=== PATIENT | female | born 1985 | race Caucasian/White ===

== ENCOUNTER 2021-10-26 18:07 | Emergency (ER) | payer MEDICAID, SELFPAY ==
[2021-10-26 18:24] VITALS: BP 153/100; PULSE 89; RESP 18; TEMP 37.1; O2SAT 96; BMI 40.4
--- NOTE | 2021-10-26 18:59 | ED.WEAKNESS ---
HPI - Weakness General Time Seen by Provider: 18:45 Date Seen: 10/26/21 Chief complaint: Weakness Stated complaint: Possible Heat Exhaustion Time Seen by Provider: 10/26/21 18:47 Source: patient and RN notes reviewed Mode of arrival: ambulatory Limitations: no limitations History of Present Illness HPI Narrative: Melissa is a very pleasant 36-year-old female with a history of ankylosing spondylitis as well as medication induced lupus who comes to the emergency room stating ?I think I have heat exhaustion?. Patient notes the onset of a headache feeling weak and feeling very hot this evening. She states yesterday she was out for an extended period of time and got sunburn and then today had to be out doing errands in the heat as well as cooking on the grill. She notes that earlier today she also had some stomach cramping but no diarrhea or fever that she knows of. She denies a runny nose sore throat for any recent exposures to COVID strep per other illness. She does not think that her headache is better. Brother gave her some Gatorade 0 but it has not helped. She notes that she is very tired. Related Data Home Medications Medication Instructions Recorded Confirmed amlodipine 5 mg tablet mg 10/26/21 clonazepam 0.5 mg tablet mg 10/26/21 duloxetine 30 mg capsule,delayed mg PO 10/26/21 release trazodone 50 mg tablet mg 10/26/21 Allergies Allergy/AdvReac Type Severity Reaction Status Date / Time caffeine [From Cafergot] Allergy Severe Anaphylaxis Verified 10/26/21 19:24 ergotamine [From Cafergot] Allergy Severe Anaphylaxis Verified 10/26/21 19:24 ketorolac [From Toradol] Allergy Mild Headache Verified 10/26/21 19:24 lamotrigine [From Lamictal] Allergy rash Verified 10/26/21 19:24 Penicillins Allergy Anaphylaxis Verified 10/26/21 19:24 sumatriptan Allergy Anaphylaxis Verified 10/26/21 19:24 Review of Systems Status of ROS: Reports: 10 or more systems reviewed and unremarkable except as noted in History and below Const: Reports: fatigue; Denies: fever Eyes: Denies: change in vision ENMT: Denies: throat pain or difficulty swallowing Cardio: Denies: chest pain, palpitations, swelling of feet/ankles or shortness of breath with exertion Resp: Denies: shortness of breath or cough GI: Reports: abdominal pain (Described as cramping. Intermittent.); Denies: difficulty swallowing : Denies: painful urination or urinary frequency Musculo: Denies: back pain Integ/Breast: Reports: other (Sunburn) Neuro: Reports: headache; Denies: numbness in extremities or weakness in extremities Endo: Reports: fatigue; Denies: excessive urination PFSH PFSH Social History Smoking Status: Current every day smoker What tobacco products do you use: cigarettes Do you use any of these nicotine containing products: None Second hand tobacco smoke exposure: No How often do you have a drink containing alcohol: never AUDIT-C Alcohol total score: 0 Non-prescribed substance use: denies use service: No Exam Narrative: Exam Narrative: Past medical history: Ankylosing spondylitis Medication induced lupus Family history: Mother with congestive heart failure Father with diabetes and hypertension Social history: Patient does use cigarettes. She is advised to abstain. No alcohol use No drug use Const: Vital Signs, click to edit/add: Vital Signs - 24 hr 10/26/21 18:24 Temperature 98.8 F Pulse Rate [Left P ulse Oximeter] 89 Respiratory Rate 18 Blood Pressure [Le ft Upper Arm] 153/100 H Pulse Oximetry 96 Documenting provider has reviewed patient's vital signs: yes Common normals: no apparent distress, oriented x3 and no limitations General appearance: cooperative Nutritional appearance: overweight Other: Seems very fatigued but she is nontoxic in appearance. HENMT: Common normals: normocephalic, head/scalp atraumatic and external ears normal Head and scalp: normocephalic and atraumatic Face and sinus: normal facial exam External ear: external ears normal Mouth: oral and palatal mucosa normal and tongue normal Throat: posterior oropharynx normal Eye: Common normals: PERRL and conjunctivae normal General eye: normal appearance of both eyes Conjunctiva: conjunctiva(e) normal Pupil: PERRL Neck & C-Spine: Common normals: full ROM, no lymphadenopathy and supple Cervical spine: cervical ROM normal Lymph: Lymphatic: no lymphadenopathy noted Resp: Common normals: normal respiratory effort and clear to auscultation bilaterally Effort & inspection: able to speak in complete sentences Auscultation: clear to auscultation bilaterally Cardio: Common normals: regular rate and regular rhythm Rate: regular rate Rhythm: regular rhythm GI: Common normals: soft to palpation Palpation: soft and tender (Mild and rather diffuse. No rebound tenderness. ) Details: not RLQ, not RUQ and not McBurney's point Rectal Exam - Female: deferred Extremity: Common normals: normal to inspection Neuro: Ally Coma Scale: document GCS findings Ally coma scale eye opening: Spontaneous (4) Ally coma scale verbal response: Orientated (5) [place] coma scale motor response: Obey commands (6) [place] coma scale total score: 15 Common normals: oriented x3 Speech: speech normal Pupil exam: Normal pupillary reactivity/response: bilateral Psych: Common normals: mental status grossly normal Skin: Narrative: 1st degree sunburn noted on face upper chest shoulders and lower extremities. No evidence of blistering. Course Course Hospital Course: At this time patient presents to the ED complaining of post possible heat exhaustion. Her temperature is normal and she is not tachycardic. I am wondering if there is an alternative reason for her feeling this way. She has agreed to have blood drawn, IV fluids given along with Zofran for nausea. CBC, basic panel, urinalysis, COVID test are all currently pending. Reevaluation(s) Reevaluation #1: Patient is noted to be feeling much improved after 1 L of normal saline as well as Zofran 4 mg IV. Laboratory values reassuring at this time with a normal white count. Potassium is slightly low at 3.3. Urinalysis also shows hematuria. No significant evidence of white cells. Patient has no symptoms at this time. She tells me that since she had the Mirena put in she occasionally has spotting. Time: 20:50 Vital Signs Vital signs: Initial Vital Signs Temperature 98.8 F 10/26/21 18:24 Temperature Source Temporal Artery Scan 10/26/21 18:24 Pulse Rate 89 10/26/21 18:24 Respiratory Rate 18 10/26/21 18:24 Blood Pressure 153/100 H 10/26/21 18:24 Blood Pressure Mean 117 10/26/21 18:24 Blood Pressure Position Sitting 10/26/21 18:24 Pulse Oximetry 96 10/26/21 18:24 Oxygen Delivery Method 10/26/21 18:24 Vital Signs Temperature 98.8 F 10/26/21 18:24 Pulse Rate 89 10/26/21 18:24 Respiratory Rate 18 10/26/21 18:24 Blood Pressure 153/100 H 10/26/21 18:24 Pulse Oximetry 96 10/26/21 18:24 Temperature 98.8 F 10/26/21 18:24 Pulse Rate 89 10/26/21 18:24 Respiratory Rate 18 10/26/21 18:24 Blood Pressure 153/100 H 10/26/21 18:24 Pulse Oximetry 96 10/26/21 18:24 MDM - Weakness MDM Narrative Medical decision making narrative: 1. Dehydration-patient feeling much better. I do not think she had heat exhaustion but I do think she had heat related symptoms. She is advised to push fluids and rest. 2. Mild hypokalemia-patient has a potassium of 3.3. Would ask her to increase her potato or banana intake. 3. Asymptomatic hematuria-patient notes occasional spotting so from her more Rhonda. She is a smoker and therefore I do ask her to follow up with her primary MD for a repeat urinalysis to ensure complete resolution of hematuria. 4. Disposition-patient is discharged home. Medical Records Attestation: I reviewed the patient's medical records. Lab Data Attestation: I reviewed the patient's lab results. Labs: Lab Results 10/26/21 10/26/21 10/26/21 Range/Units 19:14 19:15 19:18 WBC 8.82 (4.50-11.00) K/uL RBC 4.70 (4.00-5.20) m/uL Hgb 13.9 (12.0-16.0) gm/dL Hct 40.8 (33.0-51.0) % MCV 87 (80-100) fL MCH 30 (26-34) pg MCHC 34 (32-36) gm/dL RDW Coeff of Compa 12.6 (11.5-15.5) % Plt Count 209 (140-440) K/uL Neut % (Auto) 44.9 (42.0-72.0) % Lymph % (Auto) 45.9 H (20-44) % [place] % (Auto) 6.8 (0.0-11.0) % Eos % (Auto) 1.6 (0.0-7.0) % Baso % (Auto) 0.7 (0.0-3.0) % Neut # (Auto) 3.96 (1.7-7.0) K/uL Lymph # (Auto) 4.00 H (0.90-2.90) K/uL [place] # (Auto) 0.60 (0.00-0.90) K/UL Eos # (Auto) 0.14 (0.00-0.50) K/uL Baso # (Auto) 0.06 (0.00-0.30) K/uL Abs Immat Gran (auto) 0.01 (0.00-0.30) K/uL Sodium (135-149) mmol/L Potassium (3.6-5.1) mmol/L Chloride (96-114) mmol/L Carbon Dioxide (20-32) mmol/L BUN (5-24) mg/dL Creatinine (0.5-1.5) mg/dL Estimated Creat Clear Estimated GFR ml/min Glucose (60-115) mg/dL Calcium (8.4-10.6) mg/dL Urine Color Yellow (Yellow) Urine Appearance Slightly Cloudy A (Clear) Urine pH 6.0 (5.0-8.5) Ur Specific [place] >= 1.030 (1.000-1.030) Urine Protein 1+ A (Negative) Urine Glucose (UA) Negative (Negative) Urine Ketones 1+ A (Negative) Urine Blood 3+ A (Negative) Urine Nitrite Negative (Negative) Urine Bilirubin 1+ A (Negative) Urine Urobilinogen 1.0 (0.2-1.0) Ur Leukocyte Esterase Negative (Negative) Urine RBC 50-100 A (0-2) Urine WBC 2-5 (0-5) Ur Squamous Epith Cells None (None-Few) Urine Bacteria None (None) SARS-CoV-2 (PCR) Negative SARS-CoV-2 (Negative) Influenza Type A (PCR) Negative PCR FLU A (Negative) Influenza Type B (PCR) Negative PCR FLU B (Negative) 10/26/21 Range/Units 19:20 WBC (4.50-11.00) K/uL RBC (4.00-5.20) m/uL Hgb (12.0-16.0) gm/dL Hct (33.0-51.0) % MCV (80-100) fL MCH (26-34) pg MCHC (32-36) gm/dL RDW Coeff of Compa (11.5-15.5) % Plt Count (140-440) K/uL Neut % (Auto) (42.0-72.0) % Lymph % (Auto) (20-44) % [place] % (Auto) (0.0-11.0) % Eos % (Auto) (0.0-7.0) % Baso % (Auto) (0.0-3.0) % Neut # (Auto) (1.7-7.0) K/uL Lymph # (Auto) (0.90-2.90) K/uL [place] # (Auto) (0.00-0.90) K/UL Eos # (Auto) (0.00-0.50) K/uL Baso # (Auto) (0.00-0.30) K/uL Abs Immat Gran (auto) (0.00-0.30) K/uL Sodium 140 (135-149) mmol/L Potassium 3.3 L (3.6-5.1) mmol/L Chloride 110 (96-114) mmol/L Carbon Dioxide 23 (20-32) mmol/L BUN 10 (5-24) mg/dL Creatinine 1.3 (0.5-1.5) mg/dL Estimated Creat Clear 57.08 Estimated GFR 55 ml/min Glucose 90 (60-115) mg/dL Calcium 8.8 (8.4-10.6) mg/dL Urine Color (Yellow) Urine Appearance (Clear) Urine pH (5.0-8.5) Ur Specific [place] (1.000-1.030) Urine Protein (Negative) Urine Glucose (UA) (Negative) Urine Ketones (Negative) Urine Blood (Negative) Urine Nitrite (Negative) Urine Bilirubin (Negative) Urine Urobilinogen (0.2-1.0) Ur Leukocyte Esterase (Negative) Urine RBC (0-2) Urine WBC (0-5) Ur Squamous Epith Cells (None-Few) Urine Bacteria (None) SARS-CoV-2 (PCR) (Negative) Influenza Type A (PCR) (Negative) Influenza Type B (PCR) (Negative) Discharge Plan Discharge Clinical Impression: Asymptomatic microscopic hematuria, Dehydration Patient Disposition: Home, Self-Care Condition: Improved Additional Instructions: Stay well hydrated and rest. Please follow-up with your primary MD to have a repeat urinalysis to ensure that there is resolution of the red blood cells in your urine. Return to the emergency room as needed. Prescriptions: No Action trazodone 50 mg tablet 0RF clonazepam 0.5 mg tablet 0RF amlodipine 5 mg tablet 0RF duloxetine 30 mg capsule,delayed release(DR/EC) PO 0RF Follow Up/Referrals: Vero Alvarez MD [Primary Care Provider] - Stand Alone Forms: [facility] [employer] Info Instructions
[2021-10-26] MEDS: 0.9 % SODIUM CHLORIDE 1000 ml 1,000 ML IV (19:24)
[2021-10-26] MEDS: ONDANSETRON 2 MG/ML inj 4 MG IVP (19:25)
[2021-10-26 19:35] LABS: Basophils Absolute Auto 0.06 K/uL (0.00-0.30); Basophils Percent Auto 0.7 % (0.0-3.0); Eosinophils Absolute Auto 0.14 K/uL (0.00-0.50); Eosinophils Percent Auto 1.6 % (0.0-7.0); Hematocrit 40.8 % (33.0-51.0); Hemoglobin* 13.9 gm/dL (12.0-16.0); Immature Granulocytes Abs Auto 0.01 K/uL (0.00-0.30); Lymphocytes Percent Auto 45.9 % (20-44); Mean Corpuscular HGB Conc 34 gm/dL (32-36); Mean Corpuscular Hemoglobin 30 pg (26-34); Mean Corpuscular Volume 87 fL (80-100); Monocytes Percent Auto 6.8 % (0.0-11.0); Neutrophils Absolute Auto 3.96 K/uL (1.7-7.0); Neutrophils Percent Auto 44.9 % (42.0-72.0); Platelet Count* 209 K/uL (140-440); RDW Coefficient of Variation % 12.6 % (11.5-15.5); White Blood Count* 8.82 K/uL (4.50-11.00)
[2021-10-26 19:40] LABS: Slide Review Reflex No
[2021-10-26 19:44] LABS: Appearance Urine Slightly Cloudy (Clear); Bilirubin Urine 1+ (Negative); Blood Urine 3+ (Negative); Color Urine Yellow (Yellow); Glucose Urine Negative (Negative); Ketones Urine 1+ (Negative); Leukocyte Esterase Urine Negative (Negative); Nitrite Urine Negative (Negative); Protein Urine 1+ (Negative); Specific Gravity Urine >= 1.030 (1.000-1.030)
[2021-10-26 19:51] LABS: Chloride* 110 mmol/L (96-114); Potassium* 3.3 mmol/L (3.6-5.1); Sodium* 140 mmol/L (135-149)
[2021-10-26 19:55] LABS: Blood Urea Nitrogen* 10 mg/dL (5-24); Calcium* 8.8 mg/dL (8.4-10.6); Carbon Dioxide* 23 mmol/L (20-32); Creatinine* 1.3 mg/dL (0.5-1.5); Est. Creatinine Clearance* 57.08; Estimated Glomerular Filt Rate 55 ml/min; Glucose* 90 mg/dL (60-115)
[2021-10-26 20:06] LABS: RBC Urine 50-100 (0-2)
[2021-10-26 20:14] LABS: PCR FLU A Negative PCR FLU A (Negative); PCR FLU B Negative PCR FLU B (Negative)
[2021-10-26 20:18] LABS: SARS PCR* Negative SARS-CoV-2 (Negative)
[2021-10-26 20:52] VITALS: BP 147/96; PULSE 79; RESP 16; O2SAT 96
== END 2021-10-26 20:58 | disposition home or self-care (01) ==
LOC: ED 20:56
PROVIDERS: Emergency Provider Family Medicine; PCP Family Medicine
DX: R31.9 Hematuria, unspecified (principal); E86.0 Dehydration
CPT/HCPCS: 36415; 80048; 81003; 81015; 85025; 87502; 87635; 96374; 99283; J2405; J7030

== ENCOUNTER 2021-11-05 18:04 | Outpatient (CLI) | payer MEDICAID, SELFPAY | END 2021-11-05 18:05 | disposition home or self-care (01) | LOC: AMB 11-26 14:37 | PROVIDERS: PCP Family Medicine; Visit Provider Emergency Medicine | DX: R10.9 Unspecified abdominal pain (principal) | CPT/HCPCS: A0425; A0427 ==

== ENCOUNTER 2021-11-05 18:25 | Emergency (ER) | payer MEDICAID, SELFPAY ==
[2021-11-05 18:36] VITALS: BP 185/96; PULSE 68; RESP 18; TEMP 36.3; O2SAT 94; BMI 411.6
--- NOTE | 2021-11-05 19:17 | CRLHL7_ITS ---
For Patients: As a result of the Century Cures Act, medical imaging exams and procedure reports are released immediately into your electronic medical record. You may view this report before your referring provider. If you have questions, please contact your health care provider. INDICATION: Right upper abdominal pain. TECHNIQUE: CT abdomen and pelvis with intravenous contrast, 125 mL of Isovue-370. Coronal and sagittal formats. COMPARISON: CT 11/03/2021. FINDINGS: The imaged lower chest is unremarkable. Normal liver contour. Diffuse hepatic steatosis. No suspicious hepatic lesion. The portal and hepatic veins are patent. Gallbladder surgically absent. Redemonstrated are multiple small gallstones along the gallbladder fossa (series 2, images 42-49). No biliary dilatation. The pancreas, spleen, and adrenals are unremarkable. Symmetric renal enhancement. Small renal cortical cysts bilaterally, left greater than right. No hydronephrosis bilaterally. Unremarkable bladder. Neutrally oriented uterus with IUD in place. Trace free fluid in the pelvic cul-de-sac as well as a couple of tiny rounded calcifications (series 2, images 126-128), suspicious for ectopic gallstones. The bowel appears normal in caliber and enhancement diffusely. No pneumoperitoneum, focal collection, or lymphadenopathy. The abdominal aorta and major branch vessels are patent and normal caliber. No suspicious osseous lesion. IMPRESSION: 1. No acute findings or CT correlate for right upper quadrant pain definitively identified. 2. Redemonstrated postsurgical changes of cholecystectomy. Multiple small gallstones are redemonstrated along the gallbladder fossa, as well as a couple of possible ectopic gallstones within the pelvic cul-de-sac. 3. No biliary dilatation or postoperative collection. Dictated by Aleksandar Wanrer MD @ 11/05/2021 9:25:34 PM Please note that all CT scans at this facility use dose modulation, iterative reconstruction, and/or weight-based dosing when appropriate to reduce radiation dose to as low as reasonably achievable. Dictated by: Aleksandar Warner MD @ 11/05/2021 21:25:41 (Electronically Signed)
--- NOTE | 2021-11-05 19:20 | CRLHL7_ITS ---
For Patients: As a result of the Century Cures Act, medical imaging exams and procedure reports are released immediately into your electronic medical record. You may view this report before your referring provider. If you have questions, please contact your health care provider. INDICATION: Abdominal pain. TECHNIQUE: Ultrasound abdomen limited. Sonographic images of the right upper quadrant were obtained using dunn-scale and color Doppler images. COMPARISON: Multiple priors, most recent right upper quadrant abdominal ultrasound dated 11/04/2021. FINDINGS: Liver: Increased echogenicity of the liver parenchyma. Bile ducts: Intrahepatic bile ducts are not dilated. The common bile duct measures 0.5 cm. Gallbladder: Surgically absent. Pancreas: Pancreas is poorly visualized secondary to acoustic shadowing from overlying/adjacent bowel gas. Right kidney: The right kidney measures 11.3 cm in length. No renal calculi or significant hydronephrosis is identified. IMPRESSION: 1. Postcholecystectomy. No biliary duct dilation. 2. Diffuse hepatic steatosis. Dictated by Dakotah Bullock MD @ 11/05/2021 8:29:21 PM (Electronically Signed)
[2021-11-05] MEDS: 0.9 % SODIUM CHLORIDE 500 ML 500 ML IV (19:28)
[2021-11-05] MEDS: ONDANSETRON 2 MG/ML inj 4 MG IVP (19:28)
[2021-11-05] MEDS: MORPHINE 4 MG/ML INJ IVP (19:29)
[2021-11-05 19:30] VITALS: BP 178/113; PULSE 75; O2SAT 97
--- NOTE | 2021-11-05 19:30 | ED.NURSE ---
Lab in with patient for draw. Medications per order, see eMAR. Pain 10/ per patient.
[2021-11-05 19:36] LABS: Lactate* 0.7 mmol/L (0.5-1.9)
--- NOTE | 2021-11-05 19:36 | ED_ITS ---
HPI - Abdominal Pain General Time Seen by Provider: 19:20 Date Seen: 11/05/21 Chief Complaint: Abdominal Pain Stated Complaint: Abdominal pain Time Seen by Provider: 11/05/21 18:51 Source: patient and RN notes reviewed Mode of arrival: ambulatory Limitations: no limitations History of Present Illness HPI narrative: This 36-year-old female is coming in with severe right-sided abdominal pain. She states it comes epigastric wraps around the side in into the upper back. It started 2 days ago. She went to [address] twice for this. She states the 1st time she was told she had retained stones in her common bile duct in that GI would call her. She went back with the pain and they did an ultrasound and states there is no retained stones. She states she was sent out. The pain is continued and has worsened. There is no respiratory component with that, no cough, no fevers chills, no cold symptoms, no palpitations. She has had nausea vomiting but no diarrhea. She states she is actively being treated for UTI starting today but does not remember the medicine. She had her gallbladder out January of 2021. Patient states there is no chance of as she has an IUD and has not been sexually active for some time. MD elicited complaint: abdominal pain Related Data Home Medications Medication Instructions Recorded Confirmed amlodipine 5 mg tablet mg 10/26/21 clonazepam 0.5 mg tablet mg 10/26/21 duloxetine 30 mg capsule,delayed mg PO 10/26/21 release trazodone 50 mg tablet mg 10/26/21 Allergies Allergy/AdvReac Type Severity Reaction Status Date / Time caffeine [From Cafergot] Allergy Severe Anaphylaxis Verified 10/26/21 19:24 ergotamine [From Cafergot] Allergy Severe Anaphylaxis Verified 10/26/21 19:24 ketorolac [From Toradol] Allergy Mild Headache Verified 10/26/21 19:24 lamotrigine [From Lamictal] Allergy rash Verified 10/26/21 19:24 Penicillins Allergy Anaphylaxis Verified 10/26/21 19:24 sumatriptan Allergy Anaphylaxis Verified 10/26/21 19:24 Review of Systems Status of ROS Reports: 10 or more systems reviewed and unremarkable except as noted in History and below [facility] Social History Smoking Status: Current every day smoker What tobacco products do you use: cigarettes Do you use any of these nicotine containing products: None Second hand tobacco smoke exposure: No How often do you have a drink containing alcohol: never AUDIT-C Alcohol total score: 0 Non-prescribed substance use: denies use service: No Exam Const: Vital Signs, click to edit/add: Vital Signs - 24 hr 11/05/21 18:36 11/05/21 19:30 11/05/21 20:00 Temperature 97.4 F L Pulse Rate [Right Pulse Oximeter] 68 75 58 L Respiratory Rate 18 Blood Pressure [Le ft Upper Arm] 185/96 H 178/113 H 192/96 H Pulse Oximetry 94 97 98 Documenting provider has reviewed patient's vital signs: yes Common normals: oriented x3, healthy appearing, alert and well nourished General appearance: cooperative and in distress moderate (Crying due to pain) Nutritional appearance: overweight HENMT: Common normals: normocephalic, head/scalp atraumatic, hearing grossly normal bilaterally, external ears normal, external nose normal, nasal mucous membranes and turbinates normal, moist oral mucous membranes, oropharynx normal and dentition normal Head and scalp: normocephalic and atraumatic Nose: external nose normal and nasal mucous membranes and turbinates normal External ear: external ears normal Eye: Common normals: PERRL, EOMs intact bilaterally, conjunctivae normal and no scleral icterus Conjunctiva: conjunctiva(e) normal Pupil: PERRL Neck & C-Spine: Common normals: full ROM, no lymphadenopathy, supple, no meningeal signs, no JVD and thyroid normal Thyroid: thyroid normal Resp: Common normals: normal respiratory effort, no retractions, no use of accessory muscles and clear to auscultation bilaterally Auscultation: clear to auscultation bilaterally Cardio: Common normals: no JVD, regular rate, regular rhythm, S1 normal heart sound, S2 normal heart sound, no gallops, no clicks and no murmurs Rate: regular rate Rhythm: regular rhythm Heart sounds: S1 normal and S2 normal GI: Common normals: Normal to inspection, nondistended, normoactive bowel sounds present, soft to palpation, no hepatosplenomegaly and no masses Palpation: soft, tender Details: epigastric and RUQ and no hepatosplenomegaly Extremity: Common normals: normal to inspection, full ROM, normal capillary refill, no joint enlargement, no clubbing, cyanosis or edema and no calf tenderness Neuro: Common normals: oriented x3 Sensorium/orientation: alert Meningeal signs: no meningeal signs Course Reevaluation(s) Reevaluation #1: Patient is crying in pain. I was just going in to see her with her normal ultrasound report minus hepatic steatosis and her normal CT report. There are gallstones in the gallbladder fossa which I have subsequently reviewed with my surgeon. The skin spill out during removal. There is no fluid around them, no evidence of infection and per my surgeon are very unlikely to be symptomatic. She stated she typically would not go back after them as it can be very problematic. Patient and I reviewed Toradol. Oral Toradol gives her headache but she states she can not tolerate IV. Have discussed with her that it is difficult to give narcotics if we do not know what were treating, we certainly do not want to mask anything. She is wondering if this could be or bowels. Reviewed with her that there is nothing showing on the CT. However with that said I would not think that doing an EGD next would be inappropriate. She may have atypical presentation of GI pathology. I also discussed with her other etiologies could be musculoskeletal. A stretch maybe prodromal shingles but we certainly do not see a rash. At this time I have agreed to give her 30 mg IV Toradol, 2.5 mg IV Zyprexa and 80 mg IV Protonix. She states she has a follow- up appointment with her primary care provider tomorrow at 10:00 a.m. and I have advised her to keep that. I did look her up on [place] prescribing web site and it looks like she had narcotics in the month January last year but they do not see anything subsequent after that. I do not have a good reason for her abdominal pain and do think she needs further evaluation but there is nothing emergently for me to do here tonight. She may need referral to a surgeon. She however does not need emergent surgery. Time: 22:00 Vital Signs Vital signs: Initial Vital Signs Temperature 97.4 F L 11/05/21 18:36 Temperature Source Temporal Artery Scan 11/05/21 18:36 Pulse Rate 68 11/05/21 18:36 Respiratory Rate 18 11/05/21 18:36 Blood Pressure 185/96 H 11/05/21 18:36 Blood Pressure Mean 125 11/05/21 18:36 Blood Pressure Position Sitting 11/05/21 18:36 Pulse Oximetry 94 11/05/21 18:36 Oxygen Delivery Method 11/05/21 18:36 Vital Signs Temperature 97.4 F L 11/05/21 18:36 Pulse Rate 68 11/05/21 18:36 Respiratory Rate 18 11/05/21 18:36 Blood Pressure 185/96 H 11/05/21 18:36 Pulse Oximetry 94 11/05/21 18:36 Temperature 97.4 F L 11/05/21 18:36 Pulse Rate 58 L 11/05/21 20:00 Respiratory Rate 18 11/05/21 18:36 Blood Pressure 192/96 H 11/05/21 20:00 Pulse Oximetry 98 11/05/21 20:00 MDM - Abdominal Pain Lab Data Attestation: I reviewed the patient's lab results. Labs: Lab Results 11/05/21 11/05/21 11/05/21 Range/Units 19:30 19:30 19:30 WBC 12.20 H (4.50-11.00) K/uL RBC 5.16 (4.00-5.20) m/uL Hgb 15.2 (12.0-16.0) gm/dL Hct 44.1 (33.0-51.0) % MCV 86 (80-100) fL MCH 30 (26-34) pg MCHC 35 (32-36) gm/dL RDW Coeff of Compa 12.6 (11.5-15.5) % Plt Count 220 (140-440) K/uL Neut % (Auto) 56.0 (42.0-72.0) % Lymph % (Auto) 34.9 (20-44) % Bell % (Auto) 7.5 (0.0-11.0) % Eos % (Auto) 1.1 (0.0-7.0) % Baso % (Auto) 0.4 (0.0-3.0) % Neut # (Auto) 6.80 (1.7-7.0) K/uL Lymph # (Auto) 4.30 H (0.90-2.90) K/uL Bell # (Auto) 0.90 (0.00-0.90) K/UL Eos # (Auto) 0.10 (0.00-0.50) K/uL Baso # (Auto) 0.00 (0.00-0.30) K/uL Abs Immat Gran (auto) 0.01 (0.00-0.30) K/uL ESR 2 (2-20) mm/hr Sodium 138 (135-149) mmol/L Potassium 3.2 L (3.6-5.1) mmol/L Chloride 108 (96-114) mmol/L Carbon Dioxide 22 (20-32) mmol/L BUN 8 (5-24) mg/dL Creatinine 1.0 (0.5-1.5) mg/dL Estimated Creat Clear 74.21 Estimated GFR 76 ml/min Glucose 117 H (60-115) mg/dL Lactate (0.5-1.9) mmol/L Calcium 8.9 (8.4-10.6) mg/dL Total Bilirubin 0.4 (0.1-1.5) mg/dL AST 42 H (12-35) U/L ALT 68 H (4-35) U/L Alkaline Phosphatase 70 (40-150) U/L C-Reactive Protein < 0.5 L (0.5-1.0) mg/dL Total Protein 7.6 (6.0-8.3) g/dL Albumin 4.5 (3.3-5.0) g/dL Lipase 230 (23-300) U/L Urine Color (Yellow) Urine Appearance (Clear) Urine pH (5.0-8.5) Ur Specific [place] (1.000-1.030) Urine Protein (Negative) Urine Glucose (UA) (Negative) Urine Ketones (Negative) Urine Blood (Negative) Urine Nitrite (Negative) Urine Bilirubin (Negative) Urine Urobilinogen (0.2-1.0) Ur Leukocyte Esterase (Negative) Urine RBC (0-2) Urine WBC (0-5) Ur Squamous Epith Cells (None-Few) Amorphous Sediment (None) Urine Bacteria (None) 11/05/21 11/05/21 Range/Units 19:30 20:41 WBC (4.50-11.00) K/uL RBC (4.00-5.20) m/uL Hgb (12.0-16.0) gm/dL Hct (33.0-51.0) % MCV (80-100) fL MCH (26-34) pg MCHC (32-36) gm/dL RDW Coeff of Compa (11.5-15.5) % Plt Count (140-440) K/uL Neut % (Auto) (42.0-72.0) % Lymph % (Auto) (20-44) % Bell % (Auto) (0.0-11.0) % Eos % (Auto) (0.0-7.0) % Baso % (Auto) (0.0-3.0) % Neut # (Auto) (1.7-7.0) K/uL Lymph # (Auto) (0.90-2.90) K/uL Bell # (Auto) (0.00-0.90) K/UL Eos # (Auto) (0.00-0.50) K/uL Baso # (Auto) (0.00-0.30) K/uL Abs Immat Gran (auto) (0.00-0.30) K/uL ESR (2-20) mm/hr Sodium (135-149) mmol/L Potassium (3.6-5.1) mmol/L Chloride (96-114) mmol/L Carbon Dioxide (20-32) mmol/L BUN (5-24) mg/dL Creatinine (0.5-1.5) mg/dL Estimated Creat Clear Estimated GFR ml/min Glucose (60-115) mg/dL Lactate 0.7 (0.5-1.9) mmol/L Calcium (8.4-10.6) mg/dL Total Bilirubin (0.1-1.5) mg/dL AST (12-35) U/L ALT (4-35) U/L Alkaline Phosphatase (40-150) U/L C-Reactive Protein (0.5-1.0) mg/dL Total Protein (6.0-8.3) g/dL Albumin (3.3-5.0) g/dL Lipase (23-300) U/L Urine Color Yellow (Yellow) Urine Appearance Cloudy A (Clear) Urine pH 7.0 (5.0-8.5) Ur Specific [place] 1.020 (1.000-1.030) Urine Protein 1+ A (Negative) Urine Glucose (UA) Negative (Negative) Urine Ketones Negative (Negative) Urine Blood 1+ A (Negative) Urine Nitrite Negative (Negative) Urine Bilirubin Negative (Negative) Urine Urobilinogen 0.2 (0.2-1.0) Ur Leukocyte Esterase Negative (Negative) Urine RBC 0-2 (0-2) Urine WBC 2-5 (0-5) Ur Squamous Epith Cells None (None-Few) Amorphous Sediment Moderate A (None) Urine Bacteria None (None) Imaging Data US - abdomen: Attestation: I have reviewed the pertinent imaging results. Radiologist's impression: Patient: IMTIAZ LAGUERRE Facility:?[facility] Patient ID:?[id number] Site Patient ID:?[id number]. Site :?[id number] Study:?US Abdomen RUQ-11/05/2021 8:09:56 PM Ordering Physician:Jamar López Final Report: INDICATION: Abdominal pain. TECHNIQUE: Ultrasound abdomen limited. Sonographic images of the right upper quadrant were obtained using dunn-scale and color Doppler images. COMPARISON: Multiple priors, most recent right upper quadrant abdominal ultrasound dated 11/04/2021. FINDINGS: Liver: Increased echogenicity of the liver parenchyma. Bile ducts: Intrahepatic bile ducts are not dilated. The common bile duct measures 0.5 cm. Gallbladder: Surgically absent. Pancreas: Pancreas is poorly visualized secondary to acoustic shadowing from overlying/adjacent bowel gas. Right kidney: The right kidney measures 11.3 cm in length. No renal calculi or significant hydronephrosis is identified. IMPRESSION: 1. Postcholecystectomy. No biliary duct dilation. 2. Diffuse hepatic steatosis. Dictated by Dakotah Bullock MD @ 11/05/2021 8:29:21 PM (Electronic Signature) CT scan - abdomen: Attestation: I have reviewed the pertinent imaging results. Radiologist's impression: Patient: IMTIAZ LAGUERRE Facility: [facility] Site . Site : 1985 Study: CT Abdomen/Pelvis W/125CC ISOVUE 370-11/05/2021 8:49:35 PM Ordering Physician: Fleicia López Final Report: INDICATION: Right upper abdominal pain. TECHNIQUE: CT abdomen and pelvis with intravenous contrast, 125 mL of Isovue-370. Coronal and sagittal formats. COMPARISON: CT 11/03/2021. FINDINGS: The imaged lower chest is unremarkable. Normal liver contour. Diffuse hepatic steatosis. No suspicious hepatic lesion. The portal and hepatic veins are patent. Gallbladder surgically absent. Redemon strated are multiple small gallstones along the gallbladder fossa (series 2, images 42-49). No biliary dilatation. The pancreas, spleen, and adrenals are unremarkable. Symmetric renal enhancement. Small renal cortical cysts bilaterally, left greater than right. No hydronephrosis bilaterally. Unremarkable bladder. Neutrally oriented uterus with IUD in place. Trace free fluid in the pelvic cul-de-sac as well as a couple of tiny rounded calcifications (series 2, images 126-128), suspicious for ectopic gallstones. The bowel appears normal in caliber and enhancement diffusely. No pneumoperitoneum, focal collection, or lymphadenopathy. The abdominal aorta and major branch vessels are patent and normal caliber. No suspicious osseous lesion. IMPRESSION: 1. No acute findings or CT correlate for right upper quadrant pain definitively identified. 2. Redemonstrated postsurgical changes of cholecystectomy. Multiple small gallstones are redemonstrated along the gallbladder fossa, as well as a couple of possible ectopic gallstones within the pelvic cul-de-sac. 3. No biliary dilatation or postoperative collection. Dictated by Aleksandar Warner MD @ 11/05/2021 9:25:34 PM Please note that all CT scans at this facility use dose modulation, iterative reconstruction, and/or weight-based dosing when appropriate to reduce radiation dose to as low as reasonably achievable. Dictated by: Aleksandar Warner MD @ 11/05/2021 21:25:41 (Electronic Signature) Critical Care Time Critical Care Time Critical Care Time: No Discharge Plan Discharge Clinical Impression: Right upper quadrant abdominal pain, Epigastric abdominal pain, Status post cholecystectomy Patient Disposition: Home, Self-Care Condition: Stable Instructions: Acute Abdominal Pain (ED) Additional Instructions: Need to see her primary care provider in the morning. You may need further studies such as an EGD, consideration of other etiologies like musculoskeletal causes of pain. She you notice a rash develop in this distribution, this could be shingles and you should seek re-evaluation for antiviral treatment. Recommend going home and trying to sleep. It is essential that you keep your appointment in the morning with your primary care provider for further workup and planning of your abdominal pain. There is nothing else that I can provide you emergently as far [facility] Activity Level: Activity as Tolerated Prescriptions: No Action trazodone 50 mg tablet 0RF clonazepam 0.5 mg tablet 0RF amlodipine 5 mg tablet 0RF duloxetine 30 mg capsule,delayed release(DR/EC) PO 0RF Follow Up/Referrals: Vero Alvarez MD [Primary Care Provider] - Stand Alone Forms: [employer] Info Instructions
[2021-11-05 19:37] LABS: Basophils Percent Auto 0.4 % (0.0-3.0); Eosinophils Percent Auto 1.1 % (0.0-7.0); Hematocrit 44.1 % (33.0-51.0); Hemoglobin* 15.2 gm/dL (12.0-16.0); Immature Granulocytes Abs Auto 0.01 K/uL (0.00-0.30); Lymphocytes Percent Auto 34.9 % (20-44); Mean Corpuscular HGB Conc 35 gm/dL (32-36); Mean Corpuscular Hemoglobin 30 pg (26-34); Mean Corpuscular Volume 86 fL (80-100); Monocytes Percent Auto 7.5 % (0.0-11.0); Platelet Count* 220 K/uL (140-440); RDW Coefficient of Variation % 12.6 % (11.5-15.5); Red Blood Count 5.16 m/uL (4.00-5.20)
[2021-11-05 19:40] LABS: Slide Review Reflex No
[2021-11-05 19:52] LABS: Albumin* 4.5 g/dL (3.3-5.0); Chloride* 108 mmol/L (96-114); Potassium* 3.2 mmol/L (3.6-5.1); Sodium* 138 mmol/L (135-149)
[2021-11-05 19:54] LABS: Est. Creatinine Clearance* 74.21; Estimated Glomerular Filt Rate 76 ml/min
[2021-11-05 19:55] LABS: Alanine Aminotransferase* 68 U/L (4-35); Alkaline Phosphatase* 70 U/L (40-150); Aspartate Amino Transferase* 42 U/L (12-35); Bilirubin Total* 0.4 mg/dL (0.1-1.5); Blood Urea Nitrogen* 8 mg/dL (5-24); Carbon Dioxide* 22 mmol/L (20-32); Glucose* 117 mg/dL (60-115); Lipase* 230 U/L (23-300); Total Protein* 7.6 g/dL (6.0-8.3)
[2021-11-05 19:56] LABS: Calcium* 8.9 mg/dL (8.4-10.6)
[2021-11-05 19:58] LABS: C Reactive Protein* < 0.5 mg/dL (0.5-1.0)
[2021-11-05 20:00] VITALS: BP 192/96; PULSE 58; O2SAT 98
[2021-11-05 20:31] LABS: Erythrocyte SedimentationRate* 2 mm/hr (2-20)
[2021-11-05 20:50] LABS: Appearance Urine Cloudy (Clear); Bilirubin Urine Negative (Negative); Blood Urine 1+ (Negative); Color Urine Yellow (Yellow); Glucose Urine Negative (Negative); Ketones Urine Negative (Negative); Leukocyte Esterase Urine Negative (Negative); Nitrite Urine Negative (Negative); Protein Urine 1+ (Negative); Urobilinogen Urine 0.2 (0.2-1.0)
[2021-11-05 21:03] LABS: Amorphous Sediment Urine Moderate; RBC Urine 0-2 (0-2)
[2021-11-05] MEDS: PANTOPRAZOLE SODIUM 40 MG INJ 80 MG IVP (22:45)
[2021-11-05] MEDS: OLANZapine 5 MG/ML inj 2.5 MG IVP (22:50)
[2021-11-05 22:55] VITALS: TEMP 36.7
[2021-11-05] MEDS: KETOROLAC 30 MG/ML inj IVP (22:55)
[2021-11-05 23:31] VITALS: BP 178/74; PULSE 68; RESP 18; TEMP 36.7; O2SAT 98
== END 2021-11-05 23:31 | disposition home or self-care (01) ==
PROVIDERS: Emergency Provider Family Medicine; PCP Family Medicine
DX: R10.11 Right upper quadrant pain (principal); R10.13 Epigastric pain
CPT/HCPCS: 36415; 74177; 76705; 80053; 81001; 83605; 83690; 85025; 85651; 86140; 96374; 96375; 99284; 99285; C9113; J1885; J2270; J2405; J7120; Q9967; S0166

== ENCOUNTER 2021-11-06 11:52 | Observation (INO) | payer MEDICAID, SELFPAY ==
[2021-11-06 12:26] VITALS: BP 118/84; PULSE 78; RESP 16; TEMP 36.8; O2SAT 98; BMI 39.5
[2021-11-06 13:22] LABS: SARS PCR* Negative SARS-CoV-2 (Negative)
--- NOTE | 2021-11-06 13:45 | PC.NURSE ---
Shift Summary: Patient arrived around noon to floor. Alert and oriented, up independently. IV placed in left forearm by ELIOT Mckinley. Vitals WNL, lung sounds clear. Patient rates pain 5/10 but states its tolerable at this time. No grimacing, moaning or guarding noted. Patient appears comfortable in bed at this time. Denies nausea but reports poor appetite.
--- NOTE | 2021-11-06 13:47 | CRLHL7_ITS ---
For Patients: As a result of the Cures Act, medical imaging exams and procedure reports are released immediately into your electronic medical record. You may view this report before your referring provider. If you have questions, please contact your health care provider. Indication: Right upper quadrant pain Technique: Dedicated thin and thick slab MRCP obtained Comparison: CT dated 11/05/2021, 11/03/2021, and 01/23/2021. Findings: Cholecystectomy change. Trace postoperative fluid/edema in the gallbladder fossa similar to recent priors. A tiny 16 mm fluid signal structure seen on image 20, series 9 in the gallbladder fossa appears to communicate with the cystic duct and may represent subtotal cholecystectomy. On the recent prior (CT), a residual gallstone appears to be located within this remnant, although that is not definitely seen on this exam. Additional small draft gallstones are also not well seen. Severe diffuse hepatic steatosis. Hepatomegaly. No intra or extrahepatic biliary ductal dilatation. No obvious biliary strictures. No suspicious filling defects within the biliary system. The common bile duct measures 5 mm. No pancreatic ductal dilatation. Adrenal glands appear normal. No splenomegaly. Bilateral renal masses not well evaluated without contrast on this exam. Visualized bowel is nonobstructed. No ascites in the abdomen. No pleural effusions in the lung bases. Bone marrow signal appears unremarkable. Impression: 1. Cholecystectomy change. 2. Trace postoperative fluid/edema in the gallbladder fossa similar to recent priors. This is nonspecific but could represent peptic ulcer disease, duodenitis. 3. A tiny fluid signal structure seen in the gallbladder fossa appears to communicate with the cystic duct and may represent subtotal cholecystectomy. On the recent prior (CT), a residual gallstone appears to be located within this remnant, although that is not definitely seen on this exam. Additional small draft gallstones are also not well seen. Dictated by Grupo Fall MD @ 11/07/2021 11:26:34 AM (Electronically Signed)
[2021-11-06] MEDS: LACTATED RINGERS 1000 ML 1,000 ML 125 ML IV (14:27)
[2021-11-06] MEDS: HYDROmorphone 0.5 mg/0.5 ml inj IVP ×2 (14:31→18:11)
[2021-11-06 15:40] VITALS: BP 127/88; PULSE 75; RESP 16; TEMP 37; O2SAT 97
--- NOTE | 2021-11-06 16:50 | P.GSCN_ITS ---
History of Present Illness Consult details Consult date: 11/06/21 Narrative: The patient is a 36-year-old female who has had 2 days of epigastric and right upper quadrant pain. She was seen 3 days ago at [place] [address] for this issue. The pain started at her umbilicus. There labs were drawn and were normal except for ALT which was mildly elevated. CT scan done during that visit showed concern for retained common bile duct stones. Plan was made for referral to [facility]. She was also started on antibiotics for presumed UTI. Her culture returned negative however. She return to the emergency department the following evening and labs remained unchanged, and ultrasound was essentially normal. She did get a GI cocktail which did not help her symptoms. Her pain reportedly improved and she was discharged home with plans for possible MRCP if her symptoms worsened. She again presented to the emergency department at [facility] last evening. There, she had a repeat CT which again showed some small stones which were likely spilled from her surgery as opposed to within the bile duct There was no intra-abdominal fluid collection and Her C- reactive protein was less than 0.5, AST and ALT were mildly elevated at 42 and 68. Total bilirubin is 0.4. Lipase was normal at 230. White count was slightly elevated at 12,000 thousand though this was predominantly lymphocytes. She again had blood in her urine. COVID test was negative. I was called by the emergency department about these stones which were likely spilled at the time of surgery and are unlikely to be causing any symptoms since there is no fluid surrounding them. She was discharged with plan to follow-up with primary care provider and possible MRCP if her symptoms persisted. She presented today at her primary care provider's office and continued to have severe pain. The patient states that she cannot keep any food down because she has been vomiting. For this reason I recommended admission to the hospital for IV fluids, antiemetics and MRCP. She states that the pain began on Thursday at 6:00 a.m.. She woke with the pain it hurt to lay down. The pain was epigastric radiating to her right. She states this pain is worse than her gallbladder symptoms as well as prior kidney stones. She has had nausea and vomiting and has had been unable to eat. Her last bowel movement was Thursday which was normal. She states that she has had some GERD symptoms with this. She does take Tums as needed. She tried taking Mylanta but that did not help her symptoms. She has not had fevers. She has not had any dysuria. Review of Systems Status of ROS: Reports: 10 or more systems reviewed and unremarkable except as noted in History and below [facility] Medical History (Updated 11/06/21 @ 17:43 by Patrick Awad MD) Ankylosing spondylitis Anxiety Asthma Bipolar disorder Gastroesophageal reflux History of esophageal dilatation Low grade squamous intraepithelial lesion Migraine Nephrolithiasis Obesity OCD (obsessive compulsive disorder) Paroxysmal SVT (supraventricular tachycardia) Polycystic ovarian syndrome Psoriatic arthritis Surgical History (Updated 11/06/21 @ 17:02 by Rosa Llamas MD) H/O nasal septoplasty H/O wisdom tooth extraction S/P Status post cholecystectomy Status post colposcopy Status post laser lithotripsy of ureteral calculus Social History (Updated 11/06/21 @ 17:03 by Rosa Llamas MD) Narrative: 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 She reportedly recently quit smoking 4 days ago. Highest level of school completed/degree received: high school graduate Smoking Status: Current every day smoker What tobacco products do you use: cigarettes Do you use any of these nicotine containing products: None Second hand tobacco smoke exposure: No How often do you have a drink containing alcohol: never AUDIT-C Alcohol total score: 0 Non-prescribed substance use: denies use Caffeine: Yes (soda, energy drinks) service: No Meds Home Medications and Allergies Home Medications Medication Instructions Recorded Confirmed Type amlodipine 5 mg tablet 5 mg PO DAILY 10/26/21 11/06/21 History clonazepam 0.5 mg tablet 0.25 - 0.5 mg PO DAILY PRN 10/26/21 11/06/21 History duloxetine 30 mg capsule,delayed 30 mg PO HS 10/26/21 11/06/21 History release trazodone 50 mg tablet 50 mg PO HS 10/26/21 11/06/21 History albuterol sulfate 90 mcg/actuation 2 inh INHALATION Q4H PRN 11/06/21 11/06/21 History aerosol inhaler (Ventolin HFA) duloxetine 60 mg capsule,delayed 60 mg PO QAM 11/06/21 11/06/21 History release epinephrine 0.3 mg/0.3 mL 0.3 mg IM ONCE PRN 11/06/21 11/06/21 History injection, auto-injector ergocalciferol (vitamin D2) 1,250 50,000 unit PO Q7D 11/06/21 11/06/21 History mcg (50,000 unit) capsule (Vitamin D2) hydroxychloroquine 200 mg tablet 200 mg PO BID 11/06/21 11/06/21 History upadacitinib 15 mg tablet,extended 15 mg PO DAILY 11/06/21 11/06/21 History release 24 hr (Rinvoq) Allergies Allergy/AdvReac Type Severity Reaction Status Date / Time caffeine [From Cafergot] Allergy Severe Anaphylaxis Verified 10/26/21 19:24 ergotamine [From Cafergot] Allergy Severe Anaphylaxis Verified 10/26/21 19:24 ketorolac [From Toradol] Allergy Mild Headache Verified 10/26/21 19:24 lamotrigine [From Lamictal] Allergy rash Verified 10/26/21 19:24 Penicillins Allergy Anaphylaxis Verified 10/26/21 19:24 sumatriptan Allergy Anaphylaxis Verified 10/26/21 19:24 Exam Narrative: Exam Narrative: General appearance: Alert, cooperative, and in no distress Eyes: PERRLA, eye lids clear, and sclera white HENT Head: Normocephalic Ears: External ears normal Pulmonary: Breathing nonlabored on room air Cardiovascular Heart: Regular rate and rhythm Extremities: warm and well perfused Gastrointestinal Abdominal: Soft. Scars consistent with surgical history. Tender to palpation in the right upper quadrant and epigastric region. Musculoskeletal: Extremities: Upper: Both upper extremities have normal joint range of motion and intact strength. Lower: Both lower extremities have normal joint range of motion and intact strength. Skin: Normal skin color, texture, and turgor. No rashes or lesions. Neurologic: No focal deficits Psychiatric: Alert, oriented, cooperative, normal affect. Const: Vital Signs, click to edit/add: Vital Signs - 24 hr 11/06/21 12:26 11/06/21 15:40 Temperature 98.3 F 98.6 F Pulse Rate [Right Radial] 78 75 Respiratory Rate 16 16 Blood Pressure [Ri ght Arm] 118/84 127/88 Pulse Oximetry 98 97 Results Labs Labs: From her morning visit to [place] [address] on 11/03/2021: She had moderate leukocyte esterase and a small amount of blood on her UA. Final urine culture showed no growth other than mixed angle test was negative. White blood cell count was normal. ALT was elevated at 67 however bilirubin was normal, AST and alkaline phosphatase were normal. CRP was 0.07. Lactate was 1.0 Labs from her evening visit to [place] [address] on 11/04/2021: White blood cell count normal LFTs normal except for ALT of 64 Blood cultures remain normal today. CRP remains normal at 0.07. In the emergency department last evening: CRP remains normal. UA did show small amount of blood. [place] [address] though lymphocyte predominant. ALT and AST mildly elevated, however alk-phos and bilirubin within normal limits. Imaging Abdomen CT scan report/results: report reviewed and image reviewed CT scan - pelvis: other (MRI of the abdomen was reviewed myself and with the radiologist. The patient does not have any choledocholithiasis or biliary dilatation. She does however have a very small sliver of fluid near the duodenum. Source of this is unclear.) Abdominal ultrasound report/results: report reviewed (Patient: Melissa Escobedo AMR#: [id number]: 1985Acct:[id number]: EDService Date: 11/05/21Attending Dr: Ordering Physician: Maribel Duarte M.D. Date of Service: 11/05/21 Procedure(s): US abdomen limited Accession Number(s): [id number] cc: Maribel Duarte M.D.; Deb Alvarez) and image reviewed ( INDICATION: Abdominal pain. LIMITED ABDOMEN ULTRASOUND Technique: Multiple sonographic images were performed over the right upper quadrant. Comparison: 11/03/2021 CT abdomen and pelvis. Findings: The gallbladder is surgically absent. No intrahepatic biliary dilatation is seen and the c) Additional studies: IMAGING: CT ABDOMEN PELVIS STONE PROTOCOL WO ? Result Date: 11/03/2021 For Patients: As a result of the 21st Century Cures Act, medical imaging exams and procedure reports are released immediately into your electronic medical record. You may view this report before your referring provider. If you have questions, please contact your health care provider. INDICATION: Flank pain. Kidney stones suspected. TECHNIQUE: CT abdomen and pelvis without contrast. COMPARISON: CT abdomen and pelvis 10/25/2020. FINDINGS: The lung bases are unremarkable. Normal noncontrast appearance of the liver, spleen, pancreas and adrenal glands. There is a punctate nonobstructing stone in the upper pole the right kidney. No stones on the left. No hydronephrosis. Benign left renal cysts measuring up to 2 cm. The urinary bladder is decompressed. The gallbladder is surgically absent. There are 3 and 6 mm stones in the common hepatic duct 2 additional calcifications are seen posterior to the common duct which could be dropped stones as they are new from the previous exam. Mild prominence of the common duct could be due to the prior cholecystectomy. No intrahepatic biliary ductal dilatation. No bowel obstruction or inflammation. Normal appendix. Normal caliber abdominal aorta. The lymphadenopathy in the abdomen or pelvis. A T-shaped contraceptive device is present in the uterus. No adnexal masses. No acute osseous abnormality or suspicious osseous lesion. ? 1. Punctate nonobstructing right renal stone. No ureteral stones or hydronephrosis. 2. The gallbladder is surgically absent. There are 2 gallstones retained in the common duct measuring 3 and 6 mm. 3. Mild prominence of the common duct could be due to prior cholecystectomy. No intrahepatic biliary ductal dilatation. Please note that all CT scans at this facility use dose modulation, iterative reconstruction, and/or weight-based dosing when appropriate to reduce radiation dose to as low as reasonably achievable. Dict ated by Ingrid Mack MD @ 11/03/2021 10:29:03 AM (Electronically Signed) Patient: Melissa Escobedo MR#: [id number] : 1985 Acct:[id number] Loc: ED Service Date: 11/05/[address]: Ordering Physician: Maribel Duarte M.D. Date of Service: 11/05/21 Procedure(s): CT abdomen pelvis w con Accession Number(s): [id number] cc: Maribel Duarte M.D.; Vero Alvarez M.D.~ For Patients:? As a result of the Cures Act, medical imaging exams and procedure reports are released immediately into your electronic medical record.? You may view this report before your referring provider.? If you have questions, please contact your health care provider. INDICATION: Right upper abdominal pain. TECHNIQUE: CT abdomen and pelvis with intravenous contrast, 125 mL of Isovue-370. Coronal and sagittal formats. COMPARISON: CT 11/03/2021. FINDINGS: The imaged lower chest is unremarkable. Normal liver contour. Diffuse hepatic steatosis. No suspicious hepatic lesion. The portal and hepatic veins are patent. Gallbladder surgically absent. Redemonstrated are multiple small gallstones along the gallbladder fossa (series 2, images 42-49). No biliary dilatation. The pancreas, spleen, and adrenals are unremarkable. Symmetric renal enhancement. Small renal cortical cysts bilaterally, left greater than right. No hydronephrosis bilaterally. Unremarkable bladder. Neutrally oriented uterus with IUD in place. Trace free fluid in the pelvic cul-de-sac as well as a couple of tiny rounded calcifications (series 2, images 126-128), suspicious for ectopic gallstones. The bowel appears normal in caliber and enhancement diffusely. No pneumoperitoneum, focal collection, or lymphadenopathy. The abdominal aorta and major branch vessels are patent and normal caliber. No suspicious osseous lesion. IMPRESSION: 1. No acute findings or CT correlate for right upper quadrant pain definitively identified. 2. Redemonstrated postsurgical changes of cholecystectomy. Multiple small gallstones are redemonstrated along the gallbladder fossa, as well as a couple of possible ectopic gallstones within the pelvic cul-de-sac. 3. No biliary dilatation or postoperative collection. Dictated by Aleksandar Warner MD @ 11/05/2021 9:25:34 PM Please note that all CT scans at this facility use dose modulation, iterative reconstruction, and/or weight-based dosing when appropriate to reduce radiation dose to as low as reasonably achievable. Dictated by: Aleksandar Warner MD @ 11/05/2021 21:25:41 (Electronically Signed) Assessment and Plan Assessment and plan (1) Status post cholecystectomy: Status: Acute (2) Epigastric abdominal pain: Status: Acute (3) Right upper quadrant abdominal pain: Status: Acute Plan The patient is a 36-year-old female who presents with right upper quadrant pain. She is 10 months from cholecystectomy. Findings on imaging or significant only for spilled gallstones in the gallbladder fossa. She does have a small amount of fluid in this region which could be secondary to duodenitis verses reaction to the stones. Certainly spilled gallstones can cause abscess, however at this point seems less likely. Recommend EGD to rule out enteric source. If this is within normal limits, then would recommend repeating labs tomorrow. If she has a persistent elevated white count she could be treated with broad-spectrum antibiotics. There is no abscess or drainable fluid collection to treat at this time.
--- NOTE | 2021-11-06 17:50 | PC.NURSE ---
PATIENT PLEASANT AND COOPERATIVE, ALERT AND ORIENTED, UP AD GITA WITH STEADY GAIT, RATING PAIN 1/10 IN ABDOMEN AFTER DILUADID, HYPOACTIVE BOWEL SOUNDS, NPO STATUS.
[2021-11-06] MEDS: OMEPRAZOLE 20 MG CAPSULE DR PO (18:06)
--- NOTE | 2021-11-06 18:17 | PM.IMHP1 ---
Hospitalist- H&P: HPI History of Present Illness Date Seen: 11/06/21 Chief complaint: Direct admit Narrative: Melissa Escobedo is a 36 year old female admitted with severe epigastric and right upper quadrant abdominal pain for 4 days. She awoke Thursday morning with the pain. She reports the pain is constant but fluctuates in intensity from 5/10 to 10/10. The pain is in her epigastrium and radiates underneath her ribs to the right upper quadrant. She has had nausea without vomiting. She has had very little p.o. intake because she is so nauseated when she eats or drinks. She has had no change in her stools. No urinary symptoms. She is status post cholecystectomy 10 months ago. She has not any problems since that surgery until 4 days ago. Patient reports she awoke Thursday morning with moderately severe epigastric pain. It got worse during the day and became quite severe. She went to the [address] Emergency Department where she had evaluation. At that time she had a CT scan which showed prior cholecystectomy with gallstones still present. Unclear currently if those gallstones were in a duct or spilled stones from her surgery. No obvious inflammation around the stones and no obvious ductal dilatation. No other significant abnormalities were identified. She was discharged to home. The pain continued to fluctuate and on Thursday became more severe again so she returned to the [place] [address] Emergency Department. There she had ultrasound of the right upper quadrant. Uncertain whether there was stones identified on that visit there was no intrahepatic biliary dilatation and the common bile duct was normal at 5 mm. There were no intraductal stone seen. Incidentally noted fatty liver .There was contact with surgery and GI at [facility] and outpatient evaluation was to be scheduled. She reports known is yet contacted her. She was discharged to home Her pain continued to be a problem and she came to the [place] [facility] Department yesterday. Evaluation included repeating her labs, abdominal CT with contrast, right upper quadrant ultrasound. No new findings were identified. Her laboratory studies continue to be unremarkable except for mild elevation of transaminases. This is not an obstructive pattern. Follow-up in clinic today continuing to have pain. She referred to the hospital for surgical consultation and MRCP. Review of Systems Narrative: She reports she has been doing well except for the last 4 days with her abdominal pain. She has had very little p.o. food and fluid by her report. Nausea without vomiting. No melena or hematochezia. No urinary problems. No other recent illness. [facility] Medical History Ankylosing spondylitis Anxiety Asthma Bipolar disorder Gastroesophageal reflux History of esophageal dilatation Low grade squamous intraepithelial lesion Migraine Nephrolithiasis Obesity OCD (obsessive compulsive disorder) Paroxysmal SVT (supraventricular tachycardia) Polycystic ovarian syndrome Psoriatic arthritis Surgical History H/O nasal septoplasty H/O wisdom tooth extraction S/P Status post cholecystectomy Status post colposcopy Status post laser lithotripsy of ureteral calculus Family History (Updated 11/06/21 @ 18:27 by Patrick Awad MD) Mother Coronary artery disease Social History Narrative: 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 She reportedly recently quit smoking 4 days ago. Highest level of school completed/degree received: high school graduate Smoking Status: Current every day smoker What tobacco products do you use: cigarettes Do you use any of these nicotine containing products: None Second hand tobacco smoke exposure: No How often do you have a drink containing alcohol: never AUDIT-C Alcohol total score: 0 Non-prescribed substance use: denies use Caffeine: Yes (soda, energy drinks) service: No Meds Home Medications and Allergies Home Medications Medication Instructions Recorded Confirmed Type amlodipine 5 mg tablet 5 mg PO DAILY 10/26/21 11/06/21 History clonazepam 0.5 mg tablet 0.25 - 0.5 mg PO DAILY PRN 10/26/21 11/06/21 History duloxetine 30 mg capsule,delayed 30 mg PO HS 10/26/21 11/06/21 History release trazodone 50 mg tablet 50 mg PO HS 10/26/21 11/06/21 History albuterol sulfate 90 mcg/actuation 2 inh INHALATION Q4H PRN 11/06/21 11/06/21 History aerosol inhaler (Ventolin HFA) duloxetine 60 mg capsule,delayed 60 mg PO QAM 11/06/21 11/06/21 History release epinephrine 0.3 mg/0.3 mL 0.3 mg IM ONCE PRN 11/06/21 11/06/21 History injection, auto-injector ergocalciferol (vitamin D2) 1,250 50,000 unit PO Q7D 11/06/21 11/06/21 History mcg (50,000 unit) capsule (Vitamin D2) hydroxychloroquine 200 mg tablet 200 mg PO BID 11/06/21 11/06/21 History upadacitinib 15 mg tablet,extended 15 mg PO DAILY 11/06/21 11/06/21 History release 24 hr (Rinvoq) Allergies Allergy/AdvReac Type Severity Reaction Status Date / Time caffeine [From Cafergot] Allergy Severe Anaphylaxis Verified 10/26/21 19:24 ergotamine [From Cafergot] Allergy Severe Anaphylaxis Verified 10/26/21 19:24 ketorolac [From Toradol] Allergy Mild Headache Verified 10/26/21 19:24 lamotrigine [From Lamictal] Allergy rash Verified 10/26/21 19:24 Penicillins Allergy Anaphylaxis Verified 10/26/21 19:24 sumatriptan Allergy Anaphylaxis Verified 10/26/21 19:24 Exam Narrative: Exam Narrative: She is alert and appears in no obvious distress at this time. She reports her pain is adequately controlled with the law did. Eyes are normal. Sclerae nonicteric. Oropharynx with small airway. Neck is supple without mass or adenopathy. Respirations are clear to auscultation. Cardiovascular: S1, S2, regular rate and rhythm. No murmur gallop or rub. Abdomen: Bowel sounds active. Abdomen is soft. She has moderate tenderness in the epigastrium and extending to the right upper quadrant. There is no palpable mass. No peritonitis. The rest her abdomen is nontender. External genitalia normal. Extremities with good peripheral pulses and good capillary refill. No rash. No jaundice. Const: Vital Signs, click to edit/add: Vital Signs - 24 hr 11/06/21 12:26 11/06/21 15:40 Temperature 98.3 F 98.6 F Pulse Rate [Right Radial] 78 75 Respiratory Rate 16 16 Blood Pressure [Ri ght Arm] 118/84 127/88 Pulse Oximetry 98 97 Documenting provider has reviewed patient's vital signs: yes Assessment and Plan Assessment and plan (1) Right upper quadrant abdominal pain: Status: Acute Assessment and Plan: Cause for her symptoms unclear. Her symptom constellation is suspicious for biliary disease but as noted above 2 CT scans, 2 ultrasounds in 1 eye MRCP does not show definite pathology to explain her symptoms. She does have fatty liver which is unlikely to cause the symptoms but may cause minor transaminase elevations. At this point will plan for upper endoscopy to evaluate for gastric or duodenal disease that might explain her symptoms. (2) Dehydration: Status: Acute Assessment and Plan: Patient has not been taking in p.o. food and fluid. For now will provide IV fluids pending further evaluation. (3) Status post cholecystectomy: Status: Acute Assessment and Plan: Stones present the right upper quadrant are probably spilled stones and not clearly the cause of her current symptoms. Not clear that there is any evidence for infection or obstruction associated with the stones.
[2021-11-06 19:00] VITALS: BP 122/83; PULSE 74; RESP 16; TEMP 36.9; O2SAT 96
[2021-11-06] MEDS: HYDROXYCHLOROQUINE 200 MG TABLET PO (20:38)
[2021-11-06] MEDS: TRAZODONE HCL 50 MG TABLET PO (20:38)
[2021-11-06] MEDS: DULOXETINE 30 MG CAPSULE DR PO (20:38)
[2021-11-06 23:00] VITALS: BP 126/84; PULSE 73; RESP 16; TEMP 36.6; O2SAT 97
[2021-11-07] MEDS: LACTATED RINGERS 1000 ML 1,000 ML 125 ML IV ×2 (00:33→11:08)
[2021-11-07] MEDS: HYDROmorphone 0.5 mg/0.5 ml inj IVP (02:39)
[2021-11-07 02:47] VITALS: BP 112/77; PULSE 75; RESP 16; TEMP 36.6; O2SAT 96
--- NOTE | 2021-11-07 06:08 | PC.NURSE ---
: pt pleasant and cooperative. Indep in room. Calls appropriately. NPO for endoscopy 11/07. LR running at 125. c/o pain 10/20, PRN 0.5mg dilaudid given x 1. Bowels hypoactive. Last BM 11/04 per pt statement. ?
[2021-11-07] MEDS: OMEPRAZOLE 20 MG CAPSULE DR PO (06:29)
[2021-11-07 07:00] VITALS: BP 126/83; PULSE 86; RESP 16; TEMP 36.9; O2SAT 98
[2021-11-07 07:45] LABS: Basophils Absolute Auto 0.04 K/uL (0.00-0.30); Basophils Percent Auto 0.7 % (0.0-3.0); Eosinophils Percent Auto 3.3 % (0.0-7.0); Hematocrit 39.5 % (33.0-51.0); Hemoglobin* 13.4 gm/dL (12.0-16.0); Immature Granulocytes Abs Auto 0.01 K/uL (0.00-0.30); Lymphocytes Percent Auto 58.1 % (20-44); Mean Corpuscular HGB Conc 34 gm/dL (32-36); Mean Corpuscular Hemoglobin 30 pg (26-34); Mean Corpuscular Volume 87 fL (80-100); Monocytes Percent Auto 7.4 % (0.0-11.0); Neutrophils Percent Auto 30.3 % (42.0-72.0); Platelet Count* 184 K/uL (140-440); RDW Coefficient of Variation % 12.7 % (11.5-15.5); Red Blood Count 4.55 m/uL (4.00-5.20); White Blood Count* 6.09 K/uL (4.50-11.00)
[2021-11-07 07:52] LABS: Albumin* 3.5 g/dL (3.3-5.0)
[2021-11-07 07:53] LABS: Chloride* 109 mmol/L (96-114); Potassium* 3.4 mmol/L (3.6-5.1); Sodium* 139 mmol/L (135-149)
[2021-11-07 07:55] LABS: Bilirubin Total* 0.6 mg/dL (0.1-1.5); Carbon Dioxide* 24 mmol/L (20-32); Creatinine* 1.1 mg/dL (0.5-1.5); Est. Creatinine Clearance* 67.46; Estimated Glomerular Filt Rate 68 ml/min; Slide Review Reflex No
[2021-11-07 07:56] LABS: Alanine Aminotransferase* 56 U/L (4-35); Alkaline Phosphatase* 57 U/L (40-150); Aspartate Amino Transferase* 33 U/L (12-35); Blood Urea Nitrogen* 11 mg/dL (5-24); Calcium* 8.5 mg/dL (8.4-10.6); Glucose* 79 mg/dL (60-115); Total Protein* 6.3 g/dL (6.0-8.3)
--- NOTE | 2021-11-07 10:39 | W.ANESCHARGE ---
Anesthesia Charges Start Date/Time Anesthesia Start Date: 11/07/21 Anesthesia Start Time: 10:20 Stop Date/Time Anesthesia Stop Date: 11/07/21 Anesthesia Stop Time: 10:40 Summary Emergency: No
[2021-11-07 11:00] VITALS: BP 124/85; PULSE 82; RESP 16; TEMP 36.9; O2SAT 98
--- NOTE | 2021-11-07 11:05 | W.ANESCHARGE ---
Anesthesia Charges Start Date/Time Anesthesia Start Date: 11/07/21 Anesthesia Start Time: 10:20 Stop Date/Time Anesthesia Stop Date: 11/07/21 Anesthesia Stop Time: 10:40 Summary Emergency: No
[2021-11-07] MEDS: HYDROXYCHLOROQUINE 200 MG TABLET PO ×2 (11:11→21:14)
[2021-11-07] MEDS: DULOXETINE 30 MG CAPSULE DR 60 MG PO (11:12)
[2021-11-07] MEDS: AMLODIPINE 5 MG TABLET PO (11:12)
--- NOTE | 2021-11-07 13:15 | CRLHL7_ITS ---
For Patients: As a result of the Century Cures Act, medical imaging exams and procedure reports are released immediately into your electronic medical record. You may view this report before your referring provider. If you have questions, please contact your health care provider. INDICATION: Lower right rib pain COMPARISON: A chest radiograph dated May 24, 2020 TECHNIQUE: A two view chest study was performed. In addition, 2 separate images of the right rib cage were acquired FINDINGS: TUBES AND LINES: None. HEART AND MEDIASTINUM: The heart size is normal. The mediastinal contour appears normal for patient age. LUNGS AND PLEURAL SPACES: The lungs appear normal.The pleural spaces are unremarkable. OSSEOUS STRUCTURES: Age-appropriate appearance. No acute focal finding. RIGHT RIB CAGE: No visible fracture or destructive process. IMPRESSION: 1. Normal chest radiograph. 2. Normal plain film examination of the right ribcage. Dictated by Dieter Casarez MD @ 11/07/2021 2:39:59 PM (Electronically Signed)
--- NOTE | 2021-11-07 14:06 | PC.NURSE ---
PATIENT PLEASANT AND COOPERATIVE, TOLERATED EGD PROCEDURE, PATIENT EXPRESSING FEELING VERY HUNGRY, TOLERATING CLD WITHOUT NAUSEA OR INCREASED PAIN, ADVANCED TO REGULAR, REPORTING PAIN 7/10 IN ABDOMEN HUNGER PAINS DECLINING NEED FOR PAIN MEDICATION, UP IND WITH STEADY GAIT, BOWEL MOVEMENT THIS SHIFT.
[2021-11-07 15:30] VITALS: BP 131/82; PULSE 90; RESP 16; TEMP 36.7; O2SAT 97
[2021-11-07] MEDS: HYDROmorphone 2 MG TABLET PO (16:16)
--- NOTE | 2021-11-07 16:38 | PM.GSPN ---
Subjective Subjective Date Seen: 11/07/21 Interval history: Melissa is feeling better today and would like to eat. She underwent an EGD this morning which was fairly unremarkable. Biopsies were taken. Exam Narrative: Exam Narrative: General: No acute distress Respiratory: Breathing nonlabored on room air CV: Regular rate and rhythm Abdomen: Soft, nontender, nondistended. Const: Vital Signs, click to edit/add: Vital Signs - 24 hr 11/06/21 19:00 11/06/21 23:00 11/07/21 02:47 Temperature 98.5 F 98 F 98 F Pulse Rate [Right Radial] 74 73 75 Respiratory Rate 16 16 16 Blood Pressure [Ri ght Arm] 122/83 126/84 112/77 Pulse Oximetry 96 97 96 11/07/21 07:00 11/07/21 11:00 11/07/21 15:30 Temperature 98.5 F 98.5 F 98.0 F Pulse Rate [Right Radial] 86 82 90 Respiratory Rate 16 16 16 Blood Pressure [Ri ght Arm] 126/83 124/85 131/82 Pulse Oximetry 98 98 97 Progress Note: A&P Assessment and plan (1) Right upper quadrant abdominal pain: Status: Acute (2) Dehydration: Status: Acute (3) Status post cholecystectomy: Status: Acute Plan The patient is a 36-year-old female with right upper quadrant pain of unclear etiology. She does have some retained gallstones which were spilled during cholecystectomy in the gallbladder fossa, however this is something that happens not uncommonly during cholecystectomy. Rarely can they cause abscess, however she has no signs of this occurring. Biopsies were taken to check for H.pylori and celiac. We will follow-up on those results. She may advance her diet and if she is able to eat without nausea she may discharge home.
--- NOTE | 2021-11-07 17:16 | PM.IMPN1 ---
Progress Note: A&P Assessment and plan (1) Right upper quadrant abdominal pain: Status: Acute Assessment and Plan: Normal imaging including MRCP. Normal direct visualization with EGD. Likely more musculoskeletal. Stopping IV fluids, IV Zofran and Dilaudid. I will keep oral Dilaudid available but this is not a good long-term strategy. Hopefully her PPI, Tylenol, Cymbalta will manage her pain. I am offering her some clonazepam tonight to help her relax and sleep. (2) Dehydration: Status: Acute Assessment and Plan: Resolved (3) Status post cholecystectomy: Status: Acute Assessment and Plan: Unlikely related. Subjective Date Seen: 11/07/21 Interval history: Daily Progress Note - Hospital Medicine Day #: 2 CC: Improved abdominal pain, improved appetite OVERNIGHT UPDATES FROM STAFF & MED, LAB, IMAGING UPDATES Blood pressure 131/82. Afebrile. Pulse 90. Room air. Overnight with IV Dilaudid and IV fluids with IV Zofran she has continue to improve. She is hungry today. She would like to try to eat. All of the imaging has been reviewed. This includes abdominal ultrasound, abdominal pelvic CT, MRCP. In addition she went down for an EGD this morning and that was very reassuring without any evidence of disease. In discussion with our general surgeon we felt that her pain was more tenderness over the ribs and sternum. This is likely musculoskeletal. 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 I did follow-up after the EGD with rib and chest x-ray. Normal chest radiograph. Normal plain films of the right ribcage were noted. Review of the Labs: White count is normalized. Potassium is improving. ALT is improved. C reactive protein was undetectable on the . Review of Systems: See subjective Cardiac: No new chest pain/pressure/palpitations. Respiratory: no new dyspnea. GI: No abdominal bloating Objective: Vitals: see above Lungs: Clear. Cardiac: S1S2. Disposition/Potential discharge - Likely to return to previous living situation. Total time is 70 minutes with greater than 50% spent in counseling and coordination of care. Exam Const: Vital Signs, click to edit/add: Vital Signs - 24 hr 11/06/21 19:00 11/06/21 23:00 11/07/21 02:47 Temperature 98.5 F 98 F 98 F Pulse Rate [Right Radial] 74 73 75 Respiratory Rate 16 16 16 Blood Pressure [Ri ght Arm] 122/83 126/84 112/77 Pulse Oximetry 96 97 96 11/07/21 07:00 11/07/21 11:00 11/07/21 15:30 Temperature 98.5 F 98.5 F 98.0 F Pulse Rate [Right Radial] 86 82 90 Respiratory Rate 16 16 16 Blood Pressure [Ri ght Arm] 126/83 124/85 131/82 Pulse Oximetry 98 98 97 Labs Labs: Laboratory Results - last 24 hr 11/07/21 11/07/21 06:31 06:31 WBC 6.09 RBC 4.55 Hgb 13.4 Hct 39.5 MCV 87 MCH 30 MCHC 34 RDW Coeff of Compa 12.7 Plt Count 184 Neut % (Auto) 30.3 L Lymph % (Auto) 58.1 H [place] % (Auto) 7.4 Eos % (Auto) 3.3 Baso % (Auto) 0.7 Neut # (Auto) 1.80 Lymph # (Auto) 3.50 H [place] # (Auto) 0.50 Eos # (Auto) 0.20 Baso # (Auto) 0.04 Abs Immat Gran (auto) 0.01 Sodium 139 Potassium 3.4 L Chloride 109 Carbon Dioxide 24 BUN 11 Creatinine 1.1 Estimated Creat Clear 67.46 Estimated GFR 68 Glucose 79 Calcium 8.5 Total Bilirubin 0.6 AST 33 ALT 56 H Alkaline Phosphatase 57 Total Protein 6.3 Albumin 3.5
[2021-11-07 19:00] VITALS: BP 139/90; PULSE 90; RESP 18; TEMP 36.9; O2SAT 97
[2021-11-07] MEDS: DULOXETINE 30 MG CAPSULE DR PO (21:14)
[2021-11-07] MEDS: TRAZODONE HCL 50 MG TABLET PO (21:14)
--- NOTE | 2021-11-07 21:47 | PC.NURSE ---
Shift note 15-23: Pt up ad angela, states abd pain greatly improved, tolerating regular diet along w/ candy from vending machine w/o nausea or increased pain, states just feeling slightly bloated after eating that subsides within a few hours. Plans to DC home tomorrow.
[2021-11-07 23:00] VITALS: BP 110/77; PULSE 86; RESP 18; TEMP 36.9; O2SAT 95
[2021-11-08 02:48] VITALS: BP 117/81; PULSE 78; RESP 18; TEMP 36.6; O2SAT 95
--- NOTE | 2021-11-08 06:23 | ED.NURSE ---
-: pt indep in room. Calls appropriately. No c/o pain. Tolerating diet. Slept throughout the night. VS WNL.
[2021-11-08 07:21] LABS: Lactate* 0.5 mmol/L (0.5-1.9)
[2021-11-08 07:29] LABS: Basophils Absolute Auto 0.05 K/uL (0.00-0.30); Basophils Percent Auto 0.9 % (0.0-3.0); Eosinophils Absolute Auto 0.14 K/uL (0.00-0.50); Eosinophils Percent Auto 2.4 % (0.0-7.0); Hematocrit 37.4 % (33.0-51.0); Hemoglobin* 12.7 gm/dL (12.0-16.0); Mean Corpuscular HGB Conc 34 gm/dL (32-36); Mean Corpuscular Hemoglobin 29 pg (26-34); Mean Corpuscular Volume 86 fL (80-100); Monocytes Percent Auto 8.6 % (0.0-11.0); Neutrophils Percent Auto 38.1 % (42.0-72.0); Platelet Count* 189 K/uL (140-440); RDW Coefficient of Variation % 12.4 % (11.5-15.5); Red Blood Count 4.35 m/uL (4.00-5.20); White Blood Count* 5.82 K/uL (4.50-11.00)
[2021-11-08 07:55] LABS: Slide Review Reflex No
[2021-11-08 08:00] LABS: Albumin* 3.4 g/dL (3.3-5.0); Chloride* 112 mmol/L (96-114); Sodium* 138 mmol/L (135-149)
[2021-11-08 08:01] LABS: Potassium* 3.9 mmol/L (3.6-5.1)
[2021-11-08 08:02] LABS: Est. Creatinine Clearance* 74.21; Estimated Glomerular Filt Rate 76 ml/min
[2021-11-08 08:03] LABS: Alkaline Phosphatase* 59 U/L (40-150); Aspartate Amino Transferase* 32 U/L (12-35); Bilirubin Total* 0.3 mg/dL (0.1-1.5); Blood Urea Nitrogen* 14 mg/dL (5-24); Carbon Dioxide* 22 mmol/L (20-32); Lipase* 135 U/L (23-300)
[2021-11-08 08:04] LABS: Alanine Aminotransferase* 48 U/L (4-35); Calcium* 8.4 mg/dL (8.4-10.6); Gamma Glutamyl Transpeptidase* 18 U/L (8-55); Glucose* 108 mg/dL (60-115)
[2021-11-08 08:11] LABS: C Reactive Protein* < 0.5 mg/dL (0.5-1.0)
[2021-11-08 08:15] VITALS: BP 125/63; PULSE 75; RESP 20; TEMP 36.3; O2SAT 99
[2021-11-08] MEDS: HYDROXYCHLOROQUINE 200 MG TABLET PO (09:29)
[2021-11-08] MEDS: OMEPRAZOLE 20 MG CAPSULE DR PO (09:30)
[2021-11-08] MEDS: HYDROmorphone 2 MG TABLET PO (09:30)
[2021-11-08] MEDS: AMLODIPINE 5 MG TABLET PO (09:31)
[2021-11-08] MEDS: DULOXETINE 30 MG CAPSULE DR 60 MG PO (09:31)
[2021-11-08 12:00] VITALS: BP 129/82; PULSE 86; RESP 16; TEMP 37; O2SAT 98
--- NOTE | 2021-11-08 16:42 | PM.DS1 ---
DS: Providers Provider Date Seen: 11/06/21 Date of admission: 11/06/21 11:52 Primary care physician: Vero Alvarez MD Admitting Clinician: [facility] Attending Physician on discharge: Aby Galan MD Date of Discharge: 11/08/21 DS: Diagnosis Discharge Diagnosis (1) Costochondritis, acute: Status: Acute (2) Referred abdominal pain: Status: Acute DS: Summary Hospital Course Hospital Course: HOSPITALIST DISCHARGE SUMMARY ATTENDING PHYSICIAN: Aby Galan MD FINAL DIAGNOSIS: Musculoskeletal pain - costochondritis. Ruled out for an her abdominal pathology Psoriatic arthritis HOSPITAL FOLLOWUP ISSUES: 1. Rheumatology for ongoing psoriatic arthritis management REFERRALS WHILE ADMITTED: None REFERRALS AFTER DISCHARGE: None BRIEF HOSPITAL COURSE: Patient is a 36-year-old who had several ER visits prior to admission for nausea and some vomiting. She was also having fairly significant abdominal pain. Please see H&P for further detail. Please see surgical consultation. All imaging has been reviewed. Essentially she had a negative MRCP, ultrasound, direct visualization via EGD. Family we attributed her upper abdominal pain to actually musculoskeletal pain and a variant of costochondritis. Cause is not really known. However we were able to wean her from IV antiemetics and opioids to an oral opioid and oral antiemetic. Her diet improved, she overall felt better. Ultimately we did not have a great explanation other than we felt reasonably sure there was no significant abdominal pathology. The mention of gallstones in the gallbladder fossa, status post cholecystectomy, were not likely causing any of her pain. VITAL SIGN, MEDICATION, LAB/MICRO, IMAGING SUMMARY (full details available in account tabs or by records request) 117/81 Pulse 70 Resp is 18 Afebrile O2 sat 95% on room Labs were essentially noncontributory Radiology studies were reassuring. DISCHARGE MEDICATIONS: See Reconciled list REVIEW OF SYSTEMS No new chest pain or dyspnea Pain controlled No voiding difficulties Tolerating diet challenge PHYSICAL EXAM: CONSTITUTIONAL: Well-appearing. VITAL SIGNS: see record. HEENT: Normocephalic, atraumatic. PERRL, EOMI, conjunctivae pink, no scleral icterus. Ears and nose externally normal. Pharynx normal. NECK: No JVD. No carotid bruit, no thyromegaly, no adenopathy. CHEST: Clear to auscultation bilaterally. HEART: S1 and S2 normal. Edema ABDOMEN: Soft, nontender. Normal bowel sounds. MUSCULOSKELETAL: No gross joint deformity or swelling. NEURO: Cranial nerves intact. Grossly intact. No asymmetric findings. SKIN: No rashes, petechiae, concerning changes PSYCHIATRIC: Mood euthymic. DISPOSITION: Home Time spent on discharge 37 minutes. Time spent discussing smoking cessation with patient: more than 10 minutes Status at Discharge Functional status at discharge: independent ambulation Time Spent with Patient Time attestation: Total time spent providing and/or coordinating discharge services: Time spent: Greater than 30 minutes Exam Const: Vital Signs, click to edit/add: Vital Signs - 24 hr 11/07/21 19:00 11/07/21 23:00 11/08/21 02:48 Temperature 98.5 F 98.4 F 97.9 F Pulse Rate [Right Radial] 90 86 78 Respiratory Rate 18 18 18 Blood Pressure [Ri ght Arm] 139/90 H 110/77 117/81 Pulse Oximetry 97 95 95 DS: Data Data Completed and Pending Labs on day of discharge: Labs from last 24 hours 11/08/21 11/08/21 11/08/21 06:30 06:30 06:30 WBC 5.82 RBC 4.35 Hgb 12.7 Hct 37.4 MCV 86 MCH 29 MCHC 34 RDW Coeff of Compa 12.4 Plt Count 189 Neut % (Auto) 38.1 L Lymph % (Auto) 50.0 H [place] % (Auto) 8.6 Eos % (Auto) 2.4 Baso % (Auto) 0.9 Neut # (Auto) 2.20 Lymph # (Auto) 2.90 [place] # (Auto) 0.50 Eos # (Auto) 0.14 Baso # (Auto) 0.05 Abs Immat Gran (auto) 0.00 Sodium Potassium Chloride Carbon Dioxide BUN Creatinine Estimated Creat Clear Estimated GFR Glucose Lactate 0.5 Calcium Magnesium Total Bilirubin GGT AST ALT Alkaline Phosphatase C-Reactive Protein Total Protein Albumin Lipase TSH 2.920 11/08/21 06:30 WBC RBC Hgb Hct MCV MCH MCHC RDW Coeff of Compa Plt Count Neut % (Auto) Lymph % (Auto) [place] % (Auto) Eos % (Auto) Baso % (Auto) Neut # (Auto) Lymph # (Auto) [place] # (Auto) Eos # (Auto) Baso # (Auto) Abs Immat Gran (auto) Sodium 138 Potassium 3.9 Chloride 112 Carbon Dioxide 22 BUN 14 Creatinine 1.0 Estimated Creat Clear 74.21 Estimated GFR 76 Glucose 108 Lactate Calcium 8.4 Magnesium 2.0 Total Bilirubin 0.3 GGT 18 AST 32 ALT 48 H Alkaline Phosphatase 59 C-Reactive Protein < 0.5 L Total Protein 6.0 Albumin 3.4 Lipase 135 TSH Discharge Plan Discharge Disposition: Home, Self-Care Date of Admission: 11/06/21 11:52 Attending Provider on Discharge: Aby Galan Primary Care Provider: Vero Alvarez Condition: Improved Anticipated Discharge Date/Time: 11/08/21 12:34 Discharge Medications: New hydromorphone 2 mg Tablet 2 mg PO Q6H PRNQty: 10 0RF omeprazole 20 mg Capsule,Delayed Release(Dr/Ec) 20 mg PO DAILY@0700 Qty: 30 0RF Continued ergocalciferol (vitamin D2) [Vitamin D2] 1,250 mcg (50,000 unit) capsule 50,000 unit PO Q7D 0RF Rx Instructions: WEEKLY hydroxychloroquine 200 mg tablet 200 mg PO BID 0RF Rinvoq 15 mg tablet extended release 24 hr 15 mg PO DAILY 0RF Rx Instructions: WILL START SOON albuterol sulfate [Ventolin HFA] 90 mcg/actuation HFA aerosol inhaler 2 inh inhalation Q4H PRN0RF epinephrine 0.3 mg/0.3 mL auto-injector 0.3 mg IM ONCE PRN0RF duloxetine 60 mg capsule,delayed release(DR/EC) 60 mg PO QAM 0RF trazodone 50 mg tablet 50 mg PO HS 0RF clonazepam 0.5 mg tablet 0.25 - 0.5 mg PO DAILY PRN0RF amlodipine 5 mg tablet 5 mg PO DAILY 0RF duloxetine 30 mg capsule,delayed release(DR/EC) 30 mg PO HS 0RF Discharge Orders: Discharge Order (Routine); Ordered 11/08/21 Ordered By: Aby Galan Patient Education: Omeprazole (By mouth), Hydromorphone (By mouth), Costochondritis (GEN) Activity Level: Activity as Tolerated Discharge Diet: Regular Follow Up Appointments: Vero Alvarez MD [Primary Care Provider] - 11/29/21 12:45 pm Forms: [facility] Info Instructions
--- NOTE | 2021-11-08 17:31 | PC.NURSE ---
Ash by Dr. Galan. Please meds provided to this patient for pain management. Ice pack to back. Pt UAL in room and hallway. Pt verbalized understanding of d/c diagnosis, home meds, pain management plan, new prescriptions, f/up appt and sx to report urgently to physician. Ambulatory d/c to her brother Carlito's home so my can watch over her @ 14:05 pm.
== END 2021-11-08 14:05 | disposition home or self-care (01) ==
PROVIDERS: Family Medicine; Admitting Provider Family Medicine; PCP Family Medicine; Visit Provider Family Medicine
DX: M94.0 Chondrocostal junction syndrome [Tietze] (principal); M32.0 Drug-induced systemic lupus erythematosus; R74.01 Elevation of levels of liver transaminase levels; E86.0 Dehydration; Z90.49 Acquired absence of other specified parts of digestive tract; K76.0 Fatty (change of) liver, not elsewhere classified; N20.0 Calculus of kidney; L40.52 Psoriatic arthritis mutilans
CPT/HCPCS: 00731; 36415; 43239; 71046; 71100; 74181; 80053; 82977; 83605; 83690; 83735; 84443; 85025; 86140; 87635; 88305; 96361; 96374; 96376; G0378; A9270; G0379; J1170; J7120

== ENCOUNTER 2021-11-09 00:12 | Outpatient (CLI) | payer MEDICAID, SELFPAY | END 2021-11-09 00:13 | disposition home or self-care (01) | LOC: AMB 11-27 13:50 | PROVIDERS: PCP Family Medicine; Visit Provider Family Medicine | DX: R07.89 Other chest pain (principal) | CPT/HCPCS: A0425; A0427 ==

== ENCOUNTER 2021-11-09 00:36 | Emergency (ER) | payer MEDICAID, SELFPAY ==
[2021-11-09 00:47] VITALS: BP 182/144; PULSE 79; RESP 22; TEMP 36.3; O2SAT 96
--- NOTE | 2021-11-09 00:50 | ED.GENADULT ---
HPI - General Adult General Time Seen by Provider: 00:50 Date Seen: 11/09/21 Chief complaint: Chest Pain Stated complaint: Chest Pain Time Seen by Provider: 11/09/21 00:42 Source: patient History of Present Illness HPI narrative: 36-year-old female who comes in today with abdominal pain and chest pain. Pain is in the right upper quadrant and lower chest. It is constant, sharp, worse with movement. She has been taking oral Dilaudid for this with minimal improvement. She denies radiation into the back or lower abdomen. She has some nausea but no vomiting. She was given Ativan IV by EMS. Pain is been going on for about a week, multiple emergency department visits for this. Patient was discharged from hospital less than 12 hours ago for the same complaint. That time she had numerous tests including EGD, ultrasound, and labs. Pain was thought to be partially related to costochondritis as no other explanations found. Patient is discharged with oral Dilaudid as well as oral antiemetics. Related Data Home Medications Medication Instructions Recorded Confirmed amlodipine 5 mg tablet 5 mg PO DAILY 10/26/21 11/06/21 clonazepam 0.5 mg tablet 0.25 - 0.5 mg PO DAILY PRN 10/26/21 11/06/21 duloxetine 30 mg capsule,delayed 30 mg PO HS 10/26/21 11/06/21 release trazodone 50 mg tablet 50 mg PO HS 10/26/21 11/06/21 albuterol sulfate 90 mcg/actuation 2 inh INHALATION Q4H PRN 11/06/21 11/06/21 aerosol inhaler (Ventolin HFA) duloxetine 60 mg capsule,delayed 60 mg PO QAM 11/06/21 11/06/21 release epinephrine 0.3 mg/0.3 mL 0.3 mg IM ONCE PRN 11/06/21 11/06/21 injection, auto-injector ergocalciferol (vitamin D2) 1,250 50,000 unit PO Q7D 11/06/21 11/06/21 mcg (50,000 unit) capsule (Vitamin D2) hydroxychloroquine 200 mg tablet 200 mg PO BID 11/06/21 11/06/21 upadacitinib 15 mg tablet,extended 15 mg PO DAILY 11/06/21 11/06/21 release 24 hr (Rinvoq) Previous Rx's Medication Instructions Recorded hydromorphone 2 mg tablet 2 mg PO Q6H PRN #10 tab 11/08/21 omeprazole 20 mg capsule,delayed 20 mg PO DAILY@0700 #30 cap 11/08/21 release methylprednisolone 4 mg tablets in 4 mg PO DAILY #21 ea 11/09/21 a dose pack (Medrol (Santi)) Allergies Allergy/AdvReac Type Severity Reaction Status Date / Time caffeine [From Cafergot] Allergy Severe Anaphylaxis Verified 10/26/21 19:24 ergotamine [From Cafergot] Allergy Severe Anaphylaxis Verified 10/26/21 19:24 ketorolac [From Toradol] Allergy Mild Headache Verified 10/26/21 19:24 lamotrigine [From Lamictal] Allergy rash Verified 10/26/21 19:24 Penicillins Allergy Anaphylaxis Verified 10/26/21 19:24 sumatriptan Allergy Anaphylaxis Verified 10/26/21 19:24 Review of Systems Status of ROS: Reports: 10 or more systems reviewed and unremarkable except as noted in History and below PFSH PFS Medical History (Updated 11/09/21 @ 02:09 by Suleman Carbajal MD) Ankylosing spondylitis Anxiety Asthma Bipolar disorder Costochondritis, acute Gastroesophageal reflux History of esophageal dilatation Low grade squamous intraepithelial lesion Migraine Nephrolithiasis Obesity OCD (obsessive compulsive disorder) Paroxysmal SVT (supraventricular tachycardia) Polycystic ovarian syndrome Psoriatic arthritis Referred abdominal pain Surgical History H/O nasal septoplasty H/O wisdom tooth extraction S/P Status post cholecystectomy Status post colposcopy Status post laser lithotripsy of ureteral calculus Family History (Updated 11/06/21 @ 18:27 by Patrick Awad MD) Mother Coronary artery disease Social History Narrative: 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 She reportedly recently quit smoking 4 days ago. Highest level of school completed/degree received: high school graduate Smoking Status: Current every day smoker What tobacco products do you use: cigarettes Do you use any of these nicotine containing products: None Second hand tobacco smoke exposure: No How often do you have a drink containing alcohol: never AUDIT-C Alcohol total score: 0 Non-prescribed substance use: denies use Caffeine: Yes (soda, energy drinks) service: No Exam Narrative: Exam Narrative: General: Well-developed and well-nourished, no acute distress Head: Atraumatic and normocephalic Eyes: Pupils are equal reactive, extraocular motions intact, conjunctiva clear ENT: External nose and ears are normal, posterior pharynx without erythema or exudate Neck: No midline cervical tenderness, full spontaneous range of motion the neck, trachea midline, no adenopathy Heart: Regular rate and rhythm no murmurs or thrills Lungs: Clear to auscultation bilaterally without wheezes or crackles. Lower midline chest wall tenderness along with tenderness along the right cartilaginous rib cage. No right lower quadrant or epigastric tenderness today. Abdomen: Soft, nontender, nondistended with active bowel sounds Musculoskeletal: No tenderness, deformity, or edema Neurologic: Awake, alert, and oriented x3, no gross focal neurologic deficits, cranial nerves intact as tested Psych: Mood and affect are appropriate Skin: No rashes Const: Vital Signs, click to edit/add: Vital Signs - 24 hr 11/09/21 00:47 Temperature 97.4 F L Pulse Rate [Right Pulse Oximeter] 79 Respiratory Rate 22 Blood Pressure [Ri ght Upper Arm] 182/144 H Pulse Oximetry 96 Documenting provider has reviewed patient's vital signs: yes Course Reevaluation(s) Reevaluation #1: Patient recheck, she feels much better. She feels like the Toradol is working better for her than the Dilaudid. She does have a history of kidney and headache with oral Toradol but would like to try this for home. She also be started on Medrol Dosepak and stable for discharge Time: 02:21 Vital Signs Vital signs: Initial Vital Signs Temperature 97.4 F L 11/09/21 00:47 Temperature Source Temporal Artery Scan 11/09/21 00:47 Pulse Rate 79 11/09/21 00:47 Pulse Rhythm 11/09/21 00:47 Respiratory Rate 22 11/09/21 00:47 Blood Pressure 182/144 H 11/09/21 00:47 Blood Pressure Mean 156 11/09/21 00:47 Blood Pressure Position Semi-Fowlers 11/09/21 00:47 Pulse Oximetry 96 11/09/21 00:47 Oxygen Delivery Method 11/09/21 00:47 Vital Signs Temperature 97.4 F L 11/09/21 00:47 Pulse Rate 79 11/09/21 00:47 Respiratory Rate 22 11/09/21 00:47 Blood Pressure 182/144 H 11/09/21 00:47 Pulse Oximetry 96 11/09/21 00:47 Temperature 97.4 F L 11/09/21 00:47 Pulse Rate 79 11/09/21 00:47 Respiratory Rate 22 11/09/21 00:47 Blood Pressure 182/144 H 11/09/21 00:47 Pulse Oximetry 96 11/09/21 00:47 Medical Decision Making MDM Narrative Medical decision making narrative: Patient seen and examined, prior records reviewed. Differential diagnosis includes but not limited to chest wall pain, costochondritis, acute cholecystitis, reflux, myocardial infarction. Patient presents with chest pain right upper quadrant pain. Multiple emergency department visits for this as well as recent hospital admission. Extensive testing including CT, ultrasound, EGD about done with no cause of pain. On exam here today, patient has chest wall tenderness and really no right upper quadrant abdominal tenderness. Symptoms seem consistent with recent diagnosis of acute costochondritis. Patient will given Toradol IV as well as Solu-Medrol. Troponin and EKG are ordered as patient has not had much cardiac evaluation, and consideration for pericarditis or myocarditis although less likely. Medical Records Medical records reviewed: Yes I reviewed the patient's medical records Lab Data Lab results reviewed: Yes I reviewed the patient's lab results Labs: Lab Results 11/09/21 Range/Units 01:06 POC Troponin I 0.01 (0.01-0.04) ng/ml ECG Data Attestation: I personally reviewed and interpreted this ECG as follows: Prior ECG tracings: not available for review (No prior) Interpretation: Personally reviewed and interpreted by me performed at 1:30 a.m., normal sinus rhythm rate 75, normal axis, normal intervals, QTC 477, no acute ischemic changes. No prior from comparison. Discharge Plan Discharge Clinical Impression: Costochondritis, acute Patient Disposition: Home, Self-Care Instructions: Costochondritis (ED) Activity Level: No Restrictions Discharge Diet: Regular Prescriptions: New methylprednisolone [Medrol (Santi)] 4 mg tablets,dose pack 4 mg PO DAILY Qty: 21 0RF No Action ergocalciferol (vitamin D2) [Vitamin D2] 1,250 mcg (50,000 unit) capsule 50,000 unit PO Q7D 0RF Rx Instructions: WEEKLY hydroxychloroquine 200 mg tablet 200 mg PO BID 0RF Rinvoq 15 mg tablet extended release 24 hr 15 mg PO DAILY 0RF Rx Instructions: WILL START SOON albuterol sulfate [Ventolin HFA] 90 mcg/actuation HFA aerosol inhaler 2 inh inhalation Q4H PRN0RF epinephrine 0.3 mg/0.3 mL auto-injector 0.3 mg IM ONCE PRN0RF duloxetine 60 mg capsule,delayed release(DR/EC) 60 mg PO QAM 0RF hydromorphone 2 mg Tablet 2 mg PO Q6H PRNQty: 10 0RF omeprazole 20 mg Capsule,Delayed Release(Dr/Ec) 20 mg PO DAILY@0700 Qty: 30 0RF trazodone 50 mg tablet 50 mg PO HS 0RF clonazepam 0.5 mg tablet 0.25 - 0.5 mg PO DAILY PRN0RF amlodipine 5 mg tablet 5 mg PO DAILY 0RF duloxetine 30 mg capsule,delayed release(DR/EC) 30 mg PO HS 0RF Follow Up/Referrals: Vero Alvarez MD [Primary Care Provider] - Stand Alone Forms: [facility] Info Instructions
[2021-11-09 01:33] LABS: Troponin, Point-of-Care* 0.01 ng/ml (0.01-0.04)
[2021-11-09 06:43] VITALS: BP 148/77; PULSE 78; RESP 14; O2SAT 96
== END 2021-11-09 06:57 | disposition home or self-care (01) ==
PROVIDERS: Emergency Provider Family Medicine; PCP Family Medicine
DX: M94.0 Chondrocostal junction syndrome [Tietze] (principal)
CPT/HCPCS: 36415; 84484; 93005; 96374; 96375; 99283; 99284

== ENCOUNTER 2022-01-12 11:05 | Outpatient (CLI) | payer MEDICAID, SELFPAY | END 2022-01-12 11:06 | disposition home or self-care (01) | LOC: NFLDREF 01-13 15:05 | PROVIDERS: PCP Family Medicine; Visit Provider Student in an Organized Health Care Education/Training Program | DX: N39.0 Urinary tract infection, site not specified (principal) | CPT/HCPCS: 87086 ==

== ENCOUNTER 2022-08-13 11:37 | Emergency (ER) | payer MEDICAID, SELFPAY ==
[2022-08-13 12:00] VITALS: BP 135/56; PULSE 88; RESP 16; TEMP 36.4; O2SAT 98; BMI 28.3
--- NOTE | 2022-08-13 12:36 | ED.GENADULT ---
HPI - General Adult General Chief complaint: Dizziness/Vertigo Stated complaint: Dizzy Time Seen by Provider: 08/13/22 11:39 History of Present Illness HPI narrative: Patient is a 37 white female who had gastric bypass surgery in February of 2022, has lost about 50 lb, has had some intermittent dizziness since the surgery. She does describe occasional diarrhea dumping type syndrome several times a week. She has had inability to keep fluids on board well. But she is able to eat and drink adequately. She reports she has been eating, has had some lightheadedness at times as well. She presents to ED with these complaints. She has no fever, no shortness of breath, no chest pain. No abdominal pain. Her past medical history significant for sinus infections otitis media urinary tract infection costochondritis bipolar disorder ankylosing spondylitis. Medications are reviewed. Related Data Home Medications Medication Instructions Recorded Confirmed amlodipine 5 mg tablet 5 mg PO DAILY 10/26/21 05/19/22 clonazepam 0.5 mg tablet 0.25 - 0.5 mg PO DAILY PRN 10/26/21 05/19/22 duloxetine 30 mg capsule,delayed 30 mg PO HS 10/26/21 05/19/22 release trazodone 50 mg tablet 50 mg PO HS 10/26/21 05/19/22 duloxetine 60 mg capsule,delayed 60 mg PO QAM 11/06/21 05/19/22 release epinephrine 0.3 mg/0.3 mL 0.3 mg IM ONCE PRN 11/06/21 05/19/22 injection, auto-injector ergocalciferol (vitamin D2) 1,250 50,000 unit PO Q7D 11/06/21 05/19/22 mcg (50,000 unit) capsule (Vitamin D2) upadacitinib 15 mg tablet,extended 15 mg PO DAILY 11/06/21 05/19/22 release 24 hr (Rinvoq) bupropion HCl 150 mg tablet,12 hr 150 mg PO DAILY 08/13/22 08/13/22 sustained-release hydroxyzine HCl 25 mg tablet 25 mg PO DAILY 08/13/22 08/13/22 Previous Rx's Medication Instructions Recorded azithromycin 250 mg tablet See Rx Instructions PO .COMPLEX #6 05/12/22 tabs doxycycline hyclate 100 mg capsule 100 mg PO BID #20 caps 05/19/22 Allergies Allergy/AdvReac Type Severity Reaction Status Date / Time caffeine [From Cafergot] Allergy Severe Anaphylaxis Verified 05/19/22 18:05 ergotamine [From Cafergot] Allergy Severe Anaphylaxis Verified 05/19/22 18:05 tramadol Allergy Intermediate Headache Verified 05/19/22 18:05 lamotrigine [From Lamictal] Allergy rash Verified 05/19/22 18:05 Penicillins Allergy Anaphylaxis Verified 05/19/22 18:05 sumatriptan Allergy Anaphylaxis Verified 05/19/22 18:05 Review of Systems Status of ROS: Reports: 6 or more systems reviewed and unremarkable except as noted in History and below [facility] Medical History Sinus infection ?J32.9 - Chronic sinusitis, unspecified (ICD-10) Referred abdominal pain ?R10.9 - Unspecified abdominal pain (ICD-10) Costochondritis, acute ?M94.0 - Chondrocostal junction syndrome [Tietze] (ICD-10) History of esophageal dilatation ?Z98.890 - Other specified postprocedural states (ICD-10) OCD (obsessive compulsive disorder) ?F42.9 - Obsessive-compulsive disorder, unspecified (ICD-10) Gastroesophageal reflux ?K21.9 - Gastro-esophageal reflux disease without esophagitis (ICD-10) Psoriatic arthritis ?L40.50 - Arthropathic psoriasis, unspecified (ICD-10) Migraine ?G43.909 - Migraine, unspecified, not intractable, without status migrainosus (ICD-10) Anxiety ?F41.9 - Anxiety disorder, unspecified (ICD-10) Obesity ?E66.9 - Obesity, unspecified (ICD-10) Asthma ?J45.909 - Unspecified asthma, uncomplicated (ICD-10) Low grade squamous intraepithelial lesion Paroxysmal SVT (supraventricular tachycardia) ?I47.1 - Supraventricular tachycardia (ICD-10) Polycystic ovarian syndrome ?E28.2 - Polycystic ovarian syndrome (ICD-10) Nephrolithiasis ?N20.0 - Calculus of kidney (ICD-10) Bipolar disorder ?F31.9 - Bipolar disorder, unspecified (ICD-10) Ankylosing spondylitis ?M45.9 - Ankylosing spondylitis of unspecified sites in spine (ICD-10) Surgical History H/O nasal septoplasty ?Z98.890 - Other specified postprocedural states (ICD-10) H/O wisdom tooth extraction ?K08.409 - Partial loss of teeth, unspecified cause, unspecified class (ICD-10) Status post colposcopy ?Z98.890 - Other specified postprocedural states (ICD-10) Status post laser lithotripsy of ureteral calculus ?Z98.890 - Other specified postprocedural states (ICD-10) S/P ?Z98.891 - History of uterine scar from previous surgery (ICD-10) Status post cholecystectomy ?Z90.49 - Acquired absence of other specified parts of digestive tract (ICD-10) Family History Mother Coronary artery disease Social History Narrative: 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 She reportedly recently quit smoking 4 days ago. Highest level of school completed/degree received: high school graduate Smoking Status: Never smoker Do you use any of these nicotine containing products: None Second hand tobacco smoke exposure: No How often do you have a drink containing alcohol: never AUDIT-C Alcohol total score: 0 Non-prescribed substance use: denies use Caffeine: Yes (soda, energy drinks) service: No Exam Narrative: Exam Narrative: Objective: Patient is alert orient x3, mouth is slightly dry, neck supple, pulses regular, abdomen benign soft nontender Extremities normal neurologic nonfocal Const: Vital Signs, click to edit/add: Vital Signs - 24 hr 08/13/22 12:00 Temperature 97.6 F Pulse Rate [Left P ulse Oximeter] 88 Respiratory Rate 16 Blood Pressure [Le ft Upper Arm] 135/56 L Pulse Oximetry 98 Oxygen Delivery Me thod Room Air Course Vital Signs Vital signs: Initial Vital Signs Temperature 97.6 F 08/13/22 12:00 Temperature Source Temporal Artery Scan 08/13/22 12:00 Pulse Rate 88 08/13/22 12:00 Pulse Rhythm Regular 08/13/22 12:00 Pulse Strength 3+ Normal 08/13/22 12:00 Respiratory Rate 16 08/13/22 12:00 Blood Pressure 135/56 L 08/13/22 12:00 Blood Pressure Mean 82 08/13/22 12:00 Blood Pressure Position Sitting 08/13/22 12:00 Pulse Oximetry 98 08/13/22 12:00 Oxygen Delivery Method Room Air 08/13/22 12:00 Vital Signs Temperature 97.6 F 08/13/22 12:00 Pulse Rate 88 08/13/22 12:00 Respiratory Rate 16 08/13/22 12:00 Blood Pressure 135/56 L 08/13/22 12:00 Pulse Oximetry 98 08/13/22 12:00 Oxygen Delivery Method Room Air 08/13/22 12:00 Temperature 97.6 F 08/13/22 12:00 Pulse Rate 88 08/13/22 12:00 Respiratory Rate 16 08/13/22 12:00 Blood Pressure 135/56 L 08/13/22 12:00 Pulse Oximetry 98 08/13/22 12:00 Oxygen Delivery Method Room Air 08/13/22 12:00 Medical Decision Making MDM Narrative Medical decision making narrative: 37-year-old female status post gastric bypass with some dehydration all symptoms, limited p.o. fluid intake and some intermittent lightheadedness, certainly is could be related dehydration. Patient also seems somewhat stressed but I think most of this is maybe dehydration all, I think ruling out electrolyte abnormality be appropriate as well. Will give IV fluid, check electrolytes and labs. Disposition pending findings Addendum: The patient has no additional symptoms, her laboratory studies look reassuring, her vital signs are reassuring, her white count is 5650 hemoglobin is low at 13.2, ER profile is unremarkable. Renal function is creatinine is normal. I think rest home light activity recommended fluids, recheck with regular doctor next couple of days make sure she is improving and having no other symptoms. She was comfortable this plan. Lab Data Labs: Lab Results 08/13/22 Range/Units 12:50 WBC 5.65 (4.50-11.00) K/uL RBC 4.31 (4.00-5.20) m/uL Hgb 13.2 (12.0-16.0) gm/dL Hct 38.6 (33.0-51.0) % MCV 90 (80-100) fL MCH 31 (26-34) pg MCHC 34 (32-36) gm/dL RDW Coeff of Compa 13.0 (11.5-15.5) % Plt Count 166 (140-440) K/uL Neut % (Auto) 41.4 L (42.0-72.0) % Lymph % (Auto) 48.5 H (20-44) % [place] % (Auto) 7.6 (0.0-11.0) % Eos % (Auto) 1.8 (0.0-7.0) % Baso % (Auto) 0.7 (0.0-3.0) % Neut # (Auto) 2.30 (1.7-7.0) K/uL Lymph # (Auto) 2.70 (0.90-2.90) K/uL [place] # (Auto) 0.40 (0.00-0.90) K/UL Eos # (Auto) 0.10 (0.00-0.50) K/uL Baso # (Auto) 0.04 (0.00-0.30) K/uL Sodium 139 (135-149) mmol/L Potassium 3.6 (3.6-5.1) mmol/L Chloride 112 (96-114) mmol/L Carbon Dioxide 23 (20-32) mmol/L BUN 8 (5-24) mg/dL Creatinine 0.8 (0.5-1.5) mg/dL Estimated Creat Clear 88.32 Estimated GFR 98 ml/min Glucose 81 (60-115) mg/dL Calcium 8.8 (8.4-10.6) mg/dL Total Bilirubin 0.5 (0.1-1.5) mg/dL Direct Bilirubin 0.0 (0.0-0.5) mg/dL AST 36 H (12-35) U/L ALT 35 (4-35) U/L Alkaline Phosphatase 63 (40-150) U/L C-Reactive Protein 0.6 (0.5-1.0) mg/dL Total Protein 6.7 (6.0-8.3) g/dL Albumin 4.0 (3.3-5.0) g/dL Amylase 62 (18-89) U/L Discharge Plan Discharge Clinical Impression: Episodic lightheadedness, Dehydration Patient Disposition: Home w/ Parent or Adult Condition: Improved Additional Instructions: Light activity, fluids, recheck with regular doctor in 2-3 days. Activity Level: Light activity Discharge Diet: Regular Prescriptions: No Action azithromycin 250 mg tablet See Rx Instructions PO .COMPLEX Qty: 6 0RF Rx Instructions: For 250 mg dose pack: take 500 mg today (day 1), then 250 mg for 4 days (days 2-5) PO doxycycline hyclate 100 mg capsule 100 mg PO BID Qty: 20 0RF ergocalciferol (vitamin D2) [Vitamin D2] 1,250 mcg (50,000 unit) capsule 50,000 unit PO Q7D Rx Instructions: WEEKLY Rinvoq 15 mg tablet extended release 24 hr 15 mg PO DAILY Rx Instructions: WILL START SOON epinephrine 0.3 mg/0.3 mL auto-injector 0.3 mg IM ONCE PRN duloxetine 60 mg capsule,delayed release(DR/EC) 60 mg PO QAM bupropion HCl 150 mg tablet sustained-release 12 hr 150 mg PO DAILY hydroxyzine HCl 25 mg tablet 25 mg PO DAILY trazodone 50 mg tablet 50 mg PO HS clonazepam 0.5 mg tablet 0.25 - 0.5 mg PO DAILY PRN amlodipine 5 mg tablet 5 mg PO DAILY duloxetine 30 mg capsule,delayed release(DR/EC) 30 mg PO HS Follow Up/Referrals: Vero Alvarez MD [Primary Care Provider] - Stand Alone Forms: [employer] Info Instructions
[2022-08-13] MEDS: 0.9 % SODIUM CHLORIDE 1000 ml 1,000 ML 6000 ML IV (12:52)
[2022-08-13 13:03] LABS: Basophils Absolute Auto 0.04 K/uL (0.00-0.30); Basophils Percent Auto 0.7 % (0.0-3.0); Eosinophils Percent Auto 1.8 % (0.0-7.0); Hematocrit 38.6 % (33.0-51.0); Hemoglobin* 13.2 gm/dL (12.0-16.0); Lymphocytes Percent Auto 48.5 % (20-44); Mean Corpuscular HGB Conc 34 gm/dL (32-36); Mean Corpuscular Hemoglobin 31 pg (26-34); Mean Corpuscular Volume 90 fL (80-100); Monocytes Percent Auto 7.6 % (0.0-11.0); Neutrophils Percent Auto 41.4 % (42.0-72.0); Platelet Count* 166 K/uL (140-440); Red Blood Count 4.31 m/uL (4.00-5.20); Slide Review Reflex No; White Blood Count* 5.65 K/uL (4.50-11.00)
[2022-08-13 13:15] LABS: Chloride* 112 mmol/L (96-114); Sodium* 139 mmol/L (135-149)
[2022-08-13 13:16] LABS: Potassium* 3.6 mmol/L (3.6-5.1)
[2022-08-13 13:18] LABS: Amylase* 62 U/L (18-89); Bilirubin Total* 0.5 mg/dL (0.1-1.5); Carbon Dioxide* 23 mmol/L (20-32); Creatinine* 0.8 mg/dL (0.5-1.5); Est. Creatinine Clearance* 88.32; Estimated Glomerular Filt Rate 98 ml/min; Total Protein* 6.7 g/dL (6.0-8.3)
[2022-08-13 13:19] LABS: Alanine Aminotransferase* 35 U/L (4-35); Alkaline Phosphatase* 63 U/L (40-150); Aspartate Amino Transferase* 36 U/L (12-35); Blood Urea Nitrogen* 8 mg/dL (5-24); Calcium* 8.8 mg/dL (8.4-10.6); Glucose* 81 mg/dL (60-115)
[2022-08-13 13:21] LABS: C Reactive Protein* 0.6 mg/dL (0.5-1.0)
== END 2022-08-13 13:57 | disposition home or self-care (01) ==
PROVIDERS: Emergency Provider Family Medicine; PCP Family Medicine
DX: R42 Dizziness and giddiness (principal); E86.0 Dehydration
CPT/HCPCS: 36415; 80048; 80076; 82150; 85025; 86140; 99283; 99284; J7030

== ENCOUNTER 2022-10-22 14:29 | Emergency (ER) | payer MEDICAID, SELFPAY ==
[2022-10-22 14:36] VITALS: BP 125/86; PULSE 76; RESP 16; TEMP 36.1; O2SAT 100; BMI 25.8
[2022-10-22 15:18] LABS: Appearance Urine Clear (Clear); Bilirubin Urine Negative (Negative); Blood Urine Negative (Negative); Color Urine Yellow (Yellow); Glucose Urine Negative (Negative); Ketones Urine Trace (Negative); Leukocyte Esterase Urine Negative (Negative); Nitrite Urine Negative (Negative); Protein Urine Negative (Negative); Urobilinogen Urine 0.2 (0.2-1.0); pH Urine 6.5 (5.0-8.5)
[2022-10-22 15:53] LABS: Ur HCG Qualitative* POSITIVE (Negative)
--- NOTE | 2022-10-22 16:01 | CRLHL7_ITS ---
For Patients: As a result of the Century Cures Act, medical imaging exams and procedure reports are released immediately into your electronic medical record. You may view this report before your referring provider. If you have questions, please contact your health care provider. INDICATION: , bleeding TECHNIQUE: Ultrasound OB pelvis transvaginal. Real-time dunn-scale imaging of the pelvis was performed. COMPARISON: None FINDINGS: Clinical Age: 6 weeks 2 days (based on LMP) The uterus is anteverted and contains a gestational sac with a mean gestational sac diameter of 11 millimeters. This correlates with 5 weeks 5 days. A 2 millimeter yolk sac is identified. No embryo seen. Maternal right ovary unremarkable. Maternal left ovary contains a 3.0 centimeter hypoechoic lesion, likely corpus luteum. Small free fluid. IMPRESSION: Intrauterine gestational sac and yolk sac identified corresponding to 5 weeks 5 days without embryo. This is considered a of uncertain viability. Correlation with serial quantitative beta HCG and follow-up ultrasound in 7-10 days suggested. Dictated by Guido Seaman MD @ 10/22/2022 7:00:12 PM (Electronically Signed)
[2022-10-22 16:08] LABS: RBC Urine 0-2 (0-2); WBC Urine 0-2 (0-5)
[2022-10-22 16:17] VITALS: BP 116/79; PULSE 100; RESP 20; TEMP 36.3; O2SAT 100
--- NOTE | 2022-10-22 16:38 | ED.NURSE ---
Patient brought into room from lobby.
--- NOTE | 2022-10-22 16:59 | ED.GENADULT ---
HPI - General Adult General Date Seen: 10/22/22 Chief complaint: Vaginal Bleeding Stated complaint: Possible miscarriage Time Seen by Provider: 10/22/22 16:44 Source: patient Mode of arrival: ambulatory Limitations: no limitations History of Present Illness HPI narrative: Patient is a 37-year-old woman who presents for evaluation of early . She had a period on about September 08. She says for the last 5 days ordered so she had been having some pelvic cramping, but had not had any bleeding, it finally occurred to her that she was about 2 weeks late for her period and so this morning she took a test which she says was immediately positive. She then noted a tiny bit of spotting with wiping which has since disappeared. She did have some more significant cramping which was sharp for this morning. Currently she is asymptomatic. She has told the father of this baby but says she is somewhat ambivalent about this , she says neither of them is really ready for a . She has a 5-year-old. She has a history of a miscarriage which ended up requiring a D&C. Related Data Home Medications Medication Instructions Recorded Confirmed amlodipine 5 mg tablet 5 mg PO DAILY 10/26/21 10/22/22 clonazepam 0.5 mg tablet 0.25 - 0.5 mg PO DAILY PRN 10/26/21 10/22/22 trazodone 50 mg tablet 50 mg PO HS 10/26/21 10/22/22 duloxetine 60 mg capsule,delayed 60 mg PO QAM 11/06/21 10/22/22 release epinephrine 0.3 mg/0.3 mL 0.3 mg IM ONCE PRN 11/06/21 10/22/22 injection, auto-injector bupropion HCl 150 mg tablet,12 hr 150 mg PO DAILY 08/13/22 10/22/22 sustained-release Allergies Allergy/AdvReac Type Severity Reaction Status Date / Time ergotamine [From Cafergot] Allergy Severe Anaphylaxis Verified 10/22/22 14:34 tramadol Allergy Intermediate Headache Verified 10/22/22 14:34 lamotrigine [From Lamictal] Allergy rash Verified 10/22/22 14:34 Penicillins Allergy Anaphylaxis Verified 10/22/22 14:34 sumatriptan Allergy Anaphylaxis Verified 10/22/22 14:34 Review of Systems Status of ROS: Reports: 10 or more systems reviewed and unremarkable except as noted in History and below [facility] Medical History Sinus infection ?J32.9 - Chronic sinusitis, unspecified (ICD-10) Referred abdominal pain ?R10.9 - Unspecified abdominal pain (ICD-10) Costochondritis, acute ?M94.0 - Chondrocostal junction syndrome [Tietze] (ICD-10) History of esophageal dilatation ?Z98.890 - Other specified postprocedural states (ICD-10) OCD (obsessive compulsive disorder) ?F42.9 - Obsessive-compulsive disorder, unspecified (ICD-10) Gastroesophageal reflux ?K21.9 - Gastro-esophageal reflux disease without esophagitis (ICD-10) Psoriatic arthritis ?L40.50 - Arthropathic psoriasis, unspecified (ICD-10) Migraine ?G43.909 - Migraine, unspecified, not intractable, without status migrainosus (ICD-10) Anxiety ?F41.9 - Anxiety disorder, unspecified (ICD-10) Obesity ?E66.9 - Obesity, unspecified (ICD-10) Asthma ?J45.909 - Unspecified asthma, uncomplicated (ICD-10) Low grade squamous intraepithelial lesion Paroxysmal SVT (supraventricular tachycardia) ?I47.1 - Supraventricular tachycardia (ICD-10) Polycystic ovarian syndrome ?E28.2 - Polycystic ovarian syndrome (ICD-10) Nephrolithiasis ?N20.0 - Calculus of kidney (ICD-10) Bipolar disorder ?F31.9 - Bipolar disorder, unspecified (ICD-10) Ankylosing spondylitis ?M45.9 - Ankylosing spondylitis of unspecified sites in spine (ICD-10) Surgical History H/O nasal septoplasty ?Z98.890 - Other specified postprocedural states (ICD-10) H/O wisdom tooth extraction ?K08.409 - Partial loss of teeth, unspecified cause, unspecified class (ICD-10) Status post colposcopy ?Z98.890 - Other specified postprocedural states (ICD-10) Status post laser lithotripsy of ureteral calculus ?Z98.890 - Other specified postprocedural states (ICD-10) S/P ?Z98.891 - History of uterine scar from previous surgery (ICD-10) Status post cholecystectomy ?Z90.49 - Acquired absence of other specified parts of digestive tract (ICD-10) Family History Mother Coronary artery disease Social History Narrative: 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 She reportedly recently quit smoking 4 days ago. Highest level of school completed/degree received: high school graduate Smoking Status: Never smoker Do you use any of these nicotine containing products: None Second hand tobacco smoke exposure: No How often do you have a drink containing alcohol: never AUDIT-C Alcohol total score: 0 Non-prescribed substance use: denies use Caffeine: Yes (soda, energy drinks) service: No Exam Narrative: Exam Narrative: Vital signs as noted above. In general, an alert, well-appearing patient. Head: Normocephalic, atraumatic. Eyes: Pupils are equal reactive. Extraocular movements are full. Conjunctivae are normal. ENT: Mucous membranes are moist. Throat is normal. Neck: Supple without lymphadenopathy. Heart: Regular rate and rhythm. No murmur or rub. Lungs: Clear bilaterally. No increased work of breathing, crackles or wheezes. Abdomen: Soft and nontender. No organomegaly. Extremities: Well perfused. No edema. No calf tenderness. Pulses intact. Neurologic: Patient is alert and oriented to person and place. Speech is fluent. Face is symmetric. Moves all extremities equally. Affect: Normal. Skin: Warm and dry. Well perfused. Const: Vital Signs, click to edit/add: Vital Signs - 24 hr 10/22/22 14:36 10/22/22 16:17 Temperature 97.0 F L 97.4 F L Pulse Rate [Pulse Oximeter] 76 100 Respiratory Rate 16 20 Blood Pressure [Ri ght Upper Arm] 125/86 116/79 Pulse Oximetry 100 100 Oxygen Delivery Me thod Room Air Room Air Documenting provider has reviewed patient's vital signs: yes Course Course Hospital Course: UA was negative. Urine test was positive. Her blood type is O-positive. Plan at this time is to check a hemoglobin and quant HCG, pelvic ultrasound. Evaluate for viability, possible ectopic . CBCs unremarkable. Her quant HCG is pending, and apparently is having to be diluted as that is greater than 15,000. Ultrasound shows an intrauterine gestational sac and yolk sac, but no embryo. This is read as a of uncertain viability. Follow-up ultrasound and quantitative hCG is recommended in 7-10 days. I have discussed all this with her. I do think this helps to rule out ectopic , but I have discussed that it is unclear at this time if this is a normally progressing that is simply a little earlier than she thought or if this is a that is going to end up resulting in miscarriage. For now, she is stable for discharge home. She can use Tylenol if needed for cramping. I would recommend follow-up with her clinic doctor in about a week for recheck. Return at any time for significant cramping or bleeding more suggestive of miscarriage. Vital Signs Vital signs: Initial Vital Signs Temperature 97.0 F L 10/22/22 14:36 Temperature Source Temporal Artery Scan 10/22/22 14:36 Pulse Rate 76 10/22/22 14:36 Pulse Rhythm Regular 10/22/22 14:36 Pulse Strength 3+ Normal 10/22/22 14:36 Respiratory Rate 16 10/22/22 14:36 Blood Pressure 125/86 10/22/22 14:36 Blood Pressure Mean 99 10/22/22 14:36 Blood Pressure Position Sitting 10/22/22 14:36 Pulse Oximetry 100 10/22/22 14:36 Oxygen Delivery Method Room Air 10/22/22 14:36 Vital Signs Temperature 97.0 F L 10/22/22 14:36 Pulse Rate 76 10/22/22 14:36 Respiratory Rate 16 10/22/22 14:36 Blood Pressure 125/86 10/22/22 14:36 Pulse Oximetry 100 10/22/22 14:36 Oxygen Delivery Method Room Air 10/22/22 14:36 Temperature 97.4 F L 10/22/22 16:17 Pulse Rate 100 10/22/22 16:17 Respiratory Rate 20 10/22/22 16:17 Blood Pressure 116/79 10/22/22 16:17 Pulse Oximetry 100 10/22/22 16:17 Oxygen Delivery Method Room Air 10/22/22 16:17 Medical Decision Making Lab Data Labs: Lab Results 07/04/0410/22/22 10/22/22 Range/Units 14:41 14:51 17:41 WBC 9.08 (4.50-11.00) K/uL RBC 4.77 (4.00-5.20) m/uL Hgb 14.2 (12.0-16.0) gm/dL Hct 42.2 (33.0-51.0) % MCV 89 (80-100) fL MCH 30 (26-34) pg MCHC 34 (32-36) gm/dL RDW Coeff of Compa 13.1 (11.5-15.5) % Plt Count 184 (140-440) K/uL Neut % (Auto) 52.0 (42.0-72.0) % Lymph % (Auto) 40.5 (20-44) % [place] % (Auto) 5.1 (0.0-11.0) % Eos % (Auto) 1.8 (0.0-7.0) % Baso % (Auto) 0.6 (0.0-3.0) % Neut # (Auto) 4.73 (1.7-7.0) K/uL Lymph # (Auto) 3.68 H (0.90-2.90) K/uL [place] # (Auto) 0.50 (0.00-0.90) K/UL Eos # (Auto) 0.16 (0.00-0.50) K/uL Baso # (Auto) 0.05 (0.00-0.30) K/uL Abs Immat Gran (auto) 0.00 (0.00-0.30) K/uL Imm/Tot Granulo (auto) 0.0 % Urine Color Yellow (Yellow) Urine Appearance Clear (Clear) Urine pH 6.5 (5.0-8.5) Ur Specific [place] 1.020 (1.000-1.030) Urine Protein Negative (Negative) Urine Glucose (UA) Negative (Negative) Urine Ketones Trace A (Negative) Urine Blood Negative (Negative) Urine Nitrite Negative (Negative) Urine Bilirubin Negative (Negative) Urine Urobilinogen 0.2 (0.2-1.0) Ur Leukocyte Esterase Negative (Negative) Urine RBC 0-2 (0-2) Urine WBC 0-2 (0-5) Ur Squamous Epith Cells None (None-Few) Urine Bacteria None (None) Urine HCG, Qual POSITIVE H (Negative) Discharge Plan Discharge Clinical Impression: Threatened Patient Disposition: Home, Self-Care Condition: Stable Instructions: Threatened Miscarriage (ED) Additional Instructions: Follow-up with Dr. Alvarez in 1 week for recheck, repeat beta-hCG, possible repeat ultrasound. Testing today cannot determine whether not this is a normally progressing . Your beta hCG was greater than 15,000 and your ultrasound showed a gestational sac and yolk sac but no pole. Prescriptions: No Action epinephrine 0.3 mg/0.3 mL auto-injector 0.3 mg IM ONCE PRN duloxetine 60 mg capsule,delayed release(DR/EC) 60 mg PO QAM bupropion HCl 150 mg tablet sustained-release 12 hr 150 mg PO DAILY trazodone 50 mg tablet 50 mg PO HS clonazepam 0.5 mg tablet 0.25 - 0.5 mg PO DAILY PRN amlodipine 5 mg tablet 5 mg PO DAILY Follow Up/Referrals: Vero Alvarez MD [Primary Care Provider] - Stand Alone Forms: [employer] Info Instructions
[2022-10-22 17:57] LABS: Basophils Absolute Auto 0.05 K/uL (0.00-0.30); Basophils Percent Auto 0.6 % (0.0-3.0); Eosinophils Absolute Auto 0.16 K/uL (0.00-0.50); Eosinophils Percent Auto 1.8 % (0.0-7.0); Hematocrit 42.2 % (33.0-51.0); Hemoglobin* 14.2 gm/dL (12.0-16.0); Lymphocytes Absolute Auto 3.68 K/uL (0.90-2.90); Lymphocytes Percent Auto 40.5 % (20-44); Mean Corpuscular HGB Conc 34 gm/dL (32-36); Mean Corpuscular Hemoglobin 30 pg (26-34); Mean Corpuscular Volume 89 fL (80-100); Monocytes Percent Auto 5.1 % (0.0-11.0); Neutrophils Absolute Auto 4.73 K/uL (1.7-7.0); Platelet Count* 184 K/uL (140-440); RDW Coefficient of Variation % 13.1 % (11.5-15.5); Red Blood Count 4.77 m/uL (4.00-5.20); White Blood Count* 9.08 K/uL (4.50-11.00)
[2022-10-22 18:10] LABS: Slide Review Reflex No
[2022-10-22 19:20] VITALS: BP 116/79; PULSE 100; RESP 20; TEMP 36.3
== END 2022-10-22 19:21 | disposition home or self-care (01) ==
PROVIDERS: Emergency Provider Emergency Medicine; PCP Family Medicine
DX: O20.0 Threatened abortion (principal)
CPT/HCPCS: 36415; 76817; 81001; 81025; 84702; 85025; 99283; 99284

== ENCOUNTER 2022-11-02 23:14 | Outpatient (CLI) | payer MEDICAID, SELFPAY | END 2022-11-02 23:15 | disposition home or self-care (01) | LOC: AMB 11-04 12:22 | PROVIDERS: PCP Family Medicine; Visit Provider Student in an Organized Health Care Education/Training Program | DX: O20.9 Hemorrhage in early pregnancy, unspecified (principal) | CPT/HCPCS: A0425; A0427 ==

== ENCOUNTER 2022-11-02 23:39 | Day surgery (SDC) | payer MEDICAID, SELFPAY ==
[2022-11-02 23:54] VITALS: BP 140/65; PULSE 81; RESP 18; TEMP 36.4; O2SAT 97
[2022-11-03] VITALS (20 sets, daily range): BP systolic 101–126; BP diastolic 54–85; PULSE 58–97; RESP 16–18; TEMP 36.5–37.1; O2SAT 97–100
--- NOTE | 2022-11-03 00:16 | ED.GENADULT ---
HPI - General Adult General Chief complaint: Vaginal Bleeding Stated complaint: Vaginal Bleeding Time Seen by Provider: 11/03/22 00:12 History of Present Illness HPI narrative: Patient c/o vaginal bleeding since 2300 today. Patient states she woke up from sleep and soaked one pad in less than an hour with large clots. Patient has known developing miscarriage. POONAM 06/24/2023. Patient given a total of 8mg morphine from EMS with improvement of pain. . Patient states she has h/o hemorrhage with her last miscarriage 37-year-old woman presenting to the emergency department with renewed bleeding in the setting of suspected miscarriage. By the time I am seeing Ms. Escobedo has already received another ultrasound here in our department. Conversation with texturing machine fixer reports large subchorionic hemorrhage and approximately 7 week intrauterine gestation with our rate of 120 or so. Presents EMS to the emergency department for vaginal bleeding having moved from sleep passing large clots. His having some pain for which she was given morphine by EMS which helped but is now faded and starting to have ?lightsamuel nguyen' she says as I see her wince during our interview. Seen in this department about 10 days ago with follow-up in clinic 3 days ago. Misshapen intrauterine gestational sac was noted 3 days ago and a small pole indicating a 6+ 1 gestation. Ms. Escobedo is G 3p1. Reports having had a hemorrhage with her last miscarriage and was recommended for transfusion which she declined at that time. She looks to be blood type positive. Related Data Home Medications Medication Instructions Recorded Confirmed amlodipine 5 mg tablet 5 mg PO DAILY 10/26/21 11/03/22 clonazepam 0.5 mg tablet 0.25 - 0.5 mg PO DAILY PRN 10/26/21 11/03/22 trazodone 50 mg tablet 50 mg PO HS 10/26/21 11/03/22 duloxetine 60 mg capsule,delayed 60 mg PO QAM 11/06/21 11/03/22 release epinephrine 0.3 mg/0.3 mL 0.3 mg IM ONCE PRN 11/06/21 11/03/22 injection, auto-injector bupropion HCl 150 mg tablet,12 hr 150 mg PO DAILY 08/13/22 11/03/22 sustained-release Allergies Allergy/AdvReac Type Severity Reaction Status Date / Time ergotamine [From Cafergot] Allergy Severe Anaphylaxis Verified 10/22/22 14:34 tramadol Allergy Intermediate Headache Verified 10/22/22 14:34 lamotrigine [From Lamictal] Allergy rash Verified 10/22/22 14:34 NSAIDS (Non-Steroidal Allergy gastric Verified 11/03/22 00:03 Anti-Inflamma bypass Penicillins Allergy Anaphylaxis Verified 10/22/22 14:34 sumatriptan Allergy Anaphylaxis Verified 10/22/22 14:34 ondansetron AdvReac Intermediate Migraine Verified 11/03/22 00:48 Review of Systems Status of ROS: Reports: 6 or more systems reviewed and unremarkable except as noted in History and below [facility] Medical History Sinus infection ?J32.9 - Chronic sinusitis, unspecified (ICD-10) Referred abdominal pain ?R10.9 - Unspecified abdominal pain (ICD-10) Costochondritis, acute ?M94.0 - Chondrocostal junction syndrome [Tietze] (ICD-10) History of esophageal dilatation ?Z98.890 - Other specified postprocedural states (ICD-10) OCD (obsessive compulsive disorder) ?F42.9 - Obsessive-compulsive disorder, unspecified (ICD-10) Gastroesophageal reflux ?K21.9 - Gastro-esophageal reflux disease without esophagitis (ICD-10) Psoriatic arthritis ?L40.50 - Arthropathic psoriasis, unspecified (ICD-10) Migraine ?G43.909 - Migraine, unspecified, not intractable, without status migrainosus (ICD-10) Anxiety ?F41.9 - Anxiety disorder, unspecified (ICD-10) Obesity ?E66.9 - Obesity, unspecified (ICD-10) Asthma ?J45.909 - Unspecified asthma, uncomplicated (ICD-10) Low grade squamous intraepithelial lesion Paroxysmal SVT (supraventricular tachycardia) ?I47.1 - Supraventricular tachycardia (ICD-10) Polycystic ovarian syndrome ?E28.2 - Polycystic ovarian syndrome (ICD-10) Nephrolithiasis ?N20.0 - Calculus of kidney (ICD-10) Bipolar disorder ?F31.9 - Bipolar disorder, unspecified (ICD-10) Ankylosing spondylitis ?M45.9 - Ankylosing spondylitis of unspecified sites in spine (ICD-10) Surgical History History of Geraldo-en-Y gastric bypass ?Z98.84 - Bariatric surgery status (ICD-10) H/O nasal septoplasty ?Z98.890 - Other specified postprocedural states (ICD-10) H/O wisdom tooth extraction ?K08.409 - Partial loss of teeth, unspecified cause, unspecified class (ICD-10) Status post colposcopy ?Z98.890 - Other specified postprocedural states (ICD-10) Status post laser lithotripsy of ureteral calculus ?Z98.890 - Other specified postprocedural states (ICD-10) S/P ?Z98.891 - History of uterine scar from previous surgery (ICD-10) Status post cholecystectomy ?Z90.49 - Acquired absence of other specified parts of digestive tract (ICD-10) Family History Mother Coronary artery disease Social History Narrative: 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 She reportedly recently quit smoking 4 days ago. Highest level of school completed/degree received: high school graduate Smoking Status: Former smoker Do you use any of these nicotine containing products: None Second hand tobacco smoke exposure: No How often do you have a drink containing alcohol: never AUDIT-C Alcohol total score: 0 Non-prescribed substance use: denies use Caffeine: Yes (soda, energy drinks) service: No Exam Narrative: Exam Narrative: Pleasant. Appears rather tired. Mouth sounds dry. Skin is warm and dry. Red head. Well-perfused peripherally. She alerts easily and participates easily conversation. Breathing easily. Lungs appear to be clear. Heart is regularly in an irregular rhythm. Then smoothed to regular rhythm during auscultation. Rate is not increased. Abdomen with normoactive bowel sounds is soft tender without peritoneal signs in the suprapubic area. Const: Vital Signs, click to edit/add: Vital Signs - 24 hr 11/02/22 23:54 11/03/22 00:55 11/03/22 02:15 Temperature 97.6 F Pulse Rate [Left P ulse Oximeter] 81 85 62 Respiratory Rate 18 18 18 Blood Pressure [Ri ght Upper Arm] 140/65 H 107/54 L 113/73 Pulse Oximetry 97 99 99 Oxygen Delivery Me thod Room Air Room Air Room Air 11/03/22 02:18 11/03/22 02:18 Temperature 98 F Pulse Rate [Left P ulse Oximeter] 70 Respiratory Rate 18 Blood Pressure [Ri ght Upper Arm] 113/73 Pulse Oximetry 99 99 Oxygen Delivery Me thod Room Air Documenting provider has reviewed patient's vital signs: yes Course Vital Signs Vital signs: Initial Vital Signs Temperature 97.6 F 11/02/22 23:54 Temperature Source Temporal Artery Scan 11/02/22 23:54 Pulse Rate 81 11/02/22 23:54 Respiratory Rate 18 11/02/22 23:54 Blood Pressure 140/65 H 11/02/22 23:54 Blood Pressure Mean 90 11/02/22 23:54 Blood Pressure Position Semi-Fowlers 11/02/22 23:54 Pulse Oximetry 97 11/02/22 23:54 Oxygen Delivery Method Room Air 11/02/22 23:54 Vital Signs Temperature 97.6 F 11/02/22 23:54 Pulse Rate 81 11/02/22 23:54 Respiratory Rate 18 11/02/22 23:54 Blood Pressure 140/65 H 11/02/22 23:54 Pulse Oximetry 97 11/02/22 23:54 Oxygen Delivery Method Room Air 11/02/22 23:54 Temperature 97.7 F 11/03/22 06:37 Pulse Rate 58 L 11/03/22 06:37 Respiratory Rate 16 11/03/22 06:37 Blood Pressure 101/62 11/03/22 06:37 Pulse Oximetry 97 11/03/22 06:37 Oxygen Delivery Method Room Air 11/03/22 02:18 Medical Decision Making MDM Narrative Medical decision making narrative: Anticipate monitoring here in the emergency department for degree of blood loss and pain management needs. Will be discussing with OB. Blood type positive should not need RhoGAM. Hemoglobin returns at 10.1. I do return to examine with nursing to assess degree of bleeding. Placing speculum blood quickly feels vaginal vault. I remove a ping-pong ball size clot. Three days ago hemoglobin was 13.3. Ten days ago was 14.2. Has continued to bleed during this entire time though picked up a great deal about 3 hours ago now I have discussed this case with OB on-call. This appears to be an incomplete miscarriage/. Will be rechecking hemoglobin to assess need for more immediate intervention. Difficult situation. Repeat hemoglobin has only drifted down a little bit to 9.5. though this is only over 2 hours. Required a couple doses of Dilaudid for better pain management. Will be admitted to OB for further expectant management. May need surgical intervention/D&C. Vitals stable at this time. Lab Data Lab results reviewed: Yes I reviewed the patient's lab results Labs: Lab Results 11/03/22 11/03/22 11/03/22 Range/Units 01:10 01:10 03:05 WBC 7.29 (4.50-11.00) K/uL RBC 3.37 L (4.00-5.20) m/uL Hgb Cancelled 10.1 L 9.5 L Hct 30.1 L (33.0-51.0) % MCV 89 (80-100) fL MCH 30 (26-34) pg MCHC 34 (32-36) gm/dL RDW Coeff of Compa 13.3 (11.5-15.5) % Plt Count 143 (140-440) K/uL Neut % (Auto) 50.3 (42.0-72.0) % Lymph % (Auto) 39.9 (20-44) % Shannon % (Auto) 6.7 (0.0-11.0) % Eos % (Auto) 2.3 (0.0-7.0) % Baso % (Auto) 0.7 (0.0-3.0) % Neut # (Auto) 3.66 (1.7-7.0) K/uL Lymph # (Auto) 2.91 H (0.90-2.90) K/uL Shannon # (Auto) 0.50 (0.00-0.90) K/UL Eos # (Auto) 0.17 (0.00-0.50) K/uL Baso # (Auto) 0.05 (0.00-0.30) K/uL Abs Immat Gran (auto) 0.01 (0.00-0.30) K/uL Imm/Tot Granulo (auto) 0.1 % Discharge Plan Discharge Clinical Impression: Spontaneous with heavy bleeding, Incomplete miscarriage Patient Disposition: Admit to OB Condition: Guarded
[2022-11-03] MEDS: 0.9 % SODIUM CHLORIDE 1000 ml 1,000 ML IV (00:45)
[2022-11-03] MEDS: HYDROmorphone 0.5 mg/0.5 ml inj IVP ×2 (00:53→03:41)
[2022-11-03] MEDS: METOCLOPRAMIDE HCL 10 MG in 0.9 % SODIUM CHLORIDE 100 ml 100 ML 306 MG IVPB (00:55)
[2022-11-03 02:47] LABS: Basophils Absolute Auto 0.05 K/uL (0.00-0.30); Basophils Percent Auto 0.7 % (0.0-3.0); Eosinophils Absolute Auto 0.17 K/uL (0.00-0.50); Eosinophils Percent Auto 2.3 % (0.0-7.0); Hematocrit 30.1 % (33.0-51.0); Hemoglobin* 10.1 gm/dL (12.0-16.0); Immature Granulocytes Abs Auto 0.01 K/uL (0.00-0.30); Immature Granulocytes Pct Auto 0.1 %; Lymphocytes Absolute Auto 2.91 K/uL (0.90-2.90); Lymphocytes Percent Auto 39.9 % (20-44); Mean Corpuscular HGB Conc 34 gm/dL (32-36); Mean Corpuscular Hemoglobin 30 pg (26-34); Mean Corpuscular Volume 89 fL (80-100); Monocytes Percent Auto 6.7 % (0.0-11.0); Neutrophils Absolute Auto 3.66 K/uL (1.7-7.0); Neutrophils Percent Auto 50.3 % (42.0-72.0); Platelet Count* 143 K/uL (140-440); RDW Coefficient of Variation % 13.3 % (11.5-15.5); Red Blood Count 3.37 m/uL (4.00-5.20); White Blood Count* 7.29 K/uL (4.50-11.00)
[2022-11-03 02:48] LABS: Slide Review Reflex No
[2022-11-03 03:14] LABS: Hemoglobin* 9.5 gm/dL (12.0-16.0)
--- NOTE | 2022-11-03 03:28 | PC.NURSE ---
saturated menstrual pad with red blood changed at approx 0050, a second menstrual pad changed approx 0300 also saturated with bright red blood.
--- NOTE | 2022-11-03 04:02 | PC.NURSE ---
Report given to Olivia OB RN, patient brought to room 24 on OB unit all belongings sent with patient
--- NOTE | 2022-11-03 06:30 | CRLHL7_ITS ---
For Patients: As a result of the Cures Act, medical imaging exams and procedure reports are released immediately into your electronic medical record. You may view this report before your referring provider. If you have questions, please contact your health care provider. Indication: First trimester bleeding. Follow-up subchorionic hemorrhage Technique: Sonography of the gravid uterus was performed. Grayscale and Doppler evaluation was performed. The study was performed transvaginally. Comparison: An earlier study from 12:13 a.m.. This study is from 6:45 a.m. Findings: Single live intrauterine . Offerman rump length measurement is 1 centimeter corresponding to 7 weeks and 1 day with an estimated date of delivery of 06/21/2023. heart rate is at 122 beats per minute. Average gestational sac size is 2.3 centimeters. A yolk sac is noted measuring 2.9 millimeters. There is a subchorionic hemorrhage that circumferentially surrounds the somewhat irregular gestational sac similar in appearance to the prior study. Impression: 1. Single live intrauterine . heart rate is 122 beats per minute which is normal 2. Circumferential subchorionic hemorrhage surrounding most of the gestational similar to the prior study Dictated by Dieter Casarez MD @ 11/03/2022 7:37:22 AM (Electronically Signed)
[2022-11-03 07:28] LABS: INR 1.09 (0.91-1.10); Prothrombin Time 14.7 Seconds
[2022-11-03 07:29] LABS: Partial Thromboplastin Time* 23 Seconds (23-33)
[2022-11-03 07:37] LABS: Fibrinogen* 249 mg/dL (200-450)
[2022-11-03 07:56] LABS: Basophils Absolute Auto 0.04 K/uL (0.00-0.30); Basophils Percent Auto 0.7 % (0.0-3.0); Eosinophils Absolute Auto 0.16 K/uL (0.00-0.50); Eosinophils Percent Auto 2.6 % (0.0-7.0); Hematocrit 28.3 % (33.0-51.0); Hemoglobin* 9.5 gm/dL (12.0-16.0); Lymphocytes Absolute Auto 2.43 K/uL (0.90-2.90); Lymphocytes Percent Auto 40.1 % (20-44); Mean Corpuscular HGB Conc 34 gm/dL (32-36); Mean Corpuscular Hemoglobin 30 pg (26-34); Mean Corpuscular Volume 90 fL (80-100); Monocytes Percent Auto 8.6 % (0.0-11.0); Neutrophils Absolute Auto 2.91 K/uL (1.7-7.0); Platelet Count* 125 K/uL (140-440); RDW Coefficient of Variation % 13.5 % (11.5-15.5); Red Blood Count 3.13 m/uL (4.00-5.20); White Blood Count* 6.06 K/uL (4.50-11.00)
[2022-11-03 08:01] LABS: Slide Review Reflex No
[2022-11-03] MEDS: LACTATED RINGERS 1000 ML 1,000 ML 125 ML IV (08:17)
[2022-11-03] MEDS: MORPHINE 2 MG/ML inj IVP ×3 (09:53→11:50)
--- NOTE | 2022-11-03 10:20 | PC.NURSE ---
Per pt. her brother can drive her home after surgery and he is her emergency contact listed if needed.
--- NOTE | 2022-11-03 10:30 | PM.GYNCN1 ---
CLAY PUDDLER - CN: HPI Data of Consult Time Seen by Provider: 08:30 Date Seen: 11/03/22 Patient: Tabitha Patient Consult date: 11/03/22 Requesting Physician: Candace Barrera MD Primary Care Provider: Vero Alvarez MD Consult Narrative Narrative: Melissa Escobedo is a 37 year old female who Presented to the ER early this morning with heavy vaginal bleeding in . This is her 2nd visit to the ER during this . 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 Heavy bleeding began last night. Her hemoglobin at the time of her last ER visit on 10/22/2022 was 14.2. Today, it was 10.1 at presentation, and subsequently fell to 9.5. Platelets are 125. INR and PTT are normal, and fibrinogen is 249. Summary of imaging is as follows: October 22: Intrauterine gestational sac and yolk sac corresponding to 5 weeks, 5 days, without embryo seen. This morning, at time of presentation to ER, 2:16 a.m.: CRL 7 weeks, 3 days, cardiac activity 127 beats per minute. Diffuse subchorionic hemorrhage surrounding the majority of the gestational sac. This morning at 7:37 a.m.: CRL 7 weeks, 1 day, with cardiac activity noted at 122 per minute. Subchorionic hemorrhage circumferentially surrounding the somewhat irregular gestational sac, similar in appearance to the prior study. Three is notable for a blighted ovum in the 1st trimester of her 1st , resulting in hemorrhage requiring dilation and curettage. OBSTETRIC AND GYNECOLOGIC HISTORY: [id number] First-trimester miscarriage in 1st / blighted ovum, resulting in hemorrhage and emergent dilation and curettage. Second complicated by elevated blood pressure at term. She had induction of labor followed by for arrest of dilation. She did not have hemorrhage at that delivery. She has a history heavy, painful menses. These of an regular for the last 7 months. She has a history of oligomenorrhea as well, and a diagnosis of PCOS She is interested in tubal sterilization, and signed her Federal tubal consent form on Thursday10/29/[address] Alvarez She has a history of abnormal Pap smears, HPV positive, and has had colposcopies. No LEEPs. She is up-to-date on Paps She has a history of Chlamydia and pelvic inflammatory disease. She has previously used IUD for contraception for 3 years PAST MEDICAL, SURGICAL, AND FAMILY HISTORY: Reviewed and updated in EHR SOCIAL HISTORY: She lives in [place] with her 5-year-old son, who has autistic spectrum disorder and anger and aggression difficulties. 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 She smokes 1/2 pack a day She drinks alcohol every 2 weeks or so She does not use any recreational drugs cc:: CC: Candace Barrera MD [facility] Medical History (Updated 11/03/22 @ 11:46 by Elle Mckeon MD) Spontaneous with heavy bleeding ?O03.9 - Complete or unspecified spontaneous without complication (ICD-10) OCD (obsessive compulsive disorder) ?F42.9 - Obsessive-compulsive disorder, unspecified (ICD-10) Gastroesophageal reflux ?K21.9 - Gastro-esophageal reflux disease without esophagitis (ICD-10) Psoriatic arthritis ?L40.50 - Arthropathic psoriasis, unspecified (ICD-10) Migraine ?G43.909 - Migraine, unspecified, not intractable, without status migrainosus (ICD-10) Anxiety ?F41.9 - Anxiety disorder, unspecified (ICD-10) Obesity ?E66.9 - Obesity, unspecified (ICD-10) Asthma ?J45.909 - Unspecified asthma, uncomplicated (ICD-10) Low grade squamous intraepithelial lesion Paroxysmal SVT (supraventricular tachycardia) ?I47.1 - Supraventricular tachycardia (ICD-10) Polycystic ovarian syndrome ?E28.2 - Polycystic ovarian syndrome (ICD-10) Nephrolithiasis ?N20.0 - Calculus of kidney (ICD-10) Ankylosing spondylitis ?M45.9 - Ankylosing spondylitis of unspecified sites in spine (ICD-10) Surgical History (Updated 11/03/22 @ 11:46 by Elle Mckeon MD) H/O dilation and curettage ?Z98.890 - Other specified postprocedural states (ICD-10) History of esophageal dilatation ?Z98.890 - Other specified postprocedural states (ICD-10) History of Geraldo-en-Y gastric bypass ?Z98.84 - Bariatric surgery status (ICD-10) H/O nasal septoplasty ?Z98.890 - Other specified postprocedural states (ICD-10) H/O wisdom tooth extraction ?K08.409 - Partial loss of teeth, unspecified cause, unspecified class (ICD-10) Status post colposcopy ?Z98.890 - Other specified postprocedural states (ICD-10) Status post laser lithotripsy of ureteral calculus ?Z98.890 - Other specified postprocedural states (ICD-10) S/P ?Z98.891 - History of uterine scar from previous surgery (ICD-10) Status post cholecystectomy ?Z90.49 - Acquired absence of other specified parts of digestive tract (ICD-10) Family History Mother Coronary artery disease Other Diabetes Kidney disease Leukemia Liver disease Lung cancer Social History Narrative: 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 She reportedly recently quit smoking 4 days ago. Highest level of school completed/degree received: high school graduate Smoking Status: Former smoker Do you use any of these nicotine containing products: None Second hand tobacco smoke exposure: No How often do you have a drink containing alcohol: never AUDIT-C Alcohol total score: 0 Non-prescribed substance use: denies use Caffeine: Yes (soda, energy drinks) service: No Meds Home Medications and Allergies Home Medications Medication Instructions Recorded Confirmed Type amlodipine 5 mg tablet 5 mg PO DAILY 10/26/21 11/03/22 History clonazepam 0.5 mg tablet 0.25 - 0.5 mg PO DAILY PRN 10/26/21 11/03/22 History trazodone 50 mg tablet 50 mg PO HS 10/26/21 11/03/22 History duloxetine 60 mg capsule,delayed 60 mg PO QAM 11/06/21 11/03/22 History release epinephrine 0.3 mg/0.3 mL 0.3 mg IM ONCE PRN 11/06/21 11/03/22 History injection, auto-injector bupropion HCl 150 mg tablet,12 hr 150 mg PO DAILY 08/13/22 11/03/22 History sustained-release Allergies Allergy/AdvReac Type Severity Reaction Status Date / Time ergotamine [From Cafergot] Allergy Severe Anaphylaxis Verified 10/22/22 14:34 tramadol Allergy Intermediate Headache Verified 10/22/22 14:34 lamotrigine [From Lamictal] Allergy rash Verified 10/22/22 14:34 NSAIDS (Non-Steroidal Allergy gastric Verified 11/03/22 00:03 Anti-Inflamma bypass Penicillins Allergy Anaphylaxis Verified 10/22/22 14:34 sumatriptan Allergy Anaphylaxis Verified 10/22/22 14:34 ondansetron AdvReac Intermediate Migraine Verified 11/03/22 00:48 CLAY PUDDLER - Exam Physical Exam: Vital signs: Temp Pulse Resp BP Pulse Ox O2 Del Method 97.8 F 62 16 103/66 100 Room Air 11/03/22 07:50 11/03/22 07:50 11/03/22 07:50 11/03/22 07:50 11/03/22 07:50 11/03/22 02:18 Narrative: Physical exam: General: No acute distress Psych: Alert and oriented x3, full affect HEENT: Normocephalic, atraumatic Heart: Regular rate and rhythm, no murmur rub or gallop Lungs: Clear to auscultation bilaterally Abdomen: Soft, no tenderness, rebound, or guarding, no masses, no hepatosplenomegaly, no hernias Lower extremities: No edema or erythema Pelvic exam: Deferred at this time. Large menstrual pad in place. At time of last exam in ER, she was having heavy vaginal bleeding CLAY PUDDLER - Results Labs Labs: Short CBC 11/03/22 11/03/22 11/03/22 Range/Units 01:10 01:10 03:05 WBC 7.29 (4.50-11.00) K/uL Hgb Cancelled 10.1 L 9.5 L Hct 30.1 L (33.0-51.0) % Plt Count 143 (140-440) K/uL 11/03/22 Range/Units 07:49 WBC 6.06 (4.50-11.00) K/uL Hgb 9.5 L Hct 28.3 L (33.0-51.0) % Plt Count 125 L (140-440) K/uL Assessment and Plan Assessment and plan (1) Threatened : Status: Acute Assessment and Plan: In the setting of hemorrhage. Her hemoglobin has dropped 5 points since her last visit to the ER, and bleeding continues. A very large subchorionic hemorrhage is still present on serial ultrasounds, and thus continued bleeding is unavoidable. Patient continues to have severe uterine cramping pain requiring IV narcotics. She has a history of hemorrhage in the setting of a first-trimester miscarriage. Continuing would be an imminent threat to her life and health. There is no medically reasonable and safe path to discharge in this scenario. We did discuss options for management, includin. Continued observation for bleeding. In this scenario, I would maintain her NPO status and check for viability on a regular basis. Should fetus be found to be nonviable at any point, I would recommend suction curettage. The risk of this approach is recurrent heavy, life-threatening bleeding. In addition to this, the size and extent of the subchorionic hemorrhage does not brenda well for continuing ; this is very unlikely to result in the development of a healthy baby. 2. Medically-indicated termination of . I offered this option given her profound drop in hemoglobin and the imminent threat of recurrence. Of these options, she prefers termination of . We discussed suction uterine curettage. We discussed risks of procedure, including bleeding ,hemorrhage, infection, uterine perforation. we discussed likely postoperative restrictions and precautions. If we pursue this option, this will likely allow for discharge today. Consent form was reviewed with and signed by patient. (2) Hemorrhage affecting in first trimester: Status: Acute Assessment and Plan: As above. I will at the very least start iron supplementation, and will considered IV iron prior to discharge. Plan Suction uterine curettage, as above
[2022-11-03] MEDS: DOXYCYCLINE HYCLATE 200 MG in 0.9 % SODIUM CHLORIDE Mini-bag 100 ML 100 MG IVPB (10:50)
[2022-11-03] MEDS: LIDOCAINE 1% 5 ml (pf) 5 ML VIAL 20 ML INJECTION (11:02)
[2022-11-03] MEDS: SILVER NITRATE APPLICATOR 1 EACH STICK..EA. TOPICAL (11:09)
--- NOTE | 2022-11-03 11:20 | W.ANESCHARGE ---
Anesthesia Charges Start Date/Time Anesthesia Start Date: 11/03/22 Anesthesia Start Time: 10:33 Stop Date/Time Anesthesia Stop Date: 11/03/22 Anesthesia Stop Time: 11:21 Summary Emergency: MDA
--- NOTE | 2022-11-03 11:31 | P.ANES_ITS ---
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
--- NOTE | 2022-11-03 11:50 | W.PM.GYNPROC ---
Procedure Note Date of procedure: 11/03/22 Pre-op diagnosis: Threatened , hemorrhage in the 1st trimester Post-op diagnosis: same Procedure: Suction uterine curettage Anesthesia: MAC and local Complications: None Surgeon: Dr. Elle Mckeon Estimated blood loss (mL): 20 IV fluids (mL): 700 Urine Output (mL): 50 Pathology: specimen obtained, sent to pathology Condition: stable Disposition: floor Findings: 1. On exam under anesthesia, vulva was normal appearance. Vagina and cervix were normal appearance. Cervix was closed but bleeding was noted through the os. Uterus was soft, mobile, without palpable masses. There were no palpable adnexal masses or tenderness. 2. Moderate amount of products of conception noted with suction curettage Procedure Description: Patient was taken to the operating with IV running. She had received a single IV dose of doxycycline in preoperative prophylaxis. She was placed in dorsal lithotomy position. Monitored anesthesia care was administered. She was prepped and draped in the usual sterile fashion. Her bladder was straight catheterized. Exam under anesthesia was performed for the above-noted findings. Speculum was inserted. Cervix was grasped along its anterior lip with single-tooth tenaculum. Paracervical block was performed with a total of 10 mL of 1% lidocaine. The cervix was serially dilated to 8 Macedonian. A size 7 rigid suction cannula was then passed through the cervix to the uterine fundus. Suction was applied, and the suction cannula was withdrawn along the path of insertion. This was repeated a few more times, without obvious return of products of conception on the last pass. Thereafter, sharp curettage was performed circumferentially, and a gritty texture was noted throughout. Minimal tissue was obtained with curettings. Procedure was deemed complete. The tenaculum was removed from the anterior lip the cervix, and hemostasis was achieved at the puncture site with silver nitrate. The speculum was then removed from the vagina. Patient tolerated procedure well and was taken recovery area in stable condition.
--- NOTE | 2022-11-03 12:01 | CRLHL7_ITS ---
For Patients: As a result of the Cures Act, medical imaging exams and procedure reports are released immediately into your electronic medical record. You may view this report before your referring provider. If you have questions, please contact your health care provider. HISTORY: Bleeding in early . COMPARISON: Early OB ultrasound from 10/22/2022 TECHNIQUE: Transvaginal ultrasound examination of the early was performed. FINDINGS: A single intrauterine gestational sac is seen with a pole. The crown-rump length measurement of 1.2 cm gives an estimated gestational age of 7 weeks 3 days with an estimated date of delivery of 06/19/2023. This correlates well with the LMP of 06/15/2023 which gives a clinical age of 6 weeks 4 days. Regular cardiac activity is seen at 127 BPM. The gestational sac is irregularly shaped. There is a thin, hypoechoic fluid collection surrounding the majority of the gestational sac, consistent with a diffuse subchorionic hemorrhage. There is no sign of subchorionic hemorrhage inferiorly. There is no sign of free fluid in the pelvis. The ovaries are normal in appearance. IMPRESSION: Single intrauterine gestation with estimated age of 7 weeks 3 days. The gestational sac is slightly irregular in shape. Regular cardiac activity is seen. Thin subchorionic hemorrhage surrounding the majority of the gestational sac with sparing inferiorly. Dictated by Howard Wilder MD @ 11/03/2022 2:16:34 AM (Electronically Signed)
[2022-11-03] MEDS: FERROUS SULFATE 325 MG TABLET 650 MG PO (14:24)
[2022-11-03] MEDS: ACETAMINOPHEN 500 MG TABLET 1000 MG PO (14:55)
[2022-11-03] MEDS: OXYCODONE 5 MG TABLET PO (14:56)
== END 2022-11-03 16:50 | disposition home or self-care (01) ==
LOC: ED 11-03 03:30 → OB 11-03 04:30 → SS 11-04 10:38 → OB 11-04 10:40
PROVIDERS: Obstetrics & Gynecology; Emergency Provider Family Medicine; PCP Family Medicine; Visit Provider Obstetrics & Gynecology
PROC: (CPT 59812; principal; 2022-11-03 10:30)
DX: O03.1 Delayed or excessive hemorrhage following incomplete spontaneous abortion (principal)
CPT/HCPCS: 59812; 01965; 36415; 76817; 85018; 85025; 85384; 85610; 85730; 86850; 86900; 86901; 88271; 88274; 88305; 88342; 93005; 94761; 99140; 99284; A9270; J1100; J1170; J2250; J2270; J2405; J2704; J2765; J7030; J7120

== ENCOUNTER 2022-11-21 14:24 | Outpatient (CLI) | payer MEDICAID, SELFPAY | END 2022-11-21 14:25 | disposition home or self-care (01) | LOC: NFLDREF 14:25 | PROVIDERS: PCP Family Medicine; Visit Provider Obstetrics & Gynecology | DX: Z01.818 Encounter for other preprocedural examination (principal); N92.0 Excessive and frequent menstruation with regular cycle | CPT/HCPCS: 84443 ==

== ENCOUNTER 2023-01-30 18:54 | Inpatient (IN) | payer MEDICAID, SELFPAY ==
[2023-01-29] VITALS (27 sets, daily range): BP systolic 103–135; BP diastolic 62–86; PULSE 71–93; RESP 8–20; TEMP 36.2–36.9; O2SAT 96–100; BMI 23.8
[2023-01-29 09:03] LABS: Ur HCG Qualitative* Negative (Negative)
[2023-01-29 09:17] LABS: Creatinine* 0.7 mg/dL (0.5-1.5); Est. Creatinine Clearance* 105.01; Estimated Glomerular Filt Rate 116 ml/min
[2023-01-29] MEDS: LACTATED RINGERS 1000 ML 1,000 ML 100 ML IV ×2 (09:25→12:43)
[2023-01-29] MEDS: SODIUM CHLORIDE 0.9 % (FLUSH) 10 ML SYRINGE IVF (09:26)
--- NOTE | 2023-01-29 10:02 | W.PM.H&PU ---
History & Physical Update History & Physical Update H&P Reviewed and patient assessed: No changes noted H&P Updates: Preoperative diagnosis: Menorrhagia, vulvar skin tags Planned procedures: Total laparoscopic hysterectomy, bilateral salpingectomy, cystoscopy, excision of vulvar skin tags Physical exam: General: No acute distress Psych: Alert and oriented x3, full affect HEENT: Normocephalic, atraumatic Heart: Regular rate and rhythm, no murmur rub or gallop Lungs: Clear to auscultation bilaterally Labs: UPT neg Hb 13.0 Cr 0.7
[2023-01-29] MEDS: metroNIDAZOLE 500 MG/100 ML PIGGYBACK IVPB (10:41)
[2023-01-29] MEDS: LIDOCAINE 1 % PF 30 ML 4 ML INJECTION (13:30)
[2023-01-29] MEDS: BUPIVACAINE 0.25% 30 ML 4 ML INJECTION (13:30)
--- NOTE | 2023-01-29 14:11 | W.ANESCHARGE ---
Anesthesia Charges Start Date/Time Anesthesia Start Date: 01/29/23 Anesthesia Start Time: 10:26 Stop Date/Time Anesthesia Stop Date: 01/29/23 Anesthesia Stop Time: 14:03
[2023-01-29] MEDS: HYDROmorphone 0.5 mg/0.5 ml inj IVP (14:14)
--- NOTE | 2023-01-29 14:15 | W.PM.GYNPROC ---
Procedure Note Date of procedure: 01/29/23 Pre-op diagnosis: 1. Menorrhagia; 2. Vulvar skin tags Post-op diagnosis: other (Left ovarian cyst, intraabdominal adhesions. Otherwise as above. ) Procedure: Total laparoscopic hysterectomy Lysis of adhesions Left ovarian cystectomy Bilateral salpingectomy Cystoscopy Excision of vulvar skin tags Anesthesia: GETA Complications: None Surgeon: Elle Mckeon MD Culinary Art Teacher: Candace Barrera Estimated blood loss (mL): 75 IV fluids (mL): 1,600 Urine Output (mL): 300 Pathology: specimen obtained, sent to pathology (Left ovarian cyst, uterus with bilateral tubes, skin tag right posterior labia majora, skin tag left inner thigh) Condition: stable Disposition: PACU Findings: 1. Upon pelvic exam under anesthesia, the cervix and vagina were normal in appearance. Uterus was mobile and anteverted, of normal size and texture. There were no palpable adnexal masses. There was a 1.5 mm pedunculated fleshy papule on the posterior aspect of the right labium majora. There was a 3 mm pedunculated fleshy papule on the left inner thigh near the groin. 2. Upon laparoscopy, survey of the upper abdomen revealed a normal appearance to the inferior edge of the liver, gallbladder and stomach. There was an omental adhesion to the anterior abdominal wall in the midline to right lower abdomen. Bowels were grossly normal appearance, as was the appendix. Survey of the pelvis revealed normal appearance to the uterus. Left ovary exhibited a cyst measuring approximately 3 cm in greatest dimension, consistent in appearance with corpus luteum cyst. There was a follicle right ovary. Bilateral tubes were normal in appearance. The cul-de-sac and bladder reflection were normal in appearance. 3. Upon cystoscopy performed at the end the procedure, there were bilateral ureteral jets noted and no injury to the bladder mucosa or down. Procedure Description: PROCEDURE IN DETAIL: Patient was taken to the operating room with IV running. She received gentamicin and metronidazole in preoperative prophylaxis. She was positioned in dorsal lithotomy position with her legs fully supported in Yellofin stirrups. General anesthesia was administered. She was prepped and draped in the usual sterile fashion. Pelvic exam under anesthesia was performed for the above-noted findings. Speculum was inserted. Cervix visualized and grasped along its anterior lip with a single-tooth tenaculum. Cervix was dilated with Hegar dilators to accommodate the VCare uterine manipulator. A medium-sized colpotomizer cup was selected. The tip of the uterine manipulator was inserted through the cervix into the uterine cavity and the balloon was inflated. The speculum was removed. The colpotomy cup was advanced, surrounding the cervix, and the proximal occluder was moved up along the shaft of the VCare and fixed in place. Cox catheter was placed. Patient's legs were then placed in neutral position. Attention was turned to patient's abdomen. Infraumbilical area was infiltrated with a small amount of Marcaine. A 5 mm infraumbilical incision was made with a scalpel and carried down to the underlying layer of fascia with the hemostat. 5 mm camera was placed within the 5 mm Fios Kii trocar, and one attempt was made to advance the port through the anterior abdominal wall into the peritoneal cavity, while tenting up the fascia of the anterior abdominal wall with Nickie clamps, but this was unsuccessful. The Fios Kii trocar was abandoned in favor of a Alfred port. The fascia was grasped with Nickie clamps and incised with Amato scissors. I passed a single finger though the peritoneum into the peritoneal cavity. The fascial opening was widened slightly. The Alfred port was then passed into the peritoneal cavity and the balloon tip was inflated, holding the port in place. The trocar was removed. The balloon was inflated, holding the port in place. Insufflator was attached. Pneumoperitoneum was achieved. Survey of the abdomen and pelvis revealed the above-noted findings. Three additional port sites were created. The first was in the patient's right lower quadrant, just superior medial to the right ASIS. The 2nd was in the left lower quadrant, just superomedial to the left ASIS. An 11 mm incision was made in the left lower quadrant, and a 5 mm incision in the right lower quadrant. The balloon tip on each of these ports was inflated, holding it in place. Using the Thunderbeat device, the omental adhesions in the lower abdomen were dissected away from the anterior abdominal wall, cauterized and transected. Bowel was confirmed to be well away from the dissection during this time. Hemostasis was noted. With the omentum out of the way, a 4th and final port was inserted a hand's breadth superior to and slightly medial to the left lower quadrant port site. The balloon on this last port was inflated, holding it in place. Attention was first turned to the left ovarian cyst, which was entered with the Thunderbeat device. The ovarian cortex was grasped and the cyst wall was peeled off of the ovarian parenchyma and sent to pathology for further analysis. Hemostasis of the ovary was achieved with monopolar cautery. Attention was next turned to the left fallopian tube, which was divided from the mesosalpinx, using the Thunderbeat bipolar cautery device, proceeding laterally to medially, and the tube was amputated at the left uterine cornua. This was removed through the port site and sent to pathology. This procedure was repeated on the patient's right side, and the right fallopian tube was also amputated at the cornua and removed from the patient's abdomen. This was also sent to pathology for further analysis. The left round ligament was cauterized and transected with the Thunderbeat device. The utero-ovarian ligament was cauterized and transected, and the remnants of the right broad ligament were cauterized and transected between these two structures. The bladder flap was created on the patient's left side, moving laterally to medially. The left uterine artery was cauterized and transected with the Thunderbeat device. Using the colpotomizer cup as a guide, the peritoneum and underlying stroma was dissected off the anticipated site of colpotomy over the posterior vaginal fornix. Attention was then turned to the right side of the uterus, where the right round ligament was cauterized and transected with the Thunderbeat device. The right utero-ovarian ligament was cauterized and transected, and the remnants of the right round ligament were cauterized and transected between these two structures. The bladder flap was created on the patient's right side, and dissection was carried laterally to medially, meeting the dissection where it had left off from the patient's right side. The right uterine artery was cauterized and transected with the Thunderbeat device. The bladder reflection was moved well below the colpotomizer cup anteriorly. The vaginal fornix was then entered posteriorly with the Thunderbeat device, using the colpotomizer cup as a guide. This device was moved along the circumference of the colpotomizer cup, until the uterus and cervix were freed from their attachments to the pelvis. The uterus was pulled into the patient's vagina, maintaining the pneumoperitoneum. The vaginal cuff was closed with a series of [id number] sutures of 0 Vicryl. These were placed and tied laparoscopically. Hemostasis of the vaginal cuff was noted. Ports were left in place but all instruments were removed and pneumoperitoneum was released. Patient's legs were placed back in lithotomy position. The uterus was removed from the vagina and was sent to pathology for further analysis. Speculum exam was performed, showing an intact cuff with no obvious active bleeding. The Cox catheter was removed from the bladder, and the cystoscope was assembled with saline inflow, outflow, and light cord in place. The patient was given IV methylene blue prior to the cystoscopy. Cystoscope was advanced through the urethra into the bladder, and survey of the mucosa revealed a normal appearance. The bladder dome was intact. Bilateral ureteral jets were noted. Cystoscope was removed and Cox catheter replaced. Patient's legs were again placed in neutral position. Insufflator was reattached to the port and pneumoperitoneum again achieved. Survey of the pelvis revealed hemostasis. The 11 mm Fios Kii port in the left lower quadrant was removed after balloon on the port was deflated. The Dieter-Phylicia laparoscopic closure device was inserted through this port. With the help of this device, the fascia was closed with a single suture of 0-Vicryl. The balloons of all remaining port sites were deflated, and all ports were removed after pneumoperitoneum was released. The skin of each port site was closed in a subcuticular fashion with 4 0 Monocryl. Surgical glue was applied above this. Finally, attention was turned to the patient's vulva. The above described skin tags were grasped with toothed forceps and removed with scalpel. Hemostasis was achieved with silver nitrate sticks. Patient tolerated procedure well and was taken to recovery area in stable condition.
--- NOTE | 2023-01-29 14:34 | SUR.PHASEI ---
Verbal consent obtained from patient with Fredi Tavarez CRNA to perform ultrasound guided TAP blocks for pain management. Patient verbalized understanding of procedure and risks associated with the TAP block procedure.
--- NOTE | 2023-01-29 14:37 | SUR.PHASEI ---
Time out completed with Juancarlos Tavarez CERTIFIED NURSE prior to TAP blocks
--- NOTE | 2023-01-29 14:58 | P.NB_ITS ---
Nerve Block Nerve Block Time Seen by Provider: 14:35 Date Seen: 01/29/23 Type of block requested by surgeon for post-operative analgesia: TAP Side: bilateral Time out performed: Yes Verification of patient name: Yes Verification of date of : Yes Site marking: site marked Name of person performing procedure: jose chingy Continuous monitoring Was continuous monitoring of O2 sat, B/P, software controls engineer, recorded every 15 minutes?: Yes Procedure Checklist: sterile prep, needles and gloves Ultrasound guided. Images saved: Yes Medications given in 5ml increments after negative aspiration: Marcaine %: 0.25 mL: 30 and Exparel mL: 10 Patient tolerated procedure well: Yes Additional comments: pt consented for TAPS block in preop, wanted to wait to PACU to see how pain was. Once pt was in PACU pain was rated at 9/10 and wanted to proceed with bilateral TAP block. Risk and benefits explained again. Block Charges Block Charge (with Pro Fee): TAP Bilateral Use of Ultrasound Machine for Block: Yes- US Guidance/pain block
[2023-01-29] MEDS: LACTATED RINGERS 1000 ML 1,000 ML 125 ML IV (16:13)
[2023-01-29] MEDS: MORPHINE 2 MG/ML inj IVP ×3 (16:14→21:41)
[2023-01-29] MEDS: OXYCODONE 5 MG TABLET PO ×2 (17:24→21:37)
[2023-01-29] MEDS: SIMETHICONE 80 MG TAB.CHEW 160 MG PO ×2 (17:27→21:50)
[2023-01-29] MEDS: ACETAMINOPHEN 500 MG TABLET 1000 MG PO (17:28)
[2023-01-29] MEDS: HYDROXYCHLOROQUINE 200 MG TABLET PO (21:37)
[2023-01-29] MEDS: TRAZODONE HCL 50 MG TABLET PO (21:37)
--- NOTE | 2023-01-29 23:34 | PC.NURSE ---
Pt arrived from PACU at approximately 15:15. Pt awake, but drowsy on arrival. Family at bedside for support. Pt reported pain at rest as 7/10 that increased to 9/10 with movement. PRN medications given per MAR with verbalized improvement. Pt advanced to regular diet and is tolerating well. Pt up from bed to ambulate in room and in mccullough with standby assist. Pt complained of discomfort from brooks catheter. Orders obtained from MD to backfill and remove. Pt able to void independently and verbalized improvement of discomfort. Pt reported experiencing episode of increased pain related to gas pain that worsened with movement and ambulation to bathroom. PRN interventions in MAR used to address pain, pt went back to bed and reported improved comfort with decreased movement. Lap sites x 4 open to air with glue and clean, dry, intact and ice pack in place over abdomen. Pt resting at end of shift.
[2023-01-30] MEDS: LACTATED RINGERS 1000 ML 1,000 ML 125 ML IV ×4 (00:02→23:20)
[2023-01-30] MEDS: MORPHINE 2 MG/ML inj IVP ×2 (00:23→05:30)
[2023-01-30] MEDS: clonazePAM 0.5 MG TABLET PO ×2 (00:25→21:47)
[2023-01-30 03:00] VITALS: BP 117/75; PULSE 77; RESP 20; TEMP 36.9; O2SAT 96
[2023-01-30] MEDS: OXYCODONE 5 MG TABLET PO ×3 (03:32→15:32)
[2023-01-30 06:19] LABS: Hemoglobin* 11.8 gm/dL (12.0-16.0)
[2023-01-30 06:39] LABS: Creatinine* 0.6 mg/dL (0.5-1.5); Est. Creatinine Clearance* 122.51; Estimated Glomerular Filt Rate 120 ml/min
[2023-01-30 07:00] VITALS: BP 130/87; PULSE 87; RESP 18; TEMP 37; O2SAT 98
--- NOTE | 2023-01-30 07:47 | PC.NURSE ---
Patient pleasant, alert and oriented. Transferred to the bedside commode with stand by assist. Reported pain rated between 5-10/10?in her abdomen, shoulders and under breasts. She complained mostly of gas pain. Reported increased pain when getting up and immediately afterwards. Patient given PRN Morphine and Oxycodone which was somewhat effective. Ice packs also applied.?Lap sites open to air with no active drainage. Scant vaginal drainage on tissue after voiding.?
[2023-01-30] MEDS: ACETAMINOPHEN 500 MG TABLET 1000 MG PO (08:24)
[2023-01-30] MEDS: HYDROXYCHLOROQUINE 200 MG TABLET PO ×2 (09:37→21:48)
[2023-01-30] MEDS: AMLODIPINE 5 MG TABLET PO (09:38)
[2023-01-30] MEDS: MULTIVITAMIN/MINERALS 1 TABLET 1 TAB PO (09:38)
[2023-01-30] MEDS: DULOXETINE 30 MG CAPSULE DR 60 MG PO (09:38)
[2023-01-30] MEDS: buPROPion HCL SR 150 MG TAB PO (09:38)
[2023-01-30] MEDS: CYANOCOBALAMIN (VITAMIN B-12) 500 MCG TABLET PO (09:38)
[2023-01-30] MEDS: CALCIUM CARBONATE 500 MG TABLET PO (09:38)
[2023-01-30] MEDS: ONDANSETRON 2 MG/ML inj 4 MG IVP (10:12)
[2023-01-30] MEDS: SIMETHICONE 80 MG TAB.CHEW 160 MG PO (10:12)
[2023-01-30] MEDS: KETOROLAC 30 MG/ML inj IVP ×3 (10:52→21:46)
[2023-01-30 11:00] VITALS: BP 157/98; PULSE 78; RESP 20; TEMP 37; O2SAT 99
[2023-01-30 15:00] VITALS: BP 141/95; PULSE 92; RESP 20; TEMP 37.2; O2SAT 95
[2023-01-30] MEDS: ACETAMINOPHEN INJ 1,000 MG/100 ML VIAL 400 MG IVPB (15:21)
--- NOTE | 2023-01-30 15:49 | NUTR.NU ---
Advised by dry pan charger to see pt due to history of gastric bypass. Pt states she had a RouxnY bypass about 1 year ago and has lost 115 lbs. She has not stabilized yet, and is still losing. Pt continues to take all of the recommended vitamins and minerals. She eats small portions separate from liquids. She does not use protein shakes but tries to emphasize her protein intake. Pt did not verbalize any concerns about the meals here and states she can make them work for her needs. Is expecting discharge tomorrow. Plan follow-up 02/02 to check on PO intake if pt still here.
--- NOTE | 2023-01-30 18:28 | PC.NURSE ---
End of shift note: Patient is alert and oriented x4, pleasant and cooperative. Patient able to ambulate hallways x3 today after administrative of PRN IV Tylenol, toradol, and oxy. see eMAR. Patient rating pain at 4/10. VSS on RA and up independently in room to BR. Patient still voiding light green urine. 4 lap sites C/D/I and open to air. Patient's bowel sounds are present but not active, little tinks and pops heard. Patient reports passing gas via burping and feels better after each burp, patient tolerating a reg. diet, IV in right arm patent, LR running @125 mls/hr. VSS and 95-99 % oxygen on RA. Patient reports pain in lower abd is tolerable and feels like a mild period cramp. no bleeding vaginally present.
[2023-01-30 21:30] VITALS: BP 110/69; PULSE 77; RESP 24; TEMP 36.8; O2SAT 96
[2023-01-30] MEDS: TRAZODONE HCL 50 MG TABLET PO (21:47)
--- NOTE | 2023-01-30 22:10 | PM.GYNPNPO ---
ROLL INSPECTOR - A/P Assessment and plan (1) S/P laparoscopic hysterectomy: Status: Acute Assessment and Plan: Postoperative Review: - Admitted for: Schedule surgery - Surgical procedure: total laparoscopic hysterectomy, lysis of adhesions, left ovarian cystectomy, bilateral salpingectomy, cystoscopy, and excision of vulvar skin tags - Skin incision: Four laparoscopic port sites - Closure: sutures - Estimated blood loss: 75 mL - Intraoperative Complications: none - Urine output: adequate - Preop Hgb: 13.0 - Postop Hgb: 11.8 Postoperative care: - Diet: Advance as tolerated - Fluid: Encourage oral intake - Activity: Encourage ambulation and incentive spirometry - Pain: Tylenol, Toradol, oxycodone. Aggressive bowel regimen. Patient reports she has a pain contract. - DVT prophylaxis: SCDs and TEDs when not ambulating Dispo: Patient is POD#1. Need the following milestones: better pain control. More ambulation. Anticipate discharge POD#2. Postoperative Procedures: Procedures Operation Date: 01/29/23 09:55 Actual Procedure Side Surgeon p Total Laparoscopic Hysterectomy, Bilateral Salpingectomy, Lysis of adhesions, Cystoscopy, Removal of Vulvar Skin Tags and left ovarian cycectomy Not Applicable Elle Mckeon MD Time Spent With Patient Time: Total time spent is greater than 50% in coordination of care (as documented) at patient's floor/unit and/or counseling patient: Time with patient: less than 15 minutes ROLL INSPECTOR- PN:Subj Post-Op Subjective Time Seen by Provider: 10:00 Date Seen: 01/30/23 Post Operative Details: Post-operative day number 1: status post total laparoscopic hysterectomy, lysis of adhesions, left ovarian cystectomy, bilateral salpingectomy, cystoscopy, and excision of vulvar skin tags. Overnight patient had of uncontrolled pain. Her incisional pain is controlled but patient has severe gas pain with radiation of her left shoulder. She reports that she had this pain for weeks after her gastric bypass surgery and the only thing that helped was Dilaudid. Discussed with patient that I prefer to get her pain under control with IV Tylenol and Toradol. She is unable to take PO NSAIDs due to gastric bypass surgery. However, IV administration should work for her. This was also discussed with our anesthesia team. I want minimize narcotics as much as possible as it can cause her to have an ileus. She also has not advanced her postoperative milestones as of this morning. She is not wanting to ambulate or use the IS due to pain. She is tolerating a regular diet. She has not passed flatus. She is not ambulating without difficulty. Lochia is scant. She is urinating without brooks. Patient denies chest pain, SOB, n/v, headache, or dizziness. She is amenable to trying IV Tylenol and Toradol. We will also schedule her bowel regimen to help improve her pain. Ice/heat pack/abdominal binder as needed for supportive care. Discussed with patient that we can also try gabapentin and vistiral if she doesn't have improvement. I also emphasized the importance of ambulation and incentive spirometer use in her recovery. ROLL INSPECTOR-PN: Obj Exam Physical Exam: Vital signs: Temp Pulse Resp BP Pulse Ox O2 Del Method 98.9 F 92 20 141/95 H 95 Room Air 01/30/23 15:00 01/30/23 15:00 01/30/23 15:00 01/30/23 15:00 01/30/23 15:00 01/30/23 15:00 Narrative: Physical exam: General: Crying due to shoulder pain but consolable Psych: Alert and oriented x3, full affect HEENT: Normocephalic, atraumatic Heart: Regular rate and rhythm, no murmur rub or gallop Lungs: Clear to auscultation bilaterally Abdomen: Normoactive bowel sounds, soft, appropriately tender, no rebound, or guarding, no masses Incision: All incision sites clean, dry, and intact. No erythema, induration, or discharge. Skin: No lesions or rashes Lower extremities: No edema or erythema Pelvic exam: Scant bleeding on pad Urinary Catheter Management: Urethral: Cath placed during this visit: yes Urethral indwelling: No Insertion date: 01/29/23 Insertion time: 11:05 ROLL INSPECTOR - PN: Obj Data Labs Labs: Laboratory Results - last 24 hr 01/30/23 05:42 Hgb 11.8 L Creatinine 0.6 Estimated Creat Clear 122.51 Estimated GFR 120
[2023-01-30 23:15] VITALS: BP 108/73; PULSE 79; RESP 20; TEMP 36.8; O2SAT 97
[2023-01-31 04:10] VITALS: BP 136/84; PULSE 81; RESP 20; TEMP 36.9; O2SAT 97
[2023-01-31] MEDS: KETOROLAC 30 MG/ML inj IVP ×2 (04:14→10:17)
[2023-01-31 07:00] VITALS: BP 128/94; PULSE 82; RESP 20; TEMP 36.6; O2SAT 96
--- NOTE | 2023-01-31 07:06 | PC.NURSE ---
END OF SHIFT NOTE: PT A&Ox3. DENIES CP, SOB, N/V. C/O BILATERAL SHOULDER ?GAS PAIN? AND ABDOMINAL PAIN 5-10/20 WITH RELIEF FROM SCHEDULED KETOROLAC. AMBULATES INDEPENDENTLY. PT REQUIRES ENCOURAGEMENT TO WALK.?VSS ON RA; AFEBRILE. CALL LIGHT WITHIN PT?S REACH.
[2023-01-31] MEDS: LACTATED RINGERS 1000 ML 1,000 ML 125 ML IV (07:38)
[2023-01-31] MEDS: AMLODIPINE 5 MG TABLET PO (08:57)
[2023-01-31] MEDS: CALCIUM CARBONATE 500 MG TABLET PO (08:57)
[2023-01-31] MEDS: CYANOCOBALAMIN (VITAMIN B-12) 500 MCG TABLET PO (08:57)
[2023-01-31] MEDS: HYDROXYCHLOROQUINE 200 MG TABLET PO (08:57)
[2023-01-31] MEDS: MULTIVITAMIN/MINERALS 1 TABLET 1 TAB PO (08:57)
[2023-01-31] MEDS: DULOXETINE 30 MG CAPSULE DR 60 MG PO (08:57)
[2023-01-31] MEDS: buPROPion HCL SR 150 MG TAB PO (08:57)
--- NOTE | 2023-01-31 09:31 | P.DS_ITS ---
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 Left ovarian cystectomy and adhesiolysis were also performed. Indications for surgery: 1. Menorrhagia. 2. Vulvar skin tags. 3. Left ovarian cyst (noted intra-operatively). 4. Intraabdominal adhesions (noted intra- operatively). Intraoperative findings were notable for: 1. Upon pelvic exam under anesthesia, the cervix and vagina were normal in appearance. Uterus was mobile and anteverted, of normal size and texture. There were no palpable adnexal masses. There was a 1.5 mm pedunculated fleshy papule on the posterior aspect of the right labium majora. There was a 3 mm pedunculated fleshy papule on the left inner thigh near the groin. 2. Upon laparoscopy, survey of the upper abdomen revealed a normal appearance to the inferior edge of the liver, gallbladder and stomach. There was an omental adhesion to the anterior abdominal wall in the midline to right lower abdomen. Bowels were grossly normal appearance, as was the appendix. Survey of the pelvis revealed normal appearance to the uterus. Left ovary exhibited a cyst measuring approximately 3 cm in greatest dimension, consistent in appearance with corpus luteum cyst. There was a follicle right ovary. Bilateral tubes were normal in appearance. The cul-de-sac and bladder reflection were normal in appearance. 3. Upon cystoscopy performed at the end the procedure, there were bilateral ureteral jets noted and no injury to the bladder mucosa or down. She had an uncomplicated surgery. Postoperative course has been uneventful. Vitals have been stable. She has remained afebrile. Today, on postoperative day 2, she reports the pain is better controlled. She has been able to ambulate without difficulty. She is tolerating regular diet. She is passing flatus. Cox catheter has been removed, and she is voiding without difficulty. 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 Physical Exam: Vital signs: Temp Pulse Resp BP Pulse Ox O2 Del Method 97.9 F 82 20 128/94 H 96 Room Air 01/31/23 07:00 01/31/23 07:00 01/31/23 07:00 01/31/23 07:00 01/31/23 07:00 01/31/23 07:00 Constitutional: Constitutional: no acute distress Routine HEENT Exam: Head: Present normal inspection Routine Neck Exam: NECK: Present supple Routine Respiratory Exam: Respiratory: Present CTA bilaterally; Absent crackles, rhonchi or wheezes Routine Cardiovascular Exam: Cardiovascular: Present RRR; Absent murmur Routine Abdominal Exam: Abdominal: Present normal bowel sounds and soft; Absent distended or tenderness Comments: Laparoscopic incisions clean, dry, intact. Some swelling noted near the umbilical and left-sided port sites without palpable fluid collection. No erythema, warmth, ecchymoses or induration. 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 TECHNICIAN - DS: Data Procedures Procedures: Procedures Operation Date: 01/29/23 09:55 Actual Procedure Side Surgeon p Total Laparoscopic Hysterectomy, Bilateral Salpingectomy, Lysis of adhesions, Cystoscopy, Removal of Vulvar Skin Tags and left ovarian cycectomy Not Applicable Elle Mckeon MD Complications: none Discharge Plan Discharge Disposition: Home, Self-Care Date of Admission: 01/30/23 18:54 Attending Provider on Discharge: Maria Del Rosario Smith Primary Care Provider: Vero Alvarez Condition: Stable Anticipated Discharge Date/Time: 01/31/23 10:30 Discharge Medications: New oxycodone 5 mg Tablet 5 mg PO Q6H PRN (Reason: Moderate Pain) Qty: 20 0RF hydroxyzine pamoate 25 mg Capsule 25 mg PO Q6H PRNQty: 20 0RF Continued Taltz Autoinjector 80 mg/mL auto-injector 80 mg subcut Q4W vitamin B complex [B Complex-Vitamin B12] Tablet 1 tab PO QDAY cholecalciferol (vitamin D3) 10 mcg (400 unit) tablet 10 mcg PO QDAY calcium citrate 200 mg (950 mg) tablet 200 mg PO QDAY multivitamin Tablet 1 tab PO QDAY epinephrine 0.3 mg/0.3 mL auto-injector 0.3 mg IM ONCE PRN duloxetine 60 mg capsule,delayed release(DR/EC) 60 mg PO QAM bupropion HCl 150 mg tablet sustained-release 12 hr 150 mg PO DAILY prochlorperazine maleate 10 mg tablet 10 mg PO Q8H PRN triamcinolone acetonide 0.1 % cream 1 applic topical BID-TID PRN hydroxyzine HCl 25 mg tablet 25 mg PO HS PRN hydroxychloroquine 200 mg tablet 200 mg PO BID albuterol sulfate 90 mcg/actuation HFA aerosol inhaler 2 inh inhalation Q4H PRN trazodone 50 mg tablet 50 - 100 mg PO HS PRN clonazepam 0.5 mg tablet 0.25 - 0.5 mg PO DAILY PRN amlodipine 5 mg tablet 5 mg PO DAILY acetaminophen 500 mg Tablet 1,000 mg PO Q6H PRN (Reason: Pain) Qty: 0 0RF Discharge Orders: Discharge Order (Routine); Ordered 01/31/23 Ordered By: Maria Del Rosario Smith Additional Instructions: Discharge instructions were reviewed with the patient including signs and symptoms of infection and medications to use for pain.? ? No lifting greater than 20 pounds for 6 weeks. Nothing per vagina for 6 weeks. Off work or school for 6 weeks. ? Follow up with your surgeon, Dr. Mckeon, in 2 weeks for incision check and 6 weeks for a postoperative visit or sooner as needed. Activity Level: Activity as Tolerated Discharge Diet: Regular Follow Up Appointments: Vero Alvarez MD [Primary Care Provider] - Forms: [facility] Info Instructions
--- NOTE | 2023-01-31 11:24 | PC.NURSE ---
Discharge note: patient alert and oriented, VSS, 100% on RA, denies N/V, rates pain 4-5/10 scheduled toradol administered x1. patient reports she is passing gas, voiding well and had a small bowel movement prior to discharge. Patient's dressing is C/D/I, discharged today to home accompanied by brother. Belongings sheet signed, and discharge instructions sheet also signed. Patient verbalized understanding of discharge instructions.
--- NOTE | 2023-02-06 12:41 | SUR.PHASEI ---
Verified charting complete with Stefanie MCCABE.
== END 2023-01-31 11:00 | disposition home or self-care (01) | DRG 743 ==
LOC: OR 19:44 → MEDSURG 01-31 09:32
PROVIDERS: Admitting Provider Obstetrics & Gynecology; PCP Family Medicine; Visit Provider Obstetrics & Gynecology
PROC: 0UT94ZZ Resection of Uterus, Percutaneous Endoscopic Approach (ICD-10-PCS; principal; 2023-01-29 09:45)
DX: N92.0 Excessive and frequent menstruation with regular cycle (principal); N90.89 Other specified noninflammatory disorders of vulva and perineum; N83.202 Unspecified ovarian cyst, left side; N73.6 Female pelvic peritoneal adhesions (postinfective); G89.18 Other acute postprocedural pain; Z98.84 Bariatric surgery status
CPT/HCPCS: 00840; 36415; 64488; 76942; 81025; 82565; 85018; 86850; 86900; 86901; 88304; 88305; 88309; 88311; A9153; A9270; J0131; J0330; J0665; J1100; J1170; J1200; J1580; J1885; J2001; J2250; J2270; J2405; J2704; J3010; J3490; J7120; S0030; S0106

== ENCOUNTER 2023-03-26 11:20 | Outpatient (CLI) | payer MEDICAID, SELFPAY | END 2023-03-26 11:21 | disposition home or self-care (01) | LOC: AMB 16:57 | PROVIDERS: PCP Family Medicine; Visit Provider Family Medicine | DX: U07.1 COVID-19 (principal); R06.09 Other forms of dyspnea | CPT/HCPCS: A0425; A0427 ==

== ENCOUNTER 2023-03-26 11:38 | Emergency (ER) | payer MEDICAID, SELFPAY ==
[2023-03-26 11:41] VITALS: BP 126/84; PULSE 100; RESP 22; TEMP 36.6; O2SAT 100; BMI 21.8
--- NOTE | 2023-03-26 13:59 | CRLHL7_ITS ---
For Patients: As a result of the Century Cures Act, medical imaging exams and procedure reports are released immediately into your electronic medical record. You may view this report before your referring provider. If you have questions, please contact your health care provider. INDICATION: Covid, cough, chest pain COMPARISON: 11/07/2021 TECHNIQUE: 1 view chest radiograph. FINDINGS: Lung volumes are good. No focal consolidations. No pulmonary edema. No pleural effusion. No pneumothorax. No pneumomediastinum. Normal cardiomediastinal silhouette. Bones: Normal for age. IMPRESSION: Lungs clear. Normal chest radiograph. Dictated by Brissa Chapa MD @ 03/26/2023 3:47:55 PM (Electronically Signed)
--- NOTE | 2023-03-26 14:01 | ED_ITS ---
HPI - General Adult General Date Seen: 03/26/23 Chief complaint: Shortness of Breath/Dyspnea Stated complaint: Covid+, chest pain Time Seen by Provider: 03/26/23 11:56 History of Present Illness HPI narrative: This is a 38-year-old female with a past medical history that includes ankylosing spondylitis, lupus (on Plaquenil and ixekizumab), PCOS, asthma, hypertension, migraine headaches, previous Geraldo-en-Y gastric bypass, cholecystectomy, hysterectomy. She presents to the ER today from her home by EMS for evaluation of headache, body aches, generalized weakness and positive COVID test. She was around her family this weekend and her jaqnsu-rn-gax tested positive for COVID yesterday. She 1st developed symptoms of loose stools and diarrhea on Thursday night, 2 days ago. Diarrhea persisted through yesterday morning and also yesterday she also developed body aches, back ache, headache, and myalgias. Overnight last night she also developed some chest pain and some pain with breathing. She is coughing. She has a stuffy nose. No sore throat. She has a decreased appetite. She took a dose of Tylenol sometime last night for her body aches but it did not help. She has not had any medication for her pain today. She cannot take NSAIDs due to history of Geraldo-en-Y gastric bypass. She is allergic to Toradol. She has no history of DVT/PE. She has been previously vaccinated I used against COVID. No previous positive COVID test results. Related Data Home Medications Medication Instructions Recorded Confirmed amlodipine 5 mg tablet 5 mg PO DAILY 10/26/21 03/26/23 clonazepam 0.5 mg tablet 0.25 - 0.5 mg PO DAILY PRN 10/26/21 03/26/23 trazodone 50 mg tablet 50 - 100 mg PO HS PRN 10/26/21 03/26/23 duloxetine 60 mg capsule,delayed 60 mg PO QAM 11/06/21 03/26/23 release epinephrine 0.3 mg/0.3 mL 0.3 mg IM ONCE PRN 11/06/21 03/26/23 injection, auto-injector bupropion HCl 150 mg tablet,12 hr 150 mg PO DAILY 08/13/22 03/26/23 sustained-release calcium citrate 200 mg (950 mg) 200 mg PO QDAY 11/21/22 03/26/23 tablet cholecalciferol (vitamin D3) 10 10 mcg PO QDAY 11/21/22 03/26/23 mcg (400 unit) tablet ixekizumab 80 mg/mL subcutaneous 80 mg subcut Q4W 11/21/22 03/26/23 auto-injector (Taltz Autoinjector) multivitamin 1 tab PO QDAY 11/21/22 03/26/23 vitamin B complex (B 1 tab PO QDAY 11/21/22 03/26/23 Complex-Vitamin B12 tablet) hydroxychloroquine 200 mg tablet 200 mg PO BID 01/26/23 03/26/23 hydroxyzine HCl 25 mg tablet 25 mg PO HS PRN 01/26/23 03/26/23 prochlorperazine maleate 10 mg 10 mg PO Q8H PRN 01/26/23 03/26/23 tablet triamcinolone acetonide 0.1 % 1 applic topical BID-TID PRN 01/26/23 03/26/23 topical cream albuterol sulfate 90 mcg/actuation 2 inh inhalation Q4H PRN 01/29/23 03/26/23 aerosol inhaler Previous Rx's Medication Instructions Recorded acetaminophen 500 mg tablet 1,000 mg (2 x 500 mg) PO Q6H PRN 11/03/22 Pain #0 tabs hydrocodone 5 mg-acetaminophen 325 1 tab PO Q6H PRN pain #10 tabs 03/26/23 mg tablet nirmatrelvir 300 mg (150 mg See Rx Instructions PO .COMPLEX 03/26/23 x2)-ritonavir 100 mg tablet,dose #30 ea pack (Paxlovid) potassium chloride 20 mEq 20 meq PO DAILY #7 tabs 03/26/23 tablet,extended release Allergies Allergy/AdvReac Type Severity Reaction Status Date / Time ergotamine [From Cafergot] Allergy Severe Anaphylaxis Verified 03/26/23 11:43 tramadol Allergy Intermediate Headache Verified 03/26/23 11:43 lamotrigine [From Lamictal] Allergy rash Verified 03/26/23 11:43 NSAIDS (Non-Steroidal Allergy gastric Verified 03/26/23 11:43 Anti-Inflamma bypass Penicillins Allergy Anaphylaxis Verified 03/26/23 11:43 sumatriptan Allergy Anaphylaxis Verified 03/26/23 11:43 ondansetron AdvReac Intermediate Migraine Verified 03/26/23 11:43 ketorolac [From Toradol] AdvReac Mild Headache Verified 03/26/23 11:43 PFSH PFS Medical History (Updated 03/26/23 @ 16:21 by Erich Felix MD) History of gestational hypertension ?Z87.59 - Personal history of other complications of , childbirth and the puerperium (ICD-10) Spontaneous with heavy bleeding (11/03/22) ?O03.9 - Complete or unspecified spontaneous without complication (ICD-10) Low grade squamous intraepithelial lesion (2008) Paroxysmal SVT (supraventricular tachycardia) ?I47.1 - Supraventricular tachycardia (ICD-10) Nephrolithiasis (2010) ?N20.0 - Calculus of kidney (ICD-10) Surgical History (Updated 02/13/23 @ 09:12 by Elle Mckeon MD) History of tonsillectomy (02/25/08) ?Z90.89 - Acquired absence of other organs (ICD-10) H/O dilation and curettage ?Z98.890 - Other specified postprocedural states (ICD-10) History of esophageal dilatation ?Z98.890 - Other specified postprocedural states (ICD-10) 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) ?Z98.84 - Bariatric surgery status (ICD-10) H/O nasal septoplasty ?Z98.890 - Other specified postprocedural states (ICD-10) H/O wisdom tooth extraction ?K08.409 - Partial loss of teeth, unspecified cause, unspecified class (ICD- 10) Status post colposcopy (01/2009) ?Z98.890 - Other specified postprocedural states (ICD-10) Status post laser lithotripsy of ureteral calculus (05/17/18) ?Z98.890 - Other specified postprocedural states (ICD-10) S/P (01/21/17) ?Z98.891 - History of uterine scar from previous surgery (ICD-10) Status post cholecystectomy (01/17/21) ?Z90.49 - Acquired absence of other specified parts of digestive tract (ICD- 10) Family History (Updated 11/21/22 @ 14:31 by Elle Mckeon MD) Mother Coronary artery disease Anxiety CHF (congestive heart failure) COPD (chronic obstructive pulmonary disease) Brother ADHD (attention deficit hyperactivity disorder) Paternal Grandfather DVT (deep venous thrombosis) Aunt Renal cancer Other Breast cancer Diabetes High blood pressure Kidney disease Leukemia Liver disease Lung cancer Stroke Social History (Updated 11/21/22 @ 14:32 by Elle Mckeon MD) Narrative: Lives in [place] with her son, 5 yo. 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 Also works at [employer]. She smokes 1/2 PPD. Occ ETOH use. No recreational drug use. What is your current living situation?: I presently have a place to live Problems where you live: no known problems In the past 12 months, utilities in danger of being shut off: no In past 12 months, lack of transportation kept you from medical appts, meetings, work, or getting things needed for daily living: no In the past 12 mos, have been you worried that your food would run out before you had money to buy more?: never true In the past 12 mos, the food you bought just didn't last and you didn't have money to buy more?: never true Highest level of school completed/degree received: high school graduate Smoking Status: Current every day smoker What tobacco products do you use: cigarettes Do you use any of these nicotine containing products: None Second hand tobacco smoke exposure: No How often do you have a drink containing alcohol: 2-4 times a month Alcohol type: wine and hard liquor AUDIT-C Alcohol total score: 2 Non-prescribed substance use: denies use Caffeine: Yes (soda, energy drinks) How often does anyone, including family, friends and others, physically hurt you : never How often does anyone, including family, friends and others, insult or talk down to you: never How often does anyone, including family, friends and others, threaten you with harm: never How often does anyone, including family, friends and others, scream or curse at you: never Are you using contraception or practicing any form of control: No service: No Exam Narrative: Exam Narrative: Constitutional: Appears well-developed and well-nourished. Alert. With initially uncomfortable appearing and crying and sniffling and tearful but after we talk she is more calm and conversant.. Non toxic. HENT: Head: Atraumatic. No depressed skull fracture, Raccoon Eyes, Matos's sign, or hemotympanum. Face normal. TMs normal Nose: Bilateral nonpurulent rhinorrhea Mouth/Throat: Oral mucosa is clear and moist. no trismus. Pharynx/peritonsillar pillars minimally erythematous. Tonsils normal.. Tonsils symmetric. No tonsillar enlargement, erythema, or exudate. Eyes: Conjunctivae normal. EOM normal. Pupils equal, round, and reactive to light. No scleral icterus. Neck: Normal range of motion. Neck supple. No tracheal deviation present. Cardiovascular: Normal rate, regular rhythm. No gallop. No friction rub. No murmur heard. Symmetric radial artery pulses Pulmonary/Chest: Effort normal. No stridor. No respiratory distress. No wheezes. No rales. No rhonchi . No tenderness. Abdominal: Soft. Bowel sounds normal. No distension. No mass. No tenderness. No rebound. No guarding. Musculoskeletal: RUE: Normal range of motion. No tenderness. No deformity LUE: Normal range of motion. No tenderness. No deformity RLE: Normal range of motion. No edema. No tenderness. No deformity LLE: Normal range of motion. No edema. No tenderness. No deformity Lymph: No cervical adenopathy. Neurological: Alert and oriented to person, place, and time. Normal strength. CN II-VII intact. No sensory deficit. GCS eye subscore is 4. GCS verbal subscore is 5. GCS motor subscore is 6. Normal coordination Skin: Skin is warm and dry. No rash noted. No pallor. Normal capillary refill. Psychiatric: Initially upset and crying. Subsequently more calm and conversant. Normal mood. Normal affect. Const: Vital Signs, click to edit/add: Vital Signs - 24 hr 03/26/23 11:41 Temperature 97.8 F Pulse Rate [Pulse Oximeter] 100 Respiratory Rate 22 Blood Pressure [Ri ght Upper Arm] 126/84 Pulse Oximetry 100 Oxygen Delivery Me thod Room Air Course Course ED Course: Recheck-feeling much better after meds and fluids. She is much more conversant. She had told the nurses she was feeling better. She confirms that with me. Breathing easily. Vital Signs Vital signs: Initial Vital Signs Temperature 97.8 F 03/26/23 11:41 Temperature Source Temporal Artery Scan 03/26/23 11:41 Pulse Rate 100 03/26/23 11:41 Respiratory Rate 22 03/26/23 11:41 Blood Pressure 126/84 03/26/23 11:41 Blood Pressure Mean 98 03/26/23 11:41 Blood Pressure Position Sitting 03/26/23 11:41 Pulse Oximetry 100 03/26/23 11:41 Oxygen Delivery Method Room Air 03/26/23 11:41 Vital Signs Temperature 97.8 F 03/26/23 11:41 Pulse Rate 100 03/26/23 11:41 Respiratory Rate 22 03/26/23 11:41 Blood Pressure 126/84 03/26/23 11:41 Pulse Oximetry 100 03/26/23 11:41 Oxygen Delivery Method Room Air 03/26/23 11:41 Temperature 97.8 F 03/26/23 11:41 Pulse Rate 100 03/26/23 11:41 Respiratory Rate 22 03/26/23 11:41 Blood Pressure 126/84 03/26/23 11:41 Pulse Oximetry 100 03/26/23 11:41 Oxygen Delivery Method Room Air 03/26/23 11:41 Medications Administered Medications: Discontinued Medications Generic Name Dose Route Start Last Admin Trade Name Freq PRN Reason Stop Dose Admin Hydrocodone Bitart/Acetaminophen 1 tab 03/26/23 13:58 03/26/23 14:44 Hydrocodone-Acetamin 5-325 Mg 1 Tab PO 03/26/23 13:59 1 tab ONCE ONE Administration Sodium Chloride 1,000 mls @ 1,000 mls/hr 03/26/23 14:00 03/26/23 15:49 0.9 % Sodium Chloride 1000 Ml IV 03/26/23 14:59 Infused .Q1H CAT Infusion Metoclopramide HCl 10 mg 03/26/23 13:58 03/26/23 14:44 Metoclopramide Hcl 5 Mg/Ml Inj IVP 03/26/23 13:59 10 mg ONCE ONE Administration Potassium Chloride 40 meq 03/26/23 15:03 03/26/23 15:27 Potassium Chloride 10 Meq Capsule Er PO 03/26/23 15:04 40 meq ONCE ONE Administration Medical Decision Making MDM Narrative Medical decision making narrative: This patient presents for evaluation of []. This is consistent with an upper respiratory tract infection. Viral testing was positive for coronavirus prior to arrival. She was having myalgias, headache, and and significant pain with this. She was also endorsing chest pain. This prompted workup. EKG is negative for ischemia. Troponin negative. Consider possible PE, however very low suspicion clinically. She is low risk by YEARS criteria and D-dimer is less than 1, so will hold off on CT PA for now due to risk of radiation exposure. There is no signs at this point of serious bacterial infection such as OM, RPA, epiglottitis, BIOMETRICS EXPERIMENTALIST, strep pharyngitis, pneumonia, sinusitis, meningitis, bacteremia, serious bacterial infection. There are no significant gastrointestinal symptoms at this point and no signs of dehydration. Labs do show mild hypokalemia. Apparently the patient is known about this in the past. Will supplement with oral potassium chloride here and short prescription for potassium. She will follow up with her doctor for potassium recheck in 1 week. We discussed coronavirus and the potential for developing serious illness/requiring hospitalization. She does have underlying autoimmune disease which would put her in the high-risk category. She would qualify for Paxlovid. She would like to initiate therapy. I reviewed her medications through liver pool interaction database. We do need make adjustments to clonazepam, tra zodone, amlodipine. She will hold those medications well on Paxlovid. Close followup with primary care physician is indicated. Return to ED for fever > 103, trouble breathing, low oxygen, worsening headache, protracted vomiting, confusion, or other worsening. Lab Data Labs: Lab Results 03/26/23 Range/Units 14:24 WBC 3.68 L (4.50-11.00) K/uL RBC 3.94 L (4.00-5.20) m/uL Hgb 12.0 (12.0-16.0) gm/dL Hct 35.1 (33.0-51.0) % MCV 89 (80-100) fL MCH 31 (26-34) pg MCHC 34 (32-36) gm/dL RDW Coeff of Compa 12.4 (11.5-15.5) % Plt Count 117 L (140-440) K/uL Neut % (Auto) 77.1 H (42.0-72.0) % Lymph % (Auto) 9.8 L (20-44) % Hidalgo % (Auto) 10.9 (0.0-11.0) % Eos % (Auto) 0.8 (0.0-7.0) % Baso % (Auto) 1.4 (0.0-3.0) % Neut # (Auto) 2.80 (1.7-7.0) K/uL Lymph # (Auto) 0.40 L (0.90-2.90) K/uL Hidalgo # (Auto) 0.40 (0.00-0.90) K/UL Eos # (Auto) 0.00 (0.00-0.50) K/uL Baso # (Auto) 0.10 (0.00-0.30) K/uL Abs Immat Gran (auto) 0.00 (0.00-0.30) K/uL Imm/Tot Granulo (auto) 0.0 % D-Dimer Quant (PE/DVT) 0.66 H (0.00-0.50) ug/ml Sodium 138 (135-149) mmol/L Potassium 2.9 L* (3.6-5.1) mmol/L Chloride 111 (96-114) mmol/L Carbon Dioxide 22 (20-32) mmol/L Anion Gap 5 L (7-15) mEq/L BUN 9 (5-24) mg/dL Creatinine 0.7 (0.5-1.5) mg/dL Estimated Creat Clear 104.01 Estimated GFR 115 ml/min Glucose 79 (60-115) mg/dL Calcium 8.5 (8.4-10.6) mg/dL Troponin I < 0.01 L (0.01-0.04) ng/mL ECG Data Attestation: I personally reviewed and interpreted this ECG as follows: Interpretation: Normal sinus rhythm rate 83 WA 140 QRS axis normal axis. No pathologic Q-waves. ST segment/T wave: No ST segment elevation or depression. QTc: 477 Discharge Plan Discharge Clinical Impression: COVID-19, Headache, Chest pain, Acute hypokalemia Patient Disposition: Home, Self-Care Condition: Stable Instructions: Chest Pain (DC), Hypokalemia (ED), COVID-19 (Coronavirus Disease 2019) (ED), COVID-19: Slow the Coronavirus Spread (ED) Additional Instructions: A he can please start taking Paxlovid today. This will help reduce the odds of you developing a severe illness from coronavirus. Paxlovid interacts with multiple medications. While you are on Paxlovid change t he following medications: 1. Do not take AMLODIPINE until you finish Paxlovid 2. Do not take Clonazepam until you finish Paxlovid 3. Reduce Trazodone by half until after you finish Paxlovid Continue to push plenty of fluids. The eat foods such as bananas, tomato juice, potato skins, avocados that are rich in potassium. Also take a potassium supplement once per day. Recheck her potassium level with her doctor in 1 week. If you have worsening trouble breathing, dehydration, weakness, chest pain, oxygen levels below 90%, or any concerns, please come back to the ER im mediately. Prescriptions: New hydrocodone-acetaminophen 5-325 mg tablet 1 tab PO Q6H PRN (Reason: pain) Qty: 10 0RF Paxlovid 300 mg (150 mg x 2)-100 mg tablets,dose pack See Rx Instructions .ROUTE .COMPLEX Qty: 30 0RF Rx Instructions: take TWO 150 mg tablets of nirmatrelvir with ONE 100 mg tablet of ritonavir twice daily for 5 days potassium chloride 20 mEq tablet extended release 20 meq PO DAILY Qty: 7 2RF No Action Elise Autoinjector 80 mg/mL auto-injector 80 mg subcut Q4W vitamin B complex [B Complex-Vitamin B12] Tablet 1 tab PO QDAY cholecalciferol (vitamin D3) 10 mcg (400 unit) tablet 10 mcg PO QDAY calcium citrate 200 mg (950 mg) tablet 200 mg PO QDAY multivitamin Tablet 1 tab PO QDAY epinephrine 0.3 mg/0.3 mL auto-injector 0.3 mg IM ONCE PRN duloxetine 60 mg capsule,delayed release(DR/EC) 60 mg PO QAM bupropion HCl 150 mg tablet sustained-release 12 hr 150 mg PO DAILY prochlorperazine maleate 10 mg tablet 10 mg PO Q8H PRN triamcinolone acetonide 0.1 % cream 1 applic topical BID-TID PRN hydroxyzine HCl 25 mg tablet 25 mg PO HS PRN hydroxychloroquine 200 mg tablet 200 mg PO BID albuterol sulfate 90 mcg/actuation HFA aerosol inhaler 2 inh inhalation Q4H PRN trazodone 50 mg tablet 50 - 100 mg PO HS PRN clonazepam 0.5 mg tablet 0.25 - 0.5 mg PO DAILY PRN amlodipine 5 mg tablet 5 mg PO DAILY acetaminophen 500 mg Tablet 1,000 mg PO Q6H PRN (Reason: Pain) Qty: 0 0RF Follow Up/Referrals: Vero Alvarez MD [Primary Care Provider] - Stand Alone Forms: [employer] Info Instructions
[2023-03-26 14:32] LABS: Basophils Percent Auto 1.4 % (0.0-3.0); Eosinophils Percent Auto 0.8 % (0.0-7.0); Hematocrit 35.1 % (33.0-51.0); Lymphocytes Percent Auto 9.8 % (20-44); Mean Corpuscular HGB Conc 34 gm/dL (32-36); Mean Corpuscular Hemoglobin 31 pg (26-34); Mean Corpuscular Volume 89 fL (80-100); Monocytes Percent Auto 10.9 % (0.0-11.0); Neutrophils Percent Auto 77.1 % (42.0-72.0); Platelet Count* 117 K/uL (140-440); RDW Coefficient of Variation % 12.4 % (11.5-15.5); Red Blood Count 3.94 m/uL (4.00-5.20); White Blood Count* 3.68 K/uL (4.50-11.00)
[2023-03-26 14:37] LABS: Slide Review Reflex No
[2023-03-26] MEDS: 0.9 % SODIUM CHLORIDE 1000 ml 1,000 ML IV (14:44)
[2023-03-26] MEDS: METOCLOPRAMIDE HCL 5 MG/ML INJ 10 MG IVP (14:44)
[2023-03-26] MEDS: HYDROCODONE-ACETAMIN 5-325 MG 1 TAB PO (14:44)
[2023-03-26 14:48] LABS: Chloride* 111 mmol/L (96-114); Sodium* 138 mmol/L (135-149)
[2023-03-26 14:50] LABS: D Dimer Quantitative* 0.66 ug/ml (0.00-0.50)
[2023-03-26 14:51] LABS: Anion Gap 5 mEq/L (7-15); Blood Urea Nitrogen* 9 mg/dL (5-24); Carbon Dioxide* 22 mmol/L (20-32); Creatinine* 0.7 mg/dL (0.5-1.5); Est. Creatinine Clearance* 104.01; Estimated Glomerular Filt Rate 115 ml/min
[2023-03-26 14:52] LABS: Calcium* 8.5 mg/dL (8.4-10.6); Glucose* 79 mg/dL (60-115)
[2023-03-26 14:57] LABS: Potassium* 2.9 mmol/L (3.6-5.1)
--- NOTE | 2023-03-26 14:57 | ED.NURSE ---
call from lab, critical potassium 2.9. care nurse and MD notified.
[2023-03-26 15:04] LABS: Troponin I* < 0.01 ng/mL (0.01-0.04)
[2023-03-26] MEDS: POTASSIUM CHLORIDE 10 MEQ CAPSULE ER 40 MEQ PO (15:27)
== END 2023-03-26 16:37 | disposition home or self-care (01) ==
PROVIDERS: Emergency Provider Emergency Medicine; PCP Family Medicine
DX: U07.1 COVID-19 (principal); R07.9 Chest pain, unspecified; R51.9 Headache, unspecified; E87.6 Hypokalemia
CPT/HCPCS: 36415; 71045; 80048; 84484; 85025; 85379; 93005; 95992; 96361; 96374; 99284; 99285; A9270; J2765; J7030

== ENCOUNTER 2023-05-18 14:10 | Emergency (ER) | payer MEDICAID, SELFPAY ==
[2023-05-18 14:26] VITALS: BP 126/82; PULSE 73; RESP 18; TEMP 36.6; O2SAT 97; BMI 21.0
--- NOTE | 2023-05-18 16:56 | CRLHL7_ITS ---
For Patients: As a result of the Century Cures Act, medical imaging exams and procedure reports are released immediately into your electronic medical record. You may view this report before your referring provider. If you have questions, please contact your health care provider. INDICATION: Abdominal pain. TECHNIQUE: CT abdomen and pelvis acquired with 64 cc Omnipaque 350 IV contrast. COMPARISON: November 05, 2021. FINDINGS: Lower chest: Scattered atelectasis. Liver: Unremarkable. Normal in size and attenuation. No suspicious masses. Gallbladder and bile ducts: Cholecystectomy. Pancreas: Unremarkable. No mass or inflammation. Spleen: Unremarkable. Normal in size. No masses. Adrenal glands: Unremarkable. No nodules. Kidneys: Tiny hypodensities in both kidneys, too small to characterize. Incidental 4 millimeter stone in the left UVJ. No suspicious masses, or hydronephrosis. GI tract: Gastric bypass. Mild wall thickening of distal small bowel. No bowel obstruction. Vasculature: Abdominal aorta is normal in caliber. Mesenteric arteries are patent. Lymph nodes: No lymphadenopathy. Peritoneum/Abdominal Wall: Unremarkable. No sign of mass or infiltration. No free air or significant free fluid. Pelvis: Hysterectomy. Bones: Unremarkable for age. IMPRESSION: Incidental 4 millimeter stone in the left UVJ. However, no left-sided hydroureteronephrosis. Recommend correlation with left flank pain to exclude partially obstructing stone. Mild wall thickening of distal small bowel in the pelvis. Low grade enteritis not excluded. Otherwise, no acute intra-abdominal/pelvic abnormality. Please note that all CT scans at this facility use dose modulation, iterative reconstruction, and/or weight-based dosing when appropriate to reduce radiation dose to as low as reasonably achievable. Dictated by Ruben Villalta MD @ 05/18/2023 7:06:32 PM (Electronically Signed)
[2023-05-18 16:57] LABS: Appearance Urine Clear (Clear); Bilirubin Urine Negative (Negative); Blood Urine Trace-lysed (Negative); Color Urine Yellow (Yellow); Glucose Urine Negative (Negative); Ketones Urine Trace (Negative); Leukocyte Esterase Urine Negative (Negative); Nitrite Urine Negative (Negative); Protein Urine Negative (Negative); Specific Gravity Urine 1.025 (1.000-1.030); Urobilinogen Urine 0.2 (0.2-1.0); pH Urine 6.5 (5.0-8.5)
--- NOTE | 2023-05-18 17:02 | ED_ITS ---
HPI - Abdominal Pain General Chief Complaint: Abdominal Pain Stated Complaint: abdominal pain, headache Time Seen by Provider: 05/18/23 16:35 History of Present Illness HPI narrative: This 38-year-old female comes in reporting crampy episodes of abdominal pain over the past couple days. She states that she had a gastric bypass surgery about a year and half ago and since then has lost 125 lb. She has had her gallbladder removed also. She reports that she has been doing well but does have some episodes of dyspepsia and cramping but states that over the past couple days these symptoms have felt different and and more intense. She waited here for several hours on a busy day and states now that the cramping is gone at the time that I visited her. She does arrive with normal vital signs. Related Data Home Medications Medication Instructions Recorded Confirmed amlodipine 5 mg tablet 5 mg PO DAILY 10/26/21 05/18/23 clonazepam 0.5 mg tablet 0.25 - 0.5 mg PO DAILY PRN 10/26/21 05/18/23 trazodone 50 mg tablet 50 - 100 mg PO HS PRN 10/26/21 05/18/23 duloxetine 60 mg capsule,delayed 60 mg PO QAM 11/06/21 05/18/23 release epinephrine 0.3 mg/0.3 mL 0.3 mg IM ONCE PRN 11/06/21 05/18/23 injection, auto-injector bupropion HCl 150 mg tablet,12 hr 150 mg PO DAILY 08/13/22 05/18/23 sustained-release calcium citrate 200 mg (950 mg) 200 mg PO QDAY 11/21/22 05/18/23 tablet cholecalciferol (vitamin D3) 10 10 mcg PO QDAY 11/21/22 05/18/23 mcg (400 unit) tablet ixekizumab 80 mg/mL subcutaneous 80 mg subcut Q4W 11/21/22 05/18/23 auto-injector (Taltz Autoinjector) multivitamin 1 tab PO QDAY 11/21/22 05/18/23 vitamin B complex (B 1 tab PO QDAY 11/21/22 05/18/23 Complex-Vitamin B12 tablet) hydroxychloroquine 200 mg tablet 200 mg PO BID 01/26/23 05/18/23 prochlorperazine maleate 10 mg 10 mg PO Q8H PRN 01/26/23 05/18/23 tablet triamcinolone acetonide 0.1 % 1 applic topical BID-TID PRN 01/26/23 05/18/23 topical cream albuterol sulfate 90 mcg/actuation 2 inh inhalation Q4H PRN 01/29/23 05/18/23 aerosol inhaler Previous Rx's Medication Instructions Recorded acetaminophen 500 mg tablet 1,000 mg (2 x 500 mg) PO Q6H PRN 11/03/22 Pain #0 tabs hydrocodone 5 mg-acetaminophen 325 1 tab PO Q4-6H PRN pain #15 tabs 05/18/23 mg tablet ondansetron HCl 4 mg tablet 4 mg PO Q6H #10 tabs 05/18/23 Allergies Allergy/AdvReac Type Severity Reaction Status Date / Time ergotamine [From Cafergot] Allergy Severe Anaphylaxis Verified 05/18/23 14:31 tramadol Allergy Intermediate Headache Verified 05/18/23 14:31 lamotrigine [From Lamictal] Allergy rash Verified 05/18/23 14:31 NSAIDS (Non-Steroidal Allergy gastric Verified 05/18/23 14:31 Anti-Inflamma bypass Penicillins Allergy Anaphylaxis Verified 05/18/23 14:31 sumatriptan Allergy Anaphylaxis Verified 05/18/23 14:31 ondansetron AdvReac Intermediate Migraine Verified 05/18/23 14:31 ketorolac [From Toradol] AdvReac Mild Headache Verified 05/18/23 14:31 Review of Systems Status of ROS Reports: 10 or more systems reviewed and unremarkable except as noted in History and below Narrative Constitutional: No fevers, no weight gain or loss. Eyes: No discharge. No vision changes. HENT: No congestion, no sore throat, no ear pain. Cardiovascular: No chest pain, no palpitations. Respiratory: No shortness of breath, no wheezes, no cough. Gastrointestinal: Crampy abdominal pain related to taking food. She also re ports some diarrhea when taking food. Genitourinary: No dysuria, no hematuria. Musculoskeletal: Normal range of motion. Skin: No rashes, no pruritis. Neurological: No dizziness, weakness, sensory change, speech change. Endo/Heme/Allergies: No bruising or bleeding. No polydipsia. Pysch: no suicidality, no anxiety, no insomnia. All other systems reviewed and are negative. [facility] Medical History (Updated 05/18/23 @ 19:35 by Ivan Lucero MD) History of gestational hypertension ?Z87.59 - Personal history of other complications of , childbirth and the puerperium (ICD-10) Spontaneous with heavy bleeding (11/03/22) ?O03.9 - Complete or unspecified spontaneous without complication (ICD-10) Low grade squamous intraepithelial lesion (2008) Paroxysmal SVT (supraventricular tachycardia) ?I47.1 - Supraventricular tachycardia (ICD-10) Nephrolithiasis (2010) ?N20.0 - Calculus of kidney (ICD-10) Surgical History (Updated 02/13/23 @ 09:12 by Elle Mckeon MD) History of tonsillectomy (02/25/08) ?Z90.89 - Acquired absence of other organs (ICD-10) H/O dilation and curettage ?Z98.890 - Other specified postprocedural states (ICD-10) History of esophageal dilatation ?Z98.890 - Other specified postprocedural states (ICD-10) 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) ?Z98.84 - Bariatric surgery status (ICD-10) H/O nasal septoplasty ?Z98.890 - Other specified postprocedural states (ICD-10) H/O wisdom tooth extraction ?K08.409 - Partial loss of teeth, unspecified cause, unspecified class (ICD- 10) Status post colposcopy (01/2009) ?Z98.890 - Other specified postprocedural states (ICD-10) Status post laser lithotripsy of ureteral calculus (05/17/18) ?Z98.890 - Other specified postprocedural states (ICD-10) S/P (01/21/17) ?Z98.891 - History of uterine scar from previous surgery (ICD-10) Status post cholecystectomy (01/17/21) ?Z90.49 - Acquired absence of other specified parts of digestive tract (ICD- 10) Family History (Updated 11/21/22 @ 14:31 by Elle Mckeon MD) Mother Coronary artery disease Anxiety CHF (congestive heart failure) COPD (chronic obstructive pulmonary disease) Brother ADHD (attention deficit hyperactivity disorder) Paternal Grandfather DVT (deep venous thrombosis) Aunt Renal cancer Other Breast cancer Diabetes High blood pressure Kidney disease Leukemia Liver disease Lung cancer Stroke Social History (Updated 11/21/22 @ 14:32 by Elle Mckeon MD) Narrative: Lives in [place] with her son, 5 yo. 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 Also works at [employer]. She smokes 1/2 PPD. Occ ETOH use. No recreational drug use. What is your current living situation?: I presently have a place to live Problems where you live: no known problems In the past 12 months, utilities in danger of being shut off: no In past 12 months, lack of transportation kept you from medical appts, meetings, work, or getting things needed for daily living: no In the past 12 mos, have been you worried that your food would run out before you had money to buy more?: never true In the past 12 mos, the food you bought just didn't last and you didn't have money to buy more?: never true Highest level of school completed/degree received: high school graduate Smoking Status: Heavy tobacco smoker What tobacco products do you use: cigarettes Smoking packs per day: 0.5 Smoking cigarettes per day: 10.0 Years smoked: 23 Smoking pack-years: 11.50 Do you use any of these nicotine containing products: None Second hand tobacco smoke exposure: No How often do you have a drink containing alcohol: 2-4 times a month Alcohol type: wine and hard liquor AUDIT-C Alcohol total score: 2 Non-prescribed substance use: denies use Caffeine: Yes (soda, energy drinks) How often does anyone, including family, friends and others, physically hurt you : never How often does anyone, including family, friends and others, insult or talk down to you: never How often does anyone, including family, friends and others, threaten you with harm: never How often does anyone, including family, friends and others, scream or curse at you: never Are you using contraception or practicing any form of control: No service: No Exam Narrative: Exam Narrative: Constitutional: Well-developed, well-nourished, no acute distress. HEENT: Normocephalic, atraumatic. Neck: Normal range of motion. Nontender. Supple. Heart: Regular. No murmurs. Normal rate. Intact distal pulses. Lungs: Clear to auscultation. No chest discomfort. No wheezes, rhonchi, or rales. Abdomen: Normal bowel sounds. Nontender. No rebound tenderness. Genitalia: Deferred. Back: No midline tenderness. Normal range of motion. Extremities: Normal range of motion. No injury. Skin: Intact. No rash. Warm. No erythema or pallor. Neurologic: No altered sensation. No weakness. Alert and oriented. Psychiatric: No suicidality. No anxiety or depression. No insomnia. Nursing notes and vitals signs are reviewed. Const: Vital Signs, click to edit/add: Vital Signs - 24 hr 05/18/23 14:26 Temperature 97.9 F Pulse Rate [Pulse Oximeter] 73 Respiratory Rate 18 Blood Pressure [Ri ght Upper Arm] 126/82 Pulse Oximetry 97 Oxygen Delivery Me thod Room Air Course Vital Signs Vital signs: Initial Vital Signs Temperature 97.9 F 05/18/23 14:26 Temperature Source Temporal Artery Scan 05/18/23 14:26 Pulse Rate 73 05/18/23 14:26 Respiratory Rate 18 05/18/23 14:26 Blood Pressure 126/82 05/18/23 14:26 Blood Pressure Mean 96 05/18/23 14:26 Blood Pressure Position Sitting 05/18/23 14:26 Pulse Oximetry 97 05/18/23 14:26 Oxygen Delivery Method Room Air 05/18/23 14:26 Vital Signs Temperature 97.9 F 05/18/23 14:26 Pulse Rate 73 05/18/23 14:26 Respiratory Rate 18 05/18/23 14:26 Blood Pressure 126/82 05/18/23 14:26 Pulse Oximetry 97 05/18/23 14:26 Oxygen Delivery Method Room Air 05/18/23 14:26 Temperature 97.9 F 05/18/23 14:26 Pulse Rate 73 05/18/23 14:26 Respiratory Rate 18 05/18/23 14:26 Blood Pressure 126/82 05/18/23 14:26 Pulse Oximetry 97 05/18/23 14:26 Oxygen Delivery Method Room Air 05/18/23 14:26 MDM - Abdominal Pain MDM Narrative Medical decision making narrative: This patient comes in reporting intermittent abdominal pain as described above. A CT scan of the abdomen with contrast is obtained and returns with normal findings except for a 4 mm stone at the left ureterovesical junction. The patient states that she does have history of kidney stones. There are no other findings in lab results or imaging results that are triggering any concern or providing any answer for her pain beyond the presence of this kidney stone. The patient has normal vital signs. Currently she is not having any discomfort. She is okay to be discharged home and did receive a prescription for [place] and Zofran. Lab Data Labs: Lab Results 05/18/23 05/18/23 Range/Units 16:47 17:09 WBC 7.61 (4.50-11.00) K/uL RBC 4.19 (4.00-5.20) m/uL Hgb 12.6 (12.0-16.0) gm/dL Hct 37.3 (33.0-51.0) % MCV 89 (80-100) fL MCH 30 (26-34) pg MCHC 34 (32-36) gm/dL RDW Coeff of Compa 12.8 (11.5-15.5) % Plt Count 183 (140-440) K/uL Neut % (Auto) 47.7 (42.0-72.0) % Lymph % (Auto) 41.9 (20-44) % [place] % (Auto) 7.0 (0.0-11.0) % Eos % (Auto) 2.4 (0.0-7.0) % Baso % (Auto) 0.9 (0.0-3.0) % Neut # (Auto) 3.63 (1.7-7.0) K/uL Lymph # (Auto) 3.19 H (0.90-2.90) K/uL [place] # (Auto) 0.50 (0.00-0.90) K/UL Eos # (Auto) 0.18 (0.00-0.50) K/uL Baso # (Auto) 0.07 (0.00-0.30) K/uL Abs Immat Gran (auto) 0.01 (0.00-0.30) K/uL Imm/Tot Granulo (auto) 0.1 % Sodium 140 (135-149) mmol/L Potassium 3.7 (3.6-5.1) mmol/L Chloride 110 (96-114) mmol/L Carbon Dioxide 23 (20-32) mmol/L Anion Gap 7 (7-15) mEq/L BUN 11 (5-24) mg/dL Creatinine 0.9 (0.5-1.5) mg/dL Estimated Creat Clear 80.44 Estimated GFR 85 ml/min Glucose 93 (60-115) mg/dL Calcium 8.8 (8.4-10.6) mg/dL Urine Color Yellow (Yellow) Urine Appearance Clear (Clear) Urine pH 6.5 (5.0-8.5) Ur Specific [place] 1.025 (1.000-1.030) Urine Protein Negative (Negative) Urine Glucose (UA) Negative (Negative) Urine Ketones Trace A (Negative) Urine Blood Trace-lysed A (Negative) Urine Nitrite Negative (Negative) Urine Bilirubin Negative (Negative) Urine Urobilinogen 0.2 (0.2-1.0) Ur Leukocyte Esterase Negative (Negative) Urine RBC 0-2 (0-2) Urine WBC 0-2 (0-5) Ur Squamous Epith Cells Few (None-Few) Amorphous Sediment Moderate A (None) Urine Bacteria Few A (None) Hyaline Casts Few (None-Few) Imaging Data CT scan - abdomen: Radiologist's impression: Incidental 4 millimeter stone in the left UVJ. However, no left-sided hydroureteronephrosis. Recommend correlation with left flank pain to exclude partially obstructing stone. Mild wall thickening of distal small bowel in the pelvis. Low grade enteritis not excluded. Otherwise, no acute intra-abdominal/pelvic abnormality. Discharge Plan Discharge Clinical Impression: Calculus, ureteral Patient Disposition: Home, Self-Care Condition: Stable Additional Instructions: take medication as needed and indicated. Follow up with MD return if worsening. Prescriptions: New hydrocodone-acetaminophen 5-325 mg tablet 1 tab PO Q4-6H PRN (Reason: pain) Qty: 15 0RF ondansetron HCl 4 mg tablet 4 mg PO Q6H Qty: 10 0RF No Action Elise Autoinjector 80 mg/mL auto-injector 80 mg subcut Q4W vitamin B complex [B Complex-Vitamin B12] Tablet 1 tab PO QDAY cholecalciferol (vitamin D3) 10 mcg (400 unit) tablet 10 mcg PO QDAY calcium citrate 200 mg (950 mg) tablet 200 mg PO QDAY multivitamin Tablet 1 tab PO QDAY epinephrine 0.3 mg/0.3 mL auto-injector 0.3 mg IM ONCE PRN duloxetine 60 mg capsule,delayed release(DR/EC) 60 mg PO QAM bupropion HCl 150 mg tablet sustained-release 12 hr 150 mg PO DAILY prochlorperazine maleate 10 mg tablet 10 mg PO Q8H PRN triamcinolone acetonide 0.1 % cream 1 applic topical BID-TID PRN hydroxychloroquine 200 mg tablet 200 mg PO BID albuterol sulfate 90 mcg/actuation HFA aerosol inhaler 2 inh inhalation Q4H PRN trazodone 50 mg tablet 50 - 100 mg PO HS PRN clonazepam 0.5 mg tablet 0.25 - 0.5 mg PO DAILY PRN amlodipine 5 mg tablet 5 mg PO DAILY acetaminophen 500 mg Tablet 1,000 mg PO Q6H PRN (Reason: Pain) Qty: 0 0RF Follow Up/Referrals: Vero Alvarez MD [Primary Care Provider] - Stand Alone Forms: [facility] Info Instructions
[2023-05-18 17:17] LABS: Amorphous Sediment Urine Moderate; Bacteria Urine Few; RBC Urine 0-2 (0-2); Squamous Epithelial Cell Urine Few (None-Few); WBC Urine 0-2 (0-5)
[2023-05-18 17:18] LABS: Hyaline Casts Urine Few (None-Few)
[2023-05-18 17:19] LABS: Basophils Absolute Auto 0.07 K/uL (0.00-0.30); Basophils Percent Auto 0.9 % (0.0-3.0); Eosinophils Absolute Auto 0.18 K/uL (0.00-0.50); Eosinophils Percent Auto 2.4 % (0.0-7.0); Hematocrit 37.3 % (33.0-51.0); Hemoglobin* 12.6 gm/dL (12.0-16.0); Immature Granulocytes Abs Auto 0.01 K/uL (0.00-0.30); Immature Granulocytes Pct Auto 0.1 %; Lymphocytes Absolute Auto 3.19 K/uL (0.90-2.90); Lymphocytes Percent Auto 41.9 % (20-44); Mean Corpuscular HGB Conc 34 gm/dL (32-36); Mean Corpuscular Hemoglobin 30 pg (26-34); Mean Corpuscular Volume 89 fL (80-100); Neutrophils Absolute Auto 3.63 K/uL (1.7-7.0); Neutrophils Percent Auto 47.7 % (42.0-72.0); Platelet Count* 183 K/uL (140-440); RDW Coefficient of Variation % 12.8 % (11.5-15.5); Red Blood Count 4.19 m/uL (4.00-5.20); White Blood Count* 7.61 K/uL (4.50-11.00)
[2023-05-18 17:22] LABS: Slide Review Reflex No
[2023-05-18 17:44] LABS: Chloride* 110 mmol/L (96-114)
[2023-05-18 17:45] LABS: Potassium* 3.7 mmol/L (3.6-5.1); Sodium* 140 mmol/L (135-149)
[2023-05-18 17:47] LABS: Creatinine* 0.9 mg/dL (0.5-1.5); Est. Creatinine Clearance* 80.44; Estimated Glomerular Filt Rate 85 ml/min
[2023-05-18 17:48] LABS: Anion Gap 7 mEq/L (7-15); Blood Urea Nitrogen* 11 mg/dL (5-24); Calcium* 8.8 mg/dL (8.4-10.6); Carbon Dioxide* 23 mmol/L (20-32); Glucose* 93 mg/dL (60-115)
== END 2023-05-18 19:45 | disposition home or self-care (01) ==
PROVIDERS: Emergency Provider Emergency Medicine Emergency Medical Services; PCP Family Medicine
DX: N20.1 Calculus of ureter (principal)
CPT/HCPCS: 36415; 74177; 80048; 81003; 81015; 85025; 87086; 99283; 99284; Q9967

== ENCOUNTER 2023-05-27 09:44 | Emergency (ER) | payer MEDICAID, SELFPAY ==
[2023-05-27 09:51] VITALS: BP 131/82; PULSE 78; RESP 16; TEMP 36.9; O2SAT 99; BMI 21.0
--- NOTE | 2023-05-27 10:42 | ED_ITS ---
HPI - General Adult General Chief complaint: Sore Throat Stated complaint: Sore/tightened throat Time Seen by Provider: 05/27/23 10:30 History of Present Illness HPI narrative: This 38-year-old female comes in reporting sore throat that began yesterday. She does not report any particular cough or nasal congestion. She has not had any fevers. She states that the sore throat is very severe in seems to radiate into her ears and into her neck. Related Data Home Medications Medication Instructions Recorded Confirmed amlodipine 5 mg tablet 5 mg PO DAILY 10/26/21 05/27/23 clonazepam 0.5 mg tablet 0.25 - 0.5 mg PO DAILY PRN 10/26/21 05/27/23 trazodone 50 mg tablet 50 - 100 mg PO HS PRN 10/26/21 05/27/23 duloxetine 60 mg capsule,delayed 60 mg PO QAM 11/06/21 05/27/23 release epinephrine 0.3 mg/0.3 mL 0.3 mg IM ONCE PRN 11/06/21 05/27/23 injection, auto-injector bupropion HCl 150 mg tablet,12 hr 150 mg PO DAILY 08/13/22 05/27/23 sustained-release calcium citrate 200 mg (950 mg) 200 mg PO QDAY 11/21/22 05/27/23 tablet cholecalciferol (vitamin D3) 10 10 mcg PO QDAY 11/21/22 05/27/23 mcg (400 unit) tablet ixekizumab 80 mg/mL subcutaneous 80 mg subcut Q4W 11/21/22 05/27/23 auto-injector (Taltz Autoinjector) multivitamin 1 tab PO QDAY 11/21/22 05/27/23 vitamin B complex (B 1 tab PO QDAY 11/21/22 05/27/23 Complex-Vitamin B12 tablet) hydroxychloroquine 200 mg tablet 200 mg PO BID 01/26/23 05/27/23 prochlorperazine maleate 10 mg 10 mg PO Q8H PRN 01/26/23 05/27/23 tablet triamcinolone acetonide 0.1 % 1 applic topical BID-TID PRN 01/26/23 05/27/23 topical cream albuterol sulfate 90 mcg/actuation 2 inh inhalation Q4H PRN 01/29/23 05/27/23 aerosol inhaler Previous Rx's Medication Instructions Recorded acetaminophen 500 mg tablet 1,000 mg (2 x 500 mg) PO Q6H PRN 11/03/22 Pain #0 tabs hydrocodone 5 mg-acetaminophen 325 1 tab PO Q4-6H PRN pain #15 tabs 05/18/23 mg tablet amoxicillin 500 mg capsule 500 mg PO TID 7 days #21 caps 05/27/23 Allergies Allergy/AdvReac Type Severity Reaction Status Date / Time ergotamine [From Cafergot] Allergy Severe Anaphylaxis Verified 05/27/23 09:58 tramadol Allergy Intermediate Headache Verified 05/27/23 09:58 lamotrigine [From Lamictal] Allergy rash Verified 05/27/23 09:58 NSAIDS (Non-Steroidal Allergy gastric Verified 05/27/23 09:58 Anti-Inflamma bypass Penicillins Allergy Anaphylaxis Verified 05/27/23 09:58 sumatriptan Allergy Anaphylaxis Verified 05/27/23 09:58 ondansetron AdvReac Intermediate Migraine Verified 05/27/23 09:58 ketorolac [From Toradol] AdvReac Mild Headache Verified 05/27/23 09:58 Review of Systems Status of ROS: Reports: 10 or more systems reviewed and unremarkable except as noted in History and below Narrative: Constitutional: No fevers, no weight gain or loss. Eyes: No discharge. No vision changes. HENT: No congestion. Sore throat is reported above. Cardiovascular: No chest pain, no palpitations. Respiratory: No shortness of breath, no wheezes, no cough. Gastrointestinal: No abdominal pain, no vomiting, no diarrhea. Genitourinary: No dysuria, no hematuria. Musculoskeletal: Normal range of motion. Skin: No rashes, no pruritis. Neurological: No dizziness, weakness, sensory change, speech change. Endo/Heme/Allergies: No bruising or bleeding. No polydipsia. Pysch: no suicidality, no anxiety, no insomnia. All other systems reviewed and are negative. [facility] Medical History (Updated 05/27/23 @ 10:59 by Ivan Lucero MD) History of gestational hypertension ?Z87.59 - Personal history of other complications of , childbirth and the puerperium (ICD-10) Spontaneous with heavy bleeding (11/03/22) ?O03.9 - Complete or unspecified spontaneous without complication (ICD-10) Low grade squamous intraepithelial lesion (2008) Paroxysmal SVT (supraventricular tachycardia) ?I47.1 - Supraventricular tachycardia (ICD-10) Nephrolithiasis (2010) ?N20.0 - Calculus of kidney (ICD-10) Surgical History (Updated 02/13/23 @ 09:12 by Elle Mckeon MD) History of tonsillectomy (02/25/08) ?Z90.89 - Acquired absence of other organs (ICD-10) H/O dilation and curettage ?Z98.890 - Other specified postprocedural states (ICD-10) History of esophageal dilatation ?Z98.890 - Other specified postprocedural states (ICD-10) 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) ?Z98.84 - Bariatric surgery status (ICD-10) H/O nasal septoplasty ?Z98.890 - Other specified postprocedural states (ICD-10) H/O wisdom tooth extraction ?K08.409 - Partial loss of teeth, unspecified cause, unspecified class (ICD- 10) Status post colposcopy (01/2009) ?Z98.890 - Other specified postprocedural states (ICD-10) Status post laser lithotripsy of ureteral calculus (05/17/18) ?Z98.890 - Other specified postprocedural states (ICD-10) S/P (01/21/17) ?Z98.891 - History of uterine scar from previous surgery (ICD-10) Status post cholecystectomy (01/17/21) ?Z90.49 - Acquired absence of other specified parts of digestive tract (ICD- 10) Family History (Updated 11/21/22 @ 14:31 by Elle Mckeon MD) Mother Coronary artery disease Anxiety CHF (congestive heart failure) COPD (chronic obstructive pulmonary disease) Brother ADHD (attention deficit hyperactivity disorder) Paternal Grandfather DVT (deep venous thrombosis) Aunt Renal cancer Other Breast cancer Diabetes High blood pressure Kidney disease Leukemia Liver disease Lung cancer Stroke Social History (Updated 11/21/22 @ 14:32 by Elle Mckeon MD) Narrative: Lives in [place] with her son, 5 yo. 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 Also works at [employer]. She smokes 1/2 PPD. Occ ETOH use. No recreational drug use. What is your current living situation?: I presently have a place to live Problems where you live: no known problems In the past 12 months, utilities in danger of being shut off: no In past 12 months, lack of transportation kept you from medical appts, meetings, work, or getting things needed for daily living: no In the past 12 mos, have been you worried that your food would run out before you had money to buy more?: never true In the past 12 mos, the food you bought just didn't last and you didn't have money to buy more?: never true Highest level of school completed/degree received: high school graduate Smoking Status: Heavy tobacco smoker What tobacco products do you use: cigarettes Smoking packs per day: 0.5 Smoking cigarettes per day: 10.0 Years smoked: 23 Smoking pack-years: 11.50 Do you use any of these nicotine containing products: None Second hand tobacco smoke exposure: No How often do you have a drink containing alcohol: 2-4 times a month Alcohol type: wine and hard liquor AUDIT-C Alcohol total score: 2 Non-prescribed substance use: denies use Caffeine: Yes (soda, energy drinks) How often does anyone, including family, friends and others, physically hurt you : never How often does anyone, including family, friends and others, insult or talk down to you: never How often does anyone, including family, friends and others, threaten you with harm: never How often does anyone, including family, friends and others, scream or curse at you: never Are you using contraception or practicing any form of control: No service: No Exam Narrative: Exam Narrative: Constitutional: Well-developed, well-nourished, no acute distress. HEENT: Normocephalic, atraumatic. Oropharynx has erythema without exudate or tonsillar hypertrophy. Neck: Normal range of motion. Nontender. Supple. Heart: Regular. No murmurs. Normal rate. Intact distal pulses. Lungs: Clear to auscultation. No chest discomfort. No wheezes, rhonchi, or rales. Abdomen: Normal bowel sounds. Nontender. No rebound tenderness. Genitalia: Deferred. Back: No midline tenderness. Normal range of motion. Extremities: Normal range of motion. No injury. Skin: Intact. No rash. Warm. No erythema or pallor. Neurologic: No altered sensation. No weakness. Alert and oriented. Psychiatric: No suicidality. No anxiety or depression. No insomnia. Nursing notes and vitals signs are reviewed. Const: Vital Signs, click to edit/add: Vital Signs - 24 hr 05/27/23 09:51 Temperature 98.4 F Pulse Rate [Right Pulse Oximeter] 78 Respiratory Rate 16 Blood Pressure [Ri ght Upper Arm] 131/82 Pulse Oximetry 99 Oxygen Delivery Me thod Room Air Course Vital Signs Vital signs: Initial Vital Signs Temperature 98.4 F 05/27/23 09:51 Temperature Source Temporal Artery Scan 05/27/23 09:51 Pulse Rate 78 05/27/23 09:51 Respiratory Rate 16 05/27/23 09:51 Blood Pressure 131/82 05/27/23 09:51 Blood Pressure Mean 98 05/27/23 09:51 Blood Pressure Position Sitting 05/27/23 09:51 Pulse Oximetry 99 05/27/23 09:51 Oxygen Delivery Method Room Air 05/27/23 09:51 Vital Signs Temperature 98.4 F 05/27/23 09:51 Pulse Rate 78 05/27/23 09:51 Respiratory Rate 16 05/27/23 09:51 Blood Pressure 131/82 05/27/23 09:51 Pulse Oximetry 99 05/27/23 09:51 Oxygen Delivery Method Room Air 05/27/23 09:51 Temperature 98.4 F 05/27/23 09:51 Pulse Rate 78 05/27/23 09:51 Respiratory Rate 16 05/27/23 09:51 Blood Pressure 131/82 05/27/23 09:51 Pulse Oximetry 99 05/27/23 09:51 Oxygen Delivery Method Room Air 05/27/23 09:51 Medications Administered Medications: Discontinued Medications Generic Name Dose Route Start Last Admin Trade Name Freq PRN Reason Stop Dose Admin Dexamethasone 10 mg 05/27/23 10:42 05/27/23 10:49 Dexamethasone 10 Mg/Ml Inj PO 05/27/23 10:43 10 mg ONCE ONE Administration Medical Decision Making MDM Narrative Medical decision making narrative: This patient comes in reporting sore throat as described above. A swab is obtained and returns positive for strep pharyngitis. The patient did receive an oral dose of dexamethasone 10 mg and a prescription for amoxicillin. She states that she has an allergy to penicillin but she has taken amoxicillin without any problem several times. Lab Data Labs: Lab Results 05/27/23 Range/Units 10:00 Group A Strep DNA DETECTED A (Not Detectd) Discharge Plan Discharge Clinical Impression: Acute streptococcal pharyngitis Patient Disposition: Home, Self-Care Condition: Stable Additional Instructions: Take medication as prescribed. Follow up with MD return if worsening. Prescriptions: New amoxicillin 500 mg capsule 500 mg PO TID 7 Days Qty: 21 0RF No Action Taltz Autoinjector 80 mg/mL auto-injector 80 mg subcut Q4W vitamin B complex [B Complex-Vitamin B12] Tablet 1 tab PO QDAY cholecalciferol (vitamin D3) 10 mcg (400 unit) tablet 10 mcg PO QDAY calcium citrate 200 mg (950 mg) tablet 200 mg PO QDAY multivitamin Tablet 1 tab PO QDAY epinephrine 0.3 mg/0.3 mL auto-injector 0.3 mg IM ONCE PRN duloxetine 60 mg capsule,delayed release(DR/EC) 60 mg PO QAM bupropion HCl 150 mg tablet sustained-release 12 hr 150 mg PO DAILY prochlorperazine maleate 10 mg tablet 10 mg PO Q8H PRN triamcinolone acetonide 0.1 % cream 1 applic topical BID-TID PRN hydroxychloroquine 200 mg tablet 200 mg PO BID albuterol sulfate 90 mcg/actuation HFA aerosol inhaler 2 inh inhalation Q4H PRN trazodone 50 mg tablet 50 - 100 mg PO HS PRN clonazepam 0.5 mg tablet 0.25 - 0.5 mg PO DAILY PRN amlodipine 5 mg tablet 5 mg PO DAILY acetaminophen 500 mg Tablet 1,000 mg PO Q6H PRN (Reason: Pain) Qty: 0 0RF hydrocodone-acetaminophen 5-325 mg tablet 1 tab PO Q4-6H PRN (Reason: pain) Qty: 15 0RF Follow Up/Referrals: Vero Alvarez MD [Primary Care Provider] - Stand Alone Forms: [employer] Info Instructions
[2023-05-27 10:45] LABS: Strep A DNA Probe* DETECTED (Not Detectd)
[2023-05-27] MEDS: dexAMETHasone 10 MG/ML inj PO (10:49)
== END 2023-05-27 11:09 | disposition home or self-care (01) ==
PROVIDERS: Emergency Provider Emergency Medicine Emergency Medical Services; PCP Family Medicine
DX: J02.0 Streptococcal pharyngitis (principal)
CPT/HCPCS: 87651; 99283; 99284; J1100

== ENCOUNTER 2023-06-21 10:26 | Emergency (ER) | payer MEDICAID, SELFPAY ==
[2023-06-21 10:36] VITALS: BP 138/86; PULSE 87; RESP 22; TEMP 36.9; O2SAT 100; BMI 21.0
--- NOTE | 2023-06-21 10:57 | ED.GENADULT ---
HPI - General Adult General Date Seen: 06/21/23 Chief complaint: Abdominal Pain Stated complaint: Cramping in stomach Time Seen by Provider: 06/21/23 10:42 Source: patient, RN notes reviewed and old records reviewed Mode of arrival: ambulatory Limitations: no limitations History of Present Illness HPI narrative: Patient is a 38-year-old woman here for evaluation of abdominal cramping. She says symptoms started yesterday and she indicates her upper abdomen as the primary location of her symptoms although she also has some lower abdominal cramping as well. She says she normally has bowel movements 3 times a day, did have 3 bowel movements yesterday which she felt were normal although she says it caused abdominal pain to go. She does not have any urinary symptoms. She did have a kidney stone diagnosed here last month by CT scan, no additional stones were seen in the kidneys although was a contrast CT. She has not had fevers. She has not had any nausea or vomiting. Her appetite has been normal but abdominal pain is worsened with eating. She has a history of gastric bypass, denies history of ulcers. She thinks she maybe has a history of gastritis, does have a history of gastroesophageal reflux but says that it improved after her gastric bypass and she no longer takes medication. She is also status post cholecystectomy and hysterectomy. She does smoke. She drinks occasionally, had some drinks last night at a intermediate [employer]. Does not take NSAIDs. Related Data Home Medications Medication Instructions Recorded Confirmed amlodipine 5 mg tablet 5 mg PO DAILY 10/26/21 05/27/23 clonazepam 0.5 mg tablet 0.25 - 0.5 mg PO DAILY PRN 10/26/21 05/27/23 trazodone 50 mg tablet 50 - 100 mg PO HS PRN 10/26/21 05/27/23 duloxetine 60 mg capsule,delayed 60 mg PO QAM 11/06/21 05/27/23 release epinephrine 0.3 mg/0.3 mL 0.3 mg IM ONCE PRN 11/06/21 05/27/23 injection, auto-injector bupropion HCl 150 mg tablet,12 hr 150 mg PO DAILY 08/13/22 05/27/23 sustained-release calcium citrate 200 mg (950 mg) 200 mg PO QDAY 11/21/22 05/27/23 tablet cholecalciferol (vitamin D3) 10 10 mcg PO QDAY 11/21/22 05/27/23 mcg (400 unit) tablet ixekizumab 80 mg/mL subcutaneous 80 mg subcut Q4W 11/21/22 05/27/23 auto-injector (Taltz Autoinjector) multivitamin 1 tab PO QDAY 11/21/22 05/27/23 vitamin B complex (B 1 tab PO QDAY 11/21/22 05/27/23 Complex-Vitamin B12 tablet) hydroxychloroquine 200 mg tablet 200 mg PO BID 01/26/23 05/27/23 prochlorperazine maleate 10 mg 10 mg PO Q8H PRN 01/26/23 05/27/23 tablet triamcinolone acetonide 0.1 % 1 applic topical BID-TID PRN 01/26/23 05/27/23 topical cream albuterol sulfate 90 mcg/actuation 2 inh inhalation Q4H PRN 01/29/23 05/27/23 aerosol inhaler Previous Rx's Medication Instructions Recorded acetaminophen 500 mg tablet 1,000 mg (2 x 500 mg) PO Q6H PRN 11/03/22 Pain #0 tabs hydrocodone 5 mg-acetaminophen 325 1 tab PO Q4-6H PRN pain #15 tabs 05/18/23 mg tablet amoxicillin 500 mg capsule 500 mg PO TID 7 days #21 caps 05/27/23 Allergies Allergy/AdvReac Type Severity Reaction Status Date / Time ergotamine [From Cafergot] Allergy Severe Anaphylaxis Verified 05/27/23 09:58 tramadol Allergy Intermediate Headache Verified 05/27/23 09:58 lamotrigine [From Lamictal] Allergy rash Verified 05/27/23 09:58 NSAIDS (Non-Steroidal Allergy gastric Verified 05/27/23 09:58 Anti-Inflamma bypass Penicillins Allergy Anaphylaxis Verified 05/27/23 09:58 sumatriptan Allergy Anaphylaxis Verified 05/27/23 09:58 ondansetron AdvReac Intermediate Migraine Verified 05/27/23 09:58 ketorolac [From Toradol] AdvReac Mild Headache Verified 05/27/23 09:58 Review of Systems Status of ROS: Reports: 10 or more systems reviewed and unremarkable except as noted in History and below [facility] Medical History History of gestational hypertension ?Z87.59 - Personal history of other complications of , childbirth and the puerperium (ICD-10) Spontaneous with heavy bleeding (11/03/22) ?O03.9 - Complete or unspecified spontaneous without complication (ICD-10) Low grade squamous intraepithelial lesion (2008) Paroxysmal SVT (supraventricular tachycardia) ?I47.1 - Supraventricular tachycardia (ICD-10) Nephrolithiasis (2010) ?N20.0 - Calculus of kidney (ICD-10) Surgical History History of tonsillectomy (02/25/08) ?Z90.89 - Acquired absence of other organs (ICD-10) H/O dilation and curettage ?Z98.890 - Other specified postprocedural states (ICD-10) History of esophageal dilatation ?Z98.890 - Other specified postprocedural states (ICD-10) 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) ?Z98.84 - Bariatric surgery status (ICD-10) H/O nasal septoplasty ?Z98.890 - Other specified postprocedural states (ICD-10) H/O wisdom tooth extraction ?K08.409 - Partial loss of teeth, unspecified cause, unspecified class (ICD-10) Status post colposcopy (01/2009) ?Z98.890 - Other specified postprocedural states (ICD-10) Status post laser lithotripsy of ureteral calculus (05/17/18) ?Z98.890 - Other specified postprocedural states (ICD-10) S/P (01/21/17) ?Z98.891 - History of uterine scar from previous surgery (ICD-10) Status post cholecystectomy (01/17/21) ?Z90.49 - Acquired absence of other specified parts of digestive tract (ICD-10) Family History Mother Coronary artery disease Anxiety CHF (congestive heart failure) COPD (chronic obstructive pulmonary disease) Brother ADHD (attention deficit hyperactivity disorder) Paternal Grandfather DVT (deep venous thrombosis) Aunt Renal cancer Other Breast cancer Diabetes High blood pressure Kidney disease Leukemia Liver disease Lung cancer Stroke Social History Narrative: Lives in [place] with her son, 5 yo. 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 Also works at [employer]. She smokes 1/2 PPD. Occ ETOH use. No recreational drug use. What is your current living situation?: I presently have a place to live Problems where you live: no known problems In the past 12 months, utilities in danger of being shut off: no In past 12 months, lack of transportation kept you from medical appts, meetings, work, or getting things needed for daily living: no In the past 12 mos, have been you worried that your food would run out before you had money to buy more?: never true In the past 12 mos, the food you bought just didn't last and you didn't have money to buy more?: never true Highest level of school completed/degree received: high school graduate Smoking Status: Heavy tobacco smoker What tobacco products do you use: cigarettes Smoking packs per day: 0.5 Smoking cigarettes per day: 10.0 Years smoked: 23 Smoking pack-years: 11.50 Do you use any of these nicotine containing products: None Second hand tobacco smoke exposure: Yes How often do you have a drink containing alcohol: 2-4 times a month Alcohol type: wine and hard liquor AUDIT-C Alcohol total score: 2 Non-prescribed substance use: denies use Caffeine: Yes (soda, energy drinks) How often does anyone, including family, friends and others, physically hurt you: never How often does anyone, including family, friends and others, insult or talk down to you: never How often does anyone, including family, friends and others, threaten you with harm: never How often does anyone, including family, friends and others, scream or curse at you: never Are you using contraception or practicing any form of control: No service: No Exam Narrative: Exam Narrative: Vital signs as noted above. In general, an alert, nontoxic woman. Head: Normocephalic, atraumatic. Eyes: Pupils are equal reactive. Extraocular movements are full. Conjunctivae are normal. ENT: Mucous membranes are moist. Throat is normal. Neck: Supple without lymphadenopathy. Heart: Regular rate and rhythm. No murmur or rub. Lungs: Clear bilaterally. No increased work of breathing, crackles or wheezes. Abdomen: Nondistended. Diffuse tenderness with some voluntary guarding in the upper abdomen. No rebound guarding or rigidity. Extremities: Well perfused. No edema. No calf tenderness. Pulses intact. Neurologic: Patient is alert and oriented to person and place. Speech is fluent. Face is symmetric. Moves all extremities equally. Affect: Normal. Skin: Warm and dry. Well perfused. Const: Vital Signs, click to edit/add: Vital Signs - 24 hr 06/21/23 10:36 Temperature 98.4 F Pulse Rate [Pulse Oximeter] 87 Respiratory Rate 22 Blood Pressure [Ri ght Upper Arm] 138/86 Pulse Oximetry 100 Oxygen Delivery Me thod Room Air Documenting provider has reviewed patient's vital signs: yes Course Course ED Course: Patient's records and prior CT reviewed. She had a 4 mm stone at the left UVJ without hydronephrosis, no other significant findings on CT scan. She had tiny calcifications in the kidneys which were too small to characterize. We placed an IV here, she had Toradol and blood work was drawn. Diagnostic considerations include gastritis or peptic ulcer disease, pancreatitis, bowel obstruction, appendicitis, diverticulitis, urinary tract infection, kidney stone or pyelonephritis among others. A UA showed 2-5 red cells and was otherwise normal. CBC showed a white blood cell count of 5.6 with a normal diff, hemoglobin of 12.5. Metabolic panel was normal. Lactate was normal at 1. LFTs were normal, CRP was less than 0.5. Lipase was 66. I have reviewed all of this with the patient. She is feeling significantly better at this time. No abdominal tenderness, she has not had any vomiting here. My suspicion for obstruction is quite low given that she had a normal bowel movement yesterday and is not vomiting. She does not have significant right lower quadrant tenderness and labs are normal, appendicitis also unlikely. She had a fairly small stone at the UVJ at the beginning of May, she did not strain her urine in is not certain whether not she passed that stone, presumably it has passed but I cannot say that with 100% certainty. Her symptoms are atypical for a kidney stone, but she had atypical symptoms back at the beginning of May when the kidney stone was found as well. Her renal function is normal. I offered repeat CT scanning to assess whether not she had passed that stone, she would prefer to skip CT scan today which I think overall is very reasonable. I would suggest that she try PPI, and have her follow-up in clinic if symptoms persist. Repeat CT may be reasonable to document whether not that stone has passed, I believe she has had endoscopy within the past year so, but if symptoms are persistent despite PPI and CT is otherwise negative, consider repeat endoscopy. Return at any time for severe symptoms or new symptoms such as fever vomiting. Vital Signs Vital signs: Initial Vital Signs Temperature 98.4 F 06/21/23 10:36 Temperature Source Temporal Artery Scan 06/21/23 10:36 Pulse Rate 87 06/21/23 10:36 Respiratory Rate 22 06/21/23 10:36 Blood Pressure 138/86 06/21/23 10:36 Blood Pressure Mean 103 06/21/23 10:36 Pulse Oximetry 100 06/21/23 10:36 Oxygen Delivery Method Room Air 06/21/23 10:36 Vital Signs Temperature 98.4 F 06/21/23 10:36 Pulse Rate 87 06/21/23 10:36 Respiratory Rate 22 06/21/23 10:36 Blood Pressure 138/86 06/21/23 10:36 Pulse Oximetry 100 06/21/23 10:36 Oxygen Delivery Method Room Air 06/21/23 10:36 Temperature 98.4 F 06/21/23 10:36 Pulse Rate 87 06/21/23 10:36 Respiratory Rate 22 06/21/23 10:36 Blood Pressure 138/86 06/21/23 10:36 Pulse Oximetry 100 06/21/23 10:36 Oxygen Delivery Method Room Air 06/21/23 10:36 Medications Administered Medications: Discontinued Medications Generic Name Dose Route Start Last Admin Trade Name Freq PRN Reason Stop Dose Admin Sodium Chloride 1,000 mls @ 1,000 mls/hr 06/21/23 11:00 06/21/23 11:51 0.9 % Sodium Chloride 1000 Ml IV 06/21/23 11:59 Infused .Q1H CAT Infusion Ketorolac Tromethamine 15 mg 06/21/23 10:53 06/21/23 11:11 Ketorolac 15 Mg/Ml Inj IVP 06/21/23 10:54 15 mg ONCE ONE Administration Medical Decision Making Lab Data Labs: Lab Results 03/10/24 03/10/24 Range/Units 11:00 11:55 WBC 5.64 (4.50-11.00) K/uL RBC 4.16 (4.00-5.20) m/uL Hgb 12.5 (12.0-16.0) gm/dL Hct 37.1 (33.0-51.0) % MCV 89 (80-100) fL MCH 30 (26-34) pg MCHC 34 (32-36) gm/dL RDW Coeff of Compa 12.8 (11.5-15.5) % Plt Count 159 (140-440) K/uL Neut % (Auto) 53.7 (42.0-72.0) % Lymph % (Auto) 34.9 (20-44) % [place] % (Auto) 8.0 (0.0-11.0) % Eos % (Auto) 2.7 (0.0-7.0) % Baso % (Auto) 0.7 (0.0-3.0) % Neut # (Auto) 3.03 (1.7-7.0) K/uL Lymph # (Auto) 1.97 (0.90-2.90) K/uL [place] # (Auto) 0.50 (0.00-0.90) K/UL Eos # (Auto) 0.15 (0.00-0.50) K/uL Baso # (Auto) 0.04 (0.00-0.30) K/uL Abs Immat Gran (auto) 0.00 (0.00-0.30) K/uL Imm/Tot Granulo (auto) 0.0 % Sodium 140 (135-149) mmol/L Potassium 3.9 (3.6-5.1) mmol/L Chloride 110 (96-114) mmol/L Carbon Dioxide 24 (20-32) mmol/L Anion Gap 6 L (7-15) mEq/L BUN 9 (5-24) mg/dL Creatinine 0.7 (0.5-1.5) mg/dL Estimated Creat Clear 103.43 Estimated GFR 115 ml/min Glucose 82 (60-115) mg/dL Lactate 1.0 (0.5-1.9) mmol/L Calcium 9.1 (8.4-10.6) mg/dL Total Bilirubin 0.5 (0.1-1.5) mg/dL Direct Bilirubin 0.1 (0.0-0.5) mg/dL AST 27 (12-35) U/L ALT 27 (4-35) U/L Alkaline Phosphatase 67 (40-150) U/L C-Reactive Protein < 0.5 L (0.5-1.0) mg/dL Total Protein 6.8 (6.0-8.3) g/dL Albumin 4.0 (3.3-5.0) g/dL Lipase 66 (23-300) U/L Urine Color Yellow (Yellow) Urine Appearance Cloudy A (Clear) Urine pH 8.0 (5.0-8.5) Ur Specific [place] 1.025 (1.000-1.030) Urine Protein Negative (Negative) Urine Glucose (UA) Negative (Negative) Urine Ketones Negative (Negative) Urine Blood Trace-intact A (Negative) Urine Nitrite Negative (Negative) Urine Bilirubin Negative (Negative) Urine Urobilinogen 0.2 (0.2-1.0) Ur Leukocyte Esterase Negative (Negative) Urine RBC 2-5 A (0-2) Urine WBC 0-2 (0-5) Ur Squamous Epith Cells Few (None-Few) Amorphous Sediment Many A (None) Urine Bacteria None (None) Discharge Plan Discharge Clinical Impression: Abdominal pain Patient Disposition: Home, Self-Care Condition: Improved Instructions: Abdominal Pain (ED) Additional Instructions: Follow-up in your clinic this week if you have persistent pain. Return any time for severe symptoms, fever, vomiting, or other worsening. Tylenol if needed. You could also consider a trial of omeprazole, 40 mg a day for 1-2 weeks. Status post gastric bypass sometimes people develop ulcers, or pain could be related to gastritis. Both of these should improve with omeprazole. Kidney stone seen at the beginning of May has most likely passed, but re imaging to document this would be reasonable if you are having persistent pain. Prescriptions: No Action Taltz Autoinjector 80 mg/mL auto-injector 80 mg subcut Q4W vitamin B complex [B Complex-Vitamin B12] Tablet 1 tab PO QDAY cholecalciferol (vitamin D3) 10 mcg (400 unit) tablet 10 mcg PO QDAY calcium citrate 200 mg (950 mg) tablet 200 mg PO QDAY multivitamin Tablet 1 tab PO QDAY epinephrine 0.3 mg/0.3 mL auto-injector 0.3 mg IM ONCE PRN duloxetine 60 mg capsule,delayed release(DR/EC) 60 mg PO QAM bupropion HCl 150 mg tablet sustained-release 12 hr 150 mg PO DAILY prochlorperazine maleate 10 mg tablet 10 mg PO Q8H PRN triamcinolone acetonide 0.1 % cream 1 applic topical BID-TID PRN hydroxychloroquine 200 mg tablet 200 mg PO BID albuterol sulfate 90 mcg/actuation HFA aerosol inhaler 2 inh inhalation Q4H PRN trazodone 50 mg tablet 50 - 100 mg PO HS PRN clonazepam 0.5 mg tablet 0.25 - 0.5 mg PO DAILY PRN amlodipine 5 mg tablet 5 mg PO DAILY acetaminophen 500 mg Tablet 1,000 mg PO Q6H PRN (Reason: Pain) Qty: 0 0RF hydrocodone-acetaminophen 5-325 mg tablet 1 tab PO Q4-6H PRN (Reason: pain) Qty: 15 0RF amoxicillin 500 mg capsule 500 mg PO TID 7 Days Qty: 21 0RF Follow Up/Referrals: Vero Alvarez MD [Primary Care Provider] - Stand Alone Forms: [facility] Info Instructions
[2023-06-21] MEDS: KETOROLAC 15 MG/ML inj IVP (11:11)
[2023-06-21] MEDS: 0.9 % SODIUM CHLORIDE 1000 ml 1,000 ML IV (11:12)
[2023-06-21 11:25] LABS: Basophils Absolute Auto 0.04 K/uL (0.00-0.30); Basophils Percent Auto 0.7 % (0.0-3.0); Eosinophils Absolute Auto 0.15 K/uL (0.00-0.50); Eosinophils Percent Auto 2.7 % (0.0-7.0); Hematocrit 37.1 % (33.0-51.0); Hemoglobin* 12.5 gm/dL (12.0-16.0); Lymphocytes Absolute Auto 1.97 K/uL (0.90-2.90); Lymphocytes Percent Auto 34.9 % (20-44); Mean Corpuscular HGB Conc 34 gm/dL (32-36); Mean Corpuscular Hemoglobin 30 pg (26-34); Mean Corpuscular Volume 89 fL (80-100); Neutrophils Absolute Auto 3.03 K/uL (1.7-7.0); Neutrophils Percent Auto 53.7 % (42.0-72.0); Platelet Count* 159 K/uL (140-440); RDW Coefficient of Variation % 12.8 % (11.5-15.5); Red Blood Count 4.16 m/uL (4.00-5.20); White Blood Count* 5.64 K/uL (4.50-11.00)
[2023-06-21 11:26] LABS: Chloride* 110 mmol/L (96-114); Sodium* 140 mmol/L (135-149)
[2023-06-21 11:27] LABS: Potassium* 3.9 mmol/L (3.6-5.1)
[2023-06-21 11:28] LABS: Slide Review Reflex No
[2023-06-21 11:29] LABS: Creatinine* 0.7 mg/dL (0.5-1.5); Est. Creatinine Clearance* 103.43; Estimated Glomerular Filt Rate 115 ml/min
[2023-06-21 11:30] LABS: Alanine Aminotransferase* 27 U/L (4-35); Alkaline Phosphatase* 67 U/L (40-150); Anion Gap 6 mEq/L (7-15); Aspartate Amino Transferase* 27 U/L (12-35); Bilirubin Direct* 0.1 mg/dL (0.0-0.5); Bilirubin Total* 0.5 mg/dL (0.1-1.5); Blood Urea Nitrogen* 9 mg/dL (5-24); Calcium* 9.1 mg/dL (8.4-10.6); Carbon Dioxide* 24 mmol/L (20-32); Glucose* 82 mg/dL (60-115); Lipase* 66 U/L (23-300); Total Protein* 6.8 g/dL (6.0-8.3)
[2023-06-21 11:40] LABS: C Reactive Protein* < 0.5 mg/dL (0.5-1.0)
[2023-06-21 12:08] LABS: Appearance Urine Cloudy (Clear); Bilirubin Urine Negative (Negative); Blood Urine Trace-intact (Negative); Color Urine Yellow (Yellow); Glucose Urine Negative (Negative); Ketones Urine Negative (Negative); Leukocyte Esterase Urine Negative (Negative); Nitrite Urine Negative (Negative); Protein Urine Negative (Negative); Specific Gravity Urine 1.025 (1.000-1.030); Urobilinogen Urine 0.2 (0.2-1.0)
[2023-06-21 12:18] LABS: Amorphous Sediment Urine Many; Squamous Epithelial Cell Urine Few (None-Few); WBC Urine 0-2 (0-5)
== END 2023-06-21 13:06 | disposition home or self-care (01) ==
PROVIDERS: Emergency Provider Emergency Medicine; PCP Family Medicine
DX: R10.9 Unspecified abdominal pain (principal)
CPT/HCPCS: 36415; 80048; 80076; 81001; 83605; 83690; 85025; 86140; 96374; 99284; J1885; J7030

== ENCOUNTER 2023-09-17 20:45 | Emergency (ER) | payer MEDICAID, SELFPAY ==
[2023-09-17 21:00] VITALS: BP 137/99; PULSE 98; RESP 16; TEMP 36.4; O2SAT 97; BMI 21.0
[2023-09-17 21:01] LABS: Appearance Urine Clear (Clear); Bilirubin Urine Negative (Negative); Blood Urine 2+ (Negative); Color Urine Yellow (Yellow); Glucose Urine Negative (Negative); Ketones Urine Negative (Negative); Leukocyte Esterase Urine Negative (Negative); Nitrite Urine Negative (Negative); Protein Urine 1+ (Negative); Specific Gravity Urine >= 1.030 (1.000-1.030); Urobilinogen Urine 0.2 (0.2-1.0)
[2023-09-17 21:20] LABS: Bacteria Urine Few; Squamous Epithelial Cell Urine Few (None-Few)
--- NOTE | 2023-09-17 21:32 | CRLHL7_ITS ---
For Patients: As a result of the Century Cures Act, medical imaging exams and procedure reports are released immediately into your electronic medical record. You may view this report before your referring provider. If you have questions, please contact your health care provider. INDICATION: Left-sided abdominal pain. TECHNIQUE: CT abdomen and pelvis without contrast. COMPARISON: None. FINDINGS: Lower chest: Unremarkable. Liver: Normal in size and attenuation. No suspicious masses. Gallbladder and bile ducts: Status post cholecystectomy. No abnormal biliary ductal dilatation. Pancreas: Unremarkable. No mass or inflammation. Spleen: Normal in size. No masses. Adrenal glands: Normal in size. No nodules. Kidneys, Ureters, and Bladder: Several punctate bilateral nonobstructing nephroliths. Mild left-sided hydroureteronephrosis from at least the left mid ureter proximally. Evaluation of the distal ureters is limited due to lack of intra-abdominal fat. 9 mm stone within the posterior bladder lumen. GI tract: Previous Geraldo-en-Y gastric bypass surgery. No bowel obstruction. No evidence for acute appendicitis. Vasculature: Abdominal aorta is normal in caliber. Lymph nodes: No lymphadenopathy. Peritoneum/Abdominal Wall: Unremarkable. No free air or significant free fluid. Pelvis: Status post hysterectomy. Bones: Posterior longitudinal ligament ossification at T12-L1 causing mild spinal canal stenosis. IMPRESSION: 1. Mild left-sided hydroureteronephrosis from at least the left mid ureter proximally. Evaluation of the distal ureters is limited due to lack of intra-abdominal fat. The findings may be secondary to a recently passed stone, such as the 9 mm stone within the posterior bladder lumen. 2. No other acute findings within the abdomen and pelvis. Previous Geraldo-en-Y gastric bypass surgery without bowel obstruction. 3. Additional bilateral punctate nonobstructing nephroliths. Please note that all CT scans at this facility use dose modulation, iterative reconstruction, and/or weight-based dosing when appropriate to reduce radiation dose to as low as reasonably achievable. Dictated by Erich Crow MD @ 09/17/2023 11:20:09 PM (Electronically Signed)
[2023-09-17 21:35] VITALS: O2SAT 97
[2023-09-17] MEDS: 0.9 % SODIUM CHLORIDE 1000 ml 1,000 ML IV (21:45)
[2023-09-17] MEDS: HYDROmorphone 0.5 mg/0.5 ml inj 1 MG IVP (21:45)
[2023-09-17] MEDS: ONDANSETRON 2 MG/ML inj 4 MG IVP (21:53)
[2023-09-17 22:05] LABS: Basophils Absolute Auto 0.07 K/uL (0.00-0.30); Basophils Percent Auto 0.8 % (0.0-3.0); Eosinophils Absolute Auto 0.18 K/uL (0.00-0.50); Hematocrit 36.5 % (33.0-51.0); Hemoglobin* 12.3 gm/dL (12.0-16.0); Immature Granulocytes Abs Auto 0.01 K/uL (0.00-0.30); Immature Granulocytes Pct Auto 0.1 %; Lymphocytes Absolute Auto 2.71 K/uL (0.90-2.90); Lymphocytes Percent Auto 29.9 % (20-44); Mean Corpuscular HGB Conc 34 gm/dL (32-36); Mean Corpuscular Hemoglobin 30 pg (26-34); Mean Corpuscular Volume 88 fL (80-100); Monocytes Percent Auto 8.3 % (0.0-11.0); Neutrophils Absolute Auto 5.33 K/uL (1.7-7.0); Neutrophils Percent Auto 58.9 % (42.0-72.0); Platelet Count* 203 K/uL (140-440); Red Blood Count 4.16 m/uL (4.00-5.20); White Blood Count* 9.05 K/uL (4.50-11.00)
[2023-09-17 22:08] LABS: Slide Review Reflex No
--- NOTE | 2023-09-17 22:16 | ED_ITS ---
HPI - Female Genitourinary General Date Seen: 09/17/23 <Conor Mosqueda MD - Last Filed: 09/22/23 09:14> Chief complaint: Urogenital Problems, Female <Conor Mosqueda MD - Last Filed: 09/22/23 09:14> Stated complaint: UTI, L abdomen pain <Conor Mosqueda MD - Last Filed: 09/22/23 09:14> Time Seen by Provider: 09/17/23 20:48 <Conor Mosqueda MD - Last Filed: 09/22/23 09:14> Source: patient <Conor Mosqueda MD - Last Filed: 09/22/23 09:14> Mode of arrival: ambulatory <Conor Mosqueda MD - Last Filed: 09/22/23 09:14> Limitations: no limitations <Cnoor Mosqueda MD - Last Filed: 09/22/23 09:14> History of Present Illness HPI Narrative: Patient is a 38-year-old female presents with her significant other for left flank discomfort, this came on and has been a present she says for approximately 1 month and describes a UTI symptoms she has with dysuria and frequency. She has signs no discharge from urethra, and denies a vaginal discharge associated with but she does have a past history of chlamydia that was treated in her past history. She says she was doing okay today but then went down a slide with friends at a birthday republic[employer], and jostled herself she has had progressive left flank discomfort since then, she relates to her UTI she has had no fevers and chills but has felt nauseous associated with this. She has no other traumatic history associated with this denies any numbness tingling or weakness. Associated with the she says in her upper abdomen and when she takes a deep breath in she notices this. The UTI that she describes has been untreated for a month because she has no health insurance. She took some Tylenol before she came in and this did not help the discomfort. History of hysterectomy, history of Geraldo-en-Y gastric bypass, <Conor Mosqueda MD - Last Filed: 09/22/23 09:14> MD elicited complaint: dysuria and UTI <Conor Mosqueda MD - Last Filed: 09/22/23 09:14> Pertinent past history: STI/STD <Conor Mosqueda MD - Last Filed: 09/22/23 09:14> Severity: moderate <Conor Mosqueda MD - Last Filed: 09/22/23 09:14> Female Urogenital Radiation: L Flank <Conor Mosqueda MD - Last Filed: 09/22/23 09:14> Quality of pain: cramping and sharp <Conor Mosqueda MD - Last Filed: 09/22/23 09:14> Consistency: constant <Conor Mosqueda MD - Last Filed: 09/22/23 09:14> Vaginal discharge: none <Conor Mosqueda MD - Last Filed: 09/22/23 09:14> Urinary symptoms: Dysuria, Urgency and Frequency <Conor Mosqueda MD - Last Filed: 09/22/23 09:14> Exacerbating factors: none and movement <Conor Mosqueda MD - Last Filed: 09/22/23 09:14> Relieving factors: none <Conor Mosqueda MD - Last Filed: 09/22/23 09:14> Associated symptoms: denies other symptoms <Conor Mosqueda MD - Last Filed: 09/22/23 09:14> Treatment prior to arrival: acetaminophen <Conor Mosqueda MD - Last Filed: 09/22/23 09:14> Sexual activity: Yes <Conor Mosqueda MD - Last Filed: 09/22/23 09:14> Patient : No <Conor Mosqueda MD - Last Filed: 09/22/23 09:14> Related Data Home medications: Home Medications ?Medication ?Instructions ?Recorded ?Confirmed amlodipine 5 mg tablet 5 mg PO DAILY 10/26/21 06/26/23 clonazepam 0.5 mg tablet 0.25 - 0.5 mg PO DAILY PRN 10/26/21 06/26/23 trazodone 50 mg tablet 50 - 100 mg PO HS PRN 10/26/21 06/26/23 duloxetine 60 mg capsule,delayed 60 mg PO QAM 11/06/21 06/26/23 release epinephrine 0.3 mg/0.3 mL 0.3 mg IM ONCE PRN 11/06/21 06/26/23 injection, auto-injector bupropion HCl 150 mg tablet,12 hr 150 mg PO DAILY 08/13/22 06/26/23 sustained-release calcium citrate 200 mg (950 mg) 200 mg PO QDAY 11/21/22 06/26/23 tablet cholecalciferol (vitamin D3) 10 10 mcg PO QDAY 11/21/22 06/26/23 mcg (400 unit) tablet ixekizumab 80 mg/mL subcutaneous 80 mg subcut Q4W 11/21/22 06/26/23 auto-injector (Taltz Autoinjector) multivitamin 1 tab PO QDAY 11/21/22 06/26/23 vitamin B complex (B 1 tab PO QDAY 11/21/22 06/26/23 Complex-Vitamin B12 tablet) hydroxychloroquine 200 mg tablet 200 mg PO BID 01/26/23 06/26/23 prochlorperazine maleate 10 mg 10 mg PO Q8H PRN 01/26/23 06/26/23 tablet triamcinolone acetonide 0.1 % 1 applic topical BID-TID PRN 01/26/23 06/26/23 topical cream albuterol sulfate 90 mcg/actuation 2 inh inhalation Q4H PRN 01/29/23 06/26/23 aerosol inhaler Previous Rx's ?Medication ?Instructions ?Recorded acetaminophen 500 mg tablet 1,000 mg (2 x 500 mg) PO Q6H PRN 11/03/22 Pain #0 tabs hydrocodone 5 mg-acetaminophen 325 1 tab PO Q4-6H PRN pain #15 tabs 05/18/23 mg tablet fluconazole 150 mg tablet 150 mg PO Q3D 2 doses #2 tabs 06/26/23 tamsulosin 0.4 mg capsule (Flomax) 0.4 mg PO DAILY PRN For ureteral 09/18/23 spasm #15 caps <Conor Mosqueda MD - Last Filed: 09/22/23 09:14> Allergies/Adverse reactions: Allergies Allergy/AdvReac Type Severity Reaction Status Date / Time ergotamine [From Cafergot] Allergy Severe Anaphylaxis Verified 06/26/23 12:07 ketorolac [From Toradol] Allergy Severe Migraine Verified 09/18/23 20:50 tramadol Allergy Intermediate Headache Verified 06/26/23 12:07 lamotrigine [From Lamictal] Allergy rash Verified 06/26/23 12:07 NSAIDS (Non-Steroidal Allergy gastric Verified 06/26/23 12:07 Anti-Inflamma bypass Penicillins Allergy Anaphylaxis Verified 06/26/23 12:07 sumatriptan Allergy Anaphylaxis Verified 06/26/23 12:07 ondansetron AdvReac Intermediate Migraine Verified 06/26/23 12:07 <Conor Mosqueda MD - Last Filed: 09/22/23 09:14> Review of Systems Status of ROS: Reports: 10 or more systems reviewed and unremarkable except as noted in History and below <Conor Mosqueda MD - Last Filed: 09/22/23 09:14> [facility] Medical History: Medical History History of gestational hypertension ?Z87.59 - Personal history of other complications of , childbirth and the puerperium (ICD-10) Spontaneous with heavy bleeding (11/03/22) ?O03.9 - Complete or unspecified spontaneous without complication (ICD-10) Low grade squamous intraepithelial lesion (2008) Paroxysmal SVT (supraventricular tachycardia) ?I47.1 - Supraventricular tachycardia (ICD-10) Nephrolithiasis (2010) ?N20.0 - Calculus of kidney (ICD-10) <Conor Mosqueda MD - Last Filed: 09/22/23 09:14> Surgical History: Surgical History History of tonsillectomy (02/25/08) ?Z90.89 - Acquired absence of other organs (ICD-10) H/O dilation and curettage ?Z98.890 - Other specified postprocedural states (ICD-10) History of esophageal dilatation ?Z98.890 - Other specified postprocedural states (ICD-10) 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) ?Z98.84 - Bariatric surgery status (ICD-10) H/O nasal septoplasty ?Z98.890 - Other specified postprocedural states (ICD-10) H/O wisdom tooth extraction ?K08.409 - Partial loss of teeth, unspecified cause, unspecified class (ICD- 10) Status post colposcopy (01/2009) ?Z98.890 - Other specified postprocedural states (ICD-10) Status post laser lithotripsy of ureteral calculus (05/17/18) ?Z98.890 - Other specified postprocedural states (ICD-10) S/P (01/21/17) ?Z98.891 - History of uterine scar from previous surgery (ICD-10) Status post cholecystectomy (01/17/21) ?Z90.49 - Acquired absence of other specified parts of digestive tract (ICD- 10) <Conor Mosqueda MD - Last Filed: 09/22/23 09:14> Family History: Family History Mother Coronary artery disease Anxiety CHF (congestive heart failure) COPD (chronic obstructive pulmonary disease) Brother ADHD (attention deficit hyperactivity disorder) Paternal Grandfather DVT (deep venous thrombosis) Aunt Renal cancer Other Breast cancer Diabetes High blood pressure Kidney disease Leukemia Liver disease Lung cancer Stroke <Conor Mosqueda MD - Last Filed: 09/22/23 09:14> Social History: Social History Narrative: Lives in [place] with her son, 5 yo. 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 Also works at [employer]. She smokes 1/2 PPD. Occ ETOH use. No recreational drug use. What is your current living situation?: I presently have a place to live Problems where you live: no known problems In the past 12 months, utilities in danger of being shut off: no In past 12 months, lack of transportation kept you from medical appts, meetings, work, or getting things needed for daily living: no In the past 12 mos, have been you worried that your food would run out before you had money to buy more?: never true In the past 12 mos, the food you bought just didn't last and you didn't have money to buy more?: never true Highest level of school completed/degree received: high school graduate Smoking Status: Heavy tobacco smoker What tobacco products do you use: cigarettes Smoking packs per day: 0.5 Smoking cigarettes per day: 10.0 Years smoked: 23 Smoking pack-years: 11.50 Do you use any of these nicotine containing products: None Second hand tobacco smoke exposure: Yes How often do you have a drink containing alcohol: 2-4 times a month Alcohol type: wine and hard liquor AUDIT-C Alcohol total score: 2 Non-prescribed substance use: denies use Caffeine: Yes (soda, energy drinks) How often does anyone, including family, friends and others, physically hurt you : never How often does anyone, including family, friends and others, insult or talk down to you: never How often does anyone, including family, friends and others, threaten you with harm: never How often does anyone, including family, friends and others, scream or curse at you: never Are you using contraception or practicing any form of control: No service: No <Conor Mosqueda MD - Last Filed: 09/22/23 09:14> Exam Narrative: Exam Narrative: On examination I find her room 2 crying. Her complaining of pain in her left upper quadrant. Pupils are equal round reactive to light there is no scleral icterus redness or TMs bilaterally are normal her oropharynx is normal her chest is good air entry bilaterally no wheezing crackles are noted, abdomen is soft, she has tenderness the left upper quadrant on rather moderate to deep palpation. There is no masses noted, she has no peritoneal signs her bowel sounds are normal, her pelvis is normal stable she is able to move her extremities normally. Her back shows no CVA tenderness or thoracic tenderness on palpation <Conor Mosqueda MD - Last Filed: 09/22/23 09:14> Const: Vital Signs, click to edit/add: Vital Signs - 24 hr 09/17/23 21:00 09/17/23 21:35 09/17/23 23:45 Temperature 97.6 F 97.6 F Pulse Rate [Pulse Oximeter] 98 84 Respiratory Rate 16 16 Blood Pressure [Ri ght Upper Arm] 137/99 H 125/74 Pulse Oximetry 97 97 97 Oxygen Delivery Me thod Room Air Room Air 09/17/23 23:46 Temperature 97.6 F Pulse Rate [Pulse Oximeter] 84 Respiratory Rate 16 Blood Pressure [Ri ght Upper Arm] 125/74 Pulse Oximetry Oxygen Delivery Me thod <Conor Mosqueda MD - Last Filed: 09/22/23 09:14> Vital Signs, click to edit/add: Vital Signs - 24 hr 09/17/23 21:00 09/17/23 21:35 09/17/23 23:45 Temperature 97.6 F 97.6 F Pulse Rate [Pulse Oximeter] 98 84 Respiratory Rate 16 16 Blood Pressure [Ri ght Upper Arm] 137/99 H 125/74 Pulse Oximetry 97 97 97 Oxygen Delivery Me thod Room Air Room Air 09/17/23 23:46 Temperature 97.6 F Pulse Rate [Pulse Oximeter] 84 Respiratory Rate 16 Blood Pressure [Ri ght Upper Arm] 125/74 Pulse Oximetry Oxygen Delivery Me thod <Adamaris Mace MD - Last Filed: 09/18/23 00:36> Documenting provider has reviewed patient's vital signs: yes <Conor Mosqueda MD - Last Filed: 09/22/23 09:14> Course Reevaluation(s) Time of Reevaluation #1: 23:11 <Conor Mosqueda MD - Last Filed: 09/22/23 09:14> Reevaluation #1: I spoke to the patient, informed her I do not see any evidence of a UTI on her UA, we will do a culture to be sure, there is however red cells, and appears to me from the CT that there is left-sided hydronephrosis with a possibility of a stone right at the uterovesical junction. Her pain is much improved with the Dilaudid, at this point I will sign over to my partner for further delineation and likely discharge. <Conor Mosqueda MD - Last Filed: 09/22/23 09:14> Vital Signs Vital signs: Initial Vital Signs Temperature 97.6 F 09/17/23 21:00 Temperature Source Temporal Artery Scan 09/17/23 21:00 Pulse Rate 98 09/17/23 21:00 Respiratory Rate 16 09/17/23 21:00 Blood Pressure 137/99 H 09/17/23 21:00 Blood Pressure Mean 111 H 09/17/23 21:00 Blood Pressure Position Supine 09/17/23 21:00 Pulse Oximetry 97 09/17/23 21:00 Oxygen Delivery Method Room Air 09/17/23 21:00 Vital Signs Temperature 97.6 F 09/17/23 21:00 Pulse Rate 98 09/17/23 21:00 Respiratory Rate 16 09/17/23 21:00 Blood Pressure 137/99 H 09/17/23 21:00 Pulse Oximetry 97 09/17/23 21:00 Oxygen Delivery Method Room Air 09/17/23 21:00 Temperature 97.6 F 09/17/23 23:46 Pulse Rate 84 09/17/23 23:46 Respiratory Rate 16 09/17/23 23:46 Blood Pressure 125/74 09/17/23 23:46 Pulse Oximetry 97 09/17/23 23:45 Oxygen Delivery Method Room Air 09/17/23 23:45 <Conor Mosqueda MD - Last Filed: 09/22/23 09:14> Initial Vital Signs Temperature 97.6 F 09/17/23 21:00 Temperature Source Temporal Artery Scan 09/17/23 21:00 Pulse Rate 98 09/17/23 21:00 Respiratory Rate 16 09/17/23 21:00 Blood Pressure 137/99 H 09/17/23 21:00 Blood Pressure Mean 111 H 09/17/23 21:00 Blood Pressure Position Supine 09/17/23 21:00 Pulse Oximetry 97 09/17/23 21:00 Oxygen Delivery Method Room Air 09/17/23 21:00 Vital Signs Temperature 97.6 F 09/17/23 21:00 Pulse Rate 98 09/17/23 21:00 Respiratory Rate 16 09/17/23 21:00 Blood Pressure 137/99 H 09/17/23 21:00 Pulse Oximetry 97 09/17/23 21:00 Oxygen Delivery Method Room Air 09/17/23 21:00 Temperature 97.6 F 09/17/23 23:46 Pulse Rate 84 09/17/23 23:46 Respiratory Rate 16 09/17/23 23:46 Blood Pressure 125/74 09/17/23 23:46 Pulse Oximetry 97 09/17/23 23:45 Oxygen Delivery Method Room Air 09/17/23 23:45 <Adamaris Mace MD - Last Filed: 09/18/23 00:36> Medications Administered Medications: Discontinued Medications Generic Name Dose Route Start Last Admin Trade Name Freq PRN Reason Stop Dose Admin Hydromorphone HCl 1 mg 09/17/23 21:32 09/17/23 21:45 Hydromorphone 0.5 Mg/0.5 Ml Inj IVP 09/17/23 21:33 1 mg ONCE ONE Administration Sodium Chloride 1,000 mls @ 1,000 mls/hr 09/17/23 21:45 09/17/23 23:00 0.9 % Sodium Chloride 1000 Ml IV 09/17/23 22:44 Infused .Q1H CAT Infusion Ondansetron HCl 4 mg 09/17/23 21:32 09/17/23 21:53 Ondansetron 2 Mg/Ml Inj IVP 09/17/23 21:33 4 mg ONCE ONE Administration <Conor Mosqueda MD - Last Filed: 09/22/23 09:14> Discontinued Medications Generic Name Dose Route Start Last Admin Trade Name Freq PRN Reason Stop Dose Admin Hydromorphone HCl 1 mg 09/17/23 21:32 09/17/23 21:45 Hydromorphone 0.5 Mg/0.5 Ml Inj IVP 09/17/23 21:33 1 mg ONCE ONE Administration Sodium Chloride 1,000 mls @ 1,000 mls/hr 09/17/23 21:45 09/17/23 23:00 0.9 % Sodium Chloride 1000 Ml IV 09/17/23 22:44 Infused .Q1H CAT Infusion Ondansetron HCl 4 mg 09/17/23 21:32 09/17/23 21:53 Ondansetron 2 Mg/Ml Inj IVP 09/17/23 21:33 4 mg ONCE ONE Administration <Adamaris Mace MD - Last Filed: 09/18/23 00:36> MDM - Female Genitourinary MDM Narrative Medical decision making narrative: During the evaluation of this patient I considered multiple differential diagnosis including life-threatening differentials which are appendicitis, aortic aneurysm, mesenteric ischemia, bowel perforation, ectopic , volvulus and bowel obstruction, other differential diagnosis include but are not limited to inflammatory bowel disease, cholecystitis, pancreatitis, hepatitis, gastritis, GERD, diverticulitis, peptic ulcer disease, pyelonephritis/UTI, renal colic/stone, pelvic inflammatory disease, cervicitis, endometritis, intrauterine , dysfunctional uterine bleeding, ovarian cyst/torsion, spontaneous as well as other etiologies We will start her with IV fluid some Dilaudid she has a lot allergies to NSAIDs, and also her history of gastric bypass. I will do a CT scan of her abdomen, noncontrast she does have hematuria, a noted on her UA. Ultimately she would likely be signed over to my partner for further disposition <Conor Mosqueda MD - Last Filed: 09/22/23 09:14> During the evaluation of this patient I considered multiple differential diagnosis including life-threatening differentials which are appendicitis, aortic aneurysm, mesenteric ischemia, bowel perforation, ectopic , volvulus and bowel obstruction, other differential diagnosis include but are not limited to inflammatory bowel disease, cholecystitis, pancreatitis, hepatitis, gastritis, GERD, diverticulitis, peptic ulcer disease, pyelonephritis/UTI, renal colic/stone, pelvic inflammatory disease, cervicitis, endometritis, intrauterine , dysfunctional uterine bleeding, ovarian cyst/torsion, spontaneous as well as other etiologies We will start her with IV fluid some Dilaudid she has a lot allergies to NSAIDs, and also her history of gastric bypass. I will do a CT scan of her abdomen, noncontrast she does have hematuria, a noted on her UA. Ultimately she would likely be signed over to my partner for further disposition I took over this patient from Dr. Vera and was asked to review laboratory values as well as CT. Assessment/plan 1. Nephrolithiasis-at this time there is a 9 mm stone noted to be in the posterior bladder. Patient appears to be feeling much better after Dilaudid. She did have mild hydronephrosis as well on the CT scan. At this time it appears that the stone has passed and therefore would not recommend any further medications to go home with. No evidence of UTI noted on the urine sample but a culture will be done and patient will be called if that would turn positive. CRP is negative. I spoke to patient about urology follow-up. She has seen Urology in the past and has had her stones analyzed. She is not currently on any medications. I will have her strain her urine but she does not necessarily need to take the stone in for evaluation. I would recommend follow-up with Urology to see if there is anything they can do to prevent these recurring stones. Note that poor body fat made it difficult to ascertain the distal aspect of the ureter but no stones were visualized. I did recommend returning to the emergency room if she would have increasing pain once again. 2. Hypokalemia-mild at 3.1. Have encouraged the intake of potassium rich foods including beings, spinach, potatoes and bananas. 3. Disposition-home with significant other. Return to the emergency room for increasing pain, vomiting and as needed. <Adamaris Mace MD - Last Filed: 09/18/23 00:36> Medical Records Attestation: I reviewed the patient's medical records. <Conor Mosqueda MD - Last Filed: 09/22/23 09:14> Lab Data Attestation: I reviewed the patient's lab results. <Conor Mosqueda MD - Last Filed: 09/22/23 09:14> Labs: Lab Results 09/17/23 09/17/23 Range/Units 20:50 21:50 WBC 9.05 (4.50-11.00) K/uL RBC 4.16 (4.00-5.20) m/uL Hgb 12.3 (12.0-16.0) gm/dL Hct 36.5 (33.0-51.0) % MCV 88 (80-100) fL MCH 30 (26-34) pg MCHC 34 (32-36) gm/dL RDW Coeff of Compa 12.0 (11.5-15.5) % Plt Count 203 (140-440) K/uL Neut % (Auto) 58.9 (42.0-72.0) % Lymph % (Auto) 29.9 (20-44) % Stone % (Auto) 8.3 (0.0-11.0) % Eos % (Auto) 2.0 (0.0-7.0) % Baso % (Auto) 0.8 (0.0-3.0) % Neut # (Auto) 5.33 (1.7-7.0) K/uL Lymph # (Auto) 2.71 (0.90-2.90) K/uL Stone # (Auto) 0.80 (0.00-0.90) K/UL Eos # (Auto) 0.18 (0.00-0.50) K/uL Baso # (Auto) 0.07 (0.00-0.30) K/uL Abs Immat Gran (auto) 0.01 (0.00-0.30) K/uL Imm/Tot Granulo (auto) 0.1 % Sodium 138 (135-149) mmol/L Potassium 3.1 L (3.6-5.1) mmol/L Chloride 109 (96-114) mmol/L Carbon Dioxide 22 (20-32) mmol/L Anion Gap 7 (7-15) mEq/L BUN 15 (5-24) mg/dL Creatinine 1.0 (0.5-1.5) mg/dL Estimated Creat Clear 72.40 Estimated GFR 75 ml/min Glucose 77 (60-115) mg/dL Calcium 8.9 (8.4-10.6) mg/dL C-Reactive Protein < 0.5 L (0.5-1.0) mg/dL Lipase 117 (23-300) U/L Urine Color Yellow (Yellow) Urine Appearance Clear (Clear) Urine pH 6.0 (5.0-8.5) Ur Specific [place] >= 1.030 (1.000-1.030) Urine Protein 1+ A (Negative) Urine Glucose (UA) Negative (Negative) Urine Ketones Negative (Negative) Urine Blood 2+ A (Negative) Urine Nitrite Negative (Negative) Urine Bilirubin Negative (Negative) Urine Urobilinogen 0.2 (0.2-1.0) Ur Leukocyte Esterase Negative (Negative) Urine RBC 10-25 A (0-2) Urine WBC 2-5 (0-5) Ur Squamous Epith Cells Few (None-Few) Urine Bacteria Few A (None) Ethyl Alcohol < 0.01 L (0.01-0.03) % <Conor Mosqueda MD - Last Filed: 09/22/23 09:14> Lab Results 09/17/23 09/17/23 Range/Units 20:50 21:50 WBC 9.05 (4.50-11.00) K/uL RBC 4.16 (4.00-5.20) m/uL Hgb 12.3 (12.0-16.0) gm/dL Hct 36.5 (33.0-51.0) % MCV 88 (80-100) fL MCH 30 (26-34) pg MCHC 34 (32-36) gm/dL RDW Coeff of Compa 12.0 (11.5-15.5) % Plt Count 203 (140-440) K/uL Neut % (Auto) 58.9 (42.0-72.0) % Lymph % (Auto) 29.9 (20-44) % Stone % (Auto) 8.3 (0.0-11.0) % Eos % (Auto) 2.0 (0.0-7.0) % Baso % (Auto) 0.8 (0.0-3.0) % Neut # (Auto) 5.33 (1.7-7.0) K/uL Lymph # (Auto) 2.71 (0.90-2.90) K/uL Stone # (Auto) 0.80 (0.00-0.90) K/UL Eos # (Auto) 0.18 (0.00-0.50) K/uL Baso # (Auto) 0.07 (0.00-0.30) K/uL Abs Immat Gran (auto) 0.01 (0.00-0.30) K/uL Imm/Tot Granulo (auto) 0.1 % Sodium 138 (135-149) mmol/L Potassium 3.1 L (3.6-5.1) mmol/L Chloride 109 (96-114) mmol/L Carbon Dioxide 22 (20-32) mmol/L Anion Gap 7 (7-15) mEq/L BUN 15 (5-24) mg/dL Creatinine 1.0 (0.5-1.5) mg/dL Estimated Creat Clear 72.40 Estimated GFR 75 ml/min Glucose 77 (60-115) mg/dL Calcium 8.9 (8.4-10.6) mg/dL C-Reactive Protein < 0.5 L (0.5-1.0) mg/dL Lipase 117 (23-300) U/L Urine Color Yellow (Yellow) Urine Appearance Clear (Clear) Urine pH 6.0 (5.0-8.5) Ur Specific [place] >= 1.030 (1.000-1.030) Urine Protein 1+ A (Negative) Urine Glucose (UA) Negative (Negative) Urine Ketones Negative (Negative) Urine Blood 2+ A (Negative) Urine Nitrite Negative (Negative) Urine Bilirubin Negative (Negative) Urine Urobilinogen 0.2 (0.2-1.0) Ur Leukocyte Esterase Negative (Negative) Urine RBC 10-25 A (0-2) Urine WBC 2-5 (0-5) Ur Squamous Epith Cells Few (None-Few) Urine Bacteria Few A (None) Ethyl Alcohol < 0.01 L (0.01-0.03) % <Adamaris Mace MD - Last Filed: 09/18/23 00:36> Imaging Data CT scan - abdomen: Attestation: I have reviewed the pertinent imaging results. <Conor Mosqueda MD - Last Filed: 09/22/23 09:14> My impression: Left-sided hydronephrosis, with possibility of a stone at the ureterovesical junction. <Conor Mosqueda MD - Last Filed: 09/22/23 09:14> Discharge Plan Discharge Clinical Impression: Nephrolithiasis, Hypokalemia <Conor Mosqueda MD - Last Filed: 09/22/23 09:14> Patient Disposition: Home, Self-Care <Conor Mosqueda MD - Last Filed: 09/22/23 09:14> Condition: Improved <Conor Mosqueda MD - Last Filed: 09/22/23 09:14> Additional Instructions: Recommend increasing fluids and relaxing for the next 24 hours. Strain urine for stone. If you have onset of fever, painful urination or worsening symptoms please return to the emergency room. During her stay here you were found to have mildly decreased potassium at 3.1. Would recommend increasing potassium containing foods such as bananas, potatoes, being, spinach. Return as needed <Conor Mosqueda MD - Last Filed: 09/22/23 09:14> Prescriptions: No Action Taltz Autoinjector 80 mg/mL auto-injector 80 mg subcut Q4W vitamin B complex [B Complex-Vitamin B12] Tablet 1 tab PO QDAY cholecalciferol (vitamin D3) 10 mcg (400 unit) tablet 10 mcg PO QDAY calcium citrate 200 mg (950 mg) tablet 200 mg PO QDAY multivitamin Tablet 1 tab PO QDAY fluconazole 150 mg tablet 150 mg PO Q3D Qty: 2 0RF Rx Instructions: may repeat second dose 72 hrs after first dose if symptoms persist epinephrine 0.3 mg/0.3 mL auto-injector 0.3 mg IM ONCE PRN duloxetine 60 mg capsule,delayed release(DR/EC) 60 mg PO QAM bupropion HCl 150 mg tablet sustained-release 12 hr 150 mg PO DAILY prochlorperazine maleate 10 mg tablet 10 mg PO Q8H PRN triamcinolone acetonide 0.1 % cream 1 applic topical BID-TID PRN hydroxychloroquine 200 mg tablet 200 mg PO BID albuterol sulfate 90 mcg/actuation HFA aerosol inhaler 2 inh inhalation Q4H PRN trazodone 50 mg tablet 50 - 100 mg PO HS PRN clonazepam 0.5 mg tablet 0.25 - 0.5 mg PO DAILY PRN amlodipine 5 mg tablet 5 mg PO DAILY acetaminophen 500 mg Tablet 1,000 mg PO Q6H PRN (Reason: Pain) Qty: 0 0RF hydrocodone-acetaminophen 5-325 mg tablet 1 tab PO Q4-6H PRN (Reason: pain) Qty: 15 0RF tamsulosin [Flomax] 0.4 mg capsule 0.4 mg PO DAILY PRN (Reason: For ureteral spasm) Qty: 15 2RF <Conor Mosqueda MD - Last Filed: 09/22/23 09:14> Follow Up/Referrals: Vero Alvarez MD [Primary Care Provider] - <Conor Mosqueda MD - Last Filed: 09/22/23 09:14> Stand Alone Forms: MyHealth Info Instructions <Conor Mosqueda MD - Last Filed: 09/22/23 09:14>
[2023-09-17 22:39] LABS: Chloride* 109 mmol/L (96-114); Potassium* 3.1 mmol/L (3.6-5.1); Sodium* 138 mmol/L (135-149)
[2023-09-17 22:41] LABS: Lipase* 117 U/L (23-300)
[2023-09-17 22:42] LABS: Estimated Glomerular Filt Rate 75 ml/min
[2023-09-17 22:43] LABS: Anion Gap 7 mEq/L (7-15); Blood Urea Nitrogen* 15 mg/dL (5-24); Calcium* 8.9 mg/dL (8.4-10.6); Carbon Dioxide* 22 mmol/L (20-32); Ethanol* < 0.01 % (0.01-0.03); Glucose* 77 mg/dL (60-115)
[2023-09-17 22:47] LABS: C Reactive Protein* < 0.5 mg/dL (0.5-1.0)
[2023-09-17 23:45] VITALS: BP 125/74; PULSE 84; RESP 16; TEMP 36.4; O2SAT 97
[2023-09-17 23:46] VITALS: BP 125/74; PULSE 84; RESP 16; TEMP 36.4
== END 2023-09-18 | disposition home or self-care (01) ==
PROVIDERS: Emergency Provider Family Medicine; PCP Family Medicine
DX: N20.0 Calculus of kidney (principal); E87.6 Hypokalemia
CPT/HCPCS: 36415; 74176; 80048; 81001; 82077; 83690; 85025; 86140; 87086; 94761; 96374; 96375; 99284; J1170; J2405; J7030

== ENCOUNTER 2023-09-18 19:49 | Emergency (ER) | payer MEDICAID, SELFPAY ==
[2023-09-18 19:54] VITALS: BP 143/98; PULSE 92; RESP 18; TEMP 36.8; O2SAT 96; BMI 21.0
--- NOTE | 2023-09-18 20:01 | ED_ITS ---
HPI - General Adult General Chief complaint: Flank Pain Stated complaint: Kidney stone Time Seen by Provider: 09/18/23 20:01 History of Present Illness HPI narrative: last night in ER, 9mm stone in bladder. states tonight and 1900 started getting severe pain again with trouble peeing. no home pain meds besides tylenol. pt states has been straining urine, no noticeable stone 38-year-old woman presenting to emergency department with concern flank pain. Was seen last night in this emergency department and noted to have a 9 mm stone if in the bladder with some mild left-sided hydronephrosis. I reviewed images and documentation. Pain is escalated again tonight and feels like she is having some trouble urinating. She has been straining urine but has not collected anything. Has not had a fever. Has only had acetaminophen for pain. Prior to treatment yesterday, evaluation yesterday, had had on and off pain over the last month or so. It sounds like experienced an untreated urinary tract tract infection for a time CT imaging as below. There are small stones bilaterally within the kidneys that would look to be passable on my review of CT IMPRESSION: 1. Mild left-sided hydroureteronephrosis from at least the left mid ureter proximally. Evaluation of the distal ureters is limited due to lack of intra-abdominal fat. The findings may be secondary to a recently passed stone, such as the 9 mm stone within the posterior bladder lumen. 2. No other acute findings within the abdomen and pelvis. Previous Geraldo-en-Y gastric bypass surgery without bowel obstruction. 3. Additional bilateral punctate nonobstructing nephroliths. Related Data Home Medications ?Medication ?Instructions ?Recorded ?Confirmed amlodipine 5 mg tablet 5 mg PO DAILY 10/26/21 06/26/23 clonazepam 0.5 mg tablet 0.25 - 0.5 mg PO DAILY PRN 10/26/21 06/26/23 trazodone 50 mg tablet 50 - 100 mg PO HS PRN 10/26/21 06/26/23 duloxetine 60 mg capsule,delayed 60 mg PO QAM 11/06/21 06/26/23 release epinephrine 0.3 mg/0.3 mL 0.3 mg IM ONCE PRN 11/06/21 06/26/23 injection, auto-injector bupropion HCl 150 mg tablet,12 hr 150 mg PO DAILY 08/13/22 06/26/23 sustained-release calcium citrate 200 mg (950 mg) 200 mg PO QDAY 11/21/22 06/26/23 tablet cholecalciferol (vitamin D3) 10 10 mcg PO QDAY 11/21/22 06/26/23 mcg (400 unit) tablet ixekizumab 80 mg/mL subcutaneous 80 mg subcut Q4W 11/21/22 06/26/23 auto-injector (Taltz Autoinjector) multivitamin 1 tab PO QDAY 11/21/22 06/26/23 vitamin B complex (B 1 tab PO QDAY 11/21/22 06/26/23 Complex-Vitamin B12 tablet) hydroxychloroquine 200 mg tablet 200 mg PO BID 01/26/23 06/26/23 prochlorperazine maleate 10 mg 10 mg PO Q8H PRN 01/26/23 06/26/23 tablet triamcinolone acetonide 0.1 % 1 applic topical BID-TID PRN 01/26/23 06/26/23 topical cream albuterol sulfate 90 mcg/actuation 2 inh inhalation Q4H PRN 01/29/23 06/26/23 aerosol inhaler Previous Rx's ?Medication ?Instructions ?Recorded acetaminophen 500 mg tablet 1,000 mg (2 x 500 mg) PO Q6H PRN 11/03/22 Pain #0 tabs hydrocodone 5 mg-acetaminophen 325 1 tab PO Q4-6H PRN pain #15 tabs 05/18/23 mg tablet fluconazole 150 mg tablet 150 mg PO Q3D 2 doses #2 tabs 06/26/23 tamsulosin 0.4 mg capsule (Flomax) 0.4 mg PO DAILY PRN For ureteral 09/18/23 spasm #15 caps Allergies Allergy/AdvReac Type Severity Reaction Status Date / Time ergotamine [From Cafergot] Allergy Severe Anaphylaxis Verified 06/26/23 12:07 ketorolac [From Toradol] Allergy Severe Migraine Verified 09/18/23 20:50 tramadol Allergy Intermediate Headache Verified 06/26/23 12:07 lamotrigine [From Lamictal] Allergy rash Verified 06/26/23 12:07 NSAIDS (Non-Steroidal Allergy gastric Verified 06/26/23 12:07 Anti-Inflamma bypass Penicillins Allergy Anaphylaxis Verified 06/26/23 12:07 sumatriptan Allergy Anaphylaxis Verified 06/26/23 12:07 ondansetron AdvReac Intermediate Migraine Verified 06/26/23 12:07 Review of Systems Status of ROS: Reports: 6 or more systems reviewed and unremarkable except as noted in History and below PFSH [facility] Medical History History of gestational hypertension ?Z87.59 - Personal history of other complications of , childbirth and the puerperium (ICD-10) Spontaneous with heavy bleeding (11/03/22) ?O03.9 - Complete or unspecified spontaneous without complication (ICD-10) Low grade squamous intraepithelial lesion (2008) Paroxysmal SVT (supraventricular tachycardia) ?I47.1 - Supraventricular tachycardia (ICD-10) Nephrolithiasis (2010) ?N20.0 - Calculus of kidney (ICD-10) Surgical History History of tonsillectomy (02/25/08) ?Z90.89 - Acquired absence of other organs (ICD-10) H/O dilation and curettage ?Z98.890 - Other specified postprocedural states (ICD-10) History of esophageal dilatation ?Z98.890 - Other specified postprocedural states (ICD-10) 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) ?Z98.84 - Bariatric surgery status (ICD-10) H/O nasal septoplasty ?Z98.890 - Other specified postprocedural states (ICD-10) H/O wisdom tooth extraction ?K08.409 - Partial loss of teeth, unspecified cause, unspecified class (ICD- 10) Status post colposcopy (01/2009) ?Z98.890 - Other specified postprocedural states (ICD-10) Status post laser lithotripsy of ureteral calculus (05/17/18) ?Z98.890 - Other specified postprocedural states (ICD-10) S/P (01/21/17) ?Z98.891 - History of uterine scar from previous surgery (ICD-10) Status post cholecystectomy (01/17/21) ?Z90.49 - Acquired absence of other specified parts of digestive tract (ICD- 10) Family History Mother Coronary artery disease Anxiety CHF (congestive heart failure) COPD (chronic obstructive pulmonary disease) Brother ADHD (attention deficit hyperactivity disorder) Paternal Grandfather DVT (deep venous thrombosis) Aunt Renal cancer Other Breast cancer Diabetes High blood pressure Kidney disease Leukemia Liver disease Lung cancer Stroke Social History Narrative: Lives in [place] with her son, 5 yo. 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 Also works at [employer]. She smokes 1/2 PPD. Occ ETOH use. No recreational drug use. What is your current living situation?: I presently have a place to live Problems where you live: no known problems In the past 12 months, utilities in danger of being shut off: no In past 12 months, lack of transportation kept you from medical appts, meetings, work, or getting things needed for daily living: no In the past 12 mos, have been you worried that your food would run out before you had money to buy more?: never true In the past 12 mos, the food you bought just didn't last and you didn't have money to buy more?: never true Highest level of school completed/degree received: high school graduate Smoking Status: Heavy tobacco smoker What tobacco products do you use: cigarettes Smoking packs per day: 0.5 Smoking cigarettes per day: 10.0 Years smoked: 23 Smoking pack-years: 11.50 Do you use any of these nicotine containing products: None Second hand tobacco smoke exposure: Yes How often do you have a drink containing alcohol: 2-4 times a month Alcohol type: wine and hard liquor AUDIT-C Alcohol total score: 2 Non-prescribed substance use: denies use Caffeine: Yes (soda, energy drinks) How often does anyone, including family, friends and others, physically hurt you : never How often does anyone, including family, friends and others, insult or talk down to you: never How often does anyone, including family, friends and others, threaten you with harm: never How often does anyone, including family, friends and others, scream or curse at you: never Are you using contraception or practicing any form of control: No service: No Exam Narrative: Exam Narrative: Clearly uncomfortable. Breathing easily. Extremities are well perfused. No lower extremity edema. Abdomen is soft sore to palpation in the suprapubic area but appreciate any mass or fullness consistent with urinary retention. There is pain to percussion of the left flank. Lungs are clear and heart in elevated ra te and regular rhythm. Const: Vital Signs, click to edit/add: Vital Signs - 24 hr 09/18/23 19:54 Temperature 98.2 F Pulse Rate [Pulse Oximeter] 92 Respiratory Rate 18 Blood Pressure [Ri ght Upper Arm] 143/98 H Pulse Oximetry 96 Oxygen Delivery Me thod Room Air Documenting provider has reviewed patient's vital signs: yes Course Vital Signs Vital signs: Initial Vital Signs Temperature 98.2 F 09/18/23 19:54 Temperature Source Temporal Artery Scan 09/18/23 19:54 Pulse Rate 92 09/18/23 19:54 Respiratory Rate 18 09/18/23 19:54 Blood Pressure 143/98 H 09/18/23 19:54 Blood Pressure Mean 113 H 09/18/23 19:54 Blood Pressure Position Sitting 09/18/23 19:54 Pulse Oximetry 96 09/18/23 19:54 Oxygen Delivery Method Room Air 09/18/23 19:54 Vital Signs Temperature 98.2 F 09/18/23 19:54 Pulse Rate 92 09/18/23 19:54 Respiratory Rate 18 09/18/23 19:54 Blood Pressure 143/98 H 09/18/23 19:54 Pulse Oximetry 96 09/18/23 19:54 Oxygen Delivery Method Room Air 09/18/23 19:54 Temperature 98.2 F 09/18/23 19:54 Pulse Rate 62 09/18/23 21:17 Respiratory Rate 18 09/18/23 19:54 Blood Pressure 143/98 H 09/18/23 19:54 Pulse Oximetry 97 09/18/23 21:17 Oxygen Delivery Method Room Air 09/18/23 21:17 Medications Administered Medications: Discontinued Medications Generic Name Dose Route Start Last Admin Trade Name Freq PRN Reason Stop Dose Admin Hyoscyamine 0.25 mg 09/18/23 20:49 09/18/23 21:00 Hyoscyamine Sulfate 0.125 Mg Tab SUBLINGUAL 09/18/23 20:50 0.25 mg ONCE ONE Administration Sodium Chloride 500 mls @ 500 mls/hr 09/18/23 20:33 09/18/23 21:05 0.9 % Sodium Chloride 500 Ml IV 09/18/23 21:32 Infused .Q1H ONE Infusion Ketorolac Tromethamine 15 mg 09/18/23 20:33 09/18/23 20:49 Ketorolac 15 Mg/Ml Inj IVP 09/18/23 20:34 Not Given ONCE ONE Morphine Sulfate 4 mg 09/18/23 20:33 09/18/23 20:44 Morphine 4 Mg/Ml Inj IVP 09/18/23 20:34 4 mg ONCE ONE Administration Tamsulosin HCl 0.4 mg 09/18/23 20:49 09/18/23 21:00 Tamsulosin Hcl 0.4 Mg Capsule PO 09/18/23 20:50 0.4 mg ONCE ONE Administration Medical Decision Making MDM Narrative Medical decision making narrative: I think most importantly would look for evidence of infection. Otherwise try to control pain. On my review CT imaging any of the remaining stones should be passable. Yesterday's imaging would suggest there is not any other larger pathology. Apparently develops headache with ketorolac; will give morphine hopefully settle this down along with hyoscyamine for cramping along with longer acting Flomax. Normal saline for hydration and morphine for pain control initially. I wonder if just has passed another stone, or is passing another 1? Otherwise unspecified ureteral colic. Urinalysis other than concentrated is reassuring. Blood is probably affecting some of this specific gravity. Without evidence of infection. Does not appear to be retaining urine otherwise. Overall more comfortable during time in the emergency department. See patient discharge plan for further discussion. I would like to make more pain meds available as well as continue course of Flomax. Lab Data Lab results reviewed: Yes I reviewed the patient's lab results Labs: Lab Results 09/18/23 Range/Units 20:15 Urine Color Yellow (Yellow) Urine Appearance Slightly Cloudy A (Clear) Urine pH 6.0 (5.0-8.5) Ur Specific Enterprise >= 1.030 (1.000-1.030) Urine Protein 2+ A (Negative) Urine Glucose (UA) Negative (Negative) Urine Ketones Negative (Negative) Urine Blood 2+ A (Negative) Urine Nitrite Negative (Negative) Urine Bilirubin Negative (Negative) Urine Urobilinogen 0.2 (0.2-1.0) Ur Leukocyte Esterase Negative (Negative) Urine RBC 0-2 (0-2) Urine WBC 0-2 (0-5) Ur Squamous Epith Cells Few (None-Few) Calcium Oxalate Crystal Many A (None) Urine Bacteria None (None) Discharge Plan Discharge Clinical Impression: Flank pain, Ureteral colic, Hematuria Patient Disposition: Home w/ Parent or Adult Condition: Improved Additional Instructions: It really does appear that you likely had 1 of these smaller remaining stones drop into the ureter as discussed. Might be beneficial yet to continue to strain your urine over the next week. Continue to focus on hydration. Return/be seen for new onset of uncontrolled pain, repeated vomiting, associated fever. Continue with Flomax daily until suspect stone has passed. Percocet from [facility]. Prescriptions: New tamsulosin [Flomax] 0.4 mg capsule 0.4 mg PO DAILY PRN (Reason: For ureteral spasm) Qty: 15 2RF No Action Taltz Autoinjector 80 mg/mL auto-injector 80 mg subcut Q4W vitamin B complex [B Complex-Vitamin B12] Tablet 1 tab PO QDAY cholecalciferol (vitamin D3) 10 mcg (400 unit) tablet 10 mcg PO QDAY calcium citrate 200 mg (950 mg) tablet 200 mg PO QDAY multivitamin Tablet 1 tab PO QDAY fluconazole 150 mg tablet 150 mg PO Q3D Qty: 2 0RF Rx Instructions: may repeat second dose 72 hrs after first dose if symptoms persist epinephrine 0.3 mg/0.3 mL auto-injector 0.3 mg IM ONCE PRN duloxetine 60 mg capsule,delayed release(DR/EC) 60 mg PO QAM bupropion HCl 150 mg tablet sustained-release 12 hr 150 mg PO DAILY prochlorperazine maleate 10 mg tablet 10 mg PO Q8H PRN triamcinolone acetonide 0.1 % cream 1 applic topical BID-TID PRN hydroxychloroquine 200 mg tablet 200 mg PO BID albuterol sulfate 90 mcg/actuation HFA aerosol inhaler 2 inh inhalation Q4H PRN trazodone 50 mg tablet 50 - 100 mg PO HS PRN clonazepam 0.5 mg tablet 0.25 - 0.5 mg PO DAILY PRN amlodipine 5 mg tablet 5 mg PO DAILY acetaminophen 500 mg Tablet 1,000 mg PO Q6H PRN (Reason: Pain) Qty: 0 0RF hydrocodone-acetaminophen 5-325 mg tablet 1 tab PO Q4-6H PRN (Reason: pain) Qty: 15 0RF Follow Up/Referrals: Vero Alvarez MD [Primary Care Provider] - Stand Alone Forms: MyHealth Info Instructions
[2023-09-18 20:29] LABS: Appearance Urine Slightly Cloudy (Clear); Bilirubin Urine Negative (Negative); Blood Urine 2+ (Negative); Color Urine Yellow (Yellow); Glucose Urine Negative (Negative); Ketones Urine Negative (Negative); Leukocyte Esterase Urine Negative (Negative); Nitrite Urine Negative (Negative); Protein Urine 2+ (Negative); Specific Gravity Urine >= 1.030 (1.000-1.030); Urobilinogen Urine 0.2 (0.2-1.0)
[2023-09-18 20:33] VITALS: O2SAT 97
[2023-09-18] MEDS: MORPHINE 4 MG/ML INJ IVP (20:44)
[2023-09-18] MEDS: 0.9 % SODIUM CHLORIDE 500 ML 500 ML IV (20:45)
[2023-09-18 20:55] LABS: Calcium Oxalate Crystals Urine Many; RBC Urine 0-2 (0-2); Squamous Epithelial Cell Urine Few (None-Few); WBC Urine 0-2 (0-5)
[2023-09-18] MEDS: HYOSCYAMINE SULFATE 0.125 MG TAB 0.25 MG SUBLINGUAL (21:00)
[2023-09-18] MEDS: TAMSULOSIN HCL 0.4 MG CAPSULE PO (21:00)
[2023-09-18 21:17] VITALS: PULSE 62; O2SAT 97
== END 2023-09-18 21:43 | disposition home or self-care (01) ==
PROVIDERS: Emergency Provider Family Medicine; PCP Family Medicine
DX: N20.1 Calculus of ureter (principal); R31.9 Hematuria, unspecified
CPT/HCPCS: 81001; 94761; 96374; 99283; 99284; A9270; J2270; J7030

== ENCOUNTER 2024-02-07 15:35 | Emergency (ER) | payer MEDICAID, SELFPAY ==
[2024-02-07] VITALS (24 sets, daily range): BP systolic 126–153; BP diastolic 86–103; PULSE 75–106; RESP 32; TEMP 36.6; O2SAT 96–100; BMI 21.8
--- NOTE | 2024-02-07 16:06 | ED.GENADULT ---
HPI - General Adult General Date Seen: 02/07/24 Chief complaint: Chest Pain Stated complaint: chest pain, dizzy Time Seen by Provider: 02/07/24 16:04 History of Present Illness HPI narrative: 38-year-old female presenting to the ER this afternoon for evaluation of palpitations and rapid heart rate along with chest pain, feeling dizzy, breathing rapidly. She has a history of paroxysmal supraventricular tachycardia several years ago. She has been under lot of stress lately. She has a past medical history of Geraldo-en-Y gastric bypass, diagnosis of gastric ulcer about 3 or 4 months ago (had been on 1 month of Carafate and omeprazole but is no longer on anti acid medication), history of laparoscopic hysterectomy, previous cervical intraepithelial neoplasia, dysmenorrhea, polycystic ovarian syndrome. Also a history of asthma, anxiety, migraine headaches, psoriatic arthritis, ankylosing spondylitis, GERD. She presents to the ER today accompanied by her boyfriend. She does deal with fairly frequent episodes of nausea and also has a fair amount of back pain because of her psoriatic arthritis and . She developed symptoms this afternoon about 245. She was feeling well this morning. She recalls a couple of days ago she had a pretty bad flare of back pain and she thought she might have been passing a kidney stone but that is now resolved and she is back to her normal amount of back pain. She was healthy normal this morning. She had a fairly large late breakfast but did not eat lunch. At about 245 she was resting on the couch when she suddenly felt nauseous and threw up. She gets a lot of nausea but does not normally vomit because of her previous gastric bypass surgery. Within about 5 minutes that she started developing some palpitations where her heart was beating faster than normal and racing. This lasted about 10 or 20 minutes. Interspersed with racing she also had some episodes where the heart was skipping beats. Within a few minutes of the heart racing she also developed a squeezing discomfort in her upper substernal chest reason. This does not radiate through to the back, down her arm, up to her jaw. After about 20 minutes the heart racing went away. She still aware of her heart beating but it is not racing anymore. However the chest discomfort and nausea have persisted. She also notes that she was hyperventilating and felt very tingly in her arms and hands. Her nurses coached her to slow down her breathing and her tingling in hands has resolved. Her boyfriend notes that she has been under lot of stress lately. She is not having any abdominal pain. She recalls that when she had her ulcer a few months ago she did have some mid back can not pain, but that is not present today or lately. No anterior abdominal pain. Bowel movements have been normal. She does not get menstrual cycles because of previous hysterectomy. Urination has been normal. No fevers. Related Data Home Medications ?Medication ?Instructions ?Recorded ?Confirmed amlodipine 5 mg tablet 5 mg PO DAILY 10/26/21 11/18/23 clonazepam 0.5 mg tablet 0.25 - 0.5 mg PO DAILY PRN 10/26/21 11/18/23 trazodone 50 mg tablet 50 - 100 mg PO HS PRN 10/26/21 11/18/23 duloxetine 60 mg capsule,delayed 60 mg PO QAM 11/06/21 11/18/23 release epinephrine 0.3 mg/0.3 mL 0.3 mg IM ONCE PRN 11/06/21 11/18/23 injection, auto-injector bupropion HCl 150 mg tablet,12 hr 150 mg PO DAILY 08/13/22 11/18/23 sustained-release calcium citrate 200 mg PO QDAY 11/21/22 11/18/23 cholecalciferol (vitamin D3) 10 10 mcg PO QDAY 11/21/22 11/18/23 mcg (400 unit) tablet ixekizumab 80 mg/mL subcutaneous 80 mg subcut Q4W 11/21/22 11/18/23 auto-injector (Taltz Autoinjector) multivitamin 1 tab PO QDAY 11/21/22 11/18/23 vitamin B complex (B 1 tab PO QDAY 11/21/22 11/18/23 Complex-Vitamin B12 tablet) hydroxychloroquine 200 mg tablet 200 mg PO BID 01/26/23 11/18/23 prochlorperazine maleate 10 mg 10 mg PO Q8H PRN 01/26/23 11/18/23 tablet triamcinolone acetonide 0.1 % 1 applic topical BID-TID PRN 01/26/23 11/18/23 topical cream albuterol sulfate 90 mcg/actuation 2 inh inhalation Q4H PRN 01/29/23 11/18/23 aerosol inhaler Previous Rx's ?Medication ?Instructions ?Recorded acetaminophen 500 mg tablet 1,000 mg (2 x 500 mg) PO Q6H PRN 11/03/22 Pain #0 tabs hydrocodone 5 mg-acetaminophen 325 1 tab PO Q4-6H PRN pain #15 tabs 05/18/23 mg tablet fluconazole 150 mg tablet 150 mg PO Q3D 2 doses #2 tabs 06/26/23 tamsulosin 0.4 mg capsule (Flomax) 0.4 mg PO DAILY PRN For ureteral 09/18/23 spasm #15 caps diclofenac sodium 1 % topical gel 2 g topical QID #100 grams 11/18/23 (Voltaren Arthritis Pain) omeprazole 40 mg capsule,delayed 40 mg PO DAILY #30 caps 02/07/24 release Allergies Allergy/AdvReac Type Severity Reaction Status Date / Time ergotamine (From Cafergot) Allergy Severe Anaphylaxis Verified 11/18/23 11:04 ketorolac (From Toradol) Allergy Severe Migraine Verified 11/18/23 11:04 tramadol Allergy Intermediate Headache Verified 11/18/23 11:04 lamotrigine (From Lamictal) Allergy rash Verified 11/18/23 11:04 NSAIDS (Non-Steroidal Allergy gastric Verified 11/18/23 11:04 Anti-Inflamma bypass Penicillins Allergy Anaphylaxis Verified 11/18/23 11:04 sumatriptan Allergy Anaphylaxis Verified 11/18/23 11:04 ondansetron AdvReac Intermediate Migraine Verified 11/18/23 11:04 [facility] Medical History History of gestational hypertension ?Z87.59 - Personal history of other complications of , childbirth and the puerperium (ICD-10) Spontaneous with heavy bleeding (11/03/22) ?O03.9 - Complete or unspecified spontaneous without complication (ICD-10) Low grade squamous intraepithelial lesion (2008) Paroxysmal SVT (supraventricular tachycardia) ?I47.1 - Supraventricular tachycardia (ICD-10) Nephrolithiasis (2010) ?N20.0 - Calculus of kidney (ICD-10) Surgical History History of tonsillectomy (02/25/08) ?Z90.89 - Acquired absence of other organs (ICD-10) H/O dilation and curettage ?Z98.890 - Other specified postprocedural states (ICD-10) History of esophageal dilatation ?Z98.890 - Other specified postprocedural states (ICD-10) 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) ?Z98.84 - Bariatric surgery status (ICD-10) H/O nasal septoplasty ?Z98.890 - Other specified postprocedural states (ICD-10) H/O wisdom tooth extraction ?K08.409 - Partial loss of teeth, unspecified cause, unspecified class (ICD-10) Status post colposcopy (01/2009) ?Z98.890 - Other specified postprocedural states (ICD-10) Status post laser lithotripsy of ureteral calculus (05/17/18) ?Z98.890 - Other specified postprocedural states (ICD-10) S/P (01/21/17) ?Z98.891 - History of uterine scar from previous surgery (ICD-10) Status post cholecystectomy (01/17/21) ?Z90.49 - Acquired absence of other specified parts of digestive tract (ICD-10) Family History Mother Coronary artery disease Anxiety CHF (congestive heart failure) COPD (chronic obstructive pulmonary disease) Brother ADHD (attention deficit hyperactivity disorder) Paternal Grandfather DVT (deep venous thrombosis) Aunt Renal cancer Other Breast cancer Diabetes High blood pressure Kidney disease Leukemia Liver disease Lung cancer Stroke Social History Narrative: Lives in [place] with her son, 5 yo. 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 Also works at [employer]. She smokes 1/2 PPD. Occ ETOH use. No recreational drug use. What is your current living situation?: I presently have a place to live Problems where you live: no known problems In the past 12 months, utilities in danger of being shut off: no In past 12 months, lack of transportation kept you from medical appts, meetings, work, or getting things needed for daily living: no In the past 12 mos, have been you worried that your food would run out before you had money to buy more?: never true In the past 12 mos, the food you bought just didn't last and you didn't have money to buy more?: never true Highest level of school completed/degree received: high school graduate Smoking Status: Heavy tobacco smoker What tobacco products do you use: cigarettes Smoking packs per day: 0.5 Smoking cigarettes per day: 10.0 Years smoked: 23 Smoking pack-years: 11.50 Do you use any of these nicotine containing products: None Second hand tobacco smoke exposure: Yes How often do you have a drink containing alcohol: 2-4 times a month Alcohol type: wine and hard liquor AUDIT-C Alcohol total score: 2 Non-prescribed substance use: denies use Caffeine: Yes (soda, energy drinks) How often does anyone, including family, friends and others, physically hurt you: never How often does anyone, including family, friends and others, insult or talk down to you: never How often does anyone, including family, friends and others, threaten you with harm: never How often does anyone, including family, friends and others, scream or curse at you: never Are you using contraception or practicing any form of control: No service: No Exam Narrative: Exam Narrative: Constitutional: Appears well-developed and well-nourished. Alert. Conversant. Boyfriend attentively at her side. Her phone rings a couple of times during the evaluation. Non toxic. HENT: Head: Atraumatic. Nose: Nose normal. Mouth/Throat: Oral mucosa is clear and moist. no trismus. Pharynx normal. Tonsils symmetric. No tonsillar enlargement, erythema, or exudate. Eyes: Conjunctivae normal. EOM normal. Pupils equal, round, and reactive to light. No scleral icterus. Neck: Normal range of motion. Neck supple. No tracheal deviation present. No JVD Cardiovascular: Normal rate, regular rhythm. No gallop. No friction rub. No murmur heard. Symmetric radial and PT artery pulses Pulmonary/Chest: Effort normal. No stridor. No respiratory distress. No wheezes. No rales. No rhonchi . No tenderness. Abdominal: Soft. Bowel sounds normal. No distension. No mass. No tenderness. No rebound. No guarding. No CVA tenderness. Musculoskeletal: RUE: Normal range of motion. No tenderness. No deformity LUE: Normal range of motion. No tenderness. No deformity RLE: Normal range of motion. No edema. No tenderness. No deformity LLE: Normal range of motion. No edema. No tenderness. No deformity Neurological: Alert and oriented to person, place, and time. Normal strength. CN II-VII intact. No sensory deficit. GCS eye subscore is 4. GCS verbal subscore is 5. GCS motor subscore is 6. Normal coordination Skin: Skin is warm and dry. No rash noted. No pallor. Normal capillary refill. Psychiatric: Normal mood. Normal affect. Const: Vital Signs, click to edit/add: Vital Signs - 24 hr 02/07/24 15:47 02/07/24 15:54 02/07/24 15:55 Temperature 97.9 F Pulse Rate 88 91 Pulse Rate [Pulse Oximeter] 91 Respiratory Rate 32 H Blood Pressure 146/103 H Blood Pressure [Ri ght Upper Arm] 146/103 H Pulse Oximetry 100 100 100 Oxygen Delivery Me od Room Air 02/07/24 16:00 02/07/24 16:02 02/07/24 16:15 Temperature Pulse Rate 83 82 84 Pulse Rate [Pulse Oximeter] Respiratory Rate Blood Pressure 144/101 H Blood Pressure [Ri ght Upper Arm] Pulse Oximetry 100 100 97 Oxygen Delivery Me od 02/07/24 16:30 02/07/24 16:32 02/07/24 16:45 Temperature Pulse Rate 83 82 78 Pulse Rate [Pulse Oximeter] Respiratory Rate Blood Pressure 153/98 H Blood Pressure [Ri ght Upper Arm] Pulse Oximetry 98 98 97 Oxygen Delivery Ca thod 02/07/24 17:02 02/07/24 17:19 02/07/24 17:30 Temperature Pulse Rate 76 80 Pulse Rate [Pulse Oximeter] Respiratory Rate Blood Pressure 145/90 H Blood Pressure [Ri ght Upper Arm] Pulse Oximetry 98 98 Oxygen Delivery Me od 02/07/24 17:32 02/07/24 17:33 02/07/24 17:45 Temperature Pulse Rate 81 85 81 Pulse Rate [Pulse Oximeter] Respiratory Rate Blood Pressure 126/86 Blood Pressure [Ri ght Upper Arm] Pulse Oximetry 98 98 99 Oxygen Delivery Me thod 02/07/24 18:02 02/07/24 18:31 02/07/24 18:45 Temperature Pulse Rate 106 H Pulse Rate [Pulse Oximeter] Respiratory Rate Blood Pressure 141/93 H 138/87 Blood Pressure [Ri ght Upper Arm] Pulse Oximetry 96 Oxygen Delivery Me thod 02/07/24 19:00 02/07/24 19:02 02/07/24 19:03 Temperature Pulse Rate 90 80 81 Pulse Rate [Pulse Oximeter] Respiratory Rate Blood Pressure 140/92 H Blood Pressure [Ri ght Upper Arm] Pulse Oximetry 97 99 98 [facility] Vital signs: Initial Vital Signs Temperature 97.9 F 02/07/24 15:47 Temperature Source Temporal Artery Scan 02/07/24 15:47 Pulse Rate 91 02/07/24 15:47 Respiratory Rate 32 H 02/07/24 15:47 Blood Pressure 146/103 H 02/07/24 15:47 Blood Pressure Mean 117 H 02/07/24 15:47 Blood Pressure Position Supine 02/07/24 15:47 Pulse Oximetry 100 02/07/24 15:47 Oxygen Delivery Method Room Air 02/07/24 15:47 Vital Signs Temperature 97.9 F 02/07/24 15:47 Pulse Rate 91 02/07/24 15:47 Respiratory Rate 32 H 02/07/24 15:47 Blood Pressure 146/103 H 02/07/24 15:47 Pulse Oximetry 100 02/07/24 15:47 Oxygen Delivery Method Room Air 02/07/24 15:47 Temperature 97.9 F 02/07/24 15:47 Pulse Rate 81 02/07/24 19:03 Respiratory Rate 32 H 02/07/24 15:47 Blood Pressure 140/92 H 02/07/24 19:02 Pulse Oximetry 98 02/07/24 19:03 Oxygen Delivery Method Room Air 02/07/24 15:47 Medications Administered Medications: Discontinued Medications Generic Name Dose Route Start Last Admin Trade Name Freq PRN Reason Stop Dose Admin Aspirin 162 mg 02/07/24 16:32 02/07/24 16:52 Aspirin 81 Mg Tab.Chew PO 02/07/24 16:33 162 mg ONCE ONE Administration Ondansetron HCl 4 mg 02/07/24 16:32 02/07/24 16:52 Ondansetron 2 Mg/Ml Inj IVP 02/07/24 16:33 4 mg ONCE ONE Administration Medical Decision Making MDM Narrative Medical decision making narrative: This patient presents to the ER today for evaluation of multiple symptoms that occurred starting about 2:45 this afternoon. She had an episode of nausea with vomiting. The nausea is not unusual for her. She experiences lot of nausea ever since her Geraldo-en-Y gastric bypass surgery. She does not usually vomit though. After this she had some heart palpitations that lasted about 20 minutes. She has a history of SVT. EKG and monitoring analyst here show that she is currently in normal sinus rhythm. Impossible to know if she had a self-limited run of SVT this afternoon or if she just had sinus tach due to the distress of feeling nauseous and vomiting or due to anxiety. She also developed chest pain about 245 and although the palpitations were present for 20 minutes and self-resolved, the chest pain is still present.. Differential was broad. EKG shows sinus rhythm. No arrhythmia such as SVT, AFib, a flutter, V-tach. No PVCs here in the ER. Differential would include sinus tach induced by her nausea and vomiting or possible self-limited run of SVT. In terms of her chest pain, differential is broad. Consider possible PE in this young woman. However she has no tachycardia, hypoxia, unilateral swelling. She does not take control pills. No recent immobilization. She is low risk based on clinical presentation. She is negative by PERC. Therefore will hold off on D-dimer testing or CT PA. We considered possible ACS, however workup with EKG and troponin is negative. 2 hour delta troponin is also normal. HEART score is 2. Given time since onset of symptoms, I do not think the patient needs to be admitted for further sets of enzymes. EKG shows no evidence for pericarditis. Clinical presentation not suggestive of myocarditis. Chest x-ray shows no evidence for pneumonia, pneumothorax, pulmonary edema, pleural effusion, rib fracture, cardiomegaly. Mediastinum is normal on the x-ray. The patient has no ripping or tearing pain through to the back and has symmetric pulses on exam, no other acute neuro findings so I doubt aortic dissection. Risk of radiation and contrast exposure would outweigh the benefit of CT angiogram. No wheezing or bronchospasm to suggest COPD/asthma. No signs of chest wall cellulitis, shingles, injury. She has early under lot of stress lately. Her mother was recently diagnosed with lung cancer. Anxiety could have been playing a role. She does have a history of stomach ulcers and is not currently on PPI. She was nauseous and vomiting this afternoon. EKG shows no evidence for Boerhaave syndrome. With reasonable clinical confidence, I think the patient is safe for outpatient follow up. Discussed return precautions. Questions answered. Patient voices comfort with the plan. Lab Data Labs: Lab Results 02/07/24 02/07/24 02/07/24 Range/Units 16:50 16:57 18:50 WBC 9.32 (4.50-11.00) K/uL RBC 4.37 (4.00-5.20) m/uL Hgb 13.2 (12.0-16.0) gm/dL Hct 38.8 (33.0-51.0) % MCV 89 (80-100) fL MCH 30 (26-34) pg MCHC 34 (32-36) gm/dL RDW Coeff of Compa 12.9 (11.5-15.5) % Plt Count 201 (140-440) K/uL Neut % (Auto) 57.2 (42.0-72.0) % Lymph % (Auto) 34.4 (20-44) % Wright % (Auto) 6.7 (0.0-11.0) % Eos % (Auto) 0.8 (0.0-7.0) % Baso % (Auto) 0.8 (0.0-3.0) % Neut # (Auto) 5.34 (1.7-7.0) K/uL Lymph # (Auto) 3.21 H (0.90-2.90) K/uL Wright # (Auto) 0.60 (0.00-0.90) K/UL Eos # (Auto) 0.07 (0.00-0.50) K/uL Baso # (Auto) 0.07 (0.00-0.30) K/uL Abs Immat Gran (auto) 0.01 (0.00-0.30) K/uL Imm/Tot Granulo (auto) 0.1 % Sodium 137 (135-149) mmol/L Potassium 3.3 L (3.6-5.1) mmol/L Chloride 108 (96-114) mmol/L Carbon Dioxide 25 (20-32) mmol/L Anion Gap 4 L (7-15) mEq/L BUN 8 (5-24) mg/dL Creatinine 0.7 (0.5-1.5) mg/dL Estimated Creat Clear 104.01 Estimated GFR 115 ml/min Glucose 94 (60-115) mg/dL Calcium 9.1 (8.4-10.6) mg/dL Total Bilirubin 0.4 (0.1-1.5) mg/dL AST 37 H (12-35) U/L ALT 25 (4-35) U/L Alkaline Phosphatase 78 (40-150) U/L Total Protein 6.9 (6.0-8.3) g/dL Albumin 4.2 (3.3-5.0) g/dL Lipase 143 (23-300) U/L POC Troponin I 0.00 L 0.00 L (0.01-0.04) ng/ml Imaging Data Chest x-ray: Attestation: I have reviewed the pertinent imaging results. Radiologist's impression: Findings/Impression: Cardiovascular and mediastinum: Heart size and vasculature are normal in caliber and appearance. Lungs and pleural spaces: Lungs are clear. No sign of infiltrate or mass. No sign of pleural effusion. No pneumothorax. Bones and soft tissues: No significant findings. ECG Data Attestation: I personally reviewed and interpreted this ECG as follows: Interpretation: Normal sinus rhythm Rate: 95 HI: 148. No delta waves. QRS axis: Normal axis. No pathologic Q-waves. ST segment/T wave: No ST segment elevation or depression. QTc: 467. QT interval 372. Discharge Plan Discharge Clinical Impression: Chest pain, Palpitations, Nausea & vomiting Patient Disposition: Home, Self-Care Condition: Stable Instructions: Chest Pain (DC) Additional Instructions: So far your workup looks reassuring. Please keep a careful eye on your symptoms and for having more episodes of chest pain or worsening symptoms such as trouble breathing or if you have more episodes of palpitations, please come back to the emergency room right away. Please follow-up with your regular doctor within the next 3-5 days. Also please speak to your doctor about whether not you need to be on long-term medicine for stomach acid. Also, talk to your doctor about your stress and anxiety. You can talk with them about whether not you might benefit from anxiety medications. Prescriptions: New omeprazole 40 mg capsule,delayed release(DR/EC) 40 mg PO DAILY Qty: 30 2RF No Action Taltz Autoinjector 80 mg/mL auto-injector 80 mg subcut Q4W vitamin B complex [B Complex-Vitamin B12] Tablet 1 tab PO QDAY cholecalciferol (vitamin D3) 10 mcg (400 unit) tablet 10 mcg PO QDAY calcium citrate 200 mg (950 mg) tablet 200 mg PO QDAY multivitamin Tablet 1 tab PO QDAY fluconazole 150 mg tablet 150 mg PO Q3D Qty: 2 0RF Rx Instructions: may repeat second dose 72 hrs after first dose if symptoms persist diclofenac sodium [Voltaren Arthritis Pain] 1 % gel 2 g topical QID Qty: 100 0RF Rx Instructions: apply sparingly to right knee for 7 days epinephrine 0.3 mg/0.3 mL auto-injector 0.3 mg IM ONCE PRN duloxetine 60 mg capsule,delayed release(DR/EC) 60 mg PO QAM bupropion HCl 150 mg tablet sustained-release 12 hr 150 mg PO DAILY prochlorperazine maleate 10 mg tablet 10 mg PO Q8H PRN triamcinolone acetonide 0.1 % cream 1 applic topical BID-TID PRN hydroxychloroquine 200 mg tablet 200 mg PO BID albuterol sulfate 90 mcg/actuation HFA aerosol inhaler 2 inh inhalation Q4H PRN trazodone 50 mg tablet 50 - 100 mg PO HS PRN clonazepam 0.5 mg tablet 0.25 - 0.5 mg PO DAILY PRN amlodipine 5 mg tablet 5 mg PO DAILY acetaminophen 500 mg Tablet 1,000 mg PO Q6H PRN (Reason: Pain) Qty: 0 0RF hydrocodone-acetaminophen 5-325 mg tablet 1 tab PO Q4-6H PRN (Reason: pain) Qty: 15 0RF tamsulosin [Flomax] 0.4 mg capsule 0.4 mg PO DAILY PRN (Reason: For ureteral spasm) Qty: 15 2RF Follow Up/Referrals: Vero Alvarez MD [Primary Care Provider] - Stand Alone Forms: MyHealth Info Instructions
--- NOTE | 2024-02-07 16:32 | CRLHL7_ITS ---
For Patients: As a result of the Century Cures Act, medical imaging exams and procedure reports are released immediately into your electronic medical record. You may view this report before your referring provider. If you have questions, please contact your health care provider. Indication: Chest pain, nausea, palpitations. Technique: Chest 2 views. Comparison: Chest radiograph dated 05/27/2022. Findings/Impression: Cardiovascular and mediastinum: Heart size and vasculature are normal in caliber and appearance. Lungs and pleural spaces: Lungs are clear. No sign of infiltrate or mass. No sign of pleural effusion. No pneumothorax. Bones and soft tissues: No significant findings. Dictated by Farrukh Urias MD @ 02/07/2024 5:18:42 PM (Electronically Signed)
[2024-02-07] MEDS: ONDANSETRON 2 MG/ML inj 4 MG IVP (16:52)
[2024-02-07] MEDS: ASPIRIN 81 MG TAB.CHEW 162 MG PO (16:52)
[2024-02-07 17:02] LABS: Basophils Absolute Auto 0.07 K/uL (0.00-0.30); Basophils Percent Auto 0.8 % (0.0-3.0); Eosinophils Absolute Auto 0.07 K/uL (0.00-0.50); Eosinophils Percent Auto 0.8 % (0.0-7.0); Hematocrit 38.8 % (33.0-51.0); Hemoglobin* 13.2 gm/dL (12.0-16.0); Immature Granulocytes Abs Auto 0.01 K/uL (0.00-0.30); Immature Granulocytes Pct Auto 0.1 %; Lymphocytes Absolute Auto 3.21 K/uL (0.90-2.90); Lymphocytes Percent Auto 34.4 % (20-44); Mean Corpuscular HGB Conc 34 gm/dL (32-36); Mean Corpuscular Hemoglobin 30 pg (26-34); Mean Corpuscular Volume 89 fL (80-100); Monocytes Percent Auto 6.7 % (0.0-11.0); Neutrophils Absolute Auto 5.34 K/uL (1.7-7.0); Neutrophils Percent Auto 57.2 % (42.0-72.0); Platelet Count* 201 K/uL (140-440); RDW Coefficient of Variation % 12.9 % (11.5-15.5); Red Blood Count 4.37 m/uL (4.00-5.20); White Blood Count* 9.32 K/uL (4.50-11.00)
[2024-02-07 17:04] LABS: Slide Review Reflex No
[2024-02-07 17:19] LABS: Albumin* 4.2 g/dL (3.3-5.0); Chloride* 108 mmol/L (96-114)
[2024-02-07 17:20] LABS: Potassium* 3.3 mmol/L (3.6-5.1); Sodium* 137 mmol/L (135-149)
[2024-02-07 17:22] LABS: Anion Gap 4 mEq/L (7-15); Bilirubin Total* 0.4 mg/dL (0.1-1.5); Blood Urea Nitrogen* 8 mg/dL (5-24); Carbon Dioxide* 25 mmol/L (20-32); Creatinine* 0.7 mg/dL (0.5-1.5); Est. Creatinine Clearance* 104.01; Estimated Glomerular Filt Rate 115 ml/min; Total Protein* 6.9 g/dL (6.0-8.3)
[2024-02-07 17:23] LABS: Alanine Aminotransferase* 25 U/L (4-35); Alkaline Phosphatase* 78 U/L (40-150); Glucose* 94 mg/dL (60-115); Lipase* 143 U/L (23-300)
[2024-02-07 17:24] LABS: Aspartate Amino Transferase* 37 U/L (12-35)
[2024-02-07 17:25] LABS: Calcium* 9.1 mg/dL (8.4-10.6)
== END 2024-02-07 19:49 | disposition home or self-care (01) ==
PROVIDERS: Emergency Provider Emergency Medicine; PCP Family Medicine
DX: R07.9 Chest pain, unspecified (principal); R00.2 Palpitations
CPT/HCPCS: 36415; 71046; 80053; 83690; 84484; 85025; 96374; 99283; 99284; A9270; J2405

== ENCOUNTER 2024-10-09 18:10 | Outpatient (CLI) | payer OTHER, SELFPAY | END 2024-10-09 18:11 | disposition home or self-care (01) | LOC: AMB 10-12 11:51 | PROVIDERS: PCP Family Medicine; Visit Provider Internal Medicine | DX: R07.89 Other chest pain (principal) | CPT/HCPCS: A0425; A0427 ==

== ENCOUNTER 2024-10-09 18:26 | Emergency (ER) | payer OTHER, SELFPAY ==
--- OUTSIDE RECORDS SUMMARY | 2024-02-04 05:30 | XMS_ITS ---
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 Name Role Phone Vero Alvarez Primary Care Provider UnavailCésar Naranjo Unavailable [phone] Derrek AZAR, Veronica Unavailable Unavailable Andrez Phillips Unavailable [phone] Encounters Encounter Location Date Provider Diagnosis [facility] [address] [place] [address] 02/04/2024 Andrez Phillips Plan Of Treatment No Information Progress Notes * Melissa LAGUERRE ADOB: [birth year] (39 yo F)Acc No.[id number]:02/04/2024 Daily Note Patient: Joe HOWARDMelissa KELLEY Provider: Ghassan Phillips OTR/L :1985 A ge:38 Y S ex:Female Date:02/04/2024 Phone: Address:[address] [place] [address], [address] [place], [phone] Pcp:Vero Alvarez Subjective: * Chief Complaints: Objective: Therapeutic Interventions: Assessment: Plan: * Treatment: * Billing Information: * Visit Code: * Procedure Codes: * Electronic signature of MARIBEL Lu/Emy on 10/09/2024 at 06:29 PM CDT Sign off status: Pending * Provider: Ghassan Phillips OTR/Emy Date: Generated for Printi ng/Faxing/eTransmitting on: 0 10/09/2024 06:29 PM CDT
--- OUTSIDE RECORDS SUMMARY | 2024-02-09 05:30 | XMS_ITS ---
Author Organization [facility] Address [address] [place] [address] [address] [place] [address] Care Team Providers Care Studio Producer Name Role Phone Vero Alvarez Primary Care Provider UnavailCésar Naranjo Unavailable [phone] Derrek AZAR, Veronica Unavailable Unavailable Brandy Reynolds Unavailable [phone] Encounters Encounter Location Date Provider Diagnosis [facility] [address] [place] [address] 02/09/2024 Brandy Reynolds Plan Of Treatment No Information Progress Notes * Melissa LAGUERRE ADOB: [birth year] (39 yo F)Acc No.[id number]:02/09/2024 Daily Note Patient: Joe NICHOLS Melissa Yasmine Provider: YOLANDA Santo Resource:Laura Howell :1985 A ge:38 Y S ex:Female Date:02/09/2024 Phone: Address:[address] [place], [id number] Pcp:Vero Alvarez Subjective: * Chief Complaints: Objective: Therapeutic Interventions: Assessment: Plan: * Treatment: * Billing Information: * Visit Code: * Procedure Codes: * Electronic signature of YOLANDA Alonzo on 10/09/2024 at 06:28 PM CDT Sign off status: Pending * Provider: YOLANDA Santo Date: 1 Generated for Printi ng/Faxing/eTransmitting on: 0 10/09/2024 06:28 PM CDT
--- OUTSIDE RECORDS SUMMARY | 2024-02-11 05:30 | XMS_ITS ---
Author Organization [facility] Address [address] [place] [address] [address] [place] [address] Care Team Providers Care Political Research Scientist Name Role Phone Vero Alvarez Primary Care Provider UnavailCésar Naranjo Unavailable [phone] Derrek AZAR, Veronica Unavailable Unavailable Andrez Phillips Unavailable [phone] Encounters Encounter Location Date Provider Diagnosis [facility] [address] [place] [address] 02/11/2024 Andrez Phillips Plan Of Treatment No Information Progress Notes * Melissa LAGUERRE ADOB: [birth year] (39 yo F)Acc No.[id number]:02/11/2024 Daily Note Patient: Joe HOWARDALLIE Melissa Underwood Provider: Ghassan Phillips OTR/L :1985 A ge:38 Y S ex:Female Date:02/11/2024 Phone: Address:[address] [place] [address], [address] [place], [phone] Pcp:Vero Alvarez Subjective: * Chief Complaints: Objective: Therapeutic Interventions: Assessment: Plan: * Treatment: * Billing Information: * Visit Code: * Procedure Codes: * Electronic signature of MARIBEL Lu/Emy on 10/09/2024 at 06:29 PM CDT Sign off status: Pending * Provider: Ghassan Phillips OTR/Emy Date: Generated for Printi ng/Faxing/eTransmitting on: 0 10/09/2024 06:29 PM CDT
[2024-10-09] VITALS (17 sets, daily range): BP systolic 142–149; BP diastolic 95–98; PULSE 90–116; RESP 10–23; TEMP 36.4; O2SAT 91–96; BMI 24.7
--- OUTSIDE RECORDS SUMMARY | 2024-10-09 18:29 | XMS_ITS | Clinical Summary ---
Author Organization [facility] Address [address] [place] [id number] Care Team Providers Care Banking Officer Name Role Phone Vero Alvarez MD Primary Care Provider [phone] Joseph Menendez MD Unavailable [phone] Janis Mcgarry RN Unavailable [phone] Unavailable [phone] Allergies Active Allergy Reactions Criticality Noted Date Comments Ergotamine-Caffeine Flushing 08/11/2017 Ergotamine Anaphylaxis High 10/26/2021 Ketorolac Headache,Other - Describe In Comment Field High 09/04/2020 Lamotrigine Rash 03/17/2007 Nsaids (Non-Steroidal Anti-Inflammatory Drug) Other - Describe In Comment Field 02/20/2022 H/o gayatri-n-y gastric bypass. AVOID NSAIDs and aspirin due to risk of gastric and/or G-J anastomotic ulcers. If Melissa must be on short course of NSAIDs or aspirin, use enteric coated if possible and use PPI // Ann Marie Concepcion RN, Bariatric Nurse Clinician, [facility] Weight Management 02/20/2022 Ondansetron Headache,Other - Describe In Comment Field High 02/24/2022 Penicillins Edema,Anaphylaxis High 09/16/2006 Sumatriptan Anaphylaxis High 03/04/2011 Tramadol Headache High 05/19/2022 Unlisted Allergen (Include Detail In Comments) Other - Describe In Comment Field 05/18/2023 Medications EPINEPHrine (EPIPEN) 0.3 mg/0.3 mL injectionIndicat ions:Hives of unknown origin Inject 0.3 mg intramuscular one time if needed for Allergic Reaction for up to 1 dose. 2 Each 01/19/20 18 Active albuterol HFA (Ventolin HFA) 90 mcg/actuation inhalerIndicatio ns:Exercise induced bronchospasm (HC),Asthma, unspecified asthma severity, unspecified whether complicated, unspecified whether persistent (HC) Inhale 2 Puffs by mouth 4 times daily if needed. 1 Each 3 01/11/20 21 Active calcium citrate-vitamin D3, 315 mg-250 units, (CITRACAL WITH VITAMIN D) 315 mg-6.25 mcg (250 unit) tab tablet Take 2 Tablets by mouth two times daily with meals. Not taking. 0 05/01/19 23 Active pediatric multivitamins-ir on 18 mg chewable (FLINTSTONES PLUS IRON; BUGS BUNNY PLUS IRON) chewable tablet Chew 2 Tablets by mouth once daily. 0 05/01/19 23 Active cholecalciferol, Vitamin D3, (Vitamin D-3) 5,000 unit tab tablet Take 5,000 units by mouth once daily. Not taking 0 05/01/19 23 Active cyanocobalamin (Vitamin B-12) 1,000 mcg tablet Take 1 Tablet (1,000 mcg) by mouth once daily. 90 Tablet Active Taltz Autoinjector 80 mg/mL atIn 05/12/19 23 Active triamcinolone (ARISTOCORT; KENALOG) 0.1 % creamIndications :Hand dermatitis Apply topically to affected area(s) three times daily. 80 g 11/12/19 23 Active hydroxychloroqui ne (PLAQUENIL) 200 mg tablet Take 200 mg by mouth once daily. 01/20/20 23 Active predniSONE (DELTASONE) 5 mg tablet Take 5 mg by mouth once daily with a meal. Not taking 01/20/20 23 Active calcium citrate (CITRACAL) 200 mg (950 mg) tablet Take by mouth. 11/22/19 23 Active vitamin B complex (B-COMPLEX VITAMIN) tablet Take 1 Tablet by mouth. 11/22/19 23 Active prochlorperazine (COMPAZINE) 10 mg tabletIndication s:Nausea TAKE ONE TABLET BY MOUTH EVERY 8 HOURS NEEDED FOR NAUSEA AND VOMITING 30 Tablet 07/18/20 24 Active glucose 4 gram chewable tabletIndication s:Hypoglycemia Chew 1 Tablet (4 g) by mouth each time if needed for Blood Gluc < 60 mg/dL. 100 Tablet 1 11/23/19 24 Active tiZANidine (ZANAFLEX) 2 mg tablet Take 2 mg by mouth every 6 hours. Active gabapentin (NEURONTIN) 300 mg capsuleIndicatio ns:Generalized anxiety disorder with panic attacks Take 1 Capsule (300 mg) by mouth three times daily. 06/09/19 25 Active DULoxetine 60 mg Delayed-release capsuleIndicatio ns:MDD (major depressive disorder), recurrent episode, mild,Generalized anxiety disorder with panic attacks Take 1 Capsule (60 mg) by mouth once daily. 07/08/19 25 Active hydrOXYzine HCL 25 mg tabletIndication s:Generalized anxiety disorder with panic attacks Take one-half to one tablet (12.5-25mg ) up to twice daily as needed for anxiety 60 Tablet 3 07/08/19 25 Active prazosin 1 mg capsuleIndicatio ns:Nightmares Take 1 Capsule (1 mg) by mouth at bedtime. 30 Capsule 2 08/11/19 25 Active traZODone 50 mg tabletIndication s:Psychophysiolo gic insomnia Take 1-2 Tablets (50-100 mg) by mouth at bedtime if needed for Sleep. 180 Tablet 3 08/11/19 25 Active Active Problems Problem Noted Date Diagnosed Date Gastric ulcer 11/30/2023 Epigastric pain 11/24/2023 Paroxysmal SVT (supraventricular tachycardia) S/P robotic gastric bypass by Dr. Menendez 2 Overview (02/18/2022): Surgery 02/19/2022 238 lbs BMI 38 Choledocholithiasis 11/13/2021 Ankylosing spondylitis of lumbar region 11/04/19 22 Overview (11/03/2021): 06/2021 [facility] Rheumatology diagnosis Psoriatic arthritis 11/03/2021 Overview (11/03/2021): 06/2021 [facility] rheumatology diagnosis Controlled substance agreement signed 10/31/2021 Overview (10/31/2021): 10/31/21 Sarah Ontiveros DNP COMPUTER REPAIR TECHNICIAN WEB DESIGN INSTRUCTOR/psychiatry Paroxysmal SVT (supraventricular tachycardia) Severe episode of recurrent major depressive disorder, without psychotic features 05/28/2021 Obsessive Compulsive Disorde r, with mixed obsessional thoughts and acts 04/30/2020 JOEY I (cervical intraepithelial neoplasia I) 10/2019 Overview (03/28/2022): Plan: Pap/HPV due in 1 year 02/28/2022 NIL/HPV+, HPV 16/18 Negative 10/05/2019 NIL/HPV negative 12/11/2017 Avilla: Focal squamous atypia suggestive of JOEY I 04/03/2017 NIL/HPV+ 09/01/2016 Avilla: No biopsy 07/21/2016 NIL/HPV+ 09/10/2011 NIL/HPV negative 01/19/2009 Avilla: JOEY I 12/13/2008 LSIL Gallstones 04/21/2018 Overview (04/21/2018): Multiple calcified gallstones seen on KUB xray 04/20/18- asymptomatic at that time Migraine with aura, not intr actable, without status migrainosus 07/28/2017 Overview (07/28/2017): Adult life Left visual field cut Vomiting photophobia Tobacco use 05/26/2016 care, first 05/19/2016 Overview (01/13/2017): SPK, FOB not involved BMI 41.75, early one hour gct: wnl; repeat at 28 weeks Bipolar-on Celexa 20 mg Smoker: trying to quit Declines serum screening Anatomy ultrasound: oligo. Detailed US normal. F/u growth at 30 wks normal and normal GIA Weekly testing at 32 wks _ GCT: normal HGB: 8.8. BID iron and ferritin. Recheck 32 wks _ GBS: Tdap: 10/30/2016 Rhogam: Estimated Date of Delivery: 01/21/17 Patient's last menstrual period was 04/05/2016 (exact date). Last Tdap- 10/2016 Last Flu vaccine- 01/13/17 Allergies Allergen Reactions Penicillins Edema Sumatriptan Anaphylaxis Lamictal [Lamotrigine] Rash Obstetric History T0 L0 SAB0 TAB0 Ectopic0 Multiple0 Live Births0 # Outcome Date GA Lbr Karl/2nd Weight Sex Delivery Anes PTL Lv 2 Current 1 2012 SPONTANEOUS Component Latest Ref Rng & Units 10/30/2016 12/16/2016 WHITE BLOOD COUNT 4.5 - 11.0 thou/cu mm RED BLOOD COUNT 4.00 - 5.20 mil/cu mm HEMOGLOBIN 12.0 - 16.0 g/dL HEMATOCRIT 33.0 - 51.0 % MCV 80 - 100 fL MCH 26.0 - 34.0 pg MCHC 32.0 - 36.0 g/dL RDW 11.5 - 15.5 % PLATELET COUNT 140 - 440 thou/cu mm MPV 6.5 - 11.0 fL NEUTROPHILS 42.0 - 72.0 % LYMPHOCYTES 20.0 - 44.0 % MONOCYTES <12.0 % EOSINOPHILS <8.0 % BASOPHILS <3.0 % IMMATURE GRANULOCYTES(METAS,MYELOS,PROS) % ABSOLUTE NEUTROPHILS 1.7 - 7.0 thou/cu mm ABSOLUTE LYMPHOCYTES 0.9 - 2.9 thou/cu mm ABSOLUTE MONOCYTES <0.9 thou/cu mm ABSOLUTE EOSINOPHILS <0.5 thou/cu mm ABSOLUTE BASOPHILS <0.3 thou/cu mm ABSOLUTE IMMATURE GRANULOCYTES(METAS,MYELOS,PROS) <0.3 thou/cu mm SODIUM 135 - 145 mmol/L 137 POTASSIUM 3.5 - 5.0 mmol/L 4.0 CHLORIDE 98 - 110 mmol/L 108 CO2,TOTAL 21 - 31 mmol/L 18 (L) ANION GAP 5 - 18 11 GLUCOSE 65 - 100 mg/dL 109 (H) CALCIUM 8.5 - 10.5 mg/dL 9.9 BUN 8 - 25 mg/dL 7 (L) CREATININE 0.57 - 1.11 mg/dL 0.76 BUN/CREAT RATIO 10 - 20 9 (L) GFR if >60 ml/min/1.73m2 >60 GFR if not >60 ml/min/1.73m2 >60 ALBUMIN 3.5 - 5.2 g/dL 3.1 (L) PROTEIN,TOTAL 6.0 - 8.0 g/dL 6.6 GLOBULIN 2.0 - 3.7 g/dL 3.5 A/G RATIO 1.0 - 2.0 0.9 (L) BILIRUBIN,TOTAL 0.2 - 1.2 mg/dL 0.3 ALK PHOSPHATASE 50 - 136 IU/L 208 (H) ALT (SGPT) 8 - 45 IU/L 15 AST (SGOT) 2 - 40 IU/L 17 Case Report INTERPRETATION/RESULT (none) SPECIMEN ADEQUACY HPV REQUEST LAST LMP LAST PAP DATE LAST PAP RESULT Abnormal Pap or Avilla Bx in last 5 years MENSTRUAL STATUS Avilla Bx Done Today ADDITIONAL INFORMATION Automated Review ANCILLARY TESTING RIGGER APPRENTICE NOTE ABORH ANTIBODY SCREEN Negative SPECIMEN EXPIRATION DATE/TIME GLUCOSE,GESTATIONAL 65 - 139 mg/dL 125 PATIENT STATUS NON-FASTING RUBELLA IGG ANTIBODY CHLAMYDIA PROBE N GONORRHOEAE PROBE Culture HIV-1/HIV-2 ANTIBODY Non-Reactive HBSAG Nonreactive TREPONEMA PALLIDUM Negative Negative HEPATITIS C ANTIBODY Non-Reactive HPV RESULTS Negative Bile Acids, Total <=10 mcmol/L 5 Component Latest Ref Rng & Units 12/23/2016 12/23/2016 11:22 AM 11:22 AM WHITE BLOOD COUNT 4.5 - 11.0 thou/cu mm RED BLOOD COUNT 4.00 - 5.20 mil/cu mm HEMOGLOBIN 12.0 - 16.0 g/dL HEMATOCRIT 33.0 - 51.0 % MCV 80 - 100 fL MCH 26.0 - 34.0 pg MCHC 32.0 - 36.0 g/dL RDW 11.5 - 15.5 % PLATELET COUNT 140 - 440 thou/cu mm MPV 6.5 - 11.0 fL NEUTROPHILS 42.0 - 72.0 % LYMPHOCYTES 20.0 - 44.0 % MONOCYTES <12.0 % EOSINOPHILS <8.0 % BASOPHILS <3.0 % IMMATURE GRANULOCYTES(METAS,MYELOS,PROS) % ABSOLUTE NEUTROPHILS 1.7 - 7.0 thou/cu mm ABSOLUTE LYMPHOCYTES 0.9 - 2.9 thou/cu mm ABSOLUTE MONOCYTES <0.9 thou/cu mm ABSOLUTE EOSINOPHILS <0.5 thou/cu mm ABSOLUTE BASOPHILS <0.3 thou/cu mm ABSOLUTE IMMATURE GRANULOCYTES(METAS,MYELOS,PROS) <0.3 thou/cu mm SODIUM 135 - 145 mmol/L POTASSIUM 3.5 - 5.0 mmol/L CHLORIDE 98 - 110 mmol/L CO2,TOTAL 21 - 31 mmol/L ANION GAP 5 - 18 GLUCOSE 65 - 100 mg/dL CALCIUM 8.5 - 10.5 mg/dL BUN 8 - 25 mg/dL CREATININE 0.57 - 1.11 mg/dL BUN/CREAT RATIO 10 - 20 GFR if >60 ml/min/1.73m2 GFR if not >60 ml/min/1.73m2 ALBUMIN 3.5 - 5.2 g/dL PROTEIN,TOTAL 6.0 - 8.0 g/dL GLOBULIN 2.0 - 3.7 g/dL A/G RATIO 1.0 - 2.0 BILIRUBIN,TOTAL 0.2 - 1.2 mg/dL ALK PHOSPHATASE 50 - 136 IU/L ALT (SGPT) 8 - 45 IU/L AST (SGOT) 2 - 40 IU/L Case Report INTERPRETATION/RESULT (none) SPECIMEN ADEQUACY HPV REQUEST LAST LMP LAST PAP DATE LAST PAP RESULT Abnormal Pap or Avilla Bx in last 5 years MENSTRUAL STATUS Avilla Bx Done Today ADDITIONAL INFORMATION Automated Review ANCILLARY TESTING RIGGER APPRENTICE NOTE ABORH ANTIBODY SCREEN Negative SPECIMEN EXPIRATION DATE/TIME GLUCOSE,GESTATIONAL 65 - 139 mg/dL PATIENT STATUS RUBELLA IGG ANTIBODY CHLAMYDIA PROBE N GONORRHOEAE PROBE Culture RESULT (A) Streptococcus Group B HIV-1/HIV-2 ANTIBODY Non-Reactive HBSAG Nonreactive TREPONEMA PALLIDUM Negative HEPATITIS C ANTIBODY Non-Reactive HPV RESULTS Negative Bile Acids, Total <=10 mcmol/L Past Medical History: Diagnosis Date Bipolar disorder, unspecified High risk human papilloma virus (HPV) infection of cervix 07/2016 NIL/HPV positive, Plan: colposcopy Low grade squamous intraepithelial lesion (LGSIL) on cervical Pap smear 12/2008 Nephrolithiasis Other unspecified back disorder Curvature of spine PCOS (polycystic ovarian syndrome) Undiagnosed cardiac murmurs Stated by pt, her mother told her she has one Unspecified asthma(493.90) uses inhaler 2 - 3 times q day Past Surgical History: Procedure Laterality Date COLPOSCOPY 01/2009 JOEY 1 suction currettage 10/17/11 WISDOM TEETH EXTRACTION No data on file. POONAM 01/10/17 Problems (from 05/19/16 to present) Problem Noted Resolved care, first 05/19/2016 by Joseline Delaney RN No Overview Addendum 11/12/2016 12:12 PM by Mark Dawson MD SPK, FOB not involved BMI 41.75, early one hour gct: wnl; repeat at 28 weeks Bipolar-on Celexa 20 mg Smoker: trying to quit Declines serum screening Anatomy ultrasound: oligo. Detailed US normal. F/u growth at 30 wks normal and normal GIA Weekly testing at 32 wks _ GCT: normal HGB: 8.8. BID iron and ferritin. 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 10/17/2011 Overview (10/17/2011): Suction curettage done Class 3 severe obesity due t o excess calories without serious comorbidity with body mass index (BMI) of 40.0 to 44.9 in adult 10/17/2011 Glucose intolerance 12/03/2007 Condyloma acuminatum 07/14/2007 Unspecified episodic mood disorder 02/11/2007 Unspecified asthma(493.90) 09/17/2006 Dysphagia Gastroesophageal reflux disease Resolved Problems Problem Noted Date Diagnosed Date Resolved Date Rheumatoid arthritis 06/09/2020 023 Overview (06/09/2020): Diagnosed 2 years ago by clay grinder Low grade squamous intraepit helial lesion (LGSIL) on cervical Pap smear 12/12/2008 10/18/2019 Overview (05/01/2017): 12/2008 Pap: LSIL 01/2009 Avilla: JOEY 1 07/2016 Pap: NIL/HPV positive 09/01/2016: Colposcopy, , no bx taken 04/03/17: Pap NIL, HPV + Plan per Vero Alvarez MD: Colposcopy Depressive disorder, not elsewhere classified 09/18/19 07 03/19/2016 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 10/18/2019 Overview (05/01/2017): NIL/HPV positive, Encounters Date Type Department Care Team Description 10/04/2024 Telephone [facility] [address] [place] [address] O'Angelo, Haleigh Saleem, OD Eye Exam 10/03/2024 3:23 PM CDT - 10/03/2024 3:24 PM CDT Emergency [facility] [address] [address] Discharge Disposition: Against Medical Advice or Discontinued Care 10/03/2024 Travel 08/10/2024 8:30 AM CDT Telemedicine [facility] [address] [place] [address] Inga Ontiveros, SID Medication Management; Telehealth from Last 3 Months Immunizations Immunization Administration Dates Next Due AMB Influenza, IIV4 PF (=>6 mos Flulaval,Fluzone Fluarix)(Flu Clinic Only) 01/26/2019 COVID-19 vaccine (Moderna 50mcg/0.5mL) 12YO+ BIVALENT PF, MDV 07/22/2022 COVID-19 vaccine (Pfizer-Bio NTech 30mcg/0.3mL) 12YO+ MOLLY-SUCROSE PF, MDV 11/29/2021 COVID-19 vaccine (Pfizer-Bio NTech 30mcg/0.3mL) PF, MDV 04/09/2021,09/03/2020,08/13/2020 DTP 11/24/1991, 1,11/19/1988,1987,1987 DTaP 11/24/1991, 1,11/19/1988,1987,1987 HIB PRP-T (ActHIB,Hiberix) 07/20/1990 HPV 9 (Gardasil 9) 02/18/2008,04/28/2007, 007 Hepatitis B (Peds) 04/30/2001,12/17/1999, 997 Hib Conjugate, Unspecified 07/20/1990 Human Papilloma Virus Vaccine 02/18/2008, 008,10/30/2006 Inactivated Polio Vaccine 07/20/1990,1987, 1987 Influenza, IIV3 (Age >=3 years) 02/18/2008 Influenza, IIV4 01/07/2022,,12/23/2017,2016 MMR 12/17/1999,11/19/1988 Pneumococcal Conj 20-valent (Prevnar 20) 11/29/2021 Pneumococcal Poly,23-Valent (Pneumovax) 04/29/2016 Polio Virus, Unspecified 07/20/1990,1987,0 1987 Td (Age >=7 Years) 09/12/1999 Td, Preservative Free (age > = 7 Years) 09/12/1999 Tdap 10/30/2016,02/18/2008 Family History Medical History Relation Name Comments Psychiatric illness Brother 1 Carlito bipolar, ADHD, OCD (20 years old) Good Health Brother 2 Demetrius 8 years old Good Health Father Alvaro Cancer Maternal Aunt renal cancer Heart Disease Mother Zina heart failure Psychiatric illness Mother Zina on meds for bipolar / depression / anxiety Other Paternal Grandfather renal f ailure, DVT/PE, aortic aneurysm Cancer-breast No Family History Relation Name Status Comments Brother 1 Carlito Alive Brother 2 Demetrius Alive Brother 3 Alvaro (Age 0.5 days old) shortly after Father Alvaro Alive Maternal Aunt Maternal Grandfather Maternal Grandmother Mother Zina Alive Paternal Grandfather Paternal Grandmother Social History Tobacco Use Types Packs/Day Years Used Date Smoking Tobacco: Every Day Cigarettes 0.3 21 Started: 11/04/2021; Last attempted to quit: 12/08/2021 Smokeless Tobacco: Never Tobacco Cessation:Ready to Q uit: No; Counseling Given: Yes Alcohol Use Standard Drinks/Week Comments Yes 0 (1 standard drink = 0.6 oz pur e alcohol) Once in a while PHQ-2 Answer Date Recorded PHQ-2 TOTAL SCORE 0 07/07/2024 Social Connections Answer Date Recorded Do you often feel lonely or isolated from those around you? 0 12/02/2023 Alcohol Use Answer Date Recorded How often do you have a drink containing alcohol ? 0 09/13/2021 Average Number of Drinks Not on file 022 Frequency of Binge Drinking Not on file 06/2021 Financial Resource Strain Answer Date R ecorded Difficulty of Paying Living Expenses 2 11/23/2023 Difficulty of Paying Living Expenses 1 11/23/2023 Food Insecurity Answer Date Recorded Do you worry your food will run out before you are able to buy more? 2 12/02/2023 Transportation Needs Answer Date Record ed Does lack of transportation keep you from medica l appointments? 1 12/02/2023 Does lack of transportation keep you from work, meetings or getting things that you need? 1 12/02/2023 Housing Stability Answer Date Recorded What is your housing situation today? 1 12/02/2023 Interpersonal Safety Answer Date Record ed Are you being hit, kicked, p ushed or yelled at (see row info)? No 11/18/2023 Interpersonal Safety Abuse 12 - 18 Not on file 11/18/2023 Interpersonal Safety Ambulatory Vulnerability No t on file 11/18/2023 Utilities Answer Date Recorded Do you have trouble paying f or utilities (for example, heat, electricity, water, phone)? 2 12/02/2023 Comments No Sex and Gender Information Value Date Recorded Sex Assigned at Not on file Legal Sex Female 6:28 AM CHIEF TECHNICAL OFFICER Gender Identity Not on file Sexual Orientation Not on file Occupation Industry Job Start Date Job End Date [employer] Employee Not on file Not on file Not on file Obstetrics History Para Term AB IAB SAB Ectopic Multiple Livin g Live Births 2 1 1 0 1 0 1 0 0 1 1 Date Outcome GA Total Labor Labor/2nd/3rd Weight Sex Type Anes PTL Indira A1 A5 Name Clin Term M CS-LTra nv Livin g 2012 SAB SPONTAN EOUS Comments:D&C Last Filed Vital Signs Vital Sign Reading Time Taken Comments Blood Pressure 154/107 10/03/2024 2:35 PM CDT Pulse 93 10/03/2024 2:35 PM CDT Temperature 36.7 C (98 F) 10/03/2024 2:35 PM CDT Respiratory Rate 20 10/03/2024 2:35 PM CDT Oxygen Saturation 98% 10/03/2024 2:35 PM CDT Inhaled Oxygen Concentration - - Weight 70.7 kg (155 lb 14.4 oz) 10/03/2024 2:35 PM CDT Height 167.6 cm (5' 6) 10/03/2024 2:35 PM CDT Body Mass Index 25.16 10/03/2024 2:35 PM CDT Plan of Treatment Health Maintenance Due Date Last Done Comments Pap test for age 21-65 02/28/2023 , 02/28/2022, 10/05/2019, Additional history exists COVID-19 vaccine series ( season) 2023 07/22/2022, 11/29/2021, 04/09/2021, Additional history exists BMI (ht and wt on same day) for age 18+ 11/24/2024 11/25/2023, 11/17/2023, 11/12/2023, Additional history exists Influenza Vaccine (Season Ended) 2024 01/07/2022, 01/10/2021, 01/26/2019, Additional history exists Depression screening for age 12+ 07/07/2025 07/07/2024, 06/09/2024, 04/05/2024, Additional history exists Tetanus booster 10/30/2026 10/30/2016, 10/2007, 09/12/1999, Additional history exists Hepatitis B series for 19+ Completed 04/30, 12/17/1999, 03/31/1997 HIV for age 15-65 Completed 05/19/2016, , 12/01/2008 Hepatitis C screening for ag e 18-79 Completed 05/19/2016, 12/03/2015 Tdap Completed 10/30/2016, 02/18/2008 Pneumococcal series for age 6-49 Completed 11/30/19, 04/29/2016 Medical Devices Implanted Type Area Sample Clerk Device Identifier Shelf Expiration Date Model / Serial / Lot Stent Nasal Latera Kit Absorb - [id number] Implanted:Qty: 1 on 01/31/2021 by Ross Layne MD at [facility] 05/02/2021 [id number] / [id number] / [id number] Stent Pancreatic [id number] Advanix Stra No Ines Plst - [id number] Implanted:Qty: 1 on 11/14/2021 by Carmine Sol MD at [facility] 12/28/2022 [id number] / / [id number] Procedures Procedure Name Priority Date/Time Associated Diagnosis Comments EKG 12 LEAD STAT 10/03/2024 2:42 PM CDT RIGGER APPRENTICE THIN PREP PAP SCREEN IMAGED Routine 02/28/2022 11:10 AM CHIEF TECHNICAL OFFICER Pap smear for cervical cancer screening ANTI HIV 1/2 Routine 05/19/2016 12:13 PM CHIEF TECHNICAL OFFICER care, first , unspecified trimester (HC) ANTI HCV Routine 05/19/2016 12:13 PM CHIEF TECHNICAL OFFICER care, first , unspecified trimester (HC) from Last 3 Months or Most Recently Relevant to Health Maintenance Results * EKG 12 LEAD (10/03/2024 2:42 PM CDT) Interpretation Normal sinus rhythm Possible Left atrial enlargement Borderline ECG BEYOND NOW Ventricular Rate 87 BPM BEYOND NOW Atrial Rate 87 BPM BEYOND NOW P-R Interval 138 ms BEYOND NOW QRS Duration 70 ms BEYOND NOW QT 392 ms BEYOND NOW QTc 471 ms BEYOND NOW P [place] 64 degrees BEYOND NOW R [place] 67 degrees BEYOND NOW T [place] 55 degrees BEYOND NOW 10/03/2024 2:42 PM CDT 10/03/2024 8:25 PM CDT [facility] Ed Triage EKG ORD Final Result Performing Organization Address City/State/[facility] Co de Phone Number BEYOND NOW [place], [place] * RIGGER APPRENTICE THIN PREP PAP SCREEN IMAGED (02/28/2022 11:10 AM CHIEF TECHNICAL OFFICER) Case Report Gynecologic Cytology Report Case: [id number] Authorizing Provider: Vero Alvarez MD Collected: 02/28/2022 1110 Ordering Location: [facility] Received: 02/28/2022 1131 Clinic First Screen: Caroline Delatorre Rescreen: Michel Monroe Specimen: RIGGER APPRENTICE ThinPrep Vial Screening, Cervical 03/26/2022 10:13 AM CHIEF TECHNICAL OFFICER [facility] INTERPRETATION/ RESULT NEGATIVE FOR INTRAEPITHELIAL LESION OR MALIGNANCY (NIL) (none) 03/26/2022 10:13 AM [facility] at 1013 CHIEF TECHNICAL OFFICER ORGANISM(S) Shift in angle suggestive of bacterial vaginosis 03/26/2022 10:13 AM [facility] SPECIMEN ADEQUACY Satisfactory for evaluation Endocervical component present 03/26/2022 10:13 AM CHIEF TECHNICAL OFFICER [facility] ENTR[facility] LABORATORY HPV REQUEST HPV and PAP 03/26/2022 10:13 AM CHIEF TECHNICAL OFFICER [facility] Date of LMP 2020 03/26/2022 10:13 AM CHIEF TECHNICAL OFFICER [facility] Last Pap Date 10/05/19 03/26/2022 10:13 AM CHIEF TECHNICAL OFFICER [facility] Last Pap Result NIL 10:13 AM CHIEF TECHNICAL OFFICER [facility] Abnormal Pap or Avilla Bx in last 5 years Yes 03/26/2022 10:13 AM CHIEF TECHNICAL OFFICER [facility] Menstrual Status Irregular Periods 03/26/2022 10:13 AM [facility] Avilla Bx Done Today No 03/26/2022 10:13 AM [facility] Additional Information None given 03/26/2022 10:13 AM [facility] Comment: Cytology is screened at [facility] - [address], [place] [address] and [facility] - [address] [place] [address] and [facility] - [address] [place] [address] Interpreted at [facility] - [address], [place] [address] Automated Review Successful 03/26/2022 10:13 AM [facility] Comment:Specimen processed s uccessfully by automated chemical mixer device, ThinPrep Imaging System, [employer] ANCILLARY TESTING RIGGER APPRENTICE HPV Ordered, Please see separate report 03/26/2022 10:13 AM [facility] Note The pap test is a screening technique, not a diagnostic procedure. It is used primarily to screen for squamous cancers and precursor lesions. Published studies have shown that it is subject to both false negative and false positive results. The pap test should not be used as the sole means to diagnose or exclude pre-malignant and malignant lesions. 03/26/2022 10:13 AM CHIEF TECHNICAL OFFICER [facility] ENTRAL LAB[facility] Other (Cervical) Non-Blood / Unknown 02/28/2022 11:10 AM CHIEF TECHNICAL OFFICER 02/28/2022 11:31 AM CHIEF TECHNICAL OFFICER us Vero Alvarez MD PATHOLOGY/CYTOLOGY Final Re sult Performing Organization Address City/[facility]/ZIP Co de Phone Number [facility] [address] [place] [address], [place] * ANTI HCV (05/19/2016 12:13 PM CHIEF TECHNICAL OFFICER) HEPATITIS C ANTIBODY Non-Reacti ve Non-Reacti ve 05/19/2016 5:08 PM CHIEF TECHNICAL OFFICER [facility] Blood BLOOD SPECIMEN / Unknown Venipuncture / Unknown 05/19/2016 12:13 PM CHIEF TECHNICAL OFFICER 05/19/2016 12:14 PM CHIEF TECHNICAL OFFICER Narrative [facility] - 05/19/2016 5:08 PM CHIEF TECHNICAL OFFICER Antibodies to HCV not detected; does not exclude the possibility of exposure to HCV. Tatiana Sykes MD SEND OUTS Final Res ult Performing Organization Address City/[facility]/ZIP Co de Phone Number [facility] [address] [place] [address], [place] * ANTI HIV 1/2 (05/19/2016 12:13 PM CHIEF TECHNICAL OFFICER) HIV-1/HIV-2 ANTIBODY Non-Reacti ve Non-Reacti ve 05/19/2016 5:09 PM CHIEF TECHNICAL OFFICER [facility] Blood BLOOD SPECIMEN / Unknown Venipuncture / Unknown 05/19/2016 12:13 PM CHIEF TECHNICAL OFFICER 05/19/2016 12:14 PM CHIEF TECHNICAL OFFICER Narrative [facility] - 05/19/2016 5:09 PM CHIEF TECHNICAL OFFICER HIV-1 p24 and HIV-1/HIV-2 Ab not detected us Tatiana Sykes MD SEND OUTS Final Res ult [facility] [address] [place] [address], [place] from Last 3 Months or Most Recently Relevant to Health Maintenance Advance Directives * Full Code (Latest Code Status on File) Date Activated Date Inactivated Comments 11/24/2023 10:58 AM 11/24/2023 2:15 PM Question Answer Comments Code Status Discussion: Reviewed Preferences * Full Code Date Activated Date Inactivated Comments 02/19/2022 1:20 PM 02/21/2022 1:43 PM Question Answer Comments Code Status Discussion: Reviewed Preferences * Full Code Date Activated Date Inactivated Comments 02/19/2022 6:00 AM 02/19/2022 1:20 PM Question Answer Comments Code Status Discussion: Not Discussed * Full Code Date Activated Date Inactivated Comments 11/13/2021 9:31 PM 11/15/2021 3:40 PM Question Answer Comments Code Status Discussion: Other * Full Code Date Activated Date Inactivated Comments 05/20/2021 11:12 AM 05/20/2021 3:26 PM Question Answer Comments Code Status Discussion: Reviewed Preferences Care Teams Banking Officer Relationship Specialty Start Date End Date Vero Alvarez MD [address] [place] [id number] PCP - General Family Practice 01/06/17 Joseph Menendez MD [address] [id number] Consulting Physician Surgery - General 02/28/21 Janis Mcgarry RN [address] [facility] [address] [place], [place] [id number] Stitch Separator Registered Nurse 02/28/[address] [facility] [address] [place], [place] [address] Community Relations Assistant/Handhole Machine Operator Electrical Instrument Technician 02/28/21
--- OUTSIDE RECORDS SUMMARY | 2024-10-09 18:29 | XMS_ITS | Patient Health Record ---
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 Car Overhauler Name Role Phone Vero Alvarez Primary Care Provider UnavailCésar Naranjo Unavailable [phone] Veronica Anglin MD Unavailable Unavailable Umberto Fish Unavailable [phone] Brandy Reynolds Unavailable [phone] Andrez Phillips Unavailable [phone] Maykel Sykes Unavailable [phone] Johnny Tomlinson Unavailable [phone] Sara Malave Unavailable [phone] Andrez Hammonds Unavailable [phone] Allergies Allergen (clinical drug ingredient) Drug/Non Drug Allergy documented on EMR Reaction Allergy Type Onset Date Status migraine meds (uncoded) Swelling Allergy Active PNC (uncoded) Unknown Allergy Active Non-steroidal anti-inflammatory agent (FN) NSAIDs Unknown Drug Allergy Active Reason For Referral Reason please eval and shyam t patients neck and low back pain with an initial consult with Dr. Sykes, call patient to schedule at [phone]. REHAB *PHYSICIAN CONSULT PMR/OCC MED Diagnosis 1 Spondylosis without myelopathy or radiculopathy, cervical region (M47.812) Diagnosis 2 Low back pain, unspe cified (M54.50) Referral Organization [facility] Referring Provider First Name Rory Referring Provider Last Name Lewis Referring Provider Speciality Physician Affiliate Marketing Specialist Referred Organization [facility] Referred Provider Donell Olivares Referred Address [address] [facility] [address] [place], [place],[address],[place] Referred Provider Specialty Rehabilitati on General Notes Nel Vera 11/27/19 24 03:26:30 PM >ANDREINA no HONG velazquezq. [place] to schedule, Dayanara Benedict 11/30/2023 10:53:01 AM >Sent Te to Referral 1. Referral Priority Routine Reason REHAB PT and OT: MED X CERVICAL-LUMBAR Diagnosis 1 Cervicalgia (M54.2) Diagnosis 2 Dorsalgia, unspecifi ed (M54.9) Diagnosis 3 Other cervical disc degeneration, unspecified cervical region (M50.30) Diagnosis 4 Cervicogenic headach e (G44.86) Diagnosis 5 Spondylosis without myelopathy or radiculopathy, cervical region (M47.812) Diagnosis 6 Low back pain, unspe cified (M54.50) Diagnosis 7 Psoriatic arthritis (L40.50) Diagnosis 8 Ankylosing spondylit is of multiple sites in spine (M45.0) Referral Organization [facility] Referring Provider First Name Maykel Referring Provider Last Name Onel Referring Provider Speciality Occupation al Medicine Referred Organization [facility] Referred Provider Donell Olivares Referred Address [address] [facility], [place],[address], Referred Provider Specialty Rehabilitati on General Notes Nel Vera 12/17/19 24 04:02:41 PM >ANDREINA no HONG rios. [place] to schedule, AleenaLori salazarbie 12/18/2023 12:32:26 PM >Pt scheduled Referral Priority Routine Medications Medication SIG (Take, Route, Frequency, Duration) Notes Start Date End Date Status amLODIPine Besy-Benazepril HCl 5-10 MG as directed Orally Active Wellbutrin SR 150 MG 1 tablet in the morning Orally Once a day Active Multi Vitamin Active Taltz 80 MG/ML as directed Subcutaneous Active tiZANidine HCl 2 MG 1 -2 tabs as needed Orally at bedtime; Duration: 30 days Muscle relaxant, may cause drowsiness 11/26/2023 Active DULoxetine HCl 60 MG 1 capsule Orally Once a day Active Tylenol Active Social History Tobacco Use: Social History Observation Description Date Details (start date - stop date) Current Smoker NA - NA Tobacco Control (Standard) Question Answer Notes Tobacco use: Current smoker AUDIT-C (Standard) Question Answer Notes Did you have a drink contain ing alcohol in the past year? Yes How often did you have six o r more drinks on one occasion in the past year? Less than monthly (1 point) How many drinks did you have on a typical day when you were drinking in the past year? 1 or 2 drinks (0 point) How often did you have a dri nk containing alcohol in the past year? Monthly or less (1 point) Points 2 Interpretation Negative Problems Problem Type SNOMED Code ICD Code Onset Dates Problem Status W/U Status Risk Notes Problem Chronic pain (11722578) Other chronic pain (G89.29) Active confirmed Problem Ankylosing spondylitis (1951336) Ankylosing spondylitis of multiple sites in spine (M45.0) Active confirmed Problem Cervical spondylosis without myelopathy (807212537) Spondylosis without myelopathy or radiculopathy, cervical region (M47.812) Active confirmed Problem Degeneration of cervical intervertebral disc (94326948) Other cervical disc degeneration, unspecified cervical region (M50.30) Active confirmed Problem Cervical radiculopathy (48384241) Radiculopathy, cervical region (M54.12) Active confirmed Problem Cervicalgia (26609568) Cervicalgia (M54.2) Active confirmed Problem Backache (362628320) Dorsalgia, unspecified (M54.9) Active confirmed Problem Cervicogenic headache (533412003) Cervicogenic headache (G44.86) Active confirmed Problem Low back pain (093835157) Low back pain, unspecified (M54.50) Active confirmed Problem Psoriatic arthritis (028402605) Psoriatic arthritis (L40.50) Active confirmed Vital Signs Blood pressure diastolic 88 mm Hg 12/17/2023 Height 66 in 12/17/2023 Blood pressure systolic 132 mm Hg 12/17/2023 Weight 135 lbs 12/17/2023 BMI 21.79 kg/m2 12/17/2023 Procedures Procedure Date Ordered Date Performed Result Body Sit e Intervention: 11/26/2023 12/01/2023 Sched 12/09 Encounters Encounter Location Date Provider Diagnosis [facility] [address] [facility] [address] [place] [id number] 11/30/2023 César Ramirez [facility] [address] [place] [id number] 12/08/2023 César Ramirez [facility] [address] [place] [address] 01/14/2024 César Ramirez [facility] [address] [place] [address] 12/17/2023 Maykel Sykes Low back pain, unspecified M54.50 ; Cervicalgia M54.2 ; Spondylosis without myelopathy or radiculopathy, cervical region M47.812 ; Other cervical disc degeneration, unspecified cervical region M50.30 ; Cervicogenic headache G44.86 ; Dorsalgia, unspecified M54.9 ; Psoriatic arthritis L40.50 and Ankylosing spondylitis of multiple sites in spine M45.0 [facility] [address] [facility] [address] [place] [address] 12/10/2023 César Ramirez Radiculopathy, cervical region M54.12 [facility] [address] [facility] [address] [place] [address] 11/26/2023 César Ramirez Spondylosis without myelopathy or radiculopathy, cervical region M47.812 ; Low back pain, unspecified M54.50 and Other chronic pain G89.29 Assessments Encounter Date Diagnosis (ICD Code) Assessment Notes Treatment Notes Treatment Clinical Notes Section Notes 12/17/2023 Cervicalgia (ICD-10 - M54.2) 1. I believe Melissa is an excellent candidate for the type of treatment available here at [facility]. I believe she will benefit from core and deep core muscle strength building to support the spine. We will utilize our MedX equipment to isolate on critical muscle groups to achieve, first, muscle re-education, recruitment and activation, and then strength. Range of motion and strength will be measured objectively, and the patient will work towards resistance goals calculated for them by the therapists. 2. Melissa has some complicating underlying conditions including ankylosing spondyloarthropat hy affecting primarily the lumbar spine, as well as psoriatic arthritis affecting the hands. 3. Melissa did receive a C5-6 epidural steroid injection on December 10, 2023. She cannot really discern any improvement in symptoms with the anesthetic phase of the injection. She has not received any benefit from the steroid component. In fact, she states that she has had increased neck pain. 4. The patient did undergo cervical spine MRI scanning on August 01, 2023. This revealed disc herniations at the C5-6 and C6-7 levels. There was no description of stenosis or impingement. 5. Both physical therapists and occupational therapists will have input into developing the patient's plan of care. This will be an active biopsychosocial care approach. In some cases, we will utilize a cognitive-behavio ral coaching emphasis. 6. In addition to strength building during appointment times, the patient will be provided a home exercise progression tailored to their needs. The goal will be to further improve functional mobility, strength, endurance and in some cases balance. The need for an aftercare exercise program will be addressed to help the patient maintain benefits gained during their course of treatment. 7. This individual has prominent trigger points in the cervical and scapulothoracic regions. In addition to stretching, strength building and postural improvements, they will likely benefit from certain manual therapy techniques. This includes teaching the patient to perform their own manual therapies for future self-management of symptoms. 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 She is accustomed to long-standing low back pain with prolonged standing. She is struggling with the need to elevate the arms and forward flex at the neck for long periods of time while engaged in her work. 9. Today's evaluation occupied a full 35 minutes altogether including time spent preparing to see the patient and then providing this documentation. Other program topics and elements may include: 1. Instruction in body mechanics, ergonomics, and functional training. 2. Pain neuroscience. 3. Sleep and diet. 4. Non-pharmacologic pain management. 5. Manual therapy techniques including self-care. 6. Meditation techniques such as conscious napping. 12/17/2023 Low back pain, unspecified (ICD-10 - M54.50) 1. I believe Melissa is an excellent candidate for the type of treatment available here at [facility]. I believe she will benefit from core and deep core muscle strength building to support the spine. We will utilize our MedX equipment to isolate on critical muscle groups to achieve, first, muscle re-education, recruitment and activation, and then strength. Range of motion and strength will be measured objectively, and the patient will work towards resistance goals calculated for them by the therapists. 2. Melissa has some complicating underlying conditions including ankylosing spondyloarthropat hy affecting primarily the lumbar spine, as well as psoriatic arthritis affecting the hands. 3. Melissa did receive a C5-6 epidural steroid injection on December 10, 2023. She cannot really discern any improvement in symptoms with the anesthetic phase of the injection. She has not received any benefit from the steroid component. In fact, she states that she has had increased neck pain. 4. The patient did undergo cervical spine MRI scanning on August 01, 2023. This revealed disc herniations at the C5-6 and C6-7 levels. There was no description of stenosis or impingement. 5. Both physical therapists and occupational therapists will have input into developing the patient's plan of care. This will be an active biopsychosocial care approach. In some cases, we will utilize a cognitive-behavio ral coaching emphasis. 6. In addition to strength building during appointment times, the patient will be provided a home exercise progression tailored to their needs. The goal will be to further improve functional mobility, strength, endurance and in some cases balance. The need for an aftercare exercise program will be addressed to help the patient maintain benefits gained during their course of treatment. 7. This individual has prominent trigger points in the cervical and scapulothoracic regions. In addition to stretching, strength building and postural improvements, they will likely benefit from certain manual therapy techniques. This includes teaching the patient to perform their own manual therapies for future self-management of symptoms. 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 She is accustomed to long-standing low back pain with prolonged standing. She is struggling with the need to elevate the arms and forward flex at the neck for long periods of time while engaged in her work. 9. Today's evaluation occupied a full 35 minutes altogether including time spent preparing to see the patient and then providing this documentation. Other program topics and elements may include: 1. Instruction in body mechanics, ergonomics, and functional training. 2. Pain neuroscience. 3. Sleep and diet. 4. Non-pharmacologic pain management. 5. Manual therapy techniques including self-care. 6. Meditation techniques such as conscious napping. 12/10/2023 Radiculopathy , cervical region (ICD-10 - M54.12) 11/26/2023 Spondylosis without myelopathy or radiculopathy , cervical region (ICD-10 - M47.812) 11/26/2023 Low back pain, unspecified (ICD-10 - M54.50) 11/26/2023 Other chronic pain (ICD-10 - G89.29) Melissa presents to the clinic for an evaluation regarding her neck, bilateral upper extremity and low back pain. I have reviewed her symptoms and current medications. I checked the [facility] database and I did not find any inconsistencies . I will continue with a treatment plan consisting of conservative management. I reviewed her DEXA scan and Cervical MRI with her today. Her DEXA scan was unremarkable. Following the review of her Cervical MRI and my physical examination, I have recommended a C6-7 CRISTI with catheter to C5-6. This procedure was discussed in detail with the patient. Following this discussion they expressed interest in proceeding, and orders were placed accordingly. We will consider a C2-4 MBB/RFA workup in the future, pending relief from the ordered CRISTI. Physicial therapy was discussed today as an additional treatment option as she may benefit greatly from it. The patient exhibited interest in proceeeding therefore a referral was sent to [facility] for an intial consult with Dr. Sykse. Regarding medications, to help better manage her sleep difficulties, I have started her on tizanidine 2mg #1 qHS. This treatment plan was reviewed with Melissa, and she was agreeable. She will return for further evaluation or sooner if needed. I will continue to monitor her progress, adjusting her treatment plan as necessary. Plan: 1. Reviewed DEXA scan and Cervical MRI 2. Order C6-7 CRISTI with catheter to C5-6 3. Consider C2-4 MBB/RFA workup 4. Referral to [facility] for consult with Dr. Sykes 5. Start tizanidine 2mg #1 QHS 6. Follow up as needed Discharge instructions reviewed verbally. Discussed the risks/benefits of prescribed medication. The patient was instructed to return to the office as scheduled and call with any questions, problems or concerns. We would like to thank Dr. Veronica Concepcion for referring Melissa to us today. It has been a pleasure to participate in his care. Please feel free to contact me if you have any questions. MRI Spondyloarthropathy protocol, Thoracic, Lumbar, and SI Joint 08/01/21 (RAYUS)IMPRESSION:1 . No MR evidence of acute or chronic spondyloarthropathy lesions.2. Sacral side focal marrow edema on one coronal image through the right anterosuperior SI joint is nonspecific and could be reactive, degenerative or inflammatory in origin. Remainder of the SI joints are unremarkable.3. T12-L1 protrusion without impingement or stenosis. Cervical XR 2-3V 07/21/23 (RAYUS)IMPRESSION:1 . C4-5 disc degeneration.2. Straightening of the cervical lordosis which may be positional or antalgic.3. No active erosive changes and no osseous ankylosis. Cervical MRI 08/01/23 (RAYUS)IMPRESSION:1 . 2-3 mm central posterior disc protrusions at C6-7 and C5-6 without cord deformity.2. Mild C4-5 disc degeneration without stenosis or impingement.3. Mild multilevel upper thoracic disc degeneration with facet arthropathy at T3-4.4. No cord abnormality, and no neoplasm, fracture or infection. XR DXA Bone Density 2 sites Axial 11/16/23IMPRESSION: Normal bone density. 12/17/2023 Spondylosis without myelopathy or radiculopathy , cervical region (ICD-10 - M47.812) 1. I believe Melissa is an excellent candidate for the type of treatment available here at [facility]. I believe she will benefit from core and deep core muscle strength building to support the spine. We will utilize our MedX equipment to isolate on critical muscle groups to achieve, first, muscle re-education, recruitment and activation, and then strength. Range of motion and strength will be measured objectively, and the patient will work towards resistance goals calculated for them by the therapists. 2. Melissa has some complicating underlying conditions including ankylosing spondyloarthropat hy affecting primarily the lumbar spine, as well as psoriatic arthritis affecting the hands. 3. Melissa did receive a C5-6 epidural steroid injection on December 10, 2023. She cannot really discern any improvement in symptoms with the anesthetic phase of the injection. She has not received any benefit from the steroid component. In fact, she states that she has had increased neck pain. 4. The patient did undergo cervical spine MRI scanning on August 01, 2023. This revealed disc herniations at the C5-6 and C6-7 levels. There was no description of stenosis or impingement. 5. Both physical therapists and occupational therapists will have input into developing the patient's plan of care. This will be an active biopsychosocial care approach. In some cases, we will utilize a cognitive-behavio ral coaching emphasis. 6. In addition to strength building during appointment times, the patient will be provided a home exercise progression tailored to their needs. The goal will be to further improve functional mobility, strength, endurance and in some cases balance. The need for an aftercare exercise program will be addressed to help the patient maintain benefits gained during their course of treatment. 7. This individual has prominent trigger points in the cervical and scapulothoracic regions. In addition to stretching, strength building and postural improvements, they will likely benefit from certain manual therapy techniques. This includes teaching the patient to perform their own manual therapies for future self-management of symptoms. 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 She is accustomed to long-standing low back pain with prolonged standing. She is struggling with the need to elevate the arms and forward flex at the neck for long periods of time while engaged in her work. 9. Today's evaluation occupied a full 35 minutes altogether including time spent preparing to see the patient and then providing this documentation. Other program topics and elements may include: 1. Instruction in body mechanics, ergonomics, and functional training. 2. Pain neuroscience. 3. Sleep and diet. 4. Non-pharmacologic pain management. 5. Manual therapy techniques including self-care. 6. Meditation techniques such as conscious napping. 12/17/2023 Other cervical disc degeneration, unspecified cervical region (ICD-10 - M50.30) 1. I believe Melissa is an excellent candidate for the type of treatment available here at [facility]. I believe she will benefit from core and deep core muscle strength building to support the spine. We will utilize our MedX equipment to isolate on critical muscle groups to achieve, first, muscle re-education, recruitment and activation, and then strength. Range of motion and strength will be measured objectively, and the patient will work towards resistance goals calculated for them by the therapists. 2. Melissa has some complicating underlying conditions including ankylosing spondyloarthropat hy affecting primarily the lumbar spine, as well as psoriatic arthritis affecting the hands. 3. Melissa did receive a C5-6 epidural steroid injection on December 10, 2023. She cannot really discern any improvement in symptoms with the anesthetic phase of the injection. She has not received any benefit from the steroid component. In fact, she states that she has had increased neck pain. 4. The patient did undergo cervical spine MRI scanning on August 01, 2023. This revealed disc herniations at the C5-6 and C6-7 levels. There was no description of stenosis or impingement. 5. Both physical therapists and occupational therapists will have input into developing the patient's plan of care. This will be an active biopsychosocial care approach. In some cases, we will utilize a cognitive-behavio ral coaching emphasis. 6. In addition to strength building during appointment times, the patient will be provided a home exercise progression tailored to their needs. The goal will be to further improve functional mobility, strength, endurance and in some cases balance. The need for an aftercare exercise program will be addressed to help the patient maintain benefits gained during their course of treatment. 7. This individual has prominent trigger points in the cervical and scapulothoracic regions. In addition to stretching, strength building and postural improvements, they will likely benefit from certain manual therapy techniques. This includes teaching the patient to perform their own manual therapies for future self-management of symptoms. 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 She is accustomed to long-standing low back pain with prolonged standing. She is struggling with the need to elevate the arms and forward flex at the neck for long periods of time while engaged in her work. 9. Today's evaluation occupied a full 35 minutes altogether including time spent preparing to see the patient and then providing this documentation. Other program topics and elements may include: 1. Instruction in body mechanics, ergonomics, and functional training. 2. Pain neuroscience. 3. Sleep and diet. 4. Non-pharmacologic pain management. 5. Manual therapy techniques including self-care. 6. Meditation techniques such as conscious napping. 12/17/2023 Cervicogenic headache (ICD-10 - G44.86) 1. I believe Melissa is an excellent candidate for the type of treatment available here at [facility]. I believe she will benefit from core and deep core muscle strength building to support the spine. We will utilize our MedX equipment to isolate on critical muscle groups to achieve, first, muscle re-education, recruitment and activation, and then strength. Range of motion and strength will be measured objectively, and the patient will work towards resistance goals calculated for them by the therapists. 2. Melissa has some complicating underlying conditions including ankylosing spondyloarthropat hy affecting primarily the lumbar spine, as well as psoriatic arthritis affecting the hands. 3. Melissa did receive a C5-6 epidural steroid injection on December 10, 2023. She cannot really discern any improvement in symptoms with the anesthetic phase of the injection. She has not received any benefit from the steroid component. In fact, she states that she has had increased neck pain. 4. The patient did undergo cervical spine MRI scanning on August 01, 2023. This revealed disc herniations at the C5-6 and C6-7 levels. There was no description of stenosis or impingement. 5. Both physical therapists and occupational therapists will have input into developing the patient's plan of care. This will be an active biopsychosocial care approach. In some cases, we will utilize a cognitive-behavio ral coaching emphasis. 6. In addition to strength building during appointment times, the patient will be provided a home exercise progression tailored to their needs. The goal will be to further improve functional mobility, strength, endurance and in some cases balance. The need for an aftercare exercise program will be addressed to help the patient maintain benefits gained during their course of treatment. 7. This individual has prominent trigger points in the cervical and scapulothoracic regions. In addition to stretching, strength building and postural improvements, they will likely benefit from certain manual therapy techniques. This includes teaching the patient to perform their own manual therapies for future self-management of symptoms. 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 She is accustomed to long-standing low back pain with prolonged standing. She is struggling with the need to elevate the arms and forward flex at the neck for long periods of time while engaged in her work. 9. Today's evaluation occupied a full 35 minutes altogether including time spent preparing to see the patient and then providing this documentation. Other program topics and elements may include: 1. Instruction in body mechanics, ergonomics, and functional training. 2. Pain neuroscience. 3. Sleep and diet. 4. Non-pharmacologic pain management. 5. Manual therapy techniques including self-care. 6. Meditation techniques such as conscious napping. 12/17/2023 Dorsalgia, unspecified (ICD-10 - M54.9) 1. I believe Melissa is an excellent candidate for the type of treatment available here at [facility]. I believe she will benefit from core and deep core muscle strength building to support the spine. We will utilize our Med[employer] equipment to isolate on critical muscle groups to achieve, first, muscle re-education, recruitment and activation, and then strength. Range of motion and strength will be measured objectively, and the patient will work towards resistance goals calculated for them by the therapists. 2. Melissa has some complicating underlying conditions including ankylosing spondyloarthropat hy affecting primarily the lumbar spine, as well as psoriatic arthritis affecting the hands. 3. Melissa did receive a C5-6 epidural steroid injection on December 10, 2023. She cannot really discern any improvement in symptoms with the anesthetic phase of the injection. She has not received any benefit from the steroid component. In fact, she states that she has had increased neck pain. 4. The patient did undergo cervical spine MRI scanning on August 01, 2023. This revealed disc herniations at the C5-6 and C6-7 levels. There was no description of stenosis or impingement. 5. Both physical therapists and occupational therapists will have input into developing the patient's plan of care. This will be an active biopsychosocial care approach. In some cases, we will utilize a cognitive-behavio ral coaching emphasis. 6. In addition to strength building during appointment times, the patient will be provided a home exercise progression tailored to their needs. The goal will be to further improve functional mobility, strength, endurance and in some cases balance. The need for an aftercare exercise program will be addressed to help the patient maintain benefits gained during their course of treatment. 7. This individual has prominent trigger points in the cervical and scapulothoracic regions. In addition to stretching, strength building and postural improvements, they will likely benefit from certain manual therapy techniques. This includes teaching the patient to perform their own manual therapies for future self-management of symptoms. 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 She is accustomed to long-standing low back pain with prolonged standing. She is struggling with the need to elevate the arms and forward flex at the neck for long periods of time while engaged in her work. 9. Today's evaluation occupied a full 35 minutes altogether including time spent preparing to see the patient and then providing this documentation. Other program topics and elements may include: 1. Instruction in body mechanics, ergonomics, and functional training. 2. Pain neuroscience. 3. Sleep and diet. 4. Non-pharmacologic pain management. 5. Manual therapy techniques including self-care. 6. Meditation techniques such as conscious napping. 12/17/2023 Psoriatic arthritis (ICD-10 - L40.50) 1. I believe Melissa is an excellent candidate for the type of treatment available here at [facility]. I believe she will benefit from core and deep core muscle strength building to support the spine. We will utilize our Med[employer] equipment to isolate on critical muscle groups to achieve, first, muscle re-education, recruitment and activation, and then strength. Range of motion and strength will be measured objectively, and the patient will work towards resistance goals calculated for them by the therapists. 2. Melissa has some complicating underlying conditions including ankylosing spondyloarthropat hy affecting primarily the lumbar spine, as well as psoriatic arthritis affecting the hands. 3. Melissa did receive a C5-6 epidural steroid injection on December 10, 2023. She cannot really discern any improvement in symptoms with the anesthetic phase of the injection. She has not received any benefit from the steroid component. In fact, she states that she has had increased neck pain. 4. The patient did undergo cervical spine MRI scanning on August 01, 2023. This revealed disc herniations at the C5-6 and C6-7 levels. There was no description of stenosis or impingement. 5. Both physical therapists and occupational therapists will have input into developing the patient's plan of care. This will be an active biopsychosocial care approach. In some cases, we will utilize a cognitive-behavio ral coaching emphasis. 6. In addition to strength building during appointment times, the patient will be provided a home exercise progression tailored to their needs. The goal will be to further improve functional mobility, strength, endurance and in some cases balance. The need for an aftercare exercise program will be addressed to help the patient maintain benefits gained during their course of treatment. 7. This individual has prominent trigger points in the cervical and scapulothoracic regions. In addition to stretching, strength building and postural improvements, they will likely benefit from certain manual therapy techniques. This includes teaching the patient to perform their own manual therapies for future self-management of symptoms. 8. 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 She is accustomed to long-standing low back pain with prolonged standing. She is struggling with the need to elevate the arms and forward flex at the neck for long periods of time while engaged in her work. 9. Today's evaluation occupied a full 35 minutes altogether including time spent preparing to see the patient and then providing this documentation. Other program topics and elements may include: 1. Instruction in body mechanics, ergonomics, and functional training. 2. Pain neuroscience. 3. Sleep and diet. 4. Non-pharmacologic pain management. 5. Manual therapy techniques including self-care. 6. Meditation techniques such as conscious napping. 12/17/2023 Ankylosing spondylitis of multiple sites in spine (ICD-10 - M45.0) 1. I believe Melissa is an excellent candidate for the type of treatment available here at [facility]. I believe she will benefit from core and deep core muscle strength building to support the spine. We will utilize our MedX equipment to isolate on critical muscle groups to achieve, first, muscle re-education, recruitment and activation, and then strength. Range of motion and strength will be measured objectively, and the patient will work towards resistance goals calculated for them by the therapists. 2. Melissa has some complicating underlying conditions including ankylosing spondyloarthropat hy affecting primarily the lumbar spine, as well as psoriatic arthritis affecting the hands. 3. Melissa did receive a C5-6 epidural steroid injection on December 10, 2023. She cannot really discern any improvement in symptoms with the anesthetic phase of the injection. She has not received any benefit from the steroid component. In fact, she states that she has had increased neck pain. 4. The patient did undergo cervical spine MRI scanning on August 01, 2023. This revealed disc herniations at the C5-6 and C6-7 levels. There was no description of stenosis or impingement. 5. Both physical therapists and occupational therapists will have input into developing the patient's plan of care. This will be an active biopsychosocial care approach. In some cases, we will utilize a cognitive-behavio ral coaching emphasis. 6. In addition to strength building during appointment times, the patient will be provided a home exercise progression tailored to their needs. The goal will be to further improve functional mobility, strength, endurance and in some cases balance. The need for an aftercare exercise program will be addressed to help the patient maintain benefits gained during their course of treatment. 7. This individual has prominent trigger points in the cervical and scapulothoracic regions. In addition to stretching, strength building and postural improvements, they will likely benefit from certain manual therapy techniques. This includes teaching the patient to perform their own manual therapies for future self-management of symptoms. 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 She is accustomed to long-standing low back pain with prolonged standing. She is struggling with the need to elevate the arms and forward flex at the neck for long periods of time while engaged in her work. 9. Today's evaluation occupied a full 35 minutes altogether including time spent preparing to see the patient and then providing this documentation. Other program topics and elements may include: 1. Instruction in body mechanics, ergonomics, and functional training. 2. Pain neuroscience. 3. Sleep and diet. 4. Non-pharmacologic pain management. 5. Manual therapy techniques including self-care. 6. Meditation techniques such as conscious napping. 11/26/2023 Other Lisandro Hickman, am serving as a scribe to document services personally performed by Rory Saucedo PA-C, based upon my observations and the provider's statements to me. All documentation has been reviewed by the aforementioned IGNACIO as well as César Ramirez MD, prior to being entered into the official medical record. ICésar MD attest that the above named individual is acting in scribe capacity, has observed Rory Saucedo's performance of the services and has documented them in accordance with her direction. The documentation recorded by the scribe accurately reflects the service Rory Saucedo PA-C, personally performed and the decisions made by her. 12/17/2023 Other Lisandro Hickman, am serving as a scribe to document services personally performed by Maykel Sykes MD, based upon my observations and the provider's statements to me. All documentation has been reviewed by the aforementioned doctor prior to being entered into the official medical record. Maykel Hickman MD attest that the above named individual is acting in scribe capacity, has observed my performance of the services and has documented them in accordance with my direction. The documentation recorded by the scribe accurately reflects the service I personally performed and the decisions made by me. 1. I believe Melissa is an excellent candidate for the type of treatment available here at [facility]. I believe she will benefit from core and deep core muscle strength building to support the spine. We will utilize our MedX equipment to isolate on critical muscle groups to achieve, first, muscle re-education, recruitment and activation, and then strength. Range of motion and strength will be measured objectively, and the patient will work towards resistance goals calculated for them by the therapists. 2. Melissa has some complicating underlying conditions including ankylosing spondyloarthropat hy affecting primarily the lumbar spine, as well as psoriatic arthritis affecting the hands. 3. Melissa did receive a C5-6 epidural steroid injection on December 10, 2023. She cannot really discern any improvement in symptoms with the anesthetic phase of the injection. She has not received any benefit from the steroid component. In fact, she states that she has had increased neck pain. 4. The patient did undergo cervical spine MRI scanning on August 01, 2023. This revealed disc herniations at the C5-6 and C6-7 levels. There was no description of stenosis or impingement. 5. Both physical therapists and occupational therapists will have input into developing the patient's plan of care. This will be an active biopsychosocial care approach. In some cases, we will utilize a cognitive-behavio ral coaching emphasis. 6. In addition to strength building during appointment times, the patient will be provided a home exercise progression tailored to their needs. The goal will be to further improve functional mobility, strength, endurance and in some cases balance. The need for an aftercare exercise program will be addressed to help the patient maintain benefits gained during their course of treatment. 7. This individual has prominent trigger points in the cervical and scapulothoracic regions. In addition to stretching, strength building and postural improvements, they will likely benefit from certain manual therapy techniques. This includes teaching the patient to perform their own manual therapies for future self-management of symptoms. 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 She is accustomed to long-standing low back pain with prolonged standing. She is struggling with the need to elevate the arms and forward flex at the neck for long periods of time while engaged in her work. 9. Today's evaluation occupied a full 35 minutes altogether including time spent preparing to see the patient and then providing this documentation. Other program topics and elements may include: 1. Instruction in body mechanics, ergonomics, and functional training. 2. Pain neuroscience. 3. Sleep and diet. 4. Non-pharmacologic pain management. 5. Manual therapy techniques including self-care. 6. Meditation techniques such as conscious napping. Plan Of Treatment No Information Insurance Providers Payer Name Payer Address Payer Phone Subscriber Number Group Number Insured Name Patient Relationship to Insured Coverage Start Date Coverage End Date [facility] [address] [place] [address] [id number] Melissa Escobedo Self - patient is the insured [address] [place] [address] [address] [address] [place], [place] [id number] Melissa Escobedo Self - patient is the insured Medical (General) History Medical History History ICD Code Acid reflux Anxiety Arthritis Asthma Depression Headaches Hypertension Migraines Stomach Ulcers Surgical History Surgery Date(Month/Year) 2017 Lithotripsy 2018 Gull bladder 2020 Tonsil 2008 Hystorectomy 02/02 DNC 10/2022 Gastric Bypass 02/2022
--- OUTSIDE RECORDS SUMMARY | 2024-10-09 18:29 | XMS_ITS | Clinical Summary ---
Author Organization [facility] Address [address] [place] [address] Care Team Providers Care Trapeze Performer Name Role Phone Vero Alvarez MD Primary Care Provider [phone] Allergies Active Allergy Reactions Criticality Noted Date Comments Ergotamine-Caffeine 06/08/2024 Ergotamine 06/08/2024 Sumatriptan Shortness Of Breath High 08/27/2011 Lamotrigine Er Rash Low 08/27/2011 Nsaids 06/08/2024 H/o gastric bypass Penicillins Swelling High 08/27/2011 facial Tramadol 06/08/2024 Headache Medications * This document contains information received from the source organization and may not represent a complete record from that organization. Cholecalciferol (VITAMIN D) 2000 UNITS tablet Take 50 mcg by mouth daily. Active amLODIPine (NORVASC) 5 MG tablet Take 5 mg by mouth daily. Active clonazePAM (KLONOPIN) 0.5 MG tablet Take 0.5 mg by mouth daily as needed for anxiety. Active EPINEPHrine (ANY BX GENERIC EQUIV) 0.3 MG/0.3ML injection 2-pack Inject 0.3 mg into the muscle as needed for anaphylaxis. May repeat one time in 5-15 minutes if response to initial dose is inadequate. Active albuterol (PROAIR HFA/PROVENTIL HFA/VENTOLIN HFA) 108 (90 Base) MCG/ACT inhaler Inhale 1-2 puffs into the lungs every 6 hours as needed for shortness of breath, wheezing or cough. Active childrens multivitamin (ANIMAL SHAPES) CHEW chewable tablet Take 2 tablets by mouth daily. Active cyanocobalamin (VITAMIN B-12) [address] 1,000 mcg under the tongue daily. Active calcium citrate-vitamin D (CITRACAL) 315-6.25 MG-MCG TABS per tablet Take 1 tablet by mouth daily. Active DULoxetine HCl 40 MG CPEPIndications:Mo derate episode of recurrent major depressive disorder (H) Take 40 mg by mouth daily. 30 capsule 5 Active gabapentin (NEURONTIN) 300 MG capsuleIndications :Moderate episode of recurrent major depressive disorder (H) Take 1 capsule (300 mg) by mouth 3 times daily. 90 capsule 5 Active hydrOXYzine HCl (ATARAX) 25 MG tabletIndications: Moderate episode of recurrent major depressive disorder (H) Take 1 tablet (25 mg) by mouth 2 times daily as needed for anxiety. 5 Active pantoprazole (PROTONIX) 40 MG EC tabletIndications: Alcohol withdrawal syndrome, uncomplicated (H) Take 1 tablet (40 mg) by mouth every morning (before breakfast). 30 tablet 5 Active prazosin (MINIPRESS) 1 MG capsuleIndications :Moderate episode of recurrent major depressive disorder (H) Take 1 capsule (1 mg) by mouth at bedtime. 30 capsule 5 Active traZODone (DESYREL) 50 MG tabletIndications: Moderate episode of recurrent major depressive disorder (H) Take 1-2 tablets (50-100 mg) by mouth at bedtime. 5 Active Active Problems Problem Noted Date Diagnosed Date Alcohol withdrawal syndrome, uncomplicated 06/07 CARDIOVASCULAR SCREENING; LDL GOAL LESS THAN 160 09/16/2011 Condyloma acuminatum due to human papillomavirus 09/11/2011 Overview (01/12/2012): (Problem list name updated by automated process. Provider to review and confirm.) PCOS (polycystic ovarian syndrome) 09/10/2011 Overview (09/10/2011): Diagnosis 2010 in [place]; Irregular menses, u/s with cysts. Blighted ovum 09/10/2011 Abnormal Pap smear and cervical HPV (human papil lomavirus) 09/10/2011 Overview (05/25/2012): IMO update changed this record. Please review for accuracy Obesity 09/10/2011 Immunizations Immunization Administration Dates Next Due DTAP (<7y) 11/24/1991, 1,11/19/1988,1987, HIB (PRP-T) 07/20/1990 HPV 02/18/2008,04/28/2007,10/30/2006 HepB 04/30/2001,12/17/1999,03/31/1997 MMR (MMRII) 12/17/1999,11/19/1988 Poliovirus, inactivated (IPV) 07/20/1990, 988,1987 TD,PF 7+ (Tenivac) 09/12/1999 TDAP (Adacel,Boostrix) 02/18/2008 Family History Medical History Relation Comments Obesity Brother 1 Unknown/Adopted Maternal Grandfather Respiratory Maternal Grandmother Breast Cancer Mother Cardiovascular Mother Gynecology Mother Heart Disease Mother Hypertension Mother Obesity Mother Respiratory Mother Unknown/Adopted Paternal Grandfather Diabetes Paternal Grandmother Respiratory Paternal Grandmother Diabetes Paternal Uncle Relation Status Comments Brother 1 Alive Brother 2 Alive Father Alive Maternal Grandfather Maternal Grandmother Mother Alive Paternal Grandfather Paternal Grandmother Paternal Uncle Social History Tobacco Use Types Packs/Day Years Used Date Smoking Tobacco: Every Day Cigarettes Smokeless Tobacco: Never Tobacco Cessation:Ready to Q uit: Yes; Counseling Given: Yes Comments:discussed smoking cessation with patient Alcohol Use Standard Drinks/Week Comments No 0 (1 standard drink = 0.6 oz pur e alcohol) Adolescent Education Answer Date Record ed Getting School Help Needed Not on file 01/14 Food Insecurity Answer Date Recorded Within the past 12 months, d id you worry that your food would run out before you got money to buy more? No 06/07/2024 Within the past 12 months, d id the food you bought just not last and you didn t have money to get more? No 06/07/2024 Housing Stability Answer Date Recorded Do you have housing? (Housin g is defined as stable permanent housing and does not include staying outside in a car, in a tent, in an abandoned building, in an overnight mcfp, or couch-surfing.) Yes 06/07/2024 Are you worried about losing your housing? No 06/07/2024 Financial Resource Strain Answer Date R ecorded Within the past 12 months, h ave you or your family members you live with been unable to get utilities (heat, electricity) when it was really needed? No 06/07/2024 Transportation Needs Answer Date Record ed Within the past 12 months, h as lack of transportation kept you from medical appointments, getting your medicines, non-medical meetings or appointments, work, or from getting things that you need? No 06/07/2024 Interpersonal Safety Answer Date Record ed Do you feel physically and e motionally safe where you currently live? Yes 06/07/2024 Within the past 12 months, h ave you been hit, slapped, kicked or otherwise physically hurt by someone? No 06/07/2024 Within the past 12 months, h ave you been humiliated or emotionally abused in other ways by your partner or ex-partner? No 06/07/2024 Comments Unknown Sex and Gender Information Value Date Recorded Sex Assigned at Not on file Legal Sex Female 4:27 AM [employer]KHAND [employer]AM [employer]ED[employer] Gender Identity Not on file Sexual Orientation Not on file Last Filed Vital Signs Vital Sign Reading Time Taken Comments Blood Pressure 136/87 06/09/2024 7:34 AM [employer] Pulse 92 06/09/2024 7:34 AM [employer] Temperature 36.7 C (98 F) 06/09/2024 7:34 AM [employer] Respiratory Rate 16 06/09/2024 7:34 AM [employer]KH[employer] Oxygen Saturation 96% 06/09/2024 7:34 AM [employer]KH[employer] Inhaled Oxygen Concentration - - Weight 68 kg (150 lb) 06/07/2024 11:19 AM [employer] Height 167.6 cm (5' 6) 06/07/2024 11:19 AM [employer] Body Mass Index 24.21 06/07/2024 11:19 AM [employer] Plan of Treatment Health Maintenance Due Date Last Done Comments ADVANCE CARE PLANNING 1987 ANNUAL REVIEW OF HM ORDERS 1987 DEPRESSION ACTION PLAN 1987 YEARLY PREVENTIVE VISIT 1990 PHQ-9 11/13/2011 05/15/2011 COVID-19 VACCINE ( season) 2023 07/22/2022, 11/29/2021, 04/09/2021, Additional history exists INFLUENZA VACCINE (Season Ended) 2024 01/07/2022, 01/10/2021, 01/26/2019, Additional history exists PAP 02/28/2025 02/28/2022, 08/13, 09/10/2011 DTAP/TDAP/TD VACCINE (8 - Td or Tdap) 10/30/2026 10/30/2016, 02/18/2008, 09/12/1999, Additional history exists DIABETES SCREENING 06/08/2027 06/08/2024, 0 06/08/2024, 06/07/2024, Additional history exists ZOSTER VACCINE (1 of 2) 2037 HEPATITIS B VACCINE Completed 04/30/2001, 04/30/2001, 12/17/1999, Additional history exists HPV VACCINE Completed 02/18/2008, 04/13, 10/30/2006 HEPATITIS C SCREENING Completed 05/19/2016 HIV SCREENING Completed 05/19/2016, 08/21/2011 PNEUMOCOCCAL VACCINE: PEDIATRICS (0 to 5 YEARS) AND AT-RISK PATIENTS (6 to 49 YEARS) Completed 11/29/2021, 04/29/2016 MENINGITIS VACCINE Aged Out No longer eligible based on patient's age to complete this topic Procedures Procedure Name Priority Date/Time Associated Diagnosis Comments GLUCOSE BY METER Routine 06/08/2024 5:00 PM [employer] PAP IMAGED THIN LAYER SCREEN Routine 09/10/2011 2:08 PM CDT Abnormal Pap smear and cervical HPV (human papillomavirus) HIV 1 AND 2 ANTIBODY (QUEST) Routine 08/21/2011 8:19 AM CDT Missed menses from Last 3 Months or Most Recently Relevant to Health Maintenance Results * (ABNORMAL) Glucose by meter (06/08/2024 5:00 PM [employer]) GLUCOSE BY METER POCT 124(H) 70 - 99 mg/dL 06/08/2024 5:07 PM [employer] UR LABORATORY POC Blood, Capillary BLOOD SPECIMEN / Unknown 06/08/2024 5:00 PM [employer] 06/08/2024 5:07 PM [employer] us Danny TOBIAS - MATIAS POCT Final R esult UR LABORATORY POC [facility] [address] [place] [address], Room [address] [place] [address] * PAP imaged thin layer screen (09/10/2011 2:08 PM CDT) PAP NIL COPATH Copath Report Patient Name: IMTIAZ LAGUERRE MR#: [id number] Specimen #: [id number] Collected: 09/10/2011 Received: 09/11/2011 Reported: 09/15/2011 08:57 Ordering Phy(s): ULISES LITTLEJOHN SPECIMEN/STAIN PROCESS: Pap imaged thin layer prep screening (Surepath, FocalPoint with guided screening) Pap-Cyto x 1, HPV ordered x 1 SOURCE: Cervical, endocervical Pap imaged thin layer prep screening (Surepath, FocalPoint with guided screening) SPECIMEN ADEQUACY: Satisfactory for evaluation. -Transformation zone component present. CYTOLOGIC INTERPRETATION: Negative for Intraepithelial Lesion or Malignancy Electronically signed out by: LORELEI Newton (ASCP) Processed and screened at [facility] CLINICAL HISTORY: LMP: 07/17/11 , Papanicolaou Test Limitations: Cervical cytology is a screening test with limited sensitivity; regular screening is critical for cancer prevention; Pap tests are primarily effective for the diagnosis/preventi on of squamous cell carcinoma, not adenocarcinomas or other cancers. TESTING LAB LOCATION: [facility], [address] [place] [id number] COLLECTION SITE: Client: [facility] Location: [facility] (B) COPATH Cytologic material (specimen) 09/10/2011 2:08 PM CDT 09/11/2011 9:14 AM CDT us Ulises Littlejohn MD LAB - OPTIME CLINICAL SPECIMEN F inal Result COPATH * HIV 1 and 2 Antibody (08/21/2011 8:19 AM CDT) HIV 1&2 Antibody Negative NEG [facility] Blood specimen (specimen) 08/21/2011 8:19 AM CDT 08/21/2011 8:20 AM CDT us Ulises Littlejohn MD LAB - BLOOD ORDERABLES Final Res ult Performing Organization Address City/[facility]/ZIP Co de Phone Number [facility] [address] [place] [address] from Last 3 Months or Most Recently Relevant to Health Maintenance Advance Directives For more information, please contact: [phone] * Full Code (Latest Code Status on File) Date Activated Date Inactivated Comments 06/07/2024 4:01 PM 06/09/2024 12:42 PM All basic a nd advanced life-sustaining interventions are performed as appropriate Question Answer Comments Code status determined by: Unable to dis cuss and no AD/POLST on file; continue PREVIOUSLY ORDERED code status Care Teams Trapeze Performer Relationship Specialty Start Date End Date Vero Alvarez MD [facility] [address] [place] [address] PCP - General Family Medicine 06/07/24
--- OUTSIDE RECORDS SUMMARY | 2024-10-09 18:30 | XMS_ITS | Encounter Summary ---
Author Organization [facility] Address [address] [place] [address]. [place] [address] Care Team Providers Care Compensation Expert Name Role Phone Jeffry Laurent MD Primary Care Provider [phone] Vero Alvarez MD Primary Care Provider [phone] Encounter Details Date Type Department Care Team (Late st Contact Info) Description 05/27/2011 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
--- OUTSIDE RECORDS SUMMARY | 2024-10-09 18:30 | XMS_ITS | Encounter Summary ---
Author Organization [facility] Address [address] [place] [address]. [place] [address] Care Team Providers Care Fiberglass Model Maker Name Role Phone Jeffry Laurent MD Primary Care Provider [phone] Vero Alvarez MD Primary Care Provider [phone] Encounter Details Date Type Department Care Team (Late st Contact Info) Description 09/11/2011 [facility] Extended Documentation [address] [phone] Taurus Smith, [address] [address] Social History Tobacco Use Types Packs/Day Years Used Date Smoking Tobacco: Every Day Cigarettes Smokeless Tobacco: Never Comments:discussed smoking c essation with patient Alcohol Use Standard Drinks/Week Comments No 0 (1 standard drink = 0.6 oz pur e alcohol) Comments Yes Sex and Gender Information Value Date Recorded Sex Assigned at Not on file 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
--- NOTE | 2024-10-09 18:41 | ED.GENADULT ---
HPI - General Adult General Date Seen: 10/09/24 Chief complaint: Anxiety Stated complaint: Panic Attack Time Seen by Provider: 10/09/24 18:41 History of Present Illness HPI narrative: 39-year-old female brought to the ER today by EMS for evaluation of, anxiety and alcohol abuse. Per report she was brought into the ER today with concern for anxiety. She has multiple psychosocial stressors including being the caregiver for her son and her mother. Also her brother is sick. She has been through treatment for alcohol abuse in the past and has been sober since April. She has been binge drinking for the past few days. She does not want to use alcohol to cope but she has been using it to manage her anxiety. She has a past medical history of anxiety, Depression migraine headaches, asthma, GERD, OCD, depression,PSVT, ankylosing spondylitis. she reports that she had a pattern of alcohol abuse and had been drinking heavily for a month or so. She went through treatment last April and has been essentially sober from alcohol since then. After she with her treatment, she had follow-up with her psychiatrist ( clau Ontiveros at [facility]), and she says her psychiatrist took her off her long-term clonazepam. Prior to that she had been using clonazepam p.r.n. for anxiety. She was given a prescription for 15 tablets for each month and says she used it according to the prescription, as needed. However with concern for addiction, her psychiatrist took her off those meds. She is now managing her anxiety with hydroxyzine and gabapentin. She has been having increasing psychosocial stressors lately. Her son is special needs/ autistic and is having increasing behavior problems this summer because he is off of his school your routine. her mother is also mentally ill and disabled. She lives next door to the patient and relies on the patient for a lot of care and supervision. The patient has a brother who is somewhat helpful with his mother and also has a STRIP PICKER. However he is recently having health problems with problems from a gastric bypass so has not been able to help out with her mother. The patient also broken up with her boyfriend of 2 years last week. It sounds like he ended the relationship. He was her main source of support and allergies gone she feels really stressed out. She has been having escalating anxiety with frequent panic attacks, at least 4 per day for the past few days. Beginning on Thursday she started drinking alcohol in an attempt to cope with her anxiety. She says she drinks 2 white claws and a small amount a [place] each day. She did go to the vape shop this morning and got up vape pen that contains indica. She does not use any other drugs such as marijuana. She did not like how the indica made her feel. she had escalating anxiety this afternoon so she called the ambulance for herself. She desired some medicine to help with her anxiety. she was so anxious she thought her heart Might stop. She was having some chest pain related to a panic attack this afternoon. she has a history of OCD and has been having some obsessive thoughts that something bad might happen to her son. No hallucinations. No suicidal thoughts or thoughts of self-harm. , in fact, she is highly motivated to live and wants to be there to care for her son and her mother. No recent cough. No swelling in her legs. Related Data Home Medications ?Medication ?Instructions ?Recorded ?Confirmed amlodipine 5 mg tablet 5 mg PO DAILY 10/26/21 08/18/24 trazodone 50 mg tablet 50 - 100 mg PO HS PRN 10/26/21 08/18/24 duloxetine 60 mg capsule,delayed 60 mg PO QAM 11/06/21 08/18/24 release epinephrine 0.3 mg/0.3 mL 0.3 mg IM ONCE PRN 11/06/21 08/18/24 injection, auto-injector bupropion HCl 150 mg tablet,12 hr 150 mg PO DAILY 08/13/22 08/18/24 sustained-release calcium citrate 200 mg PO QDAY 11/21/22 08/18/24 cholecalciferol (vitamin D3) 10 10 mcg PO QDAY 11/21/22 08/18/24 mcg (400 unit) tablet ixekizumab 80 mg/mL subcutaneous 80 mg subcut Q4W 11/21/22 08/18/24 auto-injector ([employer]ong[employer] Autoinjector) multivitamin 1 tab PO QDAY 11/21/22 08/18/24 vitamin B complex (B 1 tab PO QDAY 11/21/22 08/18/24 Complex-Vitamin B12 tablet) hydroxychloroquine 200 mg tablet 200 mg PO BID 01/26/23 08/18/24 prochlorperazine maleate 10 mg 10 mg PO Q8H PRN 01/26/23 08/18/24 tablet triamcinolone acetonide 0.1 % 1 applic topical BID-TID PRN 01/26/23 08/18/24 topical cream albuterol sulfate 90 mcg/actuation 2 inh inhalation Q4H PRN 01/29/23 08/18/24 aerosol inhaler Previous Rx's ?Medication ?Instructions ?Recorded acetaminophen 500 mg tablet 1,000 mg (2 x 500 mg) PO Q6H PRN 11/03/22 Pain #0 tabs fluconazole 150 mg tablet 150 mg PO Q3D 2 doses #2 tabs 06/26/23 tamsulosin 0.4 mg capsule (Flomax) 0.4 mg PO DAILY PRN For ureteral 09/18/23 spasm #15 caps diclofenac sodium 1 % topical gel 2 g topical QID #100 grams 11/18/23 (Voltaren Arthritis Pain) omeprazole 40 mg capsule,delayed 40 mg PO DAILY #30 caps 02/07/24 release Allergies Allergy/AdvReac Type Severity Reaction Status Date / Time ergotamine (From Cafergot) Allergy Severe Anaphylaxis Verified 08/18/24 09:39 ketorolac (From Toradol) Allergy Severe Migraine Verified 08/18/24 09:39 tramadol Allergy Intermediate Headache Verified 08/18/24 09:39 lamotrigine (From Lamictal) Allergy rash Verified 08/18/24 09:39 NSAIDS (Non-Steroidal Allergy gastric Verified 08/18/24 09:39 Anti-Inflamma bypass Penicillins Allergy Anaphylaxis Verified 08/18/24 09:39 sumatriptan Allergy Anaphylaxis Verified 08/18/24 09:39 ondansetron AdvReac Intermediate Migraine Verified 08/18/24 09:39 [facility] Medical History History of gestational hypertension ?Z87.59 - Personal history of other complications of , childbirth and the puerperium (ICD-10) Spontaneous with heavy bleeding (11/03/22) ?O03.9 - Complete or unspecified spontaneous without complication (ICD-10) Low grade squamous intraepithelial lesion (2008) Paroxysmal SVT (supraventricular tachycardia) ?I47.1 - Supraventricular tachycardia (ICD-10) Nephrolithiasis (2010) ?N20.0 - Calculus of kidney (ICD-10) Surgical History History of tonsillectomy (02/25/08) ?Z90.89 - Acquired absence of other organs (ICD-10) H/O dilation and curettage ?Z98.890 - Other specified postprocedural states (ICD-10) History of esophageal dilatation ?Z98.890 - Other specified postprocedural states (ICD-10) 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) ?Z98.84 - Bariatric surgery status (ICD-10) H/O nasal septoplasty ?Z98.890 - Other specified postprocedural states (ICD-10) H/O wisdom tooth extraction ?K08.409 - Partial loss of teeth, unspecified cause, unspecified class (ICD-10) Status post colposcopy (01/2009) ?Z98.890 - Other specified postprocedural states (ICD-10) Status post laser lithotripsy of ureteral calculus (05/17/18) ?Z98.890 - Other specified postprocedural states (ICD-10) S/P (01/21/17) ?Z98.891 - History of uterine scar from previous surgery (ICD-10) Status post cholecystectomy (01/17/21) ?Z90.49 - Acquired absence of other specified parts of digestive tract (ICD-10) Family History Mother Coronary artery disease Anxiety CHF (congestive heart failure) COPD (chronic obstructive pulmonary disease) Brother ADHD (attention deficit hyperactivity disorder) Paternal Grandfather DVT (deep venous thrombosis) Aunt Renal cancer Other Breast cancer Diabetes High blood pressure Kidney disease Leukemia Liver disease Lung cancer Stroke Social History Narrative: Lives in [place] with her son, 5 yo. 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 Also works at [employer]. She smokes 1/2 PPD. Occ ETOH use. No recreational drug use. What is your current living situation?: I presently have a place to live Problems where you live: no known problems In the past 12 months, utilities in danger of being shut off: no In past 12 months, lack of transportation kept you from medical appts, meetings, work, or getting things needed for daily living: no In the past 12 mos, have been you worried that your food would run out before you had money to buy more?: never true In the past 12 mos, the food you bought just didn't last and you didn't have money to buy more?: never true Highest level of school completed/degree received: high school graduate Smoking Status: Heavy tobacco smoker What tobacco products do you use: cigarettes Smoking packs per day: 0.5 Smoking cigarettes per day: 10.0 Years smoked: 23 Smoking pack-years: 11.50 Do you use any of these nicotine containing products: None Second hand tobacco smoke exposure: Yes How often do you have a drink containing alcohol: 2-4 times a month Alcohol type: wine and hard liquor AUDIT-C Alcohol total score: 2 Non-prescribed substance use: denies use Caffeine: Yes (soda, energy drinks) How often does anyone, including family, friends and others, physically hurt you: never How often does anyone, including family, friends and others, insult or talk down to you: never How often does anyone, including family, friends and others, threaten you with harm: never How often does anyone, including family, friends and others, scream or curse at you: never Are you using contraception or practicing any form of control: No service: No Exam Narrative: Exam Narrative: Constitutional: Appears well-developed and well-nourished. Alert. Conversant. Non toxic. Ambulatory in the hallway coming back from the bathroom. HENT: Head: Atraumatic. Nose: Nose normal. Mouth/Throat: Oral mucosa is clear and moist. no trismus. Pharynx normal. Tonsils symmetric. No tonsillar enlargement, erythema, or exudate. Eyes: Conjunctivae normal. EOM normal. Pupils equal, round, and reactive to light. No scleral icterus. Neck: Normal range of motion. Neck supple. No tracheal deviation present. Cardiovascular: Sinus tachycardia, 107 on the monitor, regular rhythm. No gallop. No friction rub. No murmur heard. Symmetric radial artery pulses Pulmonary/Chest: Effort normal. No stridor. No respiratory distress. No wheezes. No rales. No rhonchi . No tenderness. Abdominal: Soft. Bowel sounds normal. No distension. No mass. No tenderness. No rebound. No guarding. no CVA tenderness. Musculoskeletal: RUE: Normal range of motion. No tenderness. No deformity LUE: Normal range of motion. No tenderness. No deformity RLE: Normal range of motion. No edema. No tenderness. No deformity LLE: Normal range of motion. No edema. No tenderness. No deformity Neurological: Alert and oriented to person, place, and time. Normal strength. CN II-VII intact. No sensory deficit. GCS eye subscore is 4. GCS verbal subscore is 5. GCS motor subscore is 6. Normal coordination Skin: Skin is warm and dry. No rash noted. No pallor. Normal capillary refill. Psychiatric: Endorses major uncontrollable anxiety at home with multiple panic attacks and thoughts that she might spontaneously . Also having chest pains. Has multiple stressors. See HPI. Const: Vital Signs, click to edit/add: Vital Signs - 24 hr 10/09/24 18:36 10/09/24 19:24 10/09/24 19:30 Temperature 97.6 F Pulse Rate 97 94 Pulse Rate [Right Pulse Oximeter] 116 H Respiratory Rate 18 20 21 Blood Pressure Blood Pressure [Ri ght Upper Arm] 148/95 H Pulse Oximetry 96 94 [facility] 10/09/24 19:32 10/09/24 19:45 10/09/24 20:00 Temperature Pulse Rate 93 97 98 Pulse Rate [Right Pulse Oximeter] Respiratory Rate 23 19 21 Blood Pressure 149/95 H Blood Pressure [Ri ght Upper Arm] Pulse Oximetry 94 93 94 [facility] 10/09/24 20:01 10/09/24 20:15 10/09/24 20:30 Temperature Pulse Rate 98 99 104 H Pulse Rate [Right Pulse Oximeter] Respiratory Rate 21 20 Blood Pressure 146/98 H Blood Pressure [Ri ght Upper Arm] Pulse Oximetry 94 94 94 [facility] 10/09/24 20:31 10/09/24 20:45 10/09/24 21:00 Temperature Pulse Rate 102 H 102 H 94 Pulse Rate [Right Pulse Oximeter] Respiratory Rate 10 L 14 19 Blood Pressure 142/98 H Blood Pressure [Ri ght Upper Arm] Pulse Oximetry 94 95 93 Oxygen Delivery Me thod 10/09/24 21:01 10/09/24 21:15 10/09/24 21:30 Temperature Pulse Rate 90 99 94 Pulse Rate [Right Pulse Oximeter] Respiratory Rate 18 20 18 Blood Pressure 146/98 H Blood Pressure [Ri ght Upper Arm] Pulse Oximetry 91 93 93 Oxygen Delivery Me thod 10/09/24 21:32 Temperature Pulse Rate 95 Pulse Rate [Right Pulse Oximeter] Respiratory Rate 18 Blood Pressure 148/98 H Blood Pressure [Ri ght Upper Arm] Pulse Oximetry 94 Oxygen Delivery Me thod Course Vital Signs Vital signs: Initial Vital Signs Temperature 97.6 F 10/09/24 18:36 Temperature Source Temporal Artery Scan 10/09/24 18:36 Pulse Rate 116 H 10/09/24 18:36 Respiratory Rate 18 10/09/24 18:36 Blood Pressure 148/95 H 10/09/24 18:36 Blood Pressure Mean 112 H 10/09/24 18:36 Blood Pressure Position Sitting 10/09/24 18:36 Pulse Oximetry 96 10/09/24 18:36 Oxygen Delivery Method Room Air 10/09/24 18:36 Vital Signs Temperature 97.6 F 10/09/24 18:36 Pulse Rate 116 H 10/09/24 18:36 Respiratory Rate 18 10/09/24 18:36 Blood Pressure 148/95 H 10/09/24 18:36 Pulse Oximetry 96 10/09/24 18:36 Oxygen Delivery Method Room Air 10/09/24 18:36 Temperature 97.6 F 10/09/24 18:36 Pulse Rate 95 10/09/24 21:32 Respiratory Rate 18 10/09/24 21:32 Blood Pressure 148/98 H 10/09/24 21:32 Pulse Oximetry 94 10/09/24 21:32 Oxygen Delivery Method Room Air 10/09/24 18:36 Medications Administered Medications: Discontinued Medications Generic Name Dose Route Start Last Admin Trade Name Freq PRN Reason Stop Dose Admin Lorazepam 1 mg 10/09/24 19:10 10/09/24 19:16 Lorazepam 1 Mg Tablet PO 10/09/24 19:11 1 mg ONCE ONE Administration Medical Decision Making MDM Narrative Medical decision making narrative: 39-year-old female with a complex past medical history presents to the ER today from home by EMS with concern for anxiety and panic attacks and chest pain and concerned that she was going to . With the patient's reporting symptoms of chest pain she was brought back immediately to ER room 2 we obtained an EKG which showed sinus rhythm (sinus tachycardia) and no ischemia. Patient was anxious and panicky when she arrived. Heart rate improved with anxiolysis. She had no hypoxia or pleuritic pain to suggest PE. At this point I do not think she needs further workup with troponin testing, chest x-ray, D-dimer. She was treated with Ativan and had resolution of her symptoms here in the ER [facility] feel that she is safe for discharge home. Patient notes that she has very poor control of her anxiety with her current med regimen which is prescribed by her psychiatrist to the [facility] system, Clau diez. She had been better controlled with benzos, but was taken off them 6 months ago after treatment for alcohol. At this point I think it is reasonable to give her a short supply of Ativan that she can use for the next couple of days until she can follow up with her psychiatrist for further med adjustments. The patient will call her provider at [facility] tomorrow morning to arrange her ER follow-up visit. Benzo precautions reviewed, risk for addiction reviewed. Sedation precautions reviewed. Patient understands that we cannot give further prescriptions for benzos through the emergency department. Precautions for return to the ER reviewed however and she is invited to come back if she has any worsening symptoms or other problems. ECG Data Attestation: I personally reviewed and interpreted this ECG as follows: Interpretation: Sinus tachycardia Rate: 105 MA: 142 QRS axis: normal axis ST segment/T wave: no ST segment elevation or depression QTc: 494 Discharge Plan Discharge Clinical Impression: Anxiety Patient Disposition: Home, Self-Care Condition: Stable Instructions: Panic Disorder (ED), Anxiety (ED) Additional Instructions: As we discussed, please call your doctor, Clau Howard, the [facility] clinic tomorrow morning to arrange an ER follow-up visit. Use the Ativan if needed for anxiety and panic attacks. Be careful because Ativan can cause dizziness and drowsiness. Do not mix it with alcohol or other substances. Do not drive for 6 hours after taking Ativan. Ativan is addictive. The prescription were giving you tonight is of temporary prescription that you can use if needed for the next couple of days. Talk to your regular doctor about a more long-term solution for managing your anxiety. If you have any worsening symptoms or thoughts of self-harm, or any other concerns, please return to the ER right away. Prescriptions: No [employer] Autoinjector 80 mg/mL auto-injector 80 mg subcut Q4W vitamin B complex [B Complex-Vitamin B12] Tablet 1 tab PO QDAY cholecalciferol (vitamin D3) 10 mcg (400 unit) tablet 10 mcg PO QDAY calcium citrate 200 mg (950 mg) tablet 200 mg PO QDAY multivitamin Tablet 1 tab PO QDAY fluconazole 150 mg tablet 150 mg PO Q3D Qty: 2 0RF Rx Instructions: may repeat second dose 72 hrs after first dose if symptoms persist diclofenac sodium [Voltaren Arthritis Pain] 1 % gel 2 g topical QID Qty: 100 0RF Rx Instructions: apply sparingly to right knee for 7 days epinephrine 0.3 mg/0.3 mL auto-injector 0.3 mg IM ONCE PRN duloxetine 60 mg capsule,delayed release(DR/EC) 60 mg PO QAM bupropion HCl 150 mg tablet sustained-release 12 hr 150 mg PO DAILY prochlorperazine maleate 10 mg tablet 10 mg PO Q8H PRN triamcinolone acetonide 0.1 % cream 1 applic topical BID-TID PRN hydroxychloroquine 200 mg tablet 200 mg PO BID albuterol sulfate 90 mcg/actuation HFA aerosol inhaler 2 inh inhalation Q4H PRN omeprazole 40 mg capsule,delayed release(DR/EC) 40 mg PO DAILY Qty: 30 2RF trazodone 50 mg tablet 50 - 100 mg PO HS PRN amlodipine 5 mg tablet 5 mg PO DAILY acetaminophen 500 mg Tablet 1,000 mg PO Q6H PRN (Reason: Pain) Qty: 0 0RF tamsulosin [Flomax] 0.4 mg capsule 0.4 mg PO DAILY PRN (Reason: For ureteral spasm) Qty: 15 2RF Follow Up/Referrals: Vero Alvarez MD [Primary Care Provider, Family Practice] Stand Alone Forms: [facility] Info Instructions
[2024-10-09] MEDS: LORazepam 1 MG TABLET PO (19:16)
== END 2024-10-09 22:27 | disposition home or self-care (01) ==
PROVIDERS: Emergency Provider Emergency Medicine; PCP Family Medicine
DX: F41.9 Anxiety disorder, unspecified (principal); R07.9 Chest pain, unspecified; Z79.899 Other long term (current) drug therapy
CPT/HCPCS: 93005; 99283; 99284; A9270

== ENCOUNTER 2024-10-25 11:37 | Emergency (ER) | payer OTHER, SELFPAY ==
--- OUTSIDE RECORDS SUMMARY | 2021-11-13 19:00 | XMS_ITS | Continuity of Care Document ---
Author Organization [facility] Address [address] [address] [place] [address] Phone Care Team Providers Care Insulation Cupola Operator Name Role Phone Go Carmine AZAR Unavailable Unavailable Procedures Procedure Date Init Inpt Cons New/est Mod-hi 2 Ercp; W/sphincterotomy/papillo Ercp; W/endo Retro Remov Stone ERCP w/stent & sphinc Subsqt Hosp-da E&m Minr Compl 2 Advance Directives Directive Yes / No Effective Date File Name No Information Encounters Encounter Description Practice Location Reason(s) For Visit Diagnoses Date Provider Providers Copied on Encounter Init Inpt Cons New/est Mod-hi [facility], [address] [address], [facility] [place], [id number], [place] tel:[phone] [facility] No Information [address] Ebenezer [address] [facility], [facility] [address], [place], [place], [id number] , [place]. tel:[phone] Referring Provider: Vero Alvarez MD, [address] [place] [address], [place], [address]. tel:[phone] [facility], [address] [address], [place], [id number], [place] tel:[phone] [facility] [place] [address] Francisco Spear [address] [facility], [facility] [address], [place], [place], [id number] , [place]. tel:[phone] [facility], [address] [address], [place], [id number], [place] tel:[phone] [facility] [place] [address] Adama Lindsey. [address] [facility], [address], [place], [id number] , [place]. tel: [phone] Family History Family Member Type Diagnosis Age At Onset No Information Payers Payer name Insurance type Covered libertarian ID david aguila(s) [facility] [id number] Social History Type Description Quantity Date Captured Comments Sex Female Smoking Status No Information Chief Complaint And Reason For Visit No Information Reason For Referral Reason For Referral No Information Plan Of Treatment Date Type Action Status Referral Ordered: EUS Appointment date/timeframe: First Available ordered Referral Ordered: ERCP Appointment date/timeframe: First Available ordered History Of Present Illness Encounter Date Complaint History Of Prese nt Illness No Information Functional Status Date Functional Assessmen t No Information Instructions Date Instruction Additional Infor mation Xray Abdomen; Limited (AP View O nly) (KUB) Assessments Type Assessment Date No Information Patient Care Teams Name Effective Dates (start - stop) Status Members No Information
--- OUTSIDE RECORDS SUMMARY | 2024-02-04 05:30 | XMS_ITS ---
Author Organization [facility] Address [address] [place] [address] [address] [place] [address] Care Team Providers Care Cultural Historian Name Role Phone Vero Alvarez Primary Care Provider UnavailCésar Naranjo Unavailable [phone] Derrek AZAR, Veronica Unavailable Unavailable Andrez Phillips Unavailable [phone] Encounters Encounter Location Date Provider Diagnosis [facility] [address] [place] [address] 02/04/2024 Andrez Phillips Plan Of Treatment No Information Progress Notes * Melissa LAGUERRE ADOB: [birth year] (39 yo F)Acc No.[id number]:02/04/2024 Daily Note Patient: Joe HOWARDMelissa KELLEY Provider: MARIBEL Guzman/Emy :1985 A ge:38 Y S ex:Female Date:02/04/2024 Phone: Address:[address] [place] [address], [address] [place], [phone] Pcp:Vero Alvarez Subjective: * Chief Complaints: Objective: Therapeutic Interventions: Assessment: Plan: * Treatment: * Billing Information: * Visit Code: * Procedure Codes: * Electronic signature of MARIBEL Lu/Emy on 10/25/2024 at 11:39 AM CDT Sign off status: Pending * Provider: MARIBEL Guzman/Emy Date: Generated for Printi ng/Faxing/eTransmitting on: 0 10/25/2024 11:39 AM CDT
--- OUTSIDE RECORDS SUMMARY | 2024-02-09 05:30 | XMS_ITS ---
Author Organization [facility] Address [address] [place] [address] [address] [place] [address] Care Team Providers Care Illustrator Set Name Role Phone Vero Alvarez Primary Care Provider UnavailCésar Naranjo Unavailable [phone] Derrek AZAR, Veronica Unavailable Unavailable Brandy Reynolds Unavailable [phone] Encounters Encounter Location Date Provider Diagnosis [facility] [address] [place] [address] 02/09/2024 Brandy Reynolds Plan Of Treatment No Information Progress Notes * Melissa LAGUERRE ADOB: [birth year] (39 yo F)Acc No.[id number]:02/09/2024 Daily Note Patient: Joe NICHOLS Melissa Yasmine Provider: YOLANDA Santo Resource:Laura Howell :1985 A ge:38 Y S ex:Female Date:02/09/2024 Phone: Address:[address] [place], [phone] Pcp:Vero Alvarez Subjective: * Chief Complaints: Objective: Therapeutic Interventions: Assessment: Plan: * Treatment: * Billing Information: * Visit Code: * Procedure Codes: * Electronic signature of YOLANDA Alonzo on 10/25/2024 at 11:39 AM CDT Sign off status: Pending * Provider: YOLANDA Santo Date: 1 Generated for Printi ng/Faxing/eTransmitting on: 0 10/25/2024 11:39 AM CDT
--- OUTSIDE RECORDS SUMMARY | 2024-02-11 05:30 | XMS_ITS ---
Author Organization [facility] Address [address] [place] [address] [address] [place] [address] Care Team Providers Care Labor Operator Name Role Phone Vero Alvarez Primary Care Provider UnavailCésar Naranjo Unavailable [phone] Derrek AZAR, Veronica Unavailable Unavailable Andrez Phillips Unavailable [phone] Encounters Encounter Location Date Provider Diagnosis [facility] [address] [place] [address] 02/11/2024 Andrez Phillips Plan Of Treatment No Information Progress Notes * Melissa LAGUERRE ADOB: [birth year] (39 yo F)Acc No.[id number]:02/11/2024 Daily Note Patient: Joe HOWARDMelissa KELLEY Provider: MARIBEL Guzman/Emy :1985 A ge:38 Y S ex:Female Date:02/11/2024 Phone: Address:[address] [place] [address], [address] [place], [phone] Pcp:Vero Alvarez Subjective: * Chief Complaints: Objective: Therapeutic Interventions: Assessment: Plan: * Treatment: * Billing Information: * Visit Code: * Procedure Codes: * Electronic signature of MARIBEL Lu/Emy on 10/25/2024 at 11:40 AM CDT Sign off status: Pending * Provider: MARIBEL Guzman/Emy Date: 1 Generated for Printi ng/Faxing/eTransmitting on: 0 10/25/2024 11:40 AM CDT
[2024-10-25 11:40] VITALS: BP 163/98; PULSE 100; RESP 18; TEMP 36.6; O2SAT 96; BMI 25.8
--- OUTSIDE RECORDS SUMMARY | 2024-10-25 11:40 | XMS_ITS | Patient Health Record ---
Author Organization [facility] Address [address] [place] [address] [address] [place] [address] Care Team Providers Care Automatic Packer Operator Name Role Phone Vero Alvarez Primary Care Provider UnavailCésar Naranjo Unavailable [phone] Veronica Anglin MD Unavailable Unavailable Umberto Fish Unavailable [phone] Brandy Reynolds Unavailable [phone] Andrez Phillips Unavailable [phone] Maykel Sykes Unavailable [phone] Johnny Tomlinson Unavailable [phone] Sara Malave Unavailable [phone] Andrez Hammonds Unavailable [phone] Allergies Allergen (clinical drug ingredient) Drug/Non Drug [...] Dr. Sykes, call patient to schedule at [phone]. REHAB *PHYSICIAN CONSULT PMR/OCC MED Diagnosis 1 Spondylosis without myelopathy or radiculopathy, cervical region (M47.812) Diagnosis 2 Low back pain, unspe cified (M54.50) Referral Organization [facility] Referring Provider First Name Rory Referring Provider Last Name Lewis Referring Provider Speciality Physician Radiation Oncology Nurse Referred Organization [facility] Referred Provider Donell Olivares Referred Address [address] [facility] [address], [place],[address],[place] Referred Provider Specialty Rehabilitati on General Notes [...] Referred Provider Donell Olivares Referred Address [address] [facility],[place], [place],[address], Referred Provider Specialty Rehabilitati on General Notes [...] W/U Status Risk Notes Problem Chronic pain (46919612) Other chronic pain (G89.29) Active confirmed Problem Ankylosing spondylitis (7520442) Ankylosing spondylitis of multiple sites in spine (M45.0) Active confirmed Problem Cervical spondylosis without myelopathy (291714745) Spondylosis without myelopathy or radiculopathy, cervical region (M47.812) Active confirmed Problem Degeneration of cervical intervertebral disc (88836406) Other cervical disc degeneration, unspecified cervical region (M50.30) Active confirmed Problem Cervical radiculopathy (22072670) Radiculopathy, cervical region (M54.12) Active confirmed Problem Cervicalgia (52630830) Cervicalgia (M54.2) Active confirmed Problem Backache (000995814) Dorsalgia, unspecified (M54.9) Active confirmed Problem Cervicogenic headache (736730120) Cervicogenic headache (G44.86) Active confirmed Problem Low back pain (416067680) Low back pain, unspecified (M54.50) Active confirmed Problem Psoriatic arthritis (585699145) Psoriatic arthritis (L40.50) Active confirmed Vital Signs Blood pressure diastolic 88 mm Hg 12/17/2023 Height 66 in 12/17/2023 Blood pressure systolic 132 mm Hg 12/17/2023 Weight 135 lbs 12/17/2023 BMI 21.79 kg/m2 12/17/2023 Procedures Procedure Date Ordered Date Performed Result Body Sit e Intervention: 11/26/2023 12/01/2023 Sched 12/09 Encounters Encounter Location Date Provider Diagnosis [facility] [address] [address] 11/26/2023 César Ramirez Spondylosis without myelopathy or radiculopathy, cervical region M47.812 ; Low back pain, unspecified M54.50 and Other chronic pain G89.29 [facility] [address] [facility] [address] [place] [address] 12/10/2023 César Ramirez Radiculopathy, cervical region M54.12 [facility] [address] [place] [address] 12/17/2023 Maykel Onel Low back pain, unspecified M54.50 ; Cervicalgia M54.2 ; Spondylosis without myelopathy or radiculopathy, cervical region M47.812 ; Other cervical disc degeneration, unspecified cervical region M50.30 ; Cervicogenic headache G44.86 ; Dorsalgia, unspecified M54.9 ; Psoriatic arthritis L40.50 and Ankylosing spondylitis of multiple sites in spine M45.0 [facility] [address] [place] [address] [address] [facility] [place] [address] 11/30/2023 César Ramirez [facility] [address] [place] [address] [address] [facility] [place] [address] 12/08/2023 César Ramirez [facility] [address] [place] [address] [address] [place] [address] 01/14/2024 César Ramirez Assessments Encounter Date Diagnosis (ICD Code) Assessment Notes Treatment Notes Treatment Clinical Notes Section Notes 11/26/2023 Spondylosis without myelopathy or radiculopathy , cervical region (ICD-10 - M47.812) 11/26/2023 Low back pain, unspecified (ICD-10 - M54.50) 12/10/2023 Radiculopathy , cervical region (ICD-10 - M54.12) 12/17/2023 Cervicalgia (ICD-10 - M54.2) 1. I believe Melissa is an excellent candidate for the type of treatment available here at [facility]. 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 She is accustomed to long-standing low back [...] the type of treatment available here at [facility]. 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 11/26/2023 Other chronic pain (ICD-10 - G89.29) Melissa presents to the clinic for an evaluation regarding her neck, bilateral upper extremity and low back pain. I have reviewed her symptoms and current medications. I checked the [facility] database and I did not find any [...] proceeeding therefore a referral was sent to [facility] for an intial consult with Dr. Sykes. Regarding medications, to help better manage her [...] Consider C2-4 MBB/RFA workup 4. Referral to [facility] for consult with Dr. Sykes 5. [...] the type of treatment available here at [facility]. 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 She is accustomed to long-standing low back [...] the type of treatment available here at [facility]. 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 She is accustomed to long-standing low back [...] the type of treatment available here at [facility]. 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 She is accustomed to long-standing low back [...] the type of treatment available here at [facility]. 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 She is accustomed to long-standing low back [...] the type of treatment available here at [facility]. 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 She is accustomed to long-standing low back [...] the type of treatment available here at [facility]. 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 She is accustomed to long-standing low back [...] the type of treatment available here at [facility]. 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 She is accustomed to long-standing low back [...] Insured Coverage Start Date Coverage End Date [facility] [address] [place] [address] [id number] Melissa Escobedo Self - patient is the insured [address] [place] [address] [address] [address] [place], [place] [phone] [id number] Melissa Escobedo Self - patient is the insured Medical (General) History Medical History History ICD Code Acid reflux Anxiety Arthritis Asthma Depression Headaches Hypertension Migraines Stomach Ulcers Surgical History Surgery Date(Month/Year) 2017 Lithotripsy 2018 Gull bladder 2020 DNC 10/2022 Tonsil 2008 Hystorectomy 02/02 Gastric Bypass 02/2022
--- OUTSIDE RECORDS SUMMARY | 2024-10-25 11:40 | XMS_ITS | Clinical Summary ---
Author Organization [facility] Address [address] [place] [address] Care Team Providers Care Bankruptcy Processor Name Role Phone Vero Alvarez MD Primary Care Provider Joseph Menendez MD Unavailable Janis Mcgarry RN Unavailable [phone] Unavailable [phone] Adamaris Wood Unavailable [phone] Allergies Active Allergy Reactions Criticality Noted Date [...] Ann Marie Concepcion RN, Bariatric Nurse Clinician, [facility] Weight Management 02/20/2022 Ondansetron Headache,Other - [...] by mouth once daily. 01/20/20 23 Active calcium citrate (CITRACAL) 200 mg (950 mg) tablet Take by mouth. 11/22/19 23 Active vitamin B complex (B-COMPLEX VITAMIN) tablet Take 1 Tablet by mouth. 11/22/19 23 Active prochlorperazine (COMPAZINE) 10 mg tabletIndication s:Nausea TAKE ONE TABLET BY MOUTH EVERY 8 HOURS NEEDED FOR NAUSEA AND VOMITING 30 Tablet 10/29/19 24 Active glucose 4 gram chewable tabletIndication [...] mouth three times daily. 06/09/19 25 Active traZODone 50 mg tabletIndication s:Psychophysiolo gic insomnia Take 1-2 Tablets (50-100 mg) by mouth at bedtime if needed for Sleep. 180 Tablet 3 08/11/19 25 Active hydrOXYzine HCL (ATARAX) 50 mg tabletIndication s:Generalized anxiety disorder with panic attacks Take 1-2 tabs (50-100mg) up to twice daily as needed for anxiety 60 Tablet 1 10/20/19 25 Active prazosin (MINIPRESS) 1 mg capsuleIndicatio ns:Nightmares Take 2 Capsules (2 mg) by mouth at bedtime. 60 Capsule 2 10/20/19 25 Active DULoxetine (CYMBALTA) 60 mg Delayed-release capsuleIndicatio ns:MDD (major depressive disorder), recurrent episode, mild,Generalized anxiety disorder with panic attacks Take 1 Capsule (60 mg) by mouth once daily. 90 Capsule 10/20/19 25 Active predniSONE (DELTASONE) 5 mg tablet Take 5 mg by mouth once daily with a meal. Not taking 01/20/20 23 025 Discontin ued(*Med complete/ Regimen complete/ Level of care change) DULoxetine 60 mg Delayed-release capsuleIndicatio ns:MDD (major depressive disorder), recurrent episode, mild,Generalized anxiety disorder with panic attacks Take 1 Capsule (60 mg) by mouth once daily. 07/08/19 25 025 Discontin ued(Reord er (E-cancel not sent)) hydrOXYzine HCL 25 mg tabletIndication s:Generalized anxiety disorder with panic attacks Take one-half to one tablet (12.5-25mg ) up to twice daily as needed for anxiety 60 Tablet 3 07/08/19 25 025 Discontin ued(Reord er (E-cancel not sent)) prazosin 1 mg capsuleIndicatio ns:Nightmares Take 1 Capsule (1 mg) by mouth at bedtime. 30 Capsule 2 08/11/19 25 025 Discontin ued(Reord er (E-cancel not sent)) Active Problems Problem Noted Date Diagnosed Date Gastric ulcer 11/30/2023 Epigastric pain 11/24/2023 Paroxysmal SVT (supraventricular tachycardia) S/P robotic gastric bypass by Dr. Menendez Overview (02/18/2022): Surgery 02/19/2022 238 lbs BMI 38 Choledocholithiasis 11/13/2021 Ankylosing spondylitis of lumbar region 11/04/19 Overview (11/03/2021): 06/2021 [facility] Rheumatology diagnosis Psoriatic arthritis 11/03/2021 Overview (11/03/2021): 06/2021 [facility] rheumatology diagnosis Controlled substance agreement signed 10/31/2021 Overview (10/31/2021): 10/31/21 Sarah Ontiveros DNP TARRING MACHINE OPERATOR LOGISTICIAN/psychiatry Paroxysmal SVT (supraventricular tachycardia) Severe episode of recurrent major depressive disorder, without psychotic features 05/28/2021 Obsessive Compulsive Disorde r, with mixed obsessional thoughts and acts 04/30/2020 JOEY I (cervical intraepithelial neoplasia I) 10/2019 Overview (03/28/2022): Plan: Pap/HPV due in 1 year 02/28/2022 NIL/HPV+, HPV 16/18 Negative 10/05/2019 NIL/HPV negative 12/11/2017 [place]: Focal squamous atypia suggestive of JOEY I 04/03/2017 NIL/HPV+ 09/01/2016 [place]: No biopsy 07/21/2016 NIL/HPV+ 09/10/2011 NIL/HPV negative 01/19/2009 [place]: JOEY I 12/13/2008 LSIL Gallstones 04/21/2018 Overview [...] DATE LAST PAP RESULT Abnormal Pap or [place] Bx in last 5 years MENSTRUAL STATUS [place] Bx Done Today ADDITIONAL INFORMATION Automated Review ANCILLARY TESTING DIESEL ENGINE TESTER NOTE ABORH ANTIBODY SCREEN Negative SPECIMEN EXPIRATION [...] DATE LAST PAP RESULT Abnormal Pap or [place] Bx in last 5 years MENSTRUAL STATUS [place] Bx Done Today ADDITIONAL INFORMATION Automated Review ANCILLARY TESTING DIESEL ENGINE TESTER NOTE ABORH ANTIBODY SCREEN Negative SPECIMEN EXPIRATION [...] 32 wks _ GBS: Tdap: 10/30/2016 Rhogam: Beatris Luque RNC.....01/13/2017 1:40 PM Major depressive disorder, recurrent, mild [...] Overview (06/09/2020): Diagnosed 2 years ago by machine spring former Low grade squamous intraepit helial lesion (LGSIL) on cervical Pap smear 12/12/2008 10/18/2019 Overview (05/01/2017): 12/2008 Pap: LSIL 01/2009 [place]: JOEY 1 07/2016 Pap: NIL/HPV positive 09/01/2016: Colposcopy, , no bx taken 04/03/17: Pap NIL, HPV + Plan per Vero Alvarez MD: Colposcopy Depressive disorder, not elsewhere classified 09/18/19 07 03/19/2016 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 10/18/2019 Overview (05/01/2017): NIL/HPV positive, Encounters Date Type Department Care Team Description 10/19/2024 3:00 PM CDT Telemedicine [facility] [address] [place] [address] Inga Ontiveros NP Telehealth; Medication Management 10/18/2024 Travel 10/17/2024 Patient Outreach [address] [address] Adamaris Wood Care Coordination 10/11/2024 Patient Outreach [address] [address] Adamaris Wood Care Coordination 10/04/2024 Telephone [facility] [address] [place] [address] Haleigh Del Valle, OD Eye Exam 10/03/2024 3:23 PM CDT - 10/03/2024 3:24 PM CDT Emergency [facility] [address] [place] [address] Discharge Disposition: Against Medical Advice or Discontinued Care 10/03/2024 Travel 08/10/2024 8:30 AM CDT Telemedicine [facility] [address] [place] [address] Inga Ontiveros, SID Medication Management; Telehealth from [...] IIV3 (Age >=3 years) 02/18/2008 Influenza, IIV4 01/07/2022, 1,12/23/2017,2016 MMR 12/17/1999,11/19/1988 Pneumococcal Conj 20-valent (Prevnar 20) [...] PHQ-2 Answer Date Recorded PHQ-2 TOTAL SCORE 3 10/18/2024 Social Connections Answer Date Recorded Do you [...] on file Legal Sex Female 6:28 AM BUILDING DRAFTING OFFICER Gender Identity Not on file Sexual Orientation Not on file Occupation Industry Job Start Date Job End Date [employer] Not on file Not on [...] 11/17/2023, 11/12/2023, Additional history exists Influenza Vaccine (#1) 2024 2, 01/10/2021, 01/26/2019, Additional history exists Depression screening for age 12+ 10/18/2025 10/18/2024, 07/07/2024, 06/09/2024, Additional history exists Tetanus booster 10/30/2026 10/30/2016, 11/0 10/2007, 09/12/1999, Additional history exists Hepatitis B series for 19+ Completed 04/30, 12/17/1999, 03/31/1997 HIV for age 15-65 Completed 05/19/2016, , 12/01/2008 Hepatitis C screening for ag e 18-79 Completed 05/19/2016, 12/03/2015 Pneumococcal series for age 6-49 Completed 11/30/19, 04/29/2016 Medical Devices Implanted Type Area Co Director Device Identifier Shelf Expiration Date Model / Serial / Lot Stent Nasal Latera Kit Absorb - [id number] Implanted:Qty: 1 on 01/31/2021 by Ross Layne MD at [facility] [employer] 05/02/2021 [id number] / [id number] / [id number] Stent Pancreatic [id number] Advanix Stra No Ines Plst - [id number] Implanted:Qty: 1 on 11/14/2021 by Carmine Sol MD at [facility] Gastroenterology 12/28/2022 [id number] / / [id number] Procedures Procedure Name Priority Date/Time Associated Diagnosis Comments EKG 12 LEAD STAT 10/03/2024 2:42 PM CDT DIESEL ENGINE TESTER THIN PREP PAP SCREEN IMAGED Routine 02/28/2022 11:10 AM BUILDING DRAFTING OFFICER Pap smear for cervical cancer screening ANTI HIV 1/2 Routine 05/19/2016 12:13 PM BUILDING DRAFTING OFFICER care, first , unspecified trimester (HC) ANTI HCV Routine 05/19/2016 12:13 PM BUILDING DRAFTING OFFICER care, first , unspecified trimester (HC) [...] NOW QTc 471 ms BEYOND NOW P Dayhoit 64 degrees BEYOND NOW R Dayhoit 67 degrees BEYOND NOW T Dayhoit 55 degrees BEYOND NOW 10/03/2024 2:42 PM CDT 10/03/2024 8:25 PM CDT [facility] Triage EKG ORD Final Result Performing Organization Address City/State/[facility] Co de Phone Number BEYOND NOW [place], [place] * DIESEL ENGINE TESTER THIN PREP PAP SCREEN IMAGED (02/28/2022 11:10 AM BUILDING DRAFTING OFFICER) Case Report Gynecologic Cytology Report Case: [id number] Authorizing Provider: Vero Alvarez MD Collected: 02/28/2022 1110 Ordering Location: [facility] Received: 02/28/2022 1131 Clinic First Screen: Caroline Delatorre Rescreen: Michel Monroe Specimen: DIESEL ENGINE TESTER ThinPrep Vial Screening, Cervical 03/26/2022 10:13 AM BUILDING DRAFTING OFFICER [facility] INTERPRETATION/ RESULT NEGATIVE FOR INTRAEPITHELIAL LESION OR MALIGNANCY (NIL) (none) 03/26/2022 10:13 AM BUILDING DRAFTING OFFICER [facility] at 1013 BUILDING DRAFTING OFFICER ORGANISM(S) Shift in angle suggestive of bacterial vaginosis 03/26/2022 10:13 AM BUILDING DRAFTING OFFICER [facility] SPECIMEN ADEQUACY Satisfactory for evaluation Endocervical component present 03/26/2022 10:13 AM BUILDING DRAFTING OFFICER [facility] HPV REQUEST HPV and PAP 03/26/2022 10:13 AM BUILDING DRAFTING OFFICER [facility] LAB[facility] Date of LMP 201903/26/2022 10:13 AM BUILDING DRAFTING OFFICER [facility] EN[facility] LABORATORY Last Pap Date 10/05/19 03/26/2022 10:13 AM BUILDING DRAFTING OFFICER [facility] Last Pap Result NIL 10:13 AM BUILDING DRAFTING OFFICER [facility] LABORATORY Abnormal Pap or [place] Bx in last 5 years Yes 03/26/2022 10:13 AM BUILDING DRAFTING OFFICER [facility] Menstrual Status Irregular Periods 03/26/2022 10:13 AM BUILDING DRAFTING OFFICER [facility] [place] Bx Done Today No 03/26/2022 10:13 AM BUILDING DRAFTING OFFICER [facility] Additional Information None given 03/26/2022 10:13 AM [facility] Comment: Cytology is screened at [facility] - [address], [place] [address] and [facility] - [address] [place] [address] and [facility] - [address] [place] [address] Interpreted at [facility] - [address], [place] [address] Automated Review Successful 03/26/2022 10:13 AM [facility] Comment:Specimen processed s uccessfully by automated display designer device, ThinPrep Imaging System, [employer] ANCILLARY TESTING DIESEL ENGINE TESTER HPV Ordered, Please see separate report 03/26/2022 10:13 AM [facility] Note The pap test is a screening technique, not a diagnostic procedure. It is used primarily to screen for squamous cancers and precursor lesions. Published studies have shown that it is subject to both false negative and false positive results. The pap test should not be used as the sole means to diagnose or exclude pre-malignant and malignant lesions. 03/26/2022 10:13 AM [facility] Other (Cervical) Non-Blood / Unknown 02/28/2022 11:10 AM BUILDING DRAFTING OFFICER 02/28/2022 11:31 AM BUILDING DRAFTING OFFICER us Vero Alvarez MD PATHOLOGY/CYTOLOGY Final Re sult [facility] [address] [place] [address], * ANTI HCV (05/19/2016 12:13 PM BUILDING DRAFTING OFFICER) HEPATITIS C ANTIBODY Non-Reacti ve Non-Reacti ve 05/19/2016 5:08 PM BUILDING DRAFTING OFFICER [facility] Blood BLOOD SPECIMEN / Unknown Venipuncture / Unknown 05/19/2016 12:13 PM BUILDING DRAFTING OFFICER 05/19/2016 12:14 PM BUILDING DRAFTING OFFICER Narrative [facility] - 05/19/2016 5:08 PM BUILDING DRAFTING OFFICER Antibodies to HCV not detected; does not exclude the possibility of exposure to HCV. Tatiana Sykes MD SEND OUTS Final Res ult Performing Organization Address City/[facility]/ZIP Co de Phone Number [facility] [address] [place] [address], * ANTI HIV 1/2 (05/19/2016 12:13 PM BUILDING DRAFTING OFFICER) HIV-1/HIV-2 ANTIBODY Non-Reacti ve Non-Reacti ve 05/19/2016 5:09 PM BUILDING DRAFTING OFFICER [facility] Blood BLOOD SPECIMEN / Unknown Venipuncture / Unknown 05/19/2016 12:13 PM BUILDING DRAFTING OFFICER 05/19/2016 12:14 PM BUILDING DRAFTING OFFICER Narrative [facility] - 05/19/2016 5:09 PM BUILDING DRAFTING OFFICER HIV-1 p24 and HIV-1/HIV-2 Ab not detected Tatiana Sykes MD SEND OUTS Final Res ult [facility] [address] from Last 3 Months or Most Recently [...] Code Status Discussion: Reviewed Preferences Care Teams Bankruptcy Processor Relationship Specialty Start Date End Date Vero Alvarez MD [address] [place] [address] PCP - General Family Practice 01/06/17 Joseph Menendez MD [address] [phone] Consulting Physician Surgery - General 02/28/21 Janis Mcgarry RN [address] [phone] [employer] Professor Registered Nurse 02/28/[address] [id number] Property Investor/Pen Tester Dental Surgeon 02/28/21 Adamaris Wood [address] [place], [place] [phone] Mental Health Information Services Vice President Care Guide 10/11/24
--- OUTSIDE RECORDS SUMMARY | 2024-10-25 11:40 | XMS_ITS | Clinical Summary ---
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 Gender Identity Not on file Sexual Orientation Not on file Last Filed Vital Signs Vital Sign Reading Time Taken Comments Blood Pressure 136/87 06/09/2024 7:34 AM SUPERVISOR [employer]ING Pulse 92 06/09/2024 7:34 AM SUPERVISOR [employer]ING Temperature 36.7 C (98 F) 06/09/2024 7:34 AM SUPERVISOR [employer] HANDLING Respiratory Rate 16 06/09/2024 7:34 AM SUPERVISOR COAL HANDLING Oxygen Saturation 96% 06/09/2024 7:34 AM SUPERVISOR [employer] HANDLING Inhaled Oxygen Concentration - - Weight 68 kg (150 lb) 06/07/2024 11:19 AM SUPERVISOR [employer] Height 167.6 cm (5' 6) 06/07/2024 11:19 AM SUPERVISOR [employer] HAND[employer]ING Body Mass Index 24.21 06/07/2024 11:19 AM SUPERVISOR [employer]ING Plan of Treatment Health Maintenance Due Date Last Done Comments ADVANCE CARE PLANNING 1987 ANNUAL REVIEW OF HM ORDERS 1987 DEPRESSION ACTION PLAN 1987 YEARLY PREVENTIVE VISIT 1990 PHQ-9 11/13/2011 05/15/2011 COVID-19 VACCINE ( season) 2023 07/22/2022, 11/29/2021, 04/09/2021, Additional history exists INFLUENZA VACCINE (#1) 2024 , 01/10/2021, 01/26/2019, Additional history exists PAP 02/28/2025 [...] GLUCOSE BY METER Routine 06/08/2024 5:00 PM SUPER[employer] PAP IMAGED THIN LAYER SCREEN Routine 09/10/2011 2:08 PM CDT Abnormal Pap smear and cervical HPV (human papillomavirus) HIV 1 AND 2 ANTIBODY (QUEST) Routine 08/21/2011 8:19 AM CDT Missed menses from Last 3 Months or Most Recently Relevant to Health Maintenance Results * (ABNORMAL) Glucose by meter (06/08/2024 5:00 PM SUPERVISOR [employer]) GLUCOSE BY METER POCT 124(H) 70 - 99 mg/dL 06/08/2024 5:07 PM SUPERVISOR [employer] HANDL[employer] UR LABORATORY POC Blood, Capillary BLOOD SPECIMEN / Unknown 06/08/2024 5:00 PM SUPER[employer] 06/08/2024 5:07 PM SUPERVIS[employer] us Danny TOBIAS - MATIAS POCT Final R esult UR LABORATORY POC [facility] Acute Care Lab [address] [place] [address], Room [address] [place] [address] * PAP imaged thin layer screen (09/10/2011 2:08 PM CDT) PAP NIL COPATH Copath Report Patient Name: IMTIAZ LAGUERRE MR#: [id number] Specimen #: [id number] Collected: 09/10/2011 Received: 09/11/2011 Reported: 09/15/2011 08:57 [...] LORELEI Newton (ASCP) Processed and screened at [facility] CLINICAL HISTORY: LMP: 07/17/11 , Papanicolaou Test Limitations: Cervical cytology is a screening test with limited sensitivity; regular screening is critical for cancer prevention; Pap tests are primarily effective for the diagnosis/preventi on of squamous cell carcinoma, not adenocarcinomas or other cancers. TESTING LAB LOCATION: [facility], [address] [place] [id number] COLLECTION SITE: Client: [facility] Location: [facility]FP (B) COPATH Cytologic material (specimen) 09/10/2011 2:08 PM CDT 09/11/2011 9:14 AM CDT us Ulises Littlejohn MD LAB - OPTIME CLINICAL SPECIMEN F inal Result COPATH * HIV 1 and 2 Antibody (08/21/2011 8:19 AM CDT) HIV 1&2 Antibody Negative NEG [facility] Blood specimen (specimen) 08/21/2011 8:19 AM CDT 08/21/2011 8:20 AM CDT us Ulises Littlejohn MD LAB - BLOOD ORDERABLES Final Res ult Performing Organization Address City/[facility]/ZIP Co de Phone Number [facility] [address] [place] [address] from Last 3 Months or Most Recently Relevant to Health Maintenance Advance Directives For more information, please contact: [phone] * Full Code (Latest Code Status on File) Date Activated Date Inactivated Comments 06/07/2024 4:01 PM 06/09/2024 12:42 PM All basic a nd advanced life-sustaining interventions are performed as appropriate Question Answer Comments Code status determined by: Unable to dis cuss and no AD/POLST on file; continue PREVIOUSLY ORDERED code status Care Teams Trolley Car Mechanic Relationship Specialty Start Date End Date Vero Alvarez MD [facility] [address] [place] [address] PCP - General Family Medicine 06/07/24
--- OUTSIDE RECORDS SUMMARY | 2024-10-25 11:40 | XMS_ITS | Encounter Summary ---
Author Organization [place] Address [address] [place] [address]. [place] [address] Care Team Providers Care Teaching Young Name Role Phone Jeffry Laurent MD Primary Care Provider [phone] Vero Alvarez MD Primary Care Provider Encounter Details Date Type Department Care Team (Late st Contact Info) Description 05/27/2011 [facility] Extended Documentation [address] [phone] Taurus Smith MEDICAL OFFICE SUPERVISOR [address] [address] Social History Tobacco Use Types Packs/Day Years Used Date Smoking Tobacco: Never Assessed Comments Unknown Sex and Gender Information Value Date Recorded Sex Assigned at Not on file Legal Sex Female 4:27 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
--- OUTSIDE RECORDS SUMMARY | 2024-10-25 11:41 | XMS_ITS | Encounter Summary ---
Author Organization [place] Address [address] [place] [address]. [place] [address] Care Team Providers Care Oil And Gas Recruiter Name Role Phone Jeffry Laurent MD Primary Care Provider [phone] Vero Alvarez MD Primary Care Provider [phone] Encounter Details Date Type Department Care Team (Late st Contact Info) Description 09/11/2011 [facility] Extended Documentation [address] [phone] Taurus Smith, [address] [address] Social History Tobacco Use Types Packs/Day Years Used Date Smoking Tobacco: Every Day Cigarettes Smokeless Tobacco: Never Comments:discussed smoking c essation with patient Alcohol Use Standard Drinks/Week Comments No 0 (1 standard drink = 0.6 oz pur e alcohol) Comments Yes Sex and Gender Information Value Date Recorded Sex Assigned at Not on file 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
--- NOTE | 2024-10-25 12:17 | ED.GENADULT ---
HPI - General Adult General Chief complaint: Alcohol/Intoxication Stated complaint: wants detox Time Seen by Provider: 10/25/24 11:51 History of Present Illness HPI narrative: 39-year-old female presenting to the ER today with concern that she has alcohol intoxication and wants to quit drinking and go to detox. She is also concerned about anxiety, palpitations and is worried that she is going to . Past medical history includes previous alcohol abuse. She reports that she is an alcoholic. She also has a history of PSVT, asthma, migraine headaches, psoriatic arthritis, GERD. She also has a history of anxiety and OCD. She reports that she gets care for her anxiety through a psychiatrist to the [facility]. She is on hydroxyzine, duloxetine, gabapentin and other meds. She used to be on clonazepam but after her psychiatrist became aware of her alcohol abuse, her benzo to was day as a peanut, several months ago in May. She has been through detox once in the past, apparently short stay at a detox center connected to [facility], in May 2024. She has never been through alcohol treatment. She says she is an alcoholic and has been drinking for years. She has multiple family members who are alcoholic. Her uncle took her to a 3 alcoholics anonymous meetings in May but then stopped going. She drinks mostly on weekends. She says when she drinks she drinks heavily. She has had a L of vodka today. She has been drinking at least a L of alcohol every day since Thursday. Prior to that it had been 9 days that she had been sober. She did not drink over the 14 of October holiday weekend because no one was around 2 ask her to drink. The reason why she relapsed on Thursday was that her ex-boyfriend want to go out with her for dinner and that started her binge of drinking. She is status post hysterectomy. She specifically says she wants to live in she does not want to . She is not suicidal. She does have obsessive thoughts that she might or that her son (8 years old) might . Her son is with her responsible brother today. He is safe and cared for and not neglected. I saw her here in the ER about 2 weeks ago on 10/09. At that time she had presented with concern for racing heart and tachycardia and anxiety. Also with a background so psychosocial stressors, and of her recent to relationship with her boyfriend also being caregiver for her son and her mother. She was provided with a prescription for 10 lorazepam pills. She was supposed to have had follow-up with her doctors at the [facility] the following day. She had a virtual visit with her psychiatric nurse practitioner at a [facility] on 10/19. From that visit... Assessment & Plan The patient's anxiety has significantly worsened, with frequent panic attacks and intrusive OCD-type thoughts. She experienced a relapse in alcohol use during a period of severe panic attacks but has since abstained. Her sleep quality remains poor, with persistent nightmares. The patient's high blood pressure is currently untreated and may be contributing to her anxiety as well. She feels symptoms of depression are currently well-managed with duloxetine and does not wish to change with this at this time. Significant financial barriers to receiving healthcare (she is without medical insurance) - so has not been able to see her PCP for BP or start therapy. ? Plan: - Increase trazodone dosage to 1.5 tablets initially, and if necessary, up to 2 tablets at bedtime for sleep - Increase prazosin dosage to 2 tablets at bedtime for nightmares, with the possibility of further increase as needed - Adjust hydroxyzine dosage to 50-100 mg twice daily as needed for acute anxiety- monitor for sedation and if too sedating lower dose back down - Advise taking the third dose of gabapentin earlier in the evening, around 5 or 6 PM, instead of at bedtime. - Discontinue magnesium supplement due to diarrhea - Seek care at [facility] for blood pressure management and potential behavioral health and substance use resources - Continue current regimen of duloxetine 60 mg the same for now (higher doses not helpful), we may explore a change with this later ? Follow-up: - Monitor response to medication adjustments through MyChart. - Contact [facility], consider working with [facility]'s care management team for resources Related Data Home Medications ?Medication ?Instructions ?Recorded ?Confirmed amlodipine 5 mg tablet 5 mg PO DAILY 10/26/21 08/18/24 trazodone 50 mg tablet 50 - 100 mg PO HS PRN 10/26/21 08/18/24 duloxetine 60 mg capsule,delayed 60 mg PO QAM 11/06/21 08/18/24 release epinephrine 0.3 mg/0.3 mL 0.3 mg IM ONCE PRN 11/06/21 08/18/24 injection, auto-injector bupropion HCl 150 mg tablet,12 hr 150 mg PO DAILY 08/13/22 08/18/24 sustained-release calcium citrate 200 mg PO QDAY 11/21/22 08/18/24 cholecalciferol (vitamin D3) 10 10 mcg PO QDAY 11/21/22 08/18/24 mcg (400 unit) tablet ixekizumab 80 mg/mL subcutaneous 80 mg subcut Q4W 11/21/22 08/18/24 auto-injector (Taltz Autoinjector) multivitamin 1 tab PO QDAY 11/21/22 08/18/24 vitamin B complex (B 1 tab PO QDAY 11/21/22 08/18/24 Complex-Vitamin B12 tablet) hydroxychloroquine 200 mg tablet 200 mg PO BID 01/26/23 08/18/24 prochlorperazine maleate 10 mg 10 mg PO Q8H PRN 01/26/23 08/18/24 tablet triamcinolone acetonide 0.1 % 1 applic topical BID-TID PRN 01/26/23 08/18/24 topical cream albuterol sulfate 90 mcg/actuation 2 inh inhalation Q4H PRN 01/29/23 08/18/24 aerosol inhaler Previous Rx's ?Medication ?Instructions ?Recorded acetaminophen 500 mg tablet 1,000 mg (2 x 500 mg) PO Q6H PRN 11/03/22 Pain #0 tabs fluconazole 150 mg tablet 150 mg PO Q3D 2 doses #2 tabs 06/26/23 tamsulosin 0.4 mg capsule (Flomax) 0.4 mg PO DAILY PRN For ureteral 09/18/23 spasm #15 caps diclofenac sodium 1 % topical gel 2 g topical QID #100 grams 11/18/23 (Voltaren Arthritis Pain) omeprazole 40 mg capsule,delayed 40 mg PO DAILY #30 caps 02/07/24 release potassium chloride 20 mEq 20 meq PO BID 5 days #10 tabs 10/25/24 tablet,extended release(part/cryst) Allergies Allergy/AdvReac Type Severity Reaction Status Date / Time ergotamine (From Cafergot) Allergy Severe Anaphylaxis Verified 08/18/24 09:39 ketorolac (From Toradol) Allergy Severe Migraine Verified 08/18/24 09:39 tramadol Allergy Intermediate Headache Verified 08/18/24 09:39 lamotrigine (From Lamictal) Allergy rash Verified 08/18/24 09:39 NSAIDS (Non-Steroidal Allergy gastric Verified 08/18/24 09:39 Anti-Inflamma bypass Penicillins Allergy Anaphylaxis Verified 08/18/24 09:39 sumatriptan Allergy Anaphylaxis Verified 08/18/24 09:39 ondansetron AdvReac Intermediate Migraine Verified 08/18/24 09:39 [facility] Medical History History of gestational hypertension ?Z87.59 - Personal history of other complications of , childbirth and the puerperium (ICD-10) Spontaneous with heavy bleeding (11/03/22) ?O03.9 - Complete or unspecified spontaneous without complication (ICD-10) Low grade squamous intraepithelial lesion (2008) Paroxysmal SVT (supraventricular tachycardia) ?I47.1 - Supraventricular tachycardia (ICD-10) Nephrolithiasis (2010) ?N20.0 - Calculus of kidney (ICD-10) Surgical History History of tonsillectomy (02/25/08) ?Z90.89 - Acquired absence of other organs (ICD-10) H/O dilation and curettage ?Z98.890 - Other specified postprocedural states (ICD-10) History of esophageal dilatation ?Z98.890 - Other specified postprocedural states (ICD-10) 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) ?Z98.84 - Bariatric surgery status (ICD-10) H/O nasal septoplasty ?Z98.890 - Other specified postprocedural states (ICD-10) H/O wisdom tooth extraction ?K08.409 - Partial loss of teeth, unspecified cause, unspecified class (ICD-10) Status post colposcopy (01/2009) ?Z98.890 - Other specified postprocedural states (ICD-10) Status post laser lithotripsy of ureteral calculus (05/17/18) ?Z98.890 - Other specified postprocedural states (ICD-10) S/P (01/21/17) ?Z98.891 - History of uterine scar from previous surgery (ICD-10) Status post cholecystectomy (01/17/21) ?Z90.49 - Acquired absence of other specified parts of digestive tract (ICD-10) Family History Mother Coronary artery disease Anxiety CHF (congestive heart failure) COPD (chronic obstructive pulmonary disease) Brother ADHD (attention deficit hyperactivity disorder) Paternal Grandfather DVT (deep venous thrombosis) Aunt Renal cancer Other Breast cancer Diabetes High blood pressure Kidney disease Leukemia Liver disease Lung cancer Stroke Social History Narrative: Lives in [place] with her son, 5 yo. 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 Also works at [employer]. She smokes 1/2 PPD. Occ ETOH use. No recreational drug use. What is your current living situation?: I presently have a place to live Problems where you live: no known problems In the past 12 months, utilities in danger of being shut off: no In past 12 months, lack of transportation kept you from medical appts, meetings, work, or getting things needed for daily living: no In the past 12 mos, have been you worried that your food would run out before you had money to buy more?: never true In the past 12 mos, the food you bought just didn't last and you didn't have money to buy more?: never true Highest level of school completed/degree received: high school graduate Smoking Status: Heavy tobacco smoker What tobacco products do you use: cigarettes Smoking packs per day: 0.5 Smoking cigarettes per day: 10.0 Years smoked: 23 Smoking pack-years: 11.50 Do you use any of these nicotine containing products: None Second hand tobacco smoke exposure: Yes How often do you have a drink containing alcohol: 4 or more times a week Alcohol type: wine and hard liquor How many standard drinks containing alcohol do you have on a typical day: 10 or more How often do you have six or more drinks on one occasion: Daily or almost daily AUDIT-C Alcohol total score: 12 Non-prescribed substance use: denies use Caffeine: Yes (soda, energy drinks) How often does anyone, including family, friends and others, physically hurt you: never How often does anyone, including family, friends and others, insult or talk down to you: never How often does anyone, including family, friends and others, threaten you with harm: never How often does anyone, including family, friends and others, scream or curse at you: never Are you using contraception or practicing any form of control: No service: No Exam Narrative: Exam Narrative: Constitutional: Appears well-developed and well-nourished. Alert. Conversant, but somewhat disjointed historian, tearful at times. Anxious at times. Non chronological. Seems intoxicated with alcohol. HENT: Head: Atraumatic. Nose: Nose normal. Mouth/Throat: Oral mucosa is clear and moist. no trismus. Pharynx normal. Tonsils symmetric. No tonsillar enlargement, erythema, or exudate. Eyes: Conjunctivae normal. EOM normal. Pupils equal, round, and reactive to light. No scleral icterus. Neck: Normal range of motion. Neck supple. No tracheal deviation present. Cardiovascular: Normal rate, regular rhythm. No gallop. No friction rub. No murmur heard. Symmetric radial artery pulses Pulmonary/Chest: Effort normal. No stridor. No respiratory distress. No wheezes. No rales. No rhonchi . No tenderness. Abdominal: Soft. Bowel sounds normal. No distension. No mass. No hepatosplenomegaly. No tenderness. No rebound. No guarding. Musculoskeletal: RUE: Normal range of motion. No tenderness. No deformity LUE: Normal range of motion. No tenderness. No deformity RLE: Normal range of motion. No edema. No tenderness. No deformity LLE: Normal range of motion. No edema. No tenderness. No deformity Neurological: Alert and oriented to person, place, and time. Normal strength. CN II-VII intact. No sensory deficit. GCS eye subscore is 4. GCS verbal subscore is 5. GCS motor subscore is 6. Normal coordination Skin: Skin is warm and dry. No rash noted. No pallor. Normal capillary refill. Psychiatric: Limited by alcohol intoxication. See HPI. Has been bingeing heavily for 5 days. Wants to go to alcohol detox or treatment. Not suicidal. No hallucinations. Endorses a lot of anxiety, worried that she is going to . Also has OCD with a lot of obsessive thoughts that she or her son might . Const: Vital Signs, click to edit/add: Vital Signs - 24 hr 10/25/24 11:40 10/25/24 16:31 Temperature 98 F Pulse Rate [Right Pulse Oximeter] 100 95 Respiratory Rate 18 16 Blood Pressure [Ri ght Upper Arm] 163/98 H 147/100 H Pulse Oximetry 96 95 Oxygen Delivery Me thod Room Air Room Air Course Course ED Course: Recheck-anxiety much improved after oral Ativan. Recheck-resting in bed. Nausea improved. Receiving IV fluids. Hungry. Ordered some lunch. Will happily take oral potassium supplements. Has been ambulatory in the hallway. Steady on her feet. Alcohol level is elevated at 0.27 which fits with her report of heavy alcohol consumption right up until she arrived here to the ER. She is still interested in going to detox and would go voluntarily. She request that we look into detox and [place] because she has been to a detox center there before. She initially thought it was probably the detox center at [place]. However upon further reflection, she thinks it might have been the detox center at [facility] next to [facility]. We will look into that detox center as well as other detox centers in the area to see if there is any availability. Recheck-is being reviewed by Carol Law, in [place]. Reevaluation(s) Reevaluation #1: Recheck-still waiting on response from [facility]. Patient's boyfriend is here. They were interacting well together. Recheck-patient now requesting discharge home. She is calm and conversant. For fen within a take her home and monitor her this afternoon. We discussed again that she would benefit from going to detox and treat. She verbalizes understanding but wants to go home. Vital Signs Vital signs: Initial Vital Signs Temperature 98 F 10/25/24 11:40 Temperature Source Temporal Artery Scan 10/25/24 11:40 Pulse Rate 100 10/25/24 11:40 Pulse Rhythm Regular 10/25/24 11:40 Pulse Strength 3+ Normal 10/25/24 11:40 Respiratory Rate 18 10/25/24 11:40 Blood Pressure 163/98 H 10/25/24 11:40 Blood Pressure Mean 119 H 10/25/24 11:40 Blood Pressure Position Sitting 10/25/24 11:40 Pulse Oximetry 96 10/25/24 11:40 Oxygen Delivery Method Room Air 10/25/24 11:40 Vital Signs Temperature 98 F 10/25/24 11:40 Pulse Rate 100 10/25/24 11:40 Respiratory Rate 18 10/25/24 11:40 Blood Pressure 163/98 H 10/25/24 11:40 Pulse Oximetry 96 10/25/24 11:40 Oxygen Delivery Method Room Air 10/25/24 11:40 Temperature 98 F 10/25/24 11:40 Pulse Rate 95 10/25/24 16:31 Respiratory Rate 16 10/25/24 16:31 Blood Pressure 147/100 H 10/25/24 16:31 Pulse Oximetry 95 10/25/24 16:31 Oxygen Delivery Method Room Air 10/25/24 16:31 Medications Administered Medications: Discontinued Medications Generic Name Dose Route Start Last Admin Trade Name Freq PRN Reason Stop Dose Admin Sodium Chloride 1,000 mls @ 1,000 mls/hr 10/25/24 12:30 10/25/24 12:45 0.9 % Sodium Chloride 1000 Ml IV 10/25/24 13:29 1,000 mls/hr .Q1H CAT Administration Lorazepam 1 mg 10/25/24 12:18 10/25/24 12:29 Lorazepam 1 Mg Tablet PO 10/25/24 12:19 1 mg ONCE ONE Administration Ondansetron HCl 4 mg 10/25/24 12:18 10/25/24 12:38 Ondansetron 2 Mg/Ml Inj IVP 10/25/24 12:19 4 mg ONCE ONE Administration Potassium Bicarbonate 50 meq 10/25/24 13:35 10/25/24 13:52 Potassium Bicarb 25 Meq Effervescent Tab PO 10/25/24 13:36 50 meq ONCE ONE Administration Medical Decision Making MDM Narrative Medical decision making narrative: 39-year-old female with history of alcoholism presenting to the ER today with acute alcohol intoxication and also anxiety. She endorses heavy binge drinking for the past 5 days drinking a L of hard alcohol per day up tell the point when she was dropped off here in the ER. Alcohol level is commensurate with an alcohol level of 0.27. Clinical exam fits with her level of all call intoxication with emotional lability, tearfulness. No signs of alcohol withdrawal given her acute intoxication. She received IV fluids and antiemetics. With that she was able to tolerate oral anxiety lytics and anxiety resolved. She was feeling much better. Laboratory workup is generally reassuring. She denies any suicidal ideation and endorses multiple times that she wants to live. There is no evidence for any liver failure, or other associated overdose during her alcohol intoxication. She is not suicidal, homicidal. She is not having signs of psychosis . No hallucinations, delusions or paranoia. Initially our plan of care was for her to go to alcohol detox because she wanted to go to detox and then to treatment. We are making efforts to get her accepted at local detox centers when the patient change her mind. After her boyfriend arrived here in the ER she was requesting discharge. At this point she is calm and cooperative. She may be displaying mild signs of alcohol intoxication but certainly has ability to carry on a conversation and has medical decision-making capacity. She wants to go home and her boyfriend is supportive with that he will take care of her. She does not want to go to detox today. We did discuss that her alcoholism likely will not resolved without treatment. She verbalizes her understanding and her intention to call to arrange her own outpatient treatment. Lab Data Labs: Lab Results 10/25/24 Range/Units 12:40 WBC 7.35 (4.50-11.00) K/uL RBC 4.40 (4.00-5.20) m/uL Hgb 13.6 (12.0-16.0) gm/dL Hct 40.1 (33.0-51.0) % MCV 91 (80-100) fL MCH 31 (26-34) pg MCHC 34 (32-36) gm/dL RDW Coeff of Compa 12.8 (11.5-15.5) % Plt Count 271 (140-440) K/uL Neut % (Auto) 50.1 (42.0-72.0) % Lymph % (Auto) 38.0 (20-44) % [place] % (Auto) 9.3 (0.0-11.0) % Eos % (Auto) 1.0 (0.0-7.0) % Baso % (Auto) 1.1 (0.0-3.0) % Neut # (Auto) 3.69 (1.7-7.0) K/uL Lymph # (Auto) 2.79 (0.90-2.90) K/uL [place] # (Auto) 0.70 (0.00-0.90) K/UL Eos # (Auto) 0.07 (0.00-0.50) K/uL Baso # (Auto) 0.08 (0.00-0.30) K/uL Abs Immat Gran (auto) 0.04 (0.00-0.30) K/uL Imm/Tot Granulo (auto) 0.5 % Sodium 145 (135-149) mmol/L Potassium 3.0 L (3.6-5.1) mmol/L Chloride 116 H (96-114) mmol/L Carbon Dioxide 22 (20-32) mmol/L Anion Gap 7 (7-15) mEq/L BUN 7 (5-24) mg/dL Creatinine 0.7 (0.5-1.5) mg/dL Estimated Creat Clear 103.01 Estimated GFR 114 ml/min Glucose 77 (60-115) mg/dL Calcium 8.7 (8.4-10.6) mg/dL Total Bilirubin 0.4 (0.1-1.5) mg/dL AST 44 H (12-35) U/L ALT 31 (4-35) U/L Alkaline Phosphatase 73 (40-150) U/L Total Protein 6.8 (6.0-8.3) g/dL Albumin 4.0 (3.3-5.0) g/dL HCG, Qual Negative (Negative) Salicylates < 1.0 L (1.0-10) mg/dL Acetaminophen < 10.0 (10.0-30.0) ug/mL Ethyl Alcohol 0.27 H (0.01-0.03) % Discharge Plan Discharge Clinical Impression: Alcohol intoxication, Anxiety, Acute hypokalemia Patient Disposition: Home, Self-Care Instructions: Hypokalemia (ED), Alcohol Intoxication (DC), Abuse of Alcohol (DC), Anxiety (ED) Additional Instructions: As we discussed, please continue on your regular anxiety medications. Do your best to continue to stay sober from drinking. Take potassium supplements for the next few days to help keep potassium level elevated. Recheck with her doctor [facility] next week to have your potassium level rechecked. Please follow-up with the outpatient resources for alcohol treatment. I think it would be very helpful for you to arrange alcohol treatment. We know that most people cannot achieve and maintain long-term sobriety without try a treatment program. If you have any concerns such as racing heart or arrhythmia symptoms, weakness, falls, fever, thoughts of self-harm or suicide, or any problems, return to the ER right away. Prescriptions: New potassium chloride 20 mEq tablet,ER particles/crystals 20 meq PO BID 5 Days Qty: 10 0RF No Action Taltz Autoinjector 80 mg/mL auto-injector 80 mg subcut Q4W vitamin B complex [B Complex-Vitamin B12] Tablet 1 tab PO QDAY cholecalciferol (vitamin D3) 10 mcg (400 unit) tablet 10 mcg PO QDAY calcium citrate 200 mg (950 mg) tablet 200 mg PO QDAY multivitamin Tablet 1 tab PO QDAY fluconazole 150 mg tablet 150 mg PO Q3D Qty: 2 0RF Rx Instructions: may repeat second dose 72 hrs after first dose if symptoms persist diclofenac sodium [Voltaren Arthritis Pain] 1 % gel 2 g topical QID Qty: 100 0RF Rx Instructions: apply sparingly to right knee for 7 days epinephrine 0.3 mg/0.3 mL auto-injector 0.3 mg IM ONCE PRN duloxetine 60 mg capsule,delayed release(DR/EC) 60 mg PO QAM bupropion HCl 150 mg tablet sustained-release 12 hr 150 mg PO DAILY prochlorperazine maleate 10 mg tablet 10 mg PO Q8H PRN triamcinolone acetonide 0.1 % cream 1 applic topical BID-TID PRN hydroxychloroquine 200 mg tablet 200 mg PO BID albuterol sulfate 90 mcg/actuation HFA aerosol inhaler 2 inh inhalation Q4H PRN omeprazole 40 mg capsule,delayed release(DR/EC) 40 mg PO DAILY Qty: 30 2RF trazodone 50 mg tablet 50 - 100 mg PO HS PRN amlodipine 5 mg tablet 5 mg PO DAILY acetaminophen 500 mg Tablet 1,000 mg PO Q6H PRN (Reason: Pain) Qty: 0 0RF tamsulosin [Flomax] 0.4 mg capsule 0.4 mg PO DAILY PRN (Reason: For ureteral spasm) Qty: 15 2RF Follow Up/Referrals: Vero Alvarez MD [Primary Care Provider, Family Practice] Stand Alone Forms: MyHealth Info Instructions
[2024-10-25] MEDS: ONDANSETRON 2 MG/ML inj 4 MG IVP (12:38)
[2024-10-25 12:55] LABS: Hematocrit* 40.1 % (33.0-51.0); Hemoglobin* 13.6 gm/dL (12.0-16.0); Immature Granulocytes Abs Auto 0.04 K/uL (0.00-0.30); Immature Granulocytes Pct Auto 0.5 %; Lymphocytes Absolute Auto 2.79 K/uL (0.90-2.90); Mean Corpuscular HGB Conc 34 gm/dL (32-36); Mean Corpuscular Hemoglobin 31 pg (26-34); Mean Corpuscular Volume 91 fL (80-100); RDW Coefficient of Variation % 12.8 % (11.5-15.5); Red Blood Count* 4.40 m/uL (4.00-5.20); White Blood Count* 7.35 K/uL (4.50-11.00)
[2024-10-25 13:09] LABS: Albumin* 4.0 g/dL (3.3-5.0); Chloride* 116 mmol/L (96-114); Potassium* 3.0 mmol/L (3.6-5.1); Sodium* 145 mmol/L (135-149)
[2024-10-25 13:12] LABS: Alanine Aminotransferase* 31 U/L (4-35); Alkaline Phosphatase* 73 U/L (40-150); Anion Gap 7 mEq/L (7-15); Aspartate Amino Transferase* 44 U/L (12-35); Bilirubin Total* 0.4 mg/dL (0.1-1.5); Blood Urea Nitrogen* 7 mg/dL (5-24); Calcium* 8.7 mg/dL (8.4-10.6); Carbon Dioxide* 22 mmol/L (20-32); Creatinine* 0.7 mg/dL (0.5-1.5); Est. Creatinine Clearance* 103.01; Estimated Glomerular Filt Rate 114 ml/min; Glucose* 77 mg/dL (60-115); Total Protein* 6.8 g/dL (6.0-8.3)
[2024-10-25 13:13] LABS: Ethanol* 0.27 % (0.01-0.03)
[2024-10-25 13:15] LABS: Slide Review Reflex No
[2024-10-25 13:26] LABS: Acetaminophen* < 10.0 ug/mL (10.0-30.0); Salicylate* < 1.0 mg/dL (1.0-10)
[2024-10-25 13:27] LABS: HCG Qualitative Serum* Negative (Negative)
[2024-10-25] MEDS: POTASSIUM BICARB 25 MEQ EFFERVESCENT TAB 50 MEQ PO (13:52)
[2024-10-25 16:31] VITALS: BP 147/100; PULSE 95; RESP 16; O2SAT 95
== END 2024-10-25 16:35 | disposition home or self-care (01) ==
PROVIDERS: Emergency Provider Emergency Medicine; PCP Family Medicine
DX: F10.129 Alcohol abuse with intoxication, unspecified (principal); F41.9 Anxiety disorder, unspecified; E87.6 Hypokalemia
CPT/HCPCS: 36415; 80053; 80143; 80179; 82077; 84703; 85025; 93005; 96374; 99284; A9270; J2405; J7030

== ENCOUNTER 2024-11-21 11:04 | Outpatient (CLI) | payer OTHER, SELFPAY | END 2024-11-21 11:05 | disposition home or self-care (01) | PROVIDERS: PCP Family Medicine; Visit Provider Physician Assistant | DX: R00.2 Palpitations (principal) | CPT/HCPCS: 82077; 84484 ==

== ENCOUNTER 2024-12-02 00:04 | Emergency (ER) | payer OTHER, SELFPAY ==
--- OUTSIDE RECORDS SUMMARY | 2024-02-04 05:30 | XMS_ITS ---
Author Organization [facility] Address [address] [place] [address] [address] [place] [address] Care Team Providers Care Coffee Machine Technician Name Role Phone Vero Alvarez Primary Care Provider UnavailCésar Naranjo Unavailable [phone] Derrek AZAR, Veronica Unavailable Unavailable Andrez Phillips Unavailable [phone] Encounters Encounter Location Date Provider Diagnosis [facility] [address] [place] [address] 02/04/2024 Andrez Phillips Plan Of Treatment No Information Progress Notes * Melissa LAGUERRE ADOB: [birth year] (39 yo F)Acc No.[id number]:02/04/2024 Daily Note Patient: Joe HOWARDMelissa KELLEY Provider: Ghassan Phillips OTR/Emy :1985 A ge:38 Y S ex:Female Date:02/04/2024 Phone: Address:[address] [place] [address], [address] [place], [phone] Pcp:Vero Alvarez Subjective: * Chief Complaints: Objective: Therapeutic Interventions: Assessment: Plan: * Treatment: * Billing Information: * Visit Code: * Procedure Codes: * Electronic signature of MARIBEL Lu/Emy on 12/02/2024 at 12:08 AM CDT Sign off status: Pending * Provider: Ghassan Phillips OTR/Emy Date: Generated for Printi ng/Faxing/eTransmitting on: 0 12/02/2024 12:08 AM CDT
--- OUTSIDE RECORDS SUMMARY | 2024-02-09 05:30 | XMS_ITS ---
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 Name Role Phone Vero Alvarez Primary Care Provider UnavailCésar Naranjo Unavailable [phone] Derrek AZAR, Veronica Unavailable Unavailable Brandy Reynolds Unavailable [phone] Encounters Encounter Location Date Provider Diagnosis [facility] [address] [place] [address] 02/09/2024 Brandy Reynolds Plan Of Treatment No Information Progress Notes * Melissa LAGUERRE ADOB: [birth year] (39 yo F)Acc No.[id number]:02/09/2024 Daily Note Patient: Joe NICHOLS Melissa Yasmine Provider: YOLANDA Santo Resource:Laura Howell :1985 A ge:38 Y S ex:Female Date:02/09/2024 Phone: Address:[address] [place], [phone] Pcp:Vero Alvarez Subjective: * Chief Complaints: Objective: Therapeutic Interventions: Assessment: Plan: * Treatment: * Billing Information: * Visit Code: * Procedure Codes: * Electronic signature of YOLANDA Alonzo on 12/02/2024 at 12:08 AM CDT Sign off status: Pending * Provider: YOLANDA Santo Date: Generated for Printi ng/Faxing/eTransmitting on: 0 12/02/2024 12:08 AM CDT
--- OUTSIDE RECORDS SUMMARY | 2024-02-11 05:30 | XMS_ITS ---
Author Organization [facility] Address [address] [place] [address] [address] [place] [address] Care Team Providers Care Cold Strip Roller Name Role Phone Vero Alvarez Primary Care Provider UnavailCésar Naranjo Unavailable [phone] Derrek AZAR, Veronica Unavailable Unavailable Andrez Phillips Unavailable [phone] Encounters Encounter Location Date Provider Diagnosis [facility] [address] [place] [address] 02/11/2024 Andrez Phillips Plan Of Treatment No Information Progress Notes * Melissa LAGUERRE ADOB: [birth year] (39 yo F)Acc No.[id number]:02/11/2024 Daily Note Patient: Joe HOWARDMelissa KELLEY Provider: MARIBEL Guzman/Emy :1985 A ge:38 Y S ex:Female Date:02/11/2024 Phone: Address:[address] [place] [address], [address] [place], [phone] Pcp:Vero Alvarez Subjective: * Chief Complaints: Objective: Therapeutic Interventions: Assessment: Plan: * Treatment: * Billing Information: * Visit Code: * Procedure Codes: * Electronic signature of MARIBEL Lu/Emy on 12/02/2024 at 12:09 AM CDT Sign off status: Pending * Provider: MARIBEL Guzman/Emy Date: Generated for Printi ng/Faxing/eTransmitting on: 0 12/02/2024 12:09 AM CDT
--- OUTSIDE RECORDS SUMMARY | 2024-11-11 11:50 | XMS_ITS | Encounter Summary ---
Author Organization [facility] Address [address] [place] [address] Care Team Providers Care Blank Driller Name Role Phone Vero Alvarez MD Primary Care Provider [phone] Reason for Visit * Reason Comments Alcohol Intoxication Suicidal Encounter Details Date Type Department Care Team (Late st Contact Info) Description 11/11/2024 11:50 AM CDT - 11/11/2024 8:52 PM CDT Emergency [facility] [address] [place] [phone] Glroia Bañuelos MD [facility] [address] [place] [address] [place] [id number] Ann Marie Kiser MD [facility] [address] [place], [place] [id number] Alcohol abuse with intoxication (Primary Dx); Suicidal ideation; Hypokalemia Discharge Disposition: Home or Self Care Social History Tobacco Use Types Packs/Day Years [...] Answer Date Recorded Do you have housing? (Angel bolaños is defined as stable permanent housing and does not include staying outside in a car, in a tent, in an abandoned building, in an overnight mcc, or couch-surfing.) Yes 06/07/2024 Are you worried [...] on file Legal Sex Female 4:27 AM [employer]IT [employer] Gender Identity Not on file Sexual Orientation Not on file documented as of this encounter Last Filed Vital Signs Vital Sign Reading Time Taken Comments Blood Pressure 157/106 11/11/2024 8:25 PM CDT Pulse 91 11/11/2024 8:26 PM CDT Temperature 37 C (98.6 F) 11/11/2024 11:58 AM CDT Respiratory Rate 18 11/11/2024 8:26 PM CDT Oxygen Saturation 98% 11/11/2024 2:00 PM CDT Inhaled Oxygen Concentration - - Weight 68 kg (150 lb) 11/11/2024 3:51 PM CDT Height 167.6 cm (5' 6) 11/11/2024 3:51 PM CDT Body Mass Index 24.21 11/11/2024 3:51 PM CDT documented in this encounter Functional Status * Calculated C-SSRS Risk Score (Lifetime/Recent) Answer Date of Assessment Author No Risk Indicated 11/11/2024 7:39 PM CDT Kaci Moreno LMFT * Question Answer Date of Assessment Author 3. Active Suicidal Ideation with any Methods (Not Plan) Without Intent to Act (Lifetime) Yes 11/11/2024 7:37 PM CDT Yajaira Moreno LMFT 4. Active Suicidal Ideation with Some Intent to Act, Without Specific Plan (Lifetime) No 11/11/2024 7:37 PM CDT Yajaira Moreno LMFT 5. Active Suicidal Ideation with Specific Plan and Intent (Lifetime) Yes 11/11/2024 7:37 PM CDT Kaci Banuelos LMFT * Question Answer Date of Assessment Author Deterrents (Past 1 Month) 0 11/11/2024 7:39 PM CDT Kaci Moreno LMFT Reasons for Ideation (Past 1 Month) 0 11/11 7:39 PM CDT Kaci Moreno LMFT * Question Answer Date of Assessment Author Actual Attempt (Past 3 Months) No 11/11/2024 7:39 PM CDT Kaci Moreno LMFT Has subject engaged in non-s uicidal self-injurious behavior? (Past 3 Months) No 11/11/2024 7:39 PM CDT Kaci Moreno LM FT Interrupted Attempts (Past 3 Months) No 11/11/2024 7:39 PM CDT Kaci Moreno LM FT Aborted or Self-Interrupted Attempt (Past 3 Months) No 11/11/2024 7:39 PM CDT Kaci Moreno LM FT Preparatory Acts or Behavior (Past 3 Months) No 11/11/2024 7:39 PM CDT Kaci Moreno LM FT * Question Answer Date of Assessment Author Actual Attempt (Lifetime) Yes 11/11/2024 7:37 PM CDT Kaci Moreno LMFT Total Number of Actual Attem pts (Lifetime) 1 11/11/2024 7:37 PM CDT Kaci Moreno LM FT Has subject engaged in non-s uicidal self-injurious behavior? (Lifetime) No 11/11/2024 7:37 PM CDT Kaci Banuelos LMFT Interrupted Attempts (Lifetime) No 7:37 PM CDT Kaci Moreno LMFT Aborted or Self-Interrupted Attempt (Lifetime) No 11/11/2024 7:37 PM CDT Kaci Moreno LM FT Preparatory Acts or Behavior (Lifetime) No 11/11/2024 7:37 PM CDT Kaci Moreno LM FT * Question Answer Date of Assessment Author Most Severe Ideation Rating (Lifetime) 4 11/11/2024 7:37 PM CDT Kaci Moreno LMFT Description of Most Severe Ideation (Lifetime) Wanting to end it all 11/11/2024 7:37 PM CDT Kaci Moreno LMFT Frequency (Lifetime) 1 11/11/2024 7:37 PM C DT Kaci Moreno LMFT Duration (Lifetime) 2 11/11/2024 7:37 PM CD T Kaci Moreno LMFT Controllability (Lifetime) 1 11/11/2024 7:3 7 PM CDT Kaci Moreno LMFT Deterrents (Lifetime) 1 11/11/2024 7:37 PM CDT Kaci Moreno LMFT Reasons for Ideation (Lifetime) 4 11/11/2024 7:37 PM CDT Kaci Moreno LMFT documented as of this encounter Discharge Instructions * Discharge Instructions* Ann Marie Kiser MD - 11/11/2024 8:12 PM CDT Cut back on your drinking, get some help with your doctor to be able to stop. Eat a banana a day for your potassium. You should set up an appointment in the next 1 to 2 weeks with your doctor to get your potassium rechecked. If you do not feel safe and develop suicidal thoughts, you are always welcome to return to the ER. * Attachments The following attachments cannot be sent through Care Everywhere. * Alcohol Use Disorder: General Info (Irish) * Hypokalemia (Irish) documented in this encounter Medications at Time of Discharge albuterol (PROAIR HFA/PROVENTIL HFA/VENTOLIN HFA) 108 (90 Base) MCG/ACT inhaler Inhale 1-2 puffs into the lungs every 6 hours as needed for shortness of breath, wheezing or cough. amLODIPine (NORVASC) 5 MG tablet Take 5 mg by mouth daily. calcium citrate-vitamin D (CITRACAL) 315-6.25 MG-MCG TABS per tablet Take 1 tablet by mouth daily. childrens multivitamin (ANIMAL SHAPES) CHEW chewable tablet Take 2 tablets by mouth daily. Cholecalciferol (VITAMIN D) 2000 UNITS tablet Take 50 mcg by mouth daily. clonazePAM (KLONOPIN) 0.5 MG tablet Take 0.5 mg by mouth daily as needed for anxiety. cyanocobalamin (VITAMIN B-12) [address] 1,000 mcg under the tongue daily. DULoxetine HCl 40 MG CPEPIndications:Mod erate episode of recurrent major depressive disorder (H) Take 40 mg by mouth daily. 30 capsule 06/09/2024 EPINEPHrine (ANY BX GENERIC EQUIV) 0.3 MG/0.3ML injection 2-pack Inject 0.3 mg into the muscle as needed for anaphylaxis. May repeat one time in 5-15 minutes if response to initial dose is inadequate. gabapentin (NEURONTIN) 300 MG capsuleIndications: Moderate episode of recurrent major depressive disorder (H) Take 1 capsule (300 mg) by mouth 3 times daily. 90 capsule 06/09/2024 hydrOXYzine HCl (ATARAX) 25 MG tabletIndications:M oderate episode of recurrent major depressive disorder (H) Take 1 tablet (25 mg) by mouth 2 times daily as needed for anxiety. 06/09/2024 pantoprazole (PROTONIX) 40 MG EC tabletIndications:A lcohol withdrawal syndrome, uncomplicated (H) Take 1 tablet (40 mg) by mouth every morning (before breakfast). 30 tablet 06/09/2024 prazosin (MINIPRESS) 1 MG capsuleIndications: Moderate episode of recurrent major depressive disorder (H) Take 1 capsule (1 mg) by mouth at bedtime. 30 capsule 06/09/2024 traZODone (DESYREL) 50 MG tabletIndications:M oderate episode of recurrent major depressive disorder (H) Take 1-2 tablets (50-100 mg) by mouth at bedtime. 06/09/2024 documented as of this encounter Consult Notes * Kaci Moreno PSYCHOLOGY ASSOCIATE - 11/11/2024 7:31 PM CDTAssociated Order(s): [facility] (DEC) ASSESSMENT ORDER Diagnostic Evaluation Consultation Crisis Assessment Patient Name: Melissa Escobedo Age: [age] year old Legal Sex: female Gender Identity: female Pronouns: Race: White Ethnicity: Not or Language: Irish Patient was assessed: In person Crisis Assessment Start Date: 11/11/24 Crisis Assessment Start Time: 1904 Crisis Assessment Stop Time: 1930 Patient location: [facility] ED18 Referral Data and Chief Complaint Melissa Escobedo presents to the ED with family/friends. Patient is presenting to the ED for the following concerns: Substance use, Intoxication. Factors that make the mental health crisis life threatening or complex are:Patient comes into the Emergency Department, brought in by her brother, due to worsening alcohol use and passive suicidal statements while intoxicated. Patient started a dual dx program for her alcohol use and mental health. After a period of rest and time to metabolize the alcohol, patient was calm and cooperative and able to engage with this financial underwriter for the initial assessment. At this time patient does not recall arriving to the Emergency Department and does not endorse any suicidal ideation. Informed Consent and Assessment Methods Explained the crisis assessment process, including applicable information disclosures and limits toconfidentiality, assessed understanding of the process, and obtained consent to proceed with the assessment. Assessment methods included conducting a formal interview with patient, review of medical records, collaboration with medical staff, and obtaining relevant collateral information from familyand community providers when available. : done History of the Crisis Melissa Escobedo is a 39 year old female who presents to the Emergency Department due to alcohol intoxication and making suicidal statements while intoxicated. Per chart review, collateral information and patient report, they have a history of major depressive disorder and alcohol use disorder. Patient was brought in by her brother from their home in the community. Patient presents calm and cooperative, she is somber and sad. Patient has had similar episodes as today's presentation. Previous inpatient psychiatric hospitalization. Patient does have outpatient mental health providers. She is currently enrolled in a dual dx substance use disorder treatment program with [facility]. This is an outpatient program. Patient lives with her 8 year old son. Patient reports a history of suicide attempt, one time she attempted overdose of tylenol in 2011. Patient denies a history of self injurious behavior Brief Psychosocial History Family: Single, Children yes Support System: Sibling(s), Parent(s), Children Employment Status: unemployed Source of Income: none Financial Environmental Concerns: none Current Hobbies: music, reading, social media/computer activities Barriers in Personal Life: mental health concerns, other (see comments) (Ongoing Substance use) Significant Clinical History Current Anxiety Symptoms: anxious Current Depression/Trauma: sense of doom Current Somatic Symptoms: anxious Current Psychosis/Thought Disturbance: Current Eating Symptoms: Chemical Use History: Alcohol: Binge Last Use:: 11/11/24 Benzodiazepines: None Opiates: None Cocaine: None Marijuana: None Other Use: None Past diagnosis: Depression, Suicide attempt(s), PTSD, Substance Use Disorder Family history: Substance Use Disorder, PTSD Past treatment: Individual therapy, Psychiatric Medication Management, Inpatient Hospitalization Details of most recent treatment: Pt started an outpatient Dual DX [facility]ISA treatment program with [facility] this week. Other relevant history: Have there been any medication changes in the past two weeks: no Is the patient compliant with medications: yes Collateral Information Is there collateral information: No (Zina Escobedo, (Mother) [phone]. Left message requestinga call back) Risk Assessment [place] Suicide Severity Rating Scale Full Clinical Version: Suicidal Ideation Q1 Wish to be (Lifetime): Yes Q2 Non-Specific Active Suicidal Thoughts (Lifetime): Yes 3. Active Suicidal Ideation with any Methods (Not Plan) Without Intent to Act (Lifetime): Yes 4. Active Suicidal Ideation with Some Intent to Act, Without Specific Plan (Lifetime): No 5. Active Suicidal Ideation with Specific Plan and Intent (Lifetime): Yes Q6 Suicide Behavior (Lifetime): yes Intensity of Ideation (Lifetime) Most Severe Ideation Rating (Lifetime): 4 Description of Most Severe Ideation (Lifetime): Wanting to end it all Frequency (Lifetime): Less than once a week Duration (Lifetime): Less than 1 hour/some of the time Controllability (Lifetime): Easily able to control thoughts Deterrents (Lifetime): Deterrents definitely stopped you from attempting suicide Reasons for Ideation (Lifetime): Mostly to end or stop the pain (You couldn't go on living with thepain or how you were feeling) Suicidal Behavior (Lifetime) Actual Attempt (Lifetime): Yes Total Number of Actual Attempts (Lifetime): 1 Actual Attempt Description (Lifetime): suicide attempt via otc pills 05/25/2011 Has subject engaged in non-suicidal self-injurious behavior? (Lifetime): No Interrupted Attempts (Lifetime): No Aborted or Self-Interrupted Attempt (Lifetime): No Preparatory Acts or Behavior (Lifetime): No [place] Suicide Severity Rating Scale Recent: Suicidal Ideation (Recent) Q1 Wished to be (Past Month): no Q2 Suicidal Thoughts (Past Month): no Level of Risk per Screen: no risks indicated Intensity of Ideation (Recent) Deterrents (Past 1 Month): Does not apply Reasons for Ideation (Past 1 Month): Does not apply Suicidal Behavior (Recent) Actual Attempt (Past 3 Months): No Has subject engaged in non-suicidal self-injurious behavior? (Past 3 Months): No Interrupted Attempts (Past 3 Months): No Aborted or Self-Interrupted Attempt (Past 3 Months): No Preparatory Acts or Behavior (Past 3 Months): No Environmental or Psychosocial Events: challenging interpersonal relationships, other life stressors, ongoing abuse of substances Protective Factors: Protective Factors: strong velasquez to family unit, community support, or employment, help seeking, responsibilities and duties to others, including pets and children Does the patient have thoughts of harming others? Feels Like Hurting Others: no Previous Attempt to Hurt Others: no Is the patient engaging in sexually inappropriate behavior?: no Does Patient have a known history of aggressive behavior: No Has aggression occurred as a result of MH concerns/diagnosis: no Does patient have history of aggression in hospital: no Is the patient engaging in sexually inappropriate behavior? no Mental Status Exam Affect: Labile Appearance: Disheveled Attention Span/Concentration: Attentive Eye Contact: Engaged Fund of Knowledge: Appropriate Language /Speech Content: Fluent Language /Speech Volume: Normal Language /Speech Rate/Productions: Normal Recent Memory: Intact Remote Memory: Intact Mood: Sad Orientation to Person: Yes Orientation to Place: Yes Orientation to Time of Day: Yes Orientation to Date: Yes Situation (Do they understand why they are here?): Yes Psychomotor Behavior: Normal Thought Content: Clear Thought Form: Intact Medication Psychotropic medications: Medication Orders - Psychiatric (From admission, onward) None Current Care Team Patient Care Team: Vero Alvarez MD as PCP - General (Family Medicine) Diagnosis Patient Active Problem List Diagnosis Code PCOS (polycystic ovarian syndrome) E28.2 Blighted ovum O02.0 Abnormal Pap smear and cervical HPV (human papillomavirus) R89.6 Obesity E66.9 Condyloma acuminatum due to human papillomavirus A63.0 CARDIOVASCULAR SCREENING; LDL GOAL LESS THAN 160 Z13.6 Alcohol withdrawal syndrome, uncomplicated (H) F10.930 Alcohol intoxication with moderate or severe use disorder (H) F10.229 Primary Problem This Admission Alcohol intoxication with moderate or severe use disorder (H) F10.229 Clinical Summary and Substantiation of Recommendations Clinical Substantiation: After diagnostic assessment, chart review and collateral information, the recommendation of this financial underwriter is for discharge with safety plan. Patient's current symptoms of alcohol intoxication and PTSD can be managed effectively in an outpatient setting. At the time of discharge, patient did not present with any imminent risk factors that would indicate the need for inpatient psychiatric hospitalization. At this time mental health admission does not appear to be the most therapeutically beneficial intervention/ level of care for Melissa Escobedo. Patient feels confident that she can engage with their existing mental health and substance use disorder providers. Patient is educated on how to access urgent psychiatric care if their symptoms increase or worsen. Melissa was agreeable with the plan presented for discharge with plan to return to Dual dx programming on Thursday. Patient was able to engage in safety planning with this financial underwriter. Goals for crisis stabilization: Engage with dual dx substance use disorder treatment. Work towards abstinence from alcohol. Next steps for Care Team: no next steps for [facility] team Treatment Objectives Addressed: rapport building, safety planning, identifying additional supports,exploring obstacles to safety in the community Therapeutic Interventions: Engaged in safety planning, Engaged in cognitive restructuring/ reframing, looked at common cognitive distortions and challenged negative thoughts., Engaged in guided discovery, explored patient's perspectives and helped expand them through socratic dialogue. Has a specific means been identified for suicidal/homicide actions: No Patient coping skills attempted to reduce the crisis: Patient is not able to identify any coping skills that they utilized to reduce the crisis prior to arrival. Disposition Recommended referrals: Individual Therapy, Medication Management, LUISA Comprehensive Assessment Reviewed case and recommendations with attending provider. Attending Name: Emergency Department provider, MD Abdelrahman Kiser, was informed about the recommended disposition of discharge. They are in supportof the disposition. Attending concurs with disposition: yes Patient and/or validated legal guardian concurs with disposition: yes Final disposition: discharge Legal status: Voluntary/Patient has signed consent for treatment Reviewed court records: yes Assessment Details Total duration spent with the patient: 36 min CPT code(s) utilized: 58485 - Psychotherapy for Crisis - 60 (30-74*) min SEGUNDO Dorsey, Psychotherapist [facility] - Triage & Transition Services Callback: [phone] documented in this encounter ED Notes * Ann Marie Kiser MD - 11/11/2024 8:12 PM CDT Patient came in intoxicated made some suicidal comments but no plan. She was signed out to me pending clinical sobriety and DEC assessment. DEC saw the patient patient is denying suicidal ideation atthis time wants to be discharged. Incidentally her potassium was low at 2.6 and she was placed on the potassium order set and got 3 doses of IV potassium and a repeat is now 4.0. She also received 40mill equivalents of oral potassium. Patient is not on a diuretic so it is unclear why her potassiumwas low here. Patient will be discharged with follow-up recommended in the clinic in 1 to 2 weeks to have her potassium rechecked and for further workup if it continues to drop and will eat bananas. I did recommend she also talk to her doctor about getting help for her alcohol abuse. ICD-10-CM 1. Alcohol abuse with intoxication F10.129 2. Suicidal ideation R45.851 3. Hypokalemia E87.6 Ann Marie Kiser MD 11/11/242012 * Anais Mari RN - 11/11/2024 6:58 PM CDT Pt up to the nurses station wondering if she can leave. RN explained that the MD put in an order for her to speak with DEC prior. Pt agreeable. Pt denies SI. States, Oh no. I would never do anythingto hurt myself. I just want to go home. * Kaci Moreno LMFT - 11/11/2024 3:03 PM CDT Patient was unable to be roused for DEC assessment. [facility] team will attempt to assess patient when she is more able to engage in a meaningful way. SEGUNDO Dorsey, Psychotherapist [facility] - Triage & Transition Services Callback: [phone] * Puma Cunningham RN - 11/11/2024 3:00 PM CDT DEC Clinician in to see pt. Pt resting. Breathing spontaneous. * Puma Cunningham RN - 11/11/2024 2:48 PM CDT Pt helped to the bedside commode by x 2 staff and voided. Gogo-care per. Pt initially refused Pure-wick placement when offered. * Bean Ogden - 11/11/2024 1:33 PM CDT Patient assisted to bedside commode by RN * Mariella Sanford RN - 11/11/2024 11:59 AM CDT Patient here by herself, patient slurring her words, unable to stand without assistance x3. Patientalert to self only. Falls asleep while talking to patient. * Gloria Bañuelos MD - 11/11/2024 11:55 AM CDT Emergency Department Note History of Present Illness Chief Complaint Alcohol Intoxication and Suicidal HPI Melissa Escobedo is a 39 year old female with a history of alcohol use disorder, anxiety and depression who presents to the emergency department with chief complaint of alcohol intoxication. Patient reportedly was seen drinking alcohol outside the ER just prior to arrival when she was dropped off by family member. Patient herself states that she drank a lot however is unable to tell me how muchshe drank. Per the triage note, patient was observed standing outside drinking white claws and malibu rum just prior to arrival. Patient is asking if she can just go to sleep, does state that does not want to be alive however she denies wanting to kill herself. Denies any attempts of doing so. She notes that she is feeling nauseated and has some abdominal pain. Denies any falls. Independent Historian None Review of External Notes Reviewed the telemedicine visit from yesterday, therapy visit. 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 Obesity 09/10/2011 Medications albuterol (PROAIR HFA/PROVENTIL HFA/VENTOLIN HFA) 108 (90 Base) MCG/ACT inhaler amLODIPine (NORVASC) 5 MG tablet calcium citrate-vitamin D (CITRACAL) 315-6.25 MG-MCG TABS per tablet childrens multivitamin (ANIMAL SHAPES) CHEW chewable tablet Cholecalciferol (VITAMIN D) 2000 UNITS tablet clonazePAM (KLONOPIN) 0.5 MG tablet cyanocobalamin (VITAMIN B-12) 1000 MCG sublingual tablet DULoxetine HCl 40 MG CPEP EPINEPHrine (ANY BX GENERIC EQUIV) 0.3 MG/0.3ML injection 2-pack gabapentin (NEURONTIN) 300 MG capsule hydrOXYzine HCl (ATARAX) 25 MG tablet pantoprazole (PROTONIX) 40 MG EC tablet prazosin (MINIPRESS) 1 MG capsule traZODone (DESYREL) 50 MG tablet Surgical History Past Surgical History: Procedure Laterality Date ENT SURGERY tonsils 2007and wisdom teeth removed 2004 [employer] [facility] SURGERY hpv positive since 2004 and had cervical biopsy 2009 Physical Exam Patient Vitals for the past 24 hrs: BP Temp Temp src Pulse Resp SpO2 11/11/24 1158 (!) 167/95 98.6 ??F (37 ??C) Temporal 92 16 93 % Physical Exam General: Appears intoxicated, slurring her words, she is lying on her side in the bed with her headtilted completely to the side HEENT: Conjunctivae clear, no scleral icterus, no evidence of trauma over the scalp or head, ranging neck freely. Neuro: Alert, moving all extremities equally with intention CV: Regular rate and rhythm, radial and DP pulses equal Respiratory: No signs of respiratory distress, lungs clear to auscultation bilaterally Abdomen: Soft, without rigidity or rebound throughout No focal RLQ tenderness No focal RUQ tenderness No CVA tenderness bilaterally MSK: No lower extremity swelling or tenderness Diagnostics Lab Results Labs Ordered and Resulted from Time of ED Arrival to Time of ED Departure BASIC METABOLIC PANEL (LIMITED OCCURRENCES) - Abnormal Result Value Sodium 145 Potassium 2.6 (*) Chloride 110 (*) Carbon Dioxide (CO2) 21 (*) Anion Gap 14 Urea Nitrogen 8.4 Creatinine 0.65 GFR Estimate >90 Calcium 8.8 Glucose 99 ACETAMINOPHEN LEVEL - Abnormal Acetaminophen <5.0 (*) CBC WITH PLATELETS AND DIFFERENTIAL - Abnormal WBC Count 13.0 (*) RBC Count 4.53 Hemoglobin 14.1 Hematocrit 40.2 MCV 89 MCH 31.1 MCHC 35.1 RDW 12.7 Platelet Count 245 % Neutrophils 57 % Lymphocytes 37 % Monocytes 4 % Eosinophils 1 % Basophils 1 % Immature Granulocytes 0 NRBCs per 100 WBC 0 Absolute Neutrophils 7.5 Absolute Lymphocytes 4.8 Absolute Monocytes 0.5 Absolute Eosinophils 0.1 Absolute Basophils 0.2 Absolute Immature Granulocytes 0.0 Absolute NRBCs 0.0 LIPASE - Abnormal Lipase 78 (*) ETHANOL LEVEL BLOOD - Abnormal Ethanol Level Blood 0.40 (*) SALICYLATE LEVEL - Normal Salicylate <0.3 HCG QUALITATIVE - Normal hCG Serum Qualitative Negative Imaging No orders to display Independent Interpretation None ED Course Medications Administered Medications - No data to display Procedures Procedures Discussion of Management None ED Course Additional Documentation None Medical Decision Making / Diagnosis [facility] Diagnoses: None MIPS None MDM Melissa Escobedo is a 39 year old female with a history as above who presents to the emergency department with a chief complaint of alcohol intoxication, witnessed by ER staff to be drinking alcohol prior to arrival to the ER. On examination she is clearly intoxicated. No signs of trauma. Patient did become mildly agitated therefore received some IM Zyprexa as she was also having some nausea although no emesis. Labs obtained especially with the report of not wanting to be alive, reassuringly noevidence of ingestion, EtOH elevated to 0.4. I attempted to call patient's mother listed as contactthe chart, Zina Escobedo at [phone] however individual who answered stated this was the wrongnumber. No other numbers in the chart. Patient denies any active thoughts of suicide although notesthat she does not want to be alive anymore. She is on SHANNAN until she can be evaluated by DEC which should occur when she is sober. Disposition Care of the patient was transferred to my colleague Dr. Kiser pending DEC evaluation and clinical sobriety. Diagnosis ICD-10-CM 1. Alcohol abuse with intoxication F10.129 2. Suicidal ideation R45.851 Discharge Medications New Prescriptions No medications on file MD Chano Candelario Connie, MD 11/11/24 1622 * Anais Mari RN - 11/11/2024 11:50 AM CDT Bed: ED18 Expected date: Expected time: Means of arrival: Comments: triage * Jamie Awad RN - 11/11/2024 11:48 AM CDT Patient observed standing by trash, outside drinking white claws and malibu rum prior to checking in. Family member then wheeled patient into ED to check in. documented in this encounter Miscellaneous Notes * Plan of Care - Kaci Moreno LMFT - 11/11/2024 8:23 PM CDT Melissa Escobedo November 11, 2024 Plan of Care Hand-off Note Patient Recommended Care Path: discharge Clinical Substantiation: After diagnostic assessment, chart review and collateral information, the recommendation of this financial underwriter is for discharge with safety plan. Patient's current symptoms of alcohol intoxication and PTSD can be managed effectively in an outpatient setting. At the time of discharge, patient did not present with any imminent risk factors that would indicate the need for inpatient psychiatric hospitalization. At this time mental health admission does not appear to be the most therapeutically beneficial intervention/ level of care for Melissa Escobedo. Patient feels confident that she can engage with their existing mental health and substance use disorder providers. Patient is educated on how to access urgent psychiatric care if their symptoms increase or worsen. Melissa wasagreeable with the plan presented for discharge with plan to return to Dual dx programming on Thursday. Patient was able to engage in safety planning with this financial underwriter. Goals for crisis stabilization: Engage with dual dx substance use disorder treatment. Work towards abstinence from alcohol. Next steps for Care Team: no next steps for [facility] team Treatment Objectives Addressed: rapport building, safety planning, identifying additional supports,exploring obstacles to safety in the community Therapeutic Interventions: Engaged in safety planning, Engaged in cognitive restructuring/ reframing, looked at common cognitive distortions and challenged negative thoughts., Engaged in guided discovery, explored patient's perspectives and helped expand them through socratic dialogue. Has a specific means been identified for suicidal.homicide actions: No Patient coping skills attempted to reduce the crisis: Patient is not able to identify any coping skills that they utilized to reduce the crisis prior to arrival. Collateral contact information: none Legal Status: Voluntary/Patient has signed consent for treatment Reviewed court records: yes SEGUNDO Dorsey, Psychotherapist DEC - Triage & Transition Services Callback: [phone] documented in this encounter Plan of Treatment Not on file documented as of this encounter Procedures Procedure Name Priority Date/Time Associated Diagnosis Comments POTASSIUM (LIMITED OCCURRENCES) STAT 11/11/2024 7:47 PM CDT SALICYLATE LEVEL STAT 11/11/2024 12:3 7 PM CDT HCG QUALITATIVE STAT 11/11/2024 12:37 PM CDT ACETAMINOPHEN LEVEL STAT 11/11/2024 1 2:37 PM CDT CBC WITH PLATELETS AND DIFFERENTIAL STAT 11/11/2024 12:36 PM CDT CBC WITH PLATELETS AND DIFFERENTIAL (LIMITED OCCURRENCES) STAT 11/11/2024 12:36 PM CDT BASIC METABOLIC PANEL (LIMITED OCCURRENCES) STAT 11/11/2024 12:36 PM CDT LIPASE Add-On 11/11/2024 12:36 PM CDT ETHANOL LEVEL BLOOD Add-On 11/11/2024 1 2:36 PM CDT documented in this encounter Results * Potassium (Limited Occurrences) (11/11/2024 7:47 PM CDT) Potassium 4.0 3.4 - 5.3 mmol/L 11/11/2024 8:09 PM CDT LABORATORY Blood BLOOD SPECIMEN / Unknown Venipuncture / Unknown 11/11/2024 7:47 PM CDT 11/11/2024 7:50 PM CDT Ann Marie Kiser MD LAB - BLOOD ORDERABLES Matilda lang Result LABORATORY [facility] [address], [address] [place] [address], [place] [phone] * HCG QUALitative (blood) (11/11/2024 12:37 PM CDT) hCG Serum Qualitative Negative Negative HAYDEN 11/11/2024 1:02 PM CDT LABORATORY Comment:This test is for scr eening purposes. Results should be interpreted along with the clinical picture. Confirmation testing is available if warranted by ordering [id number], HCG Quantitative . Blood STRUCTURE OF RIGHT UPPER LIMB / Unknown Venipuncture / Unknown 11/11/2024 12:37 PM CDT 11/11/2024 12:45 PM CDT Gloria Goodwin MD LAB - BLOOD ORDERABLES Final Result LABORATORY [facility] [address], [address] [place] [address], [place] [phone] * Salicylate level (11/11/2024 12:37 PM CDT) Salicylate <0.3 mg/dL 11/11/2024 1:22 PM CDT LABORATORY Comment: Salicylate Reference Range Therapeutic: 3-10 mg/dL Anti inflammatory: 15-30 mg/dL Blood STRUCTURE OF RIGHT UPPER LIMB / Unknown Venipuncture / Unknown 11/11/2024 12:37 PM CDT 11/11/2024 12:45 PM CDT Gloria Goodwin MD LAB - BLOOD ORDERABLES Final Result Performing Organization Address City/[facility]/ZIP Co de Phone Number LABORATORY [facility] [address], [address] [place] [address], [place] [phone] * (ABNORMAL) Acetaminophen level (11/11/2024 12:37 PM CDT) Acetaminophen <5.0(L) 10.0 - 30.0 ug/mL 11/11/2024 1:22 PM CDT LABORATORY Blood STRUCTURE OF RIGHT UPPER LIMB / Unknown Venipuncture / Unknown 11/11/2024 12:37 PM CDT 11/11/2024 12:45 PM CDT Gloria Goodwin MD LAB - BLOOD ORDERABLES Final Result LABORATORY [facility] [address], [address] [place] [address], [facility] [phone] * (ABNORMAL) Ethanol Level Blood (11/11/2024 12:36 PM CDT) Ethanol Level Blood 0.40(HH) <=0.01 g/dL 11/11/2024 2:16 PM CDT LABORATORY Comment:This is an unconfirm ed screening result to be used for medical purposes only. Blood STRUCTURE OF RIGHT UPPER LIMB / Unknown Venipuncture / Unknown 11/11/2024 12:36 PM CDT 11/11/2024 12:45 PM CDT us Gloria Goodwin MD LAB - BLOOD ORDERABLES Final Result LABORATORY [facility] [address], [address] [address], [facility] [phone] * (ABNORMAL) Lipase (11/11/2024 12:36 PM CDT) Pathologist [facility] Lipase 78(H) 13 - 60 U/L 11/11/2024 1:10 PM CDT LABORATORY Blood STRUCTURE OF RIGHT UPPER LIMB / Unknown Venipuncture / Unknown 11/11/2024 12:36 PM CDT 11/11/2024 12:45 PM CDT us Gloria Goodwin MD LAB - BLOOD ORDERABLES Final Result LABORATORY [facility] [address], [address] [place] [address], [facility] [phone] * (ABNORMAL) CBC with platelets and differential (11/11/2024 12:36 PM CDT) WBC Count 13.0(H) 4.0 - 11.0 10e3/uL 11/11/2024 12:48 PM CDT LABORATORY RBC Count 4.53 3.80 - 5.20 10e6/uL 11/11/2024 12:48 PM CDT LABORATORY Hemoglobin 14.1 11.7 - 15.7 g/dL 11/11/2024 12:48 PM CDT LABORATORY Hematocrit 40.2 35.0 - 47.0 % 11/11/2024 12:48 PM CDT LABORATORY MCV 89 78 - 100 fL 11/11/2024 12:48 PM CDT LABORATORY MCH 31.1 26.5 - 33.0 pg 11/11/2024 12:48 PM CDT LABORATORY MCHC 35.1 31.5 - 36.5 g/dL 11/11/2024 12:48 PM CDT LABORATORY RDW 12.7 10.0 - 15.0 % 11/11/2024 12:48 PM CDT LABORATORY Platelet Count 245 150 - 450 10e3/uL 11/11/2024 12:48 PM CDT LABORATORY % Neutrophils 57 % 11/11/2024 12:48 PM CDT LABORATORY % Lymphocytes 37 % 11/11/2024 12:48 PM CDT LABORATORY % Monocytes 4 % 11/11/2024 12:48 PM CDT LABORATORY % Eosinophils 1 % 11/11/2024 12:48 PM CDT LABORATORY % Basophils 1 % 11/11/2024 12:48 PM CDT LABORATORY % Immature Granulocytes 0 % 11/11/2024 12:48 PM CDT LABORATORY NRBCs per 100 WBC 0 <1 /100 025 12:48 PM CDT LABORATORY Absolute Neutrophils 7.5 1.6 - 8.3 10e3/uL 11/11/2024 12:48 PM CDT LABORATORY Absolute Lymphocytes 4.8 0.8 - 5.3 10e3/uL 11/11/2024 12:48 PM CDT LABORATORY Absolute Monocytes 0.5 0.0 - 1.3 10e3/uL 11/11/2024 12:48 PM CDT LABORATORY Absolute Eosinophils 0.1 0.0 - 0.7 10e3/uL 11/11/2024 12:48 PM CDT LABORATORY Absolute Basophils 0.2 0.0 - 0.2 10e3/uL 11/11/2024 12:48 PM CDT LABORATORY Absolute Immature Granulocytes 0.0 <=0.4 10e3/uL 11/11/2024 12:48 PM CDT LABORATORY Absolute NRBCs 0.0 10e3/uL 11/11/2024 12:48 PM CDT LABORATORY Blood STRUCTURE OF RIGHT UPPER LIMB / Unknown Venipuncture / Unknown 11/11/2024 12:36 PM CDT 11/11/2024 12:45 PM CDT Gloria Goodwin MD LAB - BLOOD ORDERABLES Final Result LABORATORY [facility] [address], [address] [place] [address], [facility] [phone] * (ABNORMAL) Basic Metabolic Panel (Limited Occurrences) (11/11/2024 12:36 PM CDT) Sodium 145 135 - 145 mmol/L 11/11/2024 1:15 PM CDT LABORATORY Potassium 2.6(LL) 3.4 - 5.3 mmol/L 11/11/2024 1:15 PM CDT LABORATORY Chloride 110(H) 98 - 107 mmol/L 11/11/2024 1:15 PM CDT LABORATORY Carbon Dioxide (CO2) 21(L) 22 - 29 mmol/L 11/11/2024 1:15 PM CDT LABORATORY Anion Gap 14 7 - 15 mmol/L 11/11/2024 1:15 PM CDT LABORATORY Urea Nitrogen 8.4 6.0 - 20.0 mg/dL 11/11/2024 1:15 PM CDT LABORATORY Creatinine 0.65 0.51 - 0.95 mg/dL 11/11/2024 1:15 PM CDT LABORATORY GFR Estimate >90 >60 mL/min/1.7 3m2 11/11/2024 1:15 PM CDT LABORATORY Comment:eGFR calculated usin g 2020 CKD-EPI equation. Calcium 8.8 8.8 - 10.4 mg/dL 11/11/2024 1:15 PM CDT LABORATORY Glucose 99 70 - 99 mg/dL 11/11/2024 1:15 PM CDT LABORATORY Blood STRUCTURE OF RIGHT UPPER LIMB / Unknown Venipuncture / Unknown 11/11/2024 12:36 PM CDT 11/11/2024 12:45 PM CDT us Gloria Goodwin MD LAB - BLOOD ORDERABLES Final Result LABORATORY [facility] [address], [address] [place] [address], [facility] [phone] documented in this encounter Visit Diagnoses Diagnosis Alcohol intoxication with moderate or severe use disorder (H)- Primary Alcohol abuse with intoxication Acute alcoholic intoxication in alcoholism, unspecified Suicidal ideation Hypokalemia Hypopotassemia documented in this encounter Administered Medications Inactive Administered Medications - up to 3 most recent administrations Medication Order MAR Action Action Date Dose Rate Site OLANZapine (zyPREXA) injection 5 mg 5 mg, Intramuscular, ONCE, On Thu11/11/24 at 1220, For 1 dose, Dissolve the contents of the 10 mg vial using 2.1 mL of Sterile Water for Injection to provide a solution containing 5 mg/mL of olanzapine. Withdraw the ordered dose from vial. Use immediately (within 1 hour) after reconstitution. Discard any unused portion. $Given 11/11/2024 12:42 PM CDT 5 mg Left Deltoid potassium chloride (KLOR-CON) Packet 40 mEq 40 mEq, Oral, ONCE, On Thu11/11/24 at 1940, For 1 dose, Dissolve packet contents in 4-8 ounces of cold water or juice. $Given 11/11/2024 7:51 PM CDT 40 mEq potassium chloride 10 mEq in 100 mL sterile water infusion 10 mEq, Intravenous, Administer over 60 Minutes, at 100 mL/hr, ONCE, On Thu11/11/24 at 1340, For 1 dose $New Bag 11/11/2024 2:30 PM CDT 10 mEq 100 mL/hr potassium chloride 10 mEq in 100 mL sterile water infusion 10 mEq, Intravenous, Administer over 60 Minutes, at 100 mL/hr, EVERY HOUR, First dose on Thu11/11/24 at 1605, For 5 doses, Infuse via PERIPHERAL or CENTRAL LINE. Potassium level less than 2.7 mmol/L. Administer 10 mEq potassium chloride IV x 6 doses and recheck potassium level 1-2 hours AFTER last IV dose. Ordered from the Potassium replacement order set $New Bag 11/11/2024 6:11 PM CDT 10 mEq 100 mL/hr $New Bag 11/11/2024 4:05 PM CDT 10 mEq 100 mL/hr sodium chloride 0.9% BOLUS 1,000 mL Intravenous, 1,000 mL, ONCE, On Thu11/11/24 at 1220, For 1 dose $New Bag 11/11/2024 12:33 PM CDT 1,000 mLs 999 mL/hr sterile water (preservative free) injection Starting on Thu11/11/24 at 1230, For 1 dose, Puma Cunningham: cabinet override $Given 11/11/2024 12:37 PM CDT 10 mLs Left Deltoid documented in this encounter Active and Recently Administered Medications Times are shown in CDT. Scheduled Medication Order 11/09/2024 11/10/2024 11/11/2024 OLANZapine (zyPREXA) injection 5 mg (COMPLETED) 5 mg, Intramuscular, ONCE, On Thu11/11/24 at 1220, For 1 dose, Dissolve the contents of the 10 mg vial using 2.1 mL of Sterile Water for Injection to provide a solution containing 5 mg/mL of olanzapine. Withdraw the ordered dose from vial. Use immediately (within 1 hour) after reconstitution. Discard any unused portion. 124 ($Given - Provi dimitri: Puma Cunningham RN) potassium chloride (KLOR-CON) Packet 40 mEq (COMPLETED) 40 mEq, Oral, ONCE, On Thu11/11/24 at 1940, For 1 dose, Dissolve packet contents in 4-8 ounces of cold water or juice. 1950 ($Given - Provi dimitri: Anais Mari RN) potassium chloride 10 mEq in 100 mL sterile water infusion (COMPLETED) 10 mEq, Intravenous, Administer over 60 Minutes, at 100 mL/hr, ONCE, On Thu11/11/24 at 1340, For 1 dose 1430 ($New Bag - Pro vider: Puma Cunningham RN)1547 (Stopped - Provider: Lulu Waite RN) potassium chloride 10 mEq in 100 mL sterile water infusion (COMPLETED) 10 mEq, Intravenous, Administer over 60 Minutes, at 100 mL/hr, EVERY HOUR, First dose on Thu11/11/24 at 1605, For 5 doses, Infuse via PERIPHERAL or CENTRAL LINE. Potassium level less than 2.7 mmol/L. Administer 10 mEq potassium chloride IV x 6 doses and recheck potassium level 1-2 hours AFTER last IV dose. Ordered from the Potassium replacement order set 1605 ($New Bag - Pro vider: Lulu Waite RN)1800 (Not Given - Provider: Anais Mari RN - Reason: Other)1811 ($New Bag - Provider: Anais Mari RN)1859 (Stopped - Provider: Anais Mari RN)195 (Not Given - Provider: Anais Mari RN - Reason: Other)195 (Not Given - Provider: Anais Mari RN - Reason: Other) sodium chloride 0.9% BOLUS 1,000 mL (COMPLETED) Intravenous, 1,000 mL, ONCE, On Thu11/11/24 at 1220, For 1 dose 1233 ($New Bag - Pro vider: Puma Cunningham RN)1430 (Stopped - Provider: Puma Cunningham RN) No Frequency Medication Order 11/09/2024 11/10/2024 11/11/2024 sterile water (preservative free) injection (COMPLETED) Starting on Thu11/11/24 at 1230, For 1 dose, Puma Cunningham: cabinet override 1237 ($Given - Provi dimitri: Puma Cunningham RN) documented in this encounter Care Teams Blank Driller Relationship Specialty Start Date End Date Vero Alvarez MD [facility] [address] [place] [address] PCP - General Family Medicine 06/07/24 documented as of this encounter
[2024-12-02] VITALS (11 sets, daily range): BP systolic 147–166; BP diastolic 88–105; PULSE 77–85; RESP 14–20; TEMP 36.6; O2SAT 96–98; BMI 26.6
--- OUTSIDE RECORDS SUMMARY | 2024-12-02 00:08 | XMS_ITS | Encounter Summary ---
Author Organization [facility] Address [address] [place] [address]. [place] [address] Care Team Providers Care Wall Scraper Name Role Phone Vero Alvarez MD Primary Care Provider [phone] Encounter Details Date Type Department Care Team (Latest Contact Info) Description 11/11/2024 Travel Social History Tobacco Use Types Packs/Day Years [...] Date Recorded Do you have housing? (Angel g is defined as stable permanent housing and does not include staying outside in a car, in a tent, in an abandoned building, in an overnight senior living, or couch-surfing.) Yes 06/07/2024 Are you worried [...] on file Legal Sex Female 4:27 AM ADMISSIONS OFFICER Gender Identity Not on file Sexual Orientation Not on file documented as of this encounter Functional Status * Calculated C-SSRS [...] (Past 3 Months) No 11/11/2024 7:39 PM JIMMYT Kaci Moreno LMFT Has subject engaged in [...] Moreno LMFT documented as of this encounter Plan of Treatment Not on file documented as of this encounter Visit Diagnoses Not on filedocumented in this encounter Care Teams Wall Scraper Relationship Specialty Start Date End Date Vero Alvarez MD [facility] [address] [place] [address] PCP - General Family Medicine 06/07/24 documented as of this encounter
--- OUTSIDE RECORDS SUMMARY | 2024-12-02 00:08 | XMS_ITS | Patient Health Record ---
Author Organization [facility] Address [address] [place] [address] [address] [place] [address] Care Team Providers Care Bioinformatics Software Engineer Name Role Phone Deniseferdinand Vero Primary Care Provider UnavailCésar Naranjo Unavailable [phone] Veronica Anglin MD Unavailable Unavailable Umberto Fish Unavailable [phone] Brandy Reynolds Unavailable [phone] Andrez Phillips Unavailable [phone] Maykel Sykes Unavailable [phone] Johnny Tomlinson Unavailable [phone] Sara Malave Unavailable [phone] Andrez Hammonds Unavailable [phone] Allergies Allergen (clinical drug ingredient) Drug/Non Drug Allergy documented on EMR Reaction Allergy Type Onset Date Status migraine meds (uncoded) Swelling Allergy Active PNC (uncoded) Unknown Allergy Active Non-steroidal anti-inflammatory agent (FN) NSAIDs Unknown Drug Allergy Active Reason For Referral Reason REHAB PT and OT: MED X [...] multiple sites in spine (M45.0) Referral Organization [facility] Referring Provider First Name Maykel Referring Provider Last Name Onel Referring Provider Speciality Occupation al Medicine Referred Organization [facility] Referred Provider Donell Olivares Referred Address [address] [place], [place],[address],[place] Referred Provider Specialty Rehabilitati on General Notes Nel Vera 12/17/19 04:02:41 PM >MA no PA req. OK to schedule, Rowena John 12/18/2023 12:32:26 PM >Pt scheduled Referral Priority [...] W/U Status Risk Notes Problem Chronic pain (57984751) Other chronic pain (G89.29) Active confirmed Problem Ankylosing spondylitis (2123298) Ankylosing spondylitis of multiple sites in spine (M45.0) Active confirmed Problem Cervical spondylosis without myelopathy (105881773) Spondylosis without myelopathy or radiculopathy, cervical region (M47.812) Active confirmed Problem Degeneration of cervical intervertebral disc (08330764) Other cervical disc degeneration, unspecified cervical region (M50.30) Active confirmed Problem Cervical radiculopathy (32993654) Radiculopathy, cervical region (M54.12) Active confirmed Problem Cervicalgia (48929083) Cervicalgia (M54.2) Active confirmed Problem Backache (191923839) Dorsalgia, unspecified (M54.9) Active confirmed Problem Cervicogenic headache (573835323) Cervicogenic headache (G44.86) Active confirmed Problem Low back pain (635698718) Low back pain, unspecified (M54.50) Active confirmed Problem Psoriatic arthritis (020135629) Psoriatic arthritis (L40.50) Active confirmed Vital Signs Blood pressure diastolic 88 mm Hg 12/17/2023 Height 66 in 12/17/2023 Blood pressure systolic 132 mm Hg 12/17/2023 Weight 135 lbs 12/17/2023 BMI 21.79 kg/m2 12/17/2023 Encounters Encounter Location Date Provider Diagnosis [facility] [address] [place] [address] [address] [place] [address] 12/08/2023 César Ramirez [facility] [address] [place] [address] [address] [place] [address] 01/14/2024 César Ramirez [facility] [address] [place] [address] 12/17/2023 Maykel Onel Low back pain, unspecified M54.50 ; Cervicalgia M54.2 ; Spondylosis without myelopathy or radiculopathy, cervical region M47.812 ; Other cervical disc degeneration, unspecified cervical region M50.30 ; Cervicogenic headache G44.86 ; Dorsalgia, unspecified M54.9 ; Psoriatic arthritis L40.50 and Ankylosing spondylitis of multiple sites in spine M45.0 [facility] [address] [place] [address] 12/10/2023 César Ramirez Radiculopathy, cervical region M54.12 Assessments Encounter Date Diagnosis (ICD Code) Assessment Notes Treatment Notes Treatment Clinical Notes Section Notes 12/17/2023 Cervicalgia (ICD-10 - M54.2) 1. I believe Melissa is an excellent candidate for the type of treatment available here at [facility]. I believe she will benefit from core [...] has some complicating underlying conditions including ankylosing spondyloarthropathy affecting primarily the lumbar spine, as well [...] In some cases, we will utilize a cognitive-behavioral coaching emphasis. 6. 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 I believe she will benefit from core [...] has some complicating underlying conditions including ankylosing spondyloarthropathy affecting primarily the lumbar spine, as well [...] In some cases, we will utilize a cognitive-behavioral coaching emphasis. 6. 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 12/10/2023 Radiculopathy, cervical region (ICD-10 - M54.12) 12/17/2023 Spondylosis without myelopathy or radiculopathy, cervical region (ICD-10 - M47.812) 1. I believe Melissa is an excellent candidate for the type of treatment available here at [facility]. I believe she will benefit from core [...] has some complicating underlying conditions including ankylosing spondyloarthropathy affecting primarily the lumbar spine, as well [...] In some cases, we will utilize a cognitive-behavioral coaching emphasis. 6. 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 I believe she will benefit from core [...] has some complicating underlying conditions including ankylosing spondyloarthropathy affecting primarily the lumbar spine, as well [...] In some cases, we will utilize a cognitive-behavioral coaching emphasis. 6. 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 I believe she will benefit from core [...] has some complicating underlying conditions including ankylosing spondyloarthropathy affecting primarily the lumbar spine, as well [...] In some cases, we will utilize a cognitive-behavioral coaching emphasis. 6. 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 I believe she will benefit from core [...] has some complicating underlying conditions including ankylosing spondyloarthropathy affecting primarily the lumbar spine, as well [...] In some cases, we will utilize a cognitive-behavioral coaching emphasis. 6. 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 I believe she will benefit from core [...] has some complicating underlying conditions including ankylosing spondyloarthropathy affecting primarily the lumbar spine, as well [...] In some cases, we will utilize a cognitive-behavioral coaching emphasis. 6. 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 I believe she will benefit from core [...] has some complicating underlying conditions including ankylosing spondyloarthropathy affecting primarily the lumbar spine, as well [...] In some cases, we will utilize a cognitive-behavioral coaching emphasis. 6. 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 12/17/2023 Other I, Lisandro Caballero , am serving as a scribe to document services personally performed by Maykel Sykes MD, based upon my observations and the provider's statements to me. All documentation has been reviewed by the aforementioned doctor prior to being entered into the official medical record. I, Maykel Sykes MD attest that the above named individual is acting in scribe capacity, has observed my performance of the services and has documented them in accordance with my direction. The documentation recorded by the scribe accurately reflects the service I personally performed and the decisions made by me. 1. I believe Melissa is an excellent candidate for the type of treatment available here at [facility]. I believe she will benefit from core [...] has some complicating underlying conditions including ankylosing spondyloarthropathy affecting primarily the lumbar spine, as well [...] In some cases, we will utilize a cognitive-behavioral coaching emphasis. 6. 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 [place] [address] [phone] [id number] Melissa Escobedo Self - patient is the insured [address] [facility] [address] [address] [place], [place] [id number] Melissa Escobedo Self - patient is the insured Medical (General) History Medical History History ICD Code Acid reflux Anxiety Arthritis Asthma Depression Headaches Hypertension Migraines Stomach Ulcers Surgical History Surgery Date(Month/Year) 2017 Lithotripsy 2018 Gull bladder 2020 Tonsil 2008 Hystorectomy 02/02 DNC 10/2022 Gastric Bypass 02/2022
--- OUTSIDE RECORDS SUMMARY | 2024-12-02 00:08 | XMS_ITS | Encounter Summary ---
Author Organization [facility] Address [address] [place] [address]. 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 Pt declined documented in this encounter Plan of Treatment Not on file documented as of this encounter Visit Diagnoses Not on filedocumented in this encounter Care Teams Neonatal Critical Care Nurse Relationship Specialty Start Date End Date Vero Alvarez MD [facility] [address] [place] [address] PCP - General Family Medicine 06/07/24 documented as of this encounter
--- OUTSIDE RECORDS SUMMARY | 2024-12-02 00:09 | XMS_ITS | Clinical Summary ---
Author Organization [email or web address] Formerly [facility] Address [address] [place] [id number] Care Team Providers Care Accounts Payable Administrator Name Role Phone Vero Alvarez MD Primary Care Provider Joseph Menendez MD Unavailable [phone] Janis Mcgarry RN Unavailable [phone] Unavailable [phone] Allergies Active Allergy Reactions Criticality Noted Date [...] Ann Marie Concepcion RN, Bariatric Nurse Clinician, [facility] 02/20/2022 Ondansetron Headache,Other - Describe In Comment Field High 02/24/2022 Penicillins Edema,Anaphylaxis High 09/16/2006 Sumatriptan Anaphylaxis High 03/04/2011 Tramadol Headache High 05/19/2022 Unlisted Allergen (Include Detail In Comments) Other - Describe In Comment Field 05/18/2023 Medications * This document contains information received from the source organization and may not represent a complete record from that organization. EPINEPHrine (EPIPEN) 0.3 mg/0.3 mL injectionIndicat ions:Hives [...] mg by mouth every 6 hours. Active traZODone 50 mg tabletIndication s:Psychophysiolo gic [...] once daily. 90 Capsule 10/20/19 25 Active gabapentin (NEURONTIN) 300 mg capsuleIndicatio ns:Generalized anxiety disorder with panic attacks Take 2 caps (600mg) by mouth in the morning, 1 cap (300mg) in the afternoon, and 1 cap (300mg) in the evening for 3 days, then increase to 2 caps (600mg by mouth in the morning and in the afternoon, and 1 cap (300mg) in the evening for 3 days, then increase to 2 caps (600mg) by mouth three times daily 180 Capsule 1 12/02/19 25 Active gabapentin (NEURONTIN) 300 mg capsuleIndicatio ns:Generalized anxiety disorder with panic attacks Take 1 Capsule (300 mg) by mouth three times daily. 90 Capsule 1 11/02/19 25 025 Discontin ued(Reord er (E-cancel not sent)) Active Problems Problem Noted Date Diagnosed Date Gastric ulcer 11/30/2023 Epigastric pain 11/24/2023 Paroxysmal SVT (supraventricular tachycardia) S/P robotic gastric bypass by Dr. Menendez 2 Overview (02/18/2022): Surgery 02/19/2022 238 lbs BMI 38 Choledocholithiasis 11/13/2021 Ankylosing spondylitis of lumbar region 11/04/19 Overview (11/03/2021): 06/2021 [facility] Rheumatology diagnosis Psoriatic arthritis 11/03/2021 Overview (11/03/2021): 06/2021 [facility] rheumatology diagnosis Controlled substance agreement signed 10/31/2021 Overview (10/31/2021): 10/31/21 Sarah Ontiveros DNP [employer]NER [employer] INSERTER GRADES 1 THRU 6 VISITING TEACHER/psychiatry Paroxysmal SVT (supraventricular tachycardia) Severe episode of recurrent major depressive disorder, without psychotic features 05/28/2021 Obsessive Compulsive Disorde r, with mixed obsessional thoughts and acts 04/30/2020 JOEY I (cervical intraepithelial neoplasia I) 10/2019 Overview (03/28/2022): Plan: Pap/HPV due in 1 year 02/28/2022 NIL/HPV+, HPV 16/18 Negative 10/05/2019 NIL/HPV negative 12/11/2017 [place]: Focal squamous atypia suggestive of JOEY I 04/03/2017 NIL/HPV+ 09/01/2016 [place]: No biopsy 07/21/2016 NIL/HPV+ 09/10/2011 NIL/HPV negative 01/19/2009 [place]: JOEY I 12/13/2008 LSIL Gallstones 04/21/2018 Overview [...] DATE LAST PAP RESULT Abnormal Pap or [place] Bx in last 5 years MENSTRUAL STATUS [place] Bx Done Today ADDITIONAL INFORMATION Automated Review ANCILLARY TESTING CUSTOMER PROGRAM SPECIALIST NOTE ABORH ANTIBODY SCREEN Negative SPECIMEN EXPIRATION [...] DATE LAST PAP RESULT Abnormal Pap or [place] Bx in last 5 years MENSTRUAL STATUS [place] Bx Done Today ADDITIONAL INFORMATION Automated Review ANCILLARY TESTING CUSTOMER PROGRAM SPECIALIST NOTE ABORH ANTIBODY SCREEN Negative SPECIMEN EXPIRATION [...] Overview (06/09/2020): Diagnosed 2 years ago by 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 metal installer helper Low grade squamous intraepit helial lesion (LGSIL) on cervical Pap smear 12/12/2008 10/18/2019 Overview (05/01/2017): 12/2008 Pap: LSIL 01/2009 [place]: JOEY 1 07/2016 Pap: NIL/HPV positive 09/01/2016: Colposcopy, , no bx taken 04/03/17: Pap NIL, HPV + Plan per Vero Alvarez MD: Colposcopy Depressive disorder, not elsewhere classified 09/18/19 07 03/19/2016 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 Date Type Department Care Team Description 12/01/2024 1:00 PM CDT Telemedicine [facility] [address] [place] [address] Inga Ontiveros NP Telehealth; Medication Management 12/01/2024 Travel 11/25/2024 2:00 PM CDT Telemedicine [facility] [address] [facility] [address] [place] [address] [facility] 11/10/2024 10:00 AM CDT [facility] [address] [facility] [address] [facility] [address] [place] [address] [facility] Mental Health Intake (No vitals taken) 11/03/2024 9:30 AM CDT Telemedicine [facility] [address] [place] [address] [facility] Moss [facility] Visit 11/03/2024 Travel 10/31/[address] [place] [address] Inga Ontiveros NP Refill Request (Gabapentin 300mg caps) 10/19/2024 3:00 PM CDT Telemedicine [facility] [address] [facility] [place] [address] Inga Ontiveros NP Telehealth; Medication Management 10/18/2024 Travel 10/17/2024 Patient Outreach [facility] [address] [place] [address] Adamaris Wood Care Coordination 10/11/2024 Patient Outreach [facility] [address] [place] [address] Adamaris Wood Care Coordination 10/04/[address] 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 Gender Identity Not on file Sexual Orientation Not on file Occupation Industry Job Start Date Job End Date [employer] Employee Not on file Not on file [...] 10/03/2024 2:35 PM CDT Plan of Treatment Upcoming Encounters Date Type Department Care Team (Late st Contact Info) Description 12/07/2024 9:45 AM CDT Office Visit [facility] [address] [place] [address] Anselmo Campbell, DO [address] [facility] [address] [place] [address] 12/23/2024 1:30 PM CDT Telemedicine [facility] [address] [place] [address] Inga Ontiveros, JOINT SUPERVISOR [address] [place] [address] Health Maintenance Due Date Last Done Comments Pap test for age 21-65 02/28/2023 2, 02/28/2022, 10/05/2019, Additional history exists COVID-19 vaccine series (2023- season) 2023 07/22/2022, 11/29/2021, 04/09/2021, Additional history exists BMI (ht and wt on same day) for age 18+ 11/24/2024 11/25/2023, 11/17/2023, 11/12/2023, Additional history exists Influenza Vaccine (#1) 2024 2, 01/10/2021, 01/26/2019, Additional history exists Depression screening for age 12+ 12/01/2025 12/01/2024, 07/07/2024, 06/09/2024, Additional history exists Tetanus booster 10/30/2026 10/30/2016, 11/0 10/2007, 09/12/1999, Additional history exists Hepatitis B series for 19+ Completed 04/30, 12/17/1999, 03/31/1997 HIV for age 15-65 Completed 05/19/2016, , 12/01/2008 Hepatitis C screening for ag e 18-79 Completed 05/19/2016, 12/03/2015 Pneumococcal series for age 6-49 Completed 11/30/19, 04/29/2016 Medical Devices Implanted Type Area Computer Architect Device Identifier Shelf Expiration Date Model / Serial / Lot Stent Nasal Latera Kit Absorb - [id number] Implanted:Qty: 1 on 01/31/2021 by Ross Layne MD at [facility] [employer] 05/02/2021 [id number] / [id number] / [id number] Stent Pancreatic [id number] Advanix Stra No Ines Plst - [id number] Implanted:Qty: 1 on 11/14/2021 by Carmine Sol MD at [facility] Gastroenterology 12/28/2022 [id number] / / [id number] Procedures Procedure Name Priority Date/Time Associated Diagnosis Comments EKG 12 LEAD STAT 10/03/2024 2:42 PM CDT CUSTOMER PROGRAM SPECIALIST THIN PREP PAP SCREEN IMAGED Routine 02/28/2022 11:10 AM PERFORMANCE IMPROVEMENT DIRECTOR Pap smear for cervical cancer screening ANTI HIV 1/2 Routine 05/19/2016 12:13 PM PERFORMANCE IMPROVEMENT DIRECTOR care, first , unspecified trimester (HC) ANTI HCV Routine 05/19/2016 12:13 PM PERFORMANCE IMPROVEMENT DIRECTOR care, first , unspecified trimester (HC) from [...] NOW QTc 471 ms BEYOND NOW P [place] 64 degrees BEYOND NOW R [place] 67 degrees BEYOND NOW T [place] 55 degrees BEYOND NOW 10/03/2024 2:42 PM CDT 10/03/2024 8:25 PM CDT us Roland Ed Triage EKG ORD Final Result BEYOND NOW [place], [place] * CUSTOMER PROGRAM SPECIALIST THIN PREP PAP SCREEN IMAGED (02/28/2022 11:10 AM PERFORMANCE IMPROVEMENT DIRECTOR) Case Report Gynecologic Cytology Report Case: [id number] Authorizing Provider: Vero Alvarez MD Collected: 02/28/2022 1110 Ordering Location: [facility] Received: 02/28/2022 1131 Clinic First Screen: Caroline Delatorre Rescreen: Michel Monroe Specimen: CUSTOMER PROGRAM SPECIALIST ThinPrep Vial Screening, Cervical 03/26/2022 10:13 AM PERFORMANCE IMPROVEMENT DIRECTOR [facility] INTERPRETATION/ RESULT NEGATIVE FOR INTRAEPITHELIAL LESION OR MALIGNANCY (NIL) (none) 03/26/2022 10:13 AM PERFORMANCE IMPROVEMENT DIRECTOR [facility] at 1013 PERFORMANCE IMPROVEMENT DIRECTOR ORGANISM(S) Shift in angle suggestive of bacterial vaginosis 03/26/2022 10:13 AM PERFORMANCE IMPROVEMENT DIRECTOR [facility] SPECIMEN ADEQUACY Satisfactory for evaluation Endocervical component present 03/26/2022 10:13 AM PERFORMANCE IMPROVEMENT DIRECTOR [facility] HPV REQUEST HPV and PAP 03/26/2022 10:13 AM PERFORMANCE IMPROVEMENT DIRECTOR [facility] Date of LMP 201903/26/2022 10:13 AM PERFORMANCE IMPROVEMENT DIRECTOR [facility] Last Pap Date 10/05/19 03/26/2022 10:13 AM PERFORMANCE IMPROVEMENT DIRECTOR [facility] Last Pap Result NIL 10:13 AM PERFORMANCE IMPROVEMENT DIRECTOR [facility] Abnormal Pap or [place] Bx in last 5 years Yes 03/26/2022 10:13 AM PERFORMANCE IMPROVEMENT DIRECTOR [facility] Menstrual Status Irregular Periods 03/26/2022 10:13 AM PERFORMANCE IMPROVEMENT DIRECTOR [facility] [place] Bx Done Today No 03/26/2022 10:13 AM PERFORMANCE IMPROVEMENT DIRECTOR [facility] Additional Information None given 03/26/2022 10:13 AM PERFORMANCE IMPROVEMENT DIRECTOR [facility] Comment: Cytology is screened at [facility] - [address], [place] [address] [facility] - [address], [place] [address] and [facility] - [address] [place] [address] Interpreted at [facility] - [address], [place] [address] Automated Review Successful 03/26/2022 10:13 AM PERFORMANCE IMPROVEMENT DIRECTOR [facility] Comment:Specimen processed s uccessfully by automated chief compressor station engineer device, ThinPrep Imaging System, [employer] ANCILLARY TESTING CUSTOMER PROGRAM SPECIALIST HPV Ordered, Please see separate report 03/26/2022 10:13 AM PERFORMANCE IMPROVEMENT DIRECTOR [facility] Note The pap test is a screening technique, not a diagnostic procedure. It is used primarily to screen for squamous cancers and precursor lesions. Published studies have shown that it is subject to both false negative and false positive results. The pap test should not be used as the sole means to diagnose or exclude pre-malignant and malignant lesions. 03/26/2022 10:13 AM PERFORMANCE IMPROVEMENT DIRECTOR [facility] Other (Cervical) Non-Blood / Unknown 02/28/2022 11:10 AM PERFORMANCE IMPROVEMENT DIRECTOR 02/28/2022 11:31 AM PERFORMANCE IMPROVEMENT DIRECTOR us Vero Alvarez MD PATHOLOGY/CYTOLOGY Final Re sult [facility] [address] [place] [address], [place] * ANTI HCV (05/19/2016 12:13 PM PERFORMANCE IMPROVEMENT DIRECTOR) HEPATITIS C ANTIBODY Non-Reacti ve Non-Reacti ve 05/19/2016 5:08 PM PERFORMANCE IMPROVEMENT DIRECTOR [facility] Blood BLOOD SPECIMEN / Unknown Venipuncture / Unknown 05/19/2016 12:13 PM PERFORMANCE IMPROVEMENT DIRECTOR 05/19/2016 12:14 PM PERFORMANCE IMPROVEMENT DIRECTOR Narrative [facility] - 05/19/2016 5:08 PM PERFORMANCE IMPROVEMENT DIRECTOR Antibodies to HCV not detected; does not exclude the possibility of exposure to HCV. Tatiana Sykes MD SEND OUTS Final Res ult [facility] [address] [place] [address], * ANTI HIV 1/2 (05/19/2016 12:13 PM PERFORMANCE IMPROVEMENT DIRECTOR) HIV-1/HIV-2 ANTIBODY Non-Reacti ve Non-Reacti ve 05/19/2016 5:09 PM PERFORMANCE IMPROVEMENT DIRECTOR [facility] Blood BLOOD SPECIMEN / Unknown Venipuncture / Unknown 05/19/2016 12:13 PM PERFORMANCE IMPROVEMENT DIRECTOR 05/19/2016 12:14 PM PERFORMANCE IMPROVEMENT DIRECTOR Narrative [facility] - 05/19/2016 5:09 PM PERFORMANCE IMPROVEMENT DIRECTOR HIV-1 p24 and HIV-1/HIV-2 Ab not detected Tatiana Sykes MD SEND OUTS Final Res ult [facility] [address] [place] [address], from Last 3 Months or Most Recently [...] Code Status Discussion: Reviewed Preferences Care Teams Accounts Payable Administrator Relationship Specialty Start Date End Date Vero Alvarez MD [address] [place] [address] PCP - General Family Practice 01/06/17 Joseph Menendez MD [address] [phone] Consulting Physician Surgery - General 02/28/21 Janis Mcgarry RN [address] [phone] Baseball Inspector Registered Nurse 02/28/[address] [phone] Collections Attorney/Automatic Buffing Wheel Former Buckle Gluer 02/28/21
--- OUTSIDE RECORDS SUMMARY | 2024-12-02 00:09 | XMS_ITS | Encounter Summary ---
Author Organization [address] Address [address] [place] [address]. [place] [address] Care Team Providers Care Pipe Manufacture Supervisor Name Role Phone Jeffry Laurent MD Primary Care Provider [phone] Vero Alvarez MD Primary Care Provider [phone] Encounter Details Date Type Department Care Team (Late st Contact Info) Description 05/27/2011 [facility] Extended Documentation [address] [phone] Taurus Smith HOT BOX SPOTTER [address] [address] Social History Tobacco Use Types Packs/Day Years Used Date Smoking Tobacco: Never Assessed Comments Unknown Sex and Gender Information Value Date Recorded Sex Assigned at Not on file 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
--- OUTSIDE RECORDS SUMMARY | 2024-12-02 00:09 | XMS_ITS | Clinical Summary ---
Author Organization [facility] Address [address] [place] [address] Care Team Providers Care Cephalometric Technician Name Role Phone Vero Alvarez MD Primary Care Provider [phone] Allergies Active Allergy Reactions Criticality Noted Date Comments Ergotamine-Caffeine 06/08/2024 Ergotamine 06/08/2024 Ketorolac Headache,Other (See Comments) High 09/04/2020 Lamotrigine Rash Low 03/17/2007 Lamotrigine Er Rash Low 08/27/2011 Nsaids 06/08/2024 H/o gastric bypass Ondansetron Headache,Other (See Comments) High 02/24/2022 Penicillins Swelling High 08/27/2011 facial Sumatriptan Anaphylaxis High 02/17/2011 Tramadol 06/08/2024 Headache Medications * This document [...] Problems Problem Noted Date Diagnosed Date Alcohol intoxication with moderate or severe use disorder 11/11/2024 Alcohol withdrawal syndrome, uncomplicated 06/07 CARDIOVASCULAR SCREENING; LDL GOAL LESS THAN 160 09/16/2011 Condyloma acuminatum due to human papillomavirus 09/11/2011 Overview (01/12/2012): (Problem list name updated by automated process. Provider to review and confirm.) PCOS (polycystic ovarian syndrome) 09/10/2011 Overview (09/10/2011): Diagnosis 2010 in [place]; Irregular menses, u/s with cysts. Blighted ovum 09/10/2011 Abnormal Pap smear and cervical HPV (human papil lomavirus) 09/10/2011 Overview (05/25/2012): IMO update changed this record. Please review for accuracy Obesity 09/10/2011 Encounters Date Type Department Care Team Description 11/12/2024 Telephone [facility] Services - Behavioral Service Line [address] [place] [address] Reinier Good 11/11/2024 11:50 AM CDT - 11/11/2024 8:52 PM CDT Emergency [facility] Emergency Dept [address] [place] [address] Gloria Bañuelos MD Powell, Tracy Alan, MD Alcohol abuse with intoxication (Primary Dx); Suicidal ideation; Hypokalemia Discharge Disposition: Home or Self Care 11/11/2024 Travel from Last 3 Months Immunizations Immunization Administration Dates Next Due DTAP [...] in an abandoned building, in an overnight alf, or couch-surfing.) Yes 06/07/2024 Are you worried [...] on file 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 Gender Identity Not on file Sexual Orientation [...] Mass Index 24.21 11/11/2024 3:51 PM CDT Plan of Treatment Health Maintenance Due Date Last Done Comments ADVANCE CARE PLANNING 1987 ANNUAL REVIEW OF HM ORDERS 1987 DEPRESSION ACTION PLAN 1987 YEARLY PREVENTIVE VISIT 1990 PHQ-9 11/13/2011 05/15/2011 COVID-19 VACCINE ( season) 2023 07/22/2022, 11/29/2021, 04/09/2021, Additional history exists INFLUENZA VACCINE (#1) 2024 , 01/10/2021, 01/26/2019, Additional history exists PAP 02/28/2025 02/28/2022, 02/11, 09/10/2011, Additional history exists DTAP/TDAP/TD VACCINE (8 - Td or Tdap) 10/30/2026 10/30/2016, 02/18/2008, 09/12/1999, Additional history exists DIABETES SCREENING 11/12/2027 11/11/2024, 0 06/08/2024, 06/08/2024, Additional history exists ZOSTER VACCINE (1 of [...] (LIMITED OCCURRENCES) STAT 11/11/2024 7:47 PM CDT HCG QUALITATIVE STAT 11/11/2024 12:37 PM CDT SALICYLATE LEVEL STAT 11/11/2024 12:3 7 PM CDT ACETAMINOPHEN LEVEL STAT 11/11/2024 1 2:37 PM CDT CBC WITH PLATELETS AND DIFFERENTIAL (LIMITED OCCURRENCES) STAT 11/11/2024 12:36 PM CDT ETHANOL LEVEL BLOOD Add-On 11/11/2024 1 2:36 PM CDT LIPASE Add-On 11/11/2024 12:36 PM CDT CBC WITH PLATELETS AND DIFFERENTIAL STAT 11/11/2024 12:36 PM CDT BASIC METABOLIC PANEL (LIMITED OCCURRENCES) STAT 11/11/2024 12:36 PM CDT PAP IMAGED THIN LAYER SCREEN Routine 09/10/2011 2:08 PM CDT Abnormal Pap smear and cervical HPV (human papillomavirus) HIV 1 AND 2 ANTIBODY (QUEST) Routine 08/21/2011 8:19 AM CDT Missed menses from Last 3 Months or Most Recently Relevant to Health Maintenance Results * Potassium (Limited Occurrences) (11/11/2024 7:47 PM CDT) Potassium 4.0 3.4 - 5.3 mmol/L 11/11/2024 8:09 PM CDT LABORATORY Blood BLOOD SPECIMEN / Unknown Venipuncture / Unknown 11/11/2024 7:47 PM CDT 11/11/2024 7:50 PM CDT Ann Marie Kiser MD LAB - BLOOD ORDERABLES Matilda l Result LABORATORY [facility] [address], [address] [place] [address], [facility] [phone] * Salicylate level (11/11/2024 12:37 PM CDT) Pathologist [facility] Salicylate <0.3 mg/dL 11/11/2024 1:22 PM CDT LABORATORY Comment: Salicylate Reference Range Therapeutic: 3-10 mg/dL Anti inflammatory: 15-30 mg/dL Blood STRUCTURE OF RIGHT UPPER LIMB / Unknown Venipuncture / Unknown 11/11/2024 12:37 PM CDT 11/11/2024 12:45 PM CDT us Gloria Goodwin MD LAB - BLOOD ORDERABLES Final Result Performing Organization Address City/[facility]/ZIP Co de Phone Number LABORATORY [facility] [address], [address] [place] [address], [facility] [phone] * HCG QUALitative (blood) (11/11/2024 12:37 PM CDT) Pathologist [facility] hCG Serum Qualitative Negative Negative [place] 11/11/2024 1:02 PM CDT LABORATORY Comment:This test is for scr eening purposes. Results should be interpreted along with the clinical picture. Confirmation testing is available if warranted by ordering [id number], HCG Quantitative . Blood STRUCTURE OF RIGHT UPPER LIMB / Unknown Venipuncture / Unknown 11/11/2024 12:37 PM CDT 11/11/2024 12:45 PM CDT us Gloria Goodwin MD LAB - BLOOD ORDERABLES Final Result LABORATORY [facility] [address], [address] [place] [address], [place] [phone] * (ABNORMAL) Acetaminophen level (11/11/2024 12:37 PM CDT) Pathologist [facility] Acetaminophen <5.0(L) 10.0 - 30.0 ug/mL 11/11/2024 1:22 PM CDT LABORATORY Blood STRUCTURE OF RIGHT UPPER LIMB / Unknown Venipuncture / Unknown 11/11/2024 12:37 PM CDT 11/11/2024 12:45 PM CDT us Gloria Goodwin MD LAB - BLOOD ORDERABLES Final Result LABORATORY [facility] [address], [address] [place] [address], [facility] [phone] * (ABNORMAL) CBC with platelets and differential (11/11/2024 12:36 PM CDT) Pathologist [facility] WBC Count 13.0(H) 4.0 - 11.0 10e3/uL [...] LAB - BLOOD ORDERABLES Final Result LABORATORY [facility] [address], [address] [place] [address], [place] [phone] * (ABNORMAL) Basic Metabolic Panel (Limited Occurrences) [...] 1:15 PM CDT LABORATORY Comment:eGFR calculated usin 2020 CKD-EPI equation. Calcium 8.8 8.8 - 10.4 mg/dL 11/11/2024 1:15 PM CDT LABORATORY Glucose 99 70 - 99 mg/dL 11/11/2024 1:15 PM CDT LABORATORY Blood STRUCTURE OF RIGHT UPPER LIMB / Unknown Venipuncture / Unknown 11/11/2024 12:36 PM CDT 11/11/2024 12:45 PM CDT us Gloria Goodwin MD LAB - BLOOD ORDERABLES Final Result LABORATORY [facility] [address], [address] [place] [address], [facility] [phone] * (ABNORMAL) Lipase (11/11/2024 12:36 PM CDT) Lipase 78(H) 13 - 60 U/L 11/11/2024 1:10 PM CDT LABORATORY Blood STRUCTURE OF RIGHT UPPER LIMB / Unknown Venipuncture / Unknown 11/11/2024 12:36 PM CDT 11/11/2024 12:45 PM CDT us Gloria Goodwin MD LAB - BLOOD ORDERABLES Final Result Performing Organization Address City/[facility]/ZIP Co de Phone Number LABORATORY [facility] [address], [address] [place] [address], [facility] [phone] * (ABNORMAL) Ethanol Level Blood (11/11/2024 12:36 [...] BLOOD ORDERABLES Final Result Performing Organization Address [facility] Co de Phone Number LABORATORY [facility] [address], [address] [address], [facility] [phone] * PAP imaged thin layer screen (09/10/2011 2:08 PM CDT) PAP MITCH Velez Report Patient Name: IMTIAZ LAGUERRE MR#: [id number] Specimen #: [id number] Collected: 09/10/2011 Received: 09/11/2011 Reported: 09/15/2011 08:57 [...] LORELEI Newton (ASCP) Processed and screened at [facility] CLINICAL HISTORY: LMP: 07/17/11 , Papanicolaou Test Limitations: Cervical cytology is a screening test with limited sensitivity; regular screening is critical for cancer prevention; Pap tests are primarily effective for the diagnosis/preventi on of squamous cell carcinoma, not adenocarcinomas or other cancers. TESTING LAB LOCATION: [address] [id number] COLLECTION SITE: Client: [facility] Location: [facility] (B) COPATH Cytologic material (specimen) 09/10/2011 2:08 PM CDT 09/11/2011 9:14 AM CDT us Ulises Littlejohn MD LAB - OPTIME CLINICAL SPECIMEN F inal Result COPATH * HIV 1 and 2 Antibody (08/21/2011 8:19 AM CDT) HIV 1&2 Antibody Negative NEG [facility] Blood specimen (specimen) 08/21/2011 8:19 AM CDT 08/21/2011 8:20 AM CDT Ulises Littlejohn MD LAB - BLOOD ORDERABLES Final Res ult [facility] [address] [place] [address] from Last 3 Months or Most Recently Relevant to Health Maintenance Advance Directives For more information, please contact: [phone] * Full Code (Latest Code Status on File) Date Activated Date Inactivated Comments 06/07/2024 4:01 PM 06/09/2024 12:42 PM All basic a nd advanced life-sustaining interventions are performed as appropriate Question Answer Comments Code status determined by: Unable to dis cuss and no AD/POLST on file; continue PREVIOUSLY ORDERED code status Care Teams Cephalometric Technician Relationship Specialty Start Date End Date Vero Alvarez MD [facility] [address] [place] [address] PCP - General Family Medicine 06/07/24
--- OUTSIDE RECORDS SUMMARY | 2024-12-02 00:10 | XMS_ITS | Encounter Summary ---
Author Organization [facility] Address [address] [place] [address]. [place] [address] Care Team Providers Care Gis Mapping Technician Name Role Phone Jeffry Laurent MD Primary Care Provider [phone] Vero Alvarez MD Primary Care Provider [phone] Encounter Details Date Type Department Care Team (Late st Contact Info) Description 09/11/2011 [facility] Extended Documentation [address] [id number] Taurus Smith, [address] [address] Social History Tobacco Use Types Packs/Day Years Used Date Smoking Tobacco: Every Day Cigarettes Smokeless Tobacco: Never Comments:discussed smoking c essation with patient Alcohol Use Standard Drinks/Week Comments No 0 (1 standard drink = 0.6 oz pur e alcohol) Comments Yes Sex and Gender Information Value Date Recorded Sex Assigned at Not on file 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
--- NOTE | 2024-12-02 00:16 | ED.ARRPALP ---
HPI - Arrhythmia/Palpitations General Time Seen by Provider: 00:36 Date Seen: 12/02/24 Chief Complaint: Chest Pain Stated Complaint: heart palpitations Time Seen by Provider: 12/02/24 00:15 Source: patient Mode of arrival: ambulatory Limitations: no limitations History of Present Illness HPI narrative: 39-year-old female with history SVT, asthma, anxiety, reflux, OCD who presents today with palpitations and chest pain. Patient knows throughout the course the day today she is having occasional episodes of skipped heartbeat in the mid to get these she gets pain shooting down her left arm and feels like she has to catch her breath. She denies persistent chest pain or persistent shortness of breath, no pleuritic pain. She has a history she SVT. Related Data Home Medications ?Medication ?Instructions ?Recorded ?Confirmed amlodipine 5 mg tablet 5 mg PO DAILY 10/26/21 12/02/24 trazodone 50 mg tablet 50 - 100 mg PO HS PRN 10/26/21 12/02/24 duloxetine 60 mg capsule,delayed 60 mg PO QAM 11/06/21 12/02/24 release epinephrine 0.3 mg/0.3 mL 0.3 mg IM ONCE PRN 11/06/21 12/02/24 injection, auto-injector calcium citrate 200 mg PO QDAY 11/21/22 08/18/24 cholecalciferol (vitamin D3) 10 10 mcg PO QDAY 11/21/22 08/18/24 mcg (400 unit) tablet ixekizumab 80 mg/mL subcutaneous 80 mg subcut Q4W 11/21/22 12/02/24 auto-injector (Taltz Autoinjector) multivitamin 1 tab PO QDAY 11/21/22 08/18/24 vitamin B complex (B 1 tab PO QDAY 11/21/22 08/18/24 Complex-Vitamin B12 tablet) hydroxychloroquine 200 mg tablet 200 mg PO BID 01/26/23 12/02/24 triamcinolone acetonide 0.1 % 1 applic topical BID-TID PRN 01/26/23 08/18/24 topical cream albuterol sulfate 90 mcg/actuation 2 inh inhalation Q4H PRN 01/29/23 12/02/24 aerosol inhaler duloxetine 30 mg capsule,delayed 30 mg PO QDAY 11/21/24 11/21/24 release gabapentin 300 mg capsule 300 mg PO TID 11/21/24 12/02/24 Previous Rx's ?Medication ?Instructions ?Recorded acetaminophen 500 mg tablet 1,000 mg (2 x 500 mg) PO Q6H PRN 11/03/22 Pain #0 tabs fluconazole 150 mg tablet 150 mg PO Q3D 2 doses #2 tabs 06/26/23 diclofenac sodium 1 % topical gel 2 g topical QID #100 grams 11/18/23 (Voltaren Arthritis Pain) omeprazole 40 mg capsule,delayed 40 mg PO DAILY #30 caps 02/07/24 release potassium chloride 20 mEq 20 meq PO BID 5 days #10 tabs 10/25/24 tablet,extended release(part/cryst) metoprolol succinate 25 mg 12.5 mg (1/2 x 25 mg) PO DAILY #15 12/02/24 tablet,extended release 24 hr tabs Allergies Allergy/AdvReac Type Severity Reaction Status Date / Time ergotamine (From Cafergot) Allergy Severe Anaphylaxis Verified 11/21/24 10:59 ketorolac (From Toradol) Allergy Severe Migraine Verified 11/21/24 10:59 tramadol Allergy Intermediate Headache Verified 11/21/24 10:59 lamotrigine (From Lamictal) Allergy rash Verified 11/21/24 10:59 NSAIDS (Non-Steroidal Allergy gastric Verified 11/21/24 10:59 Anti-Inflamma bypass Penicillins Allergy Anaphylaxis Verified 11/21/24 10:59 sumatriptan Allergy Anaphylaxis Verified 11/21/24 10:59 ondansetron AdvReac Intermediate Migraine Verified 11/21/24 10:59 [facility] Medical History History of gestational hypertension ?Z87.59 - Personal history of other complications of , childbirth and the puerperium (ICD-10) Spontaneous with heavy bleeding (11/03/22) ?O03.9 - Complete or unspecified spontaneous without complication (ICD-10) Low grade squamous intraepithelial lesion (2008) Paroxysmal SVT (supraventricular tachycardia) ?I47.1 - Supraventricular tachycardia (ICD-10) Nephrolithiasis (2010) ?N20.0 - Calculus of kidney (ICD-10) Surgical History History of tonsillectomy (02/25/08) ?Z90.89 - Acquired absence of other organs (ICD-10) H/O dilation and curettage ?Z98.890 - Other specified postprocedural states (ICD-10) History of esophageal dilatation ?Z98.890 - Other specified postprocedural states (ICD-10) 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) ?Z98.84 - Bariatric surgery status (ICD-10) H/O nasal septoplasty ?Z98.890 - Other specified postprocedural states (ICD-10) H/O wisdom tooth extraction ?K08.409 - Partial loss of teeth, unspecified cause, unspecified class (ICD-10) Status post colposcopy (01/2009) ?Z98.890 - Other specified postprocedural states (ICD-10) Status post laser lithotripsy of ureteral calculus (05/17/18) ?Z98.890 - Other specified postprocedural states (ICD-10) S/P (01/21/17) ?Z98.891 - History of uterine scar from previous surgery (ICD-10) Status post cholecystectomy (01/17/21) ?Z90.49 - Acquired absence of other specified parts of digestive tract (ICD-10) Family History Mother Coronary artery disease Anxiety CHF (congestive heart failure) COPD (chronic obstructive pulmonary disease) Brother ADHD (attention deficit hyperactivity disorder) Paternal Grandfather DVT (deep venous thrombosis) Aunt Renal cancer Other Breast cancer Diabetes High blood pressure Kidney disease Leukemia Liver disease Lung cancer Stroke Social History Narrative: Lives in [place] with her son, 5 yo. 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 Also works at [employer]. She smokes 1/2 PPD. Occ ETOH use. No recreational drug use. What is your current living situation?: I presently have a place to live Problems where you live: no known problems In the past 12 months, utilities in danger of being shut off: no In past 12 months, lack of transportation kept you from medical appts, meetings, work, or getting things needed for daily living: no In the past 12 mos, have been you worried that your food would run out before you had money to buy more?: never true In the past 12 mos, the food you bought just didn't last and you didn't have money to buy more?: never true Highest level of school completed/degree received: high school graduate Smoking Status: Heavy tobacco smoker What tobacco products do you use: cigarettes Smoking packs per day: 0.5 Smoking cigarettes per day: 10.0 Years smoked: 23 Smoking pack-years: 11.50 Do you use any of these nicotine containing products: None Second hand tobacco smoke exposure: Yes How often do you have a drink containing alcohol: 4 or more times a week Alcohol type: wine and hard liquor How many standard drinks containing alcohol do you have on a typical day: 10 or more How often do you have six or more drinks on one occasion: Daily or almost daily AUDIT-C Alcohol total score: 12 Non-prescribed substance use: denies use Caffeine: Yes (soda, energy drinks) How often does anyone, including family, friends and others, physically hurt you: never How often does anyone, including family, friends and others, insult or talk down to you: never How often does anyone, including family, friends and others, threaten you with harm: never How often does anyone, including family, friends and others, scream or curse at you: never Are you using contraception or practicing any form of control: No service: No Exam Narrative: Exam Narrative: General: Well-developed and well-nourished, no acute distress Head: Atraumatic and normocephalic Eyes: Pupils are equal reactive, extraocular motions intact, conjunctiva clear ENT: External nose and ears are normal, posterior pharynx without erythema or exudate Neck: No midline cervical tenderness, full spontaneous range of motion the neck, trachea midline, no adenopathy Heart: Regular rate and rhythm no murmurs or thrills Lungs: Clear to auscultation bilaterally without wheezes or crackles Abdomen: Soft, nontender, nondistended with active bowel sounds Musculoskeletal: No tenderness, deformity, or edema Neurologic: Awake, alert, and oriented x3, no gross focal neurologic deficits, cranial nerves intact as tested Psych: Mood and affect are appropriate Skin: No rashes Const: Vital Signs, click to edit/add: Vital Signs - 24 hr 12/02/24 00:07 12/02/24 00:26 12/02/24 00:30 Temperature 98 F Pulse Rate Pulse Rate [Pulse Oximeter] 85 Respiratory Rate 16 20 20 Blood Pressure Blood Pressure [Ri ght Upper Arm] 166/105 H Pulse Oximetry 98 Oxygen Delivery Me thod Room Air 12/02/24 00:44 12/02/24 00:45 12/02/24 01:00 Temperature Pulse Rate 77 77 Pulse Rate [Pulse Oximeter] Respiratory Rate 20 19 16 Blood Pressure 147/88 H Blood Pressure [Ri ght Upper Arm] Pulse Oximetry 96 97 Oxygen Delivery Me thod 12/02/24 01:06 12/02/24 01:15 12/02/24 01:30 Temperature Pulse Rate Pulse Rate [Pulse Oximeter] Respiratory Rate 15 16 14 Blood Pressure Blood Pressure [Ri ght Upper Arm] Pulse Oximetry Oxygen Delivery Me thod 12/02/24 01:35 12/02/24 01:45 Temperature Pulse Rate Pulse Rate [Pulse Oximeter] Respiratory Rate 14 20 Blood Pressure Blood Pressure [Ri ght Upper Arm] Pulse Oximetry Oxygen Delivery Me thod Course Course ED Course: Reviewed prior urgent care visit on January 21 which was for heart palpitations, at that time patient was finally stable, reassuring chemistries and CBC, normal EKG. EKG independently interpreted by me performed formed at 12:27 a.m. demonstrates sinus rhythm rate 76, no acute ST elevations or depressions, normal intervals, normal axis, QTC 477, GA 148, QRS 76, no no change from prior of November 21. Patient presents today with palpitations. She notes occasional extrasystole which is not persistent, this gives her some pain into the chest and left arm which lasts seconds. Symptoms seem most consistent with PVCs. Patient will be kept on monitor, labs ordered. No tachycardia, hypoxia, for bladder pain to suggest pulmonary embolism, no indication for D-dimer or CT PE study. Reevaluation(s) Time of Reevaluation #1: 01:24 Reevaluation #1: Labs independently interpreted by me with normal CBC, mild hypokalemia, negative troponin, normal magnesium. Patient is and no PVCs while in the emergency department. She will be discharged with metoprolol tartrate 25 mg b.i.d. to suppress PVCs and follow-up with primary care. Updated patient, she would like to start medication to help with her PVCs and so will be started on metoprolol. Vital Signs Vital signs: Initial Vital Signs Temperature 98 F 12/02/24 00:07 Temperature Source Temporal Artery Scan 12/02/24 00:07 Pulse Rate 85 12/02/24 00:07 Respiratory Rate 16 12/02/24 00:07 Blood Pressure 166/105 H 12/02/24 00:07 Blood Pressure Mean 125 H 12/02/24 00:07 Blood Pressure Position Sitting 12/02/24 00:07 Pulse Oximetry 98 12/02/24 00:07 Oxygen Delivery Method Room Air 12/02/24 00:07 Vital Signs Temperature 98 F 12/02/24 00:07 Pulse Rate 85 12/02/24 00:07 Respiratory Rate 16 12/02/24 00:07 Blood Pressure 166/105 H 12/02/24 00:07 Pulse Oximetry 98 12/02/24 00:07 Oxygen Delivery Method Room Air 12/02/24 00:07 Temperature 98 F 12/02/24 00:07 Pulse Rate 77 12/02/24 00:45 Respiratory Rate 20 12/02/24 01:45 Blood Pressure 147/88 H 12/02/24 00:44 Pulse Oximetry 97 12/02/24 00:45 Oxygen Delivery Method Room Air 12/02/24 00:07 Medications Administered Medications: Discontinued Medications Generic Name Dose Route Start Last Admin Trade Name Freq PRN Reason Stop Dose Admin Metoprolol Succinate 12.5 mg 12/02/24 01:41 12/02/24 01:51 Metoprolol Succinate (Xl) 25 Mg Tab PO 12/02/24 01:42 12.5 mg ONCE ONE Administration MDM - Arrhythmia/Palpitations Lab Data Labs: Lab Results 12/02/24 12/02/24 Range/Units 00:35 00:54 WBC 7.89 (4.50-11.00) K/uL RBC 4.08 (4.00-5.20) m/uL Hgb 12.5 (12.0-16.0) gm/dL Hct 37.0 (33.0-51.0) % MCV 91 (80-100) fL MCH 31 (26-34) pg MCHC 34 (32-36) gm/dL RDW Coeff of Compa 12.2 (11.5-15.5) % Plt Count 188 (140-440) K/uL Neut % (Auto) 52.5 (42.0-72.0) % Lymph % (Auto) 36.5 (20-44) % [place] % (Auto) 7.0 (0.0-11.0) % Eos % (Auto) 3.3 (0.0-7.0) % Baso % (Auto) 0.6 (0.0-3.0) % Neut # (Auto) 4.14 (1.7-7.0) K/uL Lymph # (Auto) 2.88 (0.90-2.90) K/uL [place] # (Auto) 0.60 (0.00-0.90) K/UL Eos # (Auto) 0.26 (0.00-0.50) K/uL Baso # (Auto) 0.05 (0.00-0.30) K/uL Abs Immat Gran (auto) 0.01 (0.00-0.30) K/uL Imm/Tot Granulo (auto) 0.1 % Sodium 138 (135-149) mmol/L Potassium 3.3 L (3.6-5.1) mmol/L Chloride 108 (96-114) mmol/L Carbon Dioxide 23 (20-32) mmol/L Anion Gap 7 (7-15) mEq/L BUN 14 (5-24) mg/dL Creatinine 0.8 (0.5-1.5) mg/dL Estimated Creat Clear 90.13 Estimated GFR 97 ml/min Glucose 87 (60-115) mg/dL Calcium 8.7 (8.4-10.6) mg/dL Magnesium 1.9 (1.5-2.6) mg/dL POC Troponin I 0.00 L (0.01-0.04) ng/ml Discharge Plan Discharge Clinical Impression: Chest pain, Palpitations Patient Disposition: Home, Self-Care Condition: Stable Instructions: Chest Pain (ED), Heart Palpitations (DC) Additional Instructions: Follow-up with your primary care doctor for further evaluation and treatment Activity Level: Activity as Tolerated Discharge Diet: Regular Prescriptions: New metoprolol succinate 25 mg tablet extended release 24 hr 12.5 mg PO DAILY Qty: 15 0RF No Action Taltz Autoinjector 80 mg/mL auto-injector 80 mg subcut Q4W vitamin B complex [B Complex-Vitamin B12] Tablet 1 tab PO QDAY cholecalciferol (vitamin D3) 10 mcg (400 unit) tablet 10 mcg PO QDAY calcium citrate 200 mg (950 mg) tablet 200 mg PO QDAY multivitamin Tablet 1 tab PO QDAY fluconazole 150 mg tablet 150 mg PO Q3D Qty: 2 0RF Rx Instructions: may repeat second dose 72 hrs after first dose if symptoms persist diclofenac sodium [Voltaren Arthritis Pain] 1 % gel 2 g topical QID Qty: 100 0RF Rx Instructions: apply sparingly to right knee for 7 days gabapentin 300 mg capsule 300 mg PO TID duloxetine 30 mg capsule,delayed release(DR/EC) 30 mg PO QDAY epinephrine 0.3 mg/0.3 mL auto-injector 0.3 mg IM ONCE PRN duloxetine 60 mg capsule,delayed release(DR/EC) 60 mg PO QAM triamcinolone acetonide 0.1 % cream 1 applic topical BID-TID PRN hydroxychloroquine 200 mg tablet 200 mg PO BID albuterol sulfate 90 mcg/actuation HFA aerosol inhaler 2 inh inhalation Q4H PRN omeprazole 40 mg capsule,delayed release(DR/EC) 40 mg PO DAILY Qty: 30 2RF trazodone 50 mg tablet 50 - 100 mg PO HS PRN amlodipine 5 mg tablet 5 mg PO DAILY acetaminophen 500 mg Tablet 1,000 mg PO Q6H PRN (Reason: Pain) Qty: 0 0RF potassium chloride 20 mEq tablet,ER particles/crystals 20 meq PO BID 5 Days Qty: 10 0RF Follow Up/Referrals: Vero Alvarez MD [Primary Care Provider, Family Practice] Stand Alone Forms: [employer] Info Instructions
[2024-12-02 01:10] LABS: Hematocrit 37.0 % (33.0-51.0); Hemoglobin* 12.5 gm/dL (12.0-16.0); Immature Granulocytes Abs Auto 0.01 K/uL (0.00-0.30); Immature Granulocytes Pct Auto 0.1 %; Lymphocytes Absolute Auto 2.88 K/uL (0.90-2.90); Mean Corpuscular HGB Conc 34 gm/dL (32-36); Mean Corpuscular Hemoglobin 31 pg (26-34); Mean Corpuscular Volume 91 fL (80-100); RDW Coefficient of Variation % 12.2 % (11.5-15.5); Red Blood Count 4.08 m/uL (4.00-5.20); White Blood Count* 7.89 K/uL (4.50-11.00)
[2024-12-02 01:12] LABS: Troponin, Point-of-Care* 0.00 ng/ml (0.01-0.04)
[2024-12-02 01:14] LABS: Slide Review Reflex No
[2024-12-02 01:17] LABS: Chloride* 108 mmol/L (96-114)
[2024-12-02 01:18] LABS: Potassium* 3.3 mmol/L (3.6-5.1); Sodium* 138 mmol/L (135-149)
[2024-12-02 01:20] LABS: Anion Gap 7 mEq/L (7-15); Blood Urea Nitrogen* 14 mg/dL (5-24); Calcium* 8.7 mg/dL (8.4-10.6); Carbon Dioxide* 23 mmol/L (20-32); Creatinine* 0.8 mg/dL (0.5-1.5); Est. Creatinine Clearance* 90.13; Estimated Glomerular Filt Rate 97 ml/min; Glucose* 87 mg/dL (60-115)
[2024-12-02] MEDS: METOPROLOL SUCCINATE (XL) 25 MG TAB 12.5 MG PO (01:51)
== END 2024-12-02 01:57 | disposition home or self-care (01) ==
LOC: ED 01:23
PROVIDERS: Emergency Provider Family Medicine; PCP Family Medicine
DX: R00.2 Palpitations (principal); R07.9 Chest pain, unspecified; E87.6 Hypokalemia; F17.210 Nicotine dependence, cigarettes, uncomplicated; Z86.79 Personal history of other diseases of the circulatory system
CPT/HCPCS: 36415; 80048; 83735; 84484; 85025; 93005; 99284; A9270

== ENCOUNTER 2025-03-06 07:54 | Emergency (ER) | payer MEDICAID, SELFPAY ==
--- OUTSIDE RECORDS SUMMARY | 2023-12-10 05:45 | XMS_ITS ---
Author Organization [facility] Address [address] [place] [address] [address] [place] [address] Care Team Providers Care Post Doctoral Researcher Name Role Phone Vero Alvarez Primary Care Provider UnavailCésar Naranjo Unavailable [phone] Derrek AZAR, Veronica Unavailable Unavailable Maykel Sykes Unavailable [phone] REASON FOR VISIT RS due to getting injection done Encounters Encounter Location Date Provider Diagnosis [facility] [address] [place] [address] 12/10/2023 Maykel Sykes Plan Of Treatment No Information Progress Notes * Melissa LAGUERRE ADOB: [birth year] (39 yo F)Acc No.[id number]:12/10/2023 Initial Evaluation Patient: Melissa Peter Provider: Angelina Sykes MD :1985 A ge:38 Y S ex:Female Date:12/10/2023 Phone: Address:[address] [place], [address], [place], [place] Pcp:Vero Alvarez Subjective: * Chief Complaints: * R S due to getting injection done * Electronic signature of Maykel Sykes MD FACOEM on 03/06/2025 at 07:56 AM DIRECTOR CLIENT Sign off status: Pending * Provider: Angelina Sykes MD Date: 0 12/10/2023 Generated for Printi ng/Faxing/eTransmitting on: 1 05/06/2024 07:56 AM DIRECTOR CLIENT
--- OUTSIDE RECORDS SUMMARY | 2023-12-11 03:15 | XMS_ITS ---
Author Organization [facility] Address [address] [place] [address] [address] [place] [address] Care Team Providers Care Supervisor Channel Process Name Role Phone Vero Alvarez Primary Care Provider UnavailCésar Naranjo Unavailable [phone] Derrek AZAR, Veronica Unavailable Unavailable Andrez Hammonds Unavailable [phone] REASON FOR VISIT internal ref r/s to 12/16 Encounters Encounter Location Date Provider Diagnosis [facility] [address] [place] [address] 12/11/2023 Andrez Hammonds Plan Of Treatment No Information Progress Notes * Melissa LAGUERRE ADOB: [birth year] (39 yo F)Acc No.[id number]:12/11/2023 Initial Evaluation Patient: Joe Melissa mayer Provider: Ghassan Hammonds :1985 A ge:38 Y S ex:Female Date:12/11/2023 Phone: Address:[address] [place], [address], [place], [place] Pcp:Vero Alvarez Subjective: * Chief Complaints: * I nternal ref r/s to 12/16 Billing Information: * Procedure Codes: * Electronic signature of Andrez Hammonds MD on 03/06/2025 at 07:56 AM PAY CLERK Sign off status: Pending * Provider: Ghassan Hammonds Date: 0 12/11/2023 Generated for Printi ng/Faxing/eTransmitting on: 1 05/06/2024 07:56 AM PAY CLERK
--- OUTSIDE RECORDS SUMMARY | 2024-01-04 04:30 | XMS_ITS ---
Author Organization [facility] Address [address] [place] [address] [address] [place] [address] Care Team Providers Care Mold Closer Helper Name Role Phone Vero Alvarez Primary Care Provider UnavailCésar Naranjo Unavailable [phone] Derrek AZAR, Veronica Unavailable Unavailable Andrez Phillips Unavailable [phone] REASON FOR VISIT cx-sick Encounters Encounter Location Date Provider Diagnosis [facility] [address] [place] [address] 01/04/2024 Andrez Phillips Plan Of Treatment No Information Progress Notes * Melissa LAGUERRE ADOB: [birth year] (39 yo F)Acc No.[id number]:01/04/2024 OT Evaluation Patient: Joe mayer Melissa Underwood Provider: MARIBEL Guzman/L :1985 A ge:38 Y S ex:Female Date:01/04/2024 Phone: Address:[address] [place] [address], [address], [place], [place] Pcp:Vero Alvarez Subjective: * Chief Complaints: * C x-sick Billing Information: * Procedure Codes: * Electronic signature of MARIBEL Lu/Emy on 03/06/2025 at 07:56 AM UNMANNED AIRCRAFT SYSTEMS ROBOTICIST Sign off status: Pending * Provider: MARIBEL Guzman/Emy Date: 0 01/04/2024 Generated for Printi ng/Faxing/eTransmitting on: 1 05/06/2024 07:56 AM UNMANNED AIRCRAFT SYSTEMS ROBOTICIST
--- OUTSIDE RECORDS SUMMARY | 2024-01-06 03:45 | XMS_ITS ---
Author Organization [facility] Address [address] [place] [address] [address] [place] [address] Care Team Providers Care Television Production Assistant Name Role Phone Vero Alvarez Primary Care Provider UnavailCésar Naranjo Unavailable [phone] Derrek AZAR, Veronica Unavailable Unavailable Umberto Fish Unavailable [phone] REASON FOR VISIT Follow-up Encounters Encounter Location Date Provider Diagnosis [facility] [address] [facility] [address] [place] [address] 01/06/2024 Umberto Fish Plan Of Treatment No Information Progress Notes * Melissa LAGUERRE ADOB: [birth year] (39 yo F)Acc No.[id number]:01/06/2024 Progress Notes Patient: Joe murrayMelissa swain Provider: Yasmine Fish PA-C :1985 A ge:38 Y S ex:Female Date:01/06/2024 Phone: Address:[address] [place] [address], [address] [place], [place] Pcp:Vero Alvarez Subjective: * Chief Complaints: * F ollow-up * Electronic signature of Dedrick Fish PA-C on 03/06/2025 at 07:55 AM AIR COMPRESSOR MECHANIC Sign off status: Pending * Provider: Yasmine Fish PA-C Date: 0 01/06/2024 Generated for Printi ng/Faxing/eTransmitting on: 1 05/06/2024 07:55 AM AIR COMPRESSOR MECHANIC
--- OUTSIDE RECORDS SUMMARY | 2024-01-11 04:00 | XMS_ITS ---
Author Organization [facility] Address [address] [place] [address] [address] [place] [address] Care Team Providers Care Journal Clerk Name Role Phone Vero Alvarez Primary Care Provider UnavailCésar Naranjo Unavailable [phone] Derrek AZAR, Veronica Unavailable Unavailable Brandy Reynolds Unavailable [phone] REASON FOR VISIT Patient called to cxl, family emergency. Encounters Encounter Location Date Provider Diagnosis [facility] [address] [place] [address] 01/11/2024 Brandy Reynolds Cervicalgia M54.2 ; Low back pain, unspecified M54.50 ; Dorsalgia, unspecified M54.9 and Ankylosing spondylitis of multiple sites in spine M45.0 Assessments Encounter Date Diagnosis (ICD Code) Assessment Notes Treatment Notes Treatment Clinical Notes Section Notes 01/11/2024 Cervicalgia (ICD-10 - M54.2) 01/11/2024 Low back pain, unspecified (ICD-10 - M54.50) 01/11/2024 Dorsalgia, unspecified (ICD-10 - M54.9) 01/11/2024 Ankylosing spondylitis of multiple sites in spine (ICD-10 - M45.0) Plan Of Treatment No Information History and Physical Notes * HPI (History of Present Illness) Category Sub-Category Detail Notes Category Not es Physical Therapy History Previous Treatment Chiropractic, Medications PT History Patient with ankylos ing spondylitis of lumbar region, and psoriatic arthritis who is seen today with the following complaints: neck and low back pain. She has been treating with [facility] pain management. The patient's symptoms began gradually, worsening the last year. She denies any bilateral upper or lower extremity pain today *Therapy Visit Status Session Data Therapy Episode Status: Active Progress Notes * Melissa LAGUERRE ADOB: [birth year] (39 yo F)Acc No.[id number]:01/11/2024 PT Evaluation Patient: Melissa Peter Provider: YOLANDA Santo :1985 A ge:38 Y S ex:Female Date:01/11/2024 Phone: Address:[address] [place] [address], [address] [place], [place] [id number] Pcp:Vero Alvarez Subjective: * Chief Complaints: * P atient called to cxl, family emergency. * HPI: P hysical Therapy History: PT History P atient with ankylosing spondylitis of lumbar region, and psoriatic arthritis who is seen today with the following complaints: neck and low back pain. She has been treating with [facility] pain management. The patient's symptoms began gradually, worsening the last year. She denies any bilateral upper or lower extremity pain today. Previous Treatment C hiropractic, Medications. * Therapy Visit Status: Session Data T herapy Episode Status A ctive Therapeutic Interventions: * Therapeutic Interventions: 1 . P ain Management Strategies Pain Management Counseling : Patient was issued [...] a long-term plan to self managing pain * Therapy Assessment and Plan: 1. * Therapy Session Plan Plan Details : OT Evaluation Due,LE, RT,Review stretches,Review TPR,Series 1,2,3,4*Patient Valued Goals/Activities:,*MD/ELVIN Follow Up Plan: 2. P T Eval Assessment PT Impairments : Pain / Symptoms, Limited Mobility / AROM, Muscle Weakness, Poor Motor Control, Compensatory Movement Patterns, Poor Muscle Endurance, Tissue Sensitivity PT Complexity & Psychosocial Factors : Chronicity / Persistence, Previously Failed Treatment PT Diagnosis : Chronic Pain Syndrome, Myofascial Pain Syndrome PT Rehabilitation Prognosis : Rehabilitation Potential is Good 3. P T Planned Interventions Pain Modalities : Ice/Heat Instruction Manual Therapy : Self Release Instruction, Soft tissue mobilization Therapeutic Exercise : Multidisciplinary Rehabilitation (PT/OT), Isolated Spinal Strengthening Program, Home Exercise Program Developed, Graded Activity Matched to Goals, ROM & Mobility Exercise, Motor Control Exercises, Functional Strength Exercise Patient Education : Pain Neuroscience Education, Pain Management Education, Activity Pacing Education, Sleep Habit Education, Breathing and Relaxation Practices, Self Pain Management Habits, Aftercare Planning Functional Activity : Functional strength exercises, Transitions Training, Dynamic Movement Training Frequency & Duration POC : PT/OT Sessions 2 x week, 16-24 sessions Assessment: * Assessment: 1. C ervicalgia - M54.2 (Primary) 2 . L ow back pain, unspecified - M54.50? 3. D orsalgia, unspecified - M54.9 4 . A nkylosing spondylitis of multiple sites in spine - M45.0 Plan: * Preventive Medicine: [facility] Inventory Forms: N lex Oswestry NDI Percent Score (0-100) = 6 4 NDI Interpretation 6 0-79 (Crippled) Billing Information: * Procedure Codes: * Electronic signature of YOLANDA Alonzo on 03/06/2025 at 07:56 AM UNIT LEADER Sign off status: Pending * Provider: YOLANDA Santo Date: 0 01/11/2024 Generated for Dashawn ferguson/Ronnie/eTwallyitting on: 05/06/2024 07:56 AM UNIT LEADER
--- OUTSIDE RECORDS SUMMARY | 2024-01-14 05:00 | XMS_ITS ---
Author Organization [facility] Address [address] [place] [address] [address] [place] [address] Care Team Providers Care Car Checker Name Role Phone Vero Alvarez Primary Care Provider UnavailCésar Naranjo Unavailable [phone] Derrek AZAR, Veronica Unavailable Unavailable Sara Malave Unavailable [phone] REASON FOR VISIT cx-mom dx'd with cancer- Encounters Encounter Location Date Provider Diagnosis [facility] [address] [place] [address] 01/14/2024 Sara Malave Plan Of Treatment No Information History and Physical Notes * HPI (History of Present Illness) Category Sub-Category Detail Notes Category Not es Physical Therapy History Previous Treatment Previous Tx: I have reviewed the patient's medical summary and history. Below is the patient intake information regarding medical and surgical history. The following pertinent medical issues in participating in physical therapy are: PT History ankylosing spondylit is of lumbar region, and psoriatic arthritis who is seen today with the following complaints: neck and low back pain. Hx: Current complaints: NATALIIA: Sx: Sleep: LOF: Previous LOF: Wans to return to: Physical Examination Category Sub-Category Detail Notes Section Note s Isotonic Exercise Machine Summary Exercise Summary The patient completed isolat ed spinal strengthening today via MedX with direct therapy supervision. The patient was set-up using specific positioning to achieve optimal isolation and comfort. Therapeutic exercise is completed using a graded approach to ensure tolerance. This isolated exercise is intended to help provide improvements in strength, ROM, and endurance of the musculature necessary for daily activities. LE/CE/TR/CR Examination Category Sub-Category Detail Notes Category Not es Posture & Motor Control Static Postural Observations: Noted Postural Observations: Standing: Seated: Supine: Prone: Mobility & ROM Lumbar Spine AROM Flexion:Ext:SB:Rot: LE ROM: Cervical Spine ROM Flexion: Ext: SB: Ro t: Shoulder ROM Flex: Ext: Abd: Add: IR: ER: Palpation & Sensory Tests Pa lpation: Gait Assessment Gait Observa tions: Transitional Movement Mat Mobility: STS: Functional Tests & Concordant Signs 5xSTS: SLS: DNF Endurance: Plank: Push up: Progress Notes * Melissa LAGUERRE ADOB: [birth year] (39 yo F)Acc No.[id number]:01/14/2024 PT Evaluation Patient: Melissa Peter Provider: Emy Malave DPT :1985 A ge:38 Y S ex:Female Date:01/14/2024 Phone: Address:[address] [place], [place] [phone] Pcp:Vero Alvarez Subjective: * Chief Complaints: * C x-mom dx'd with cancer- * HPI: P hysical Therapy History: PT History a nkylosing spondylitis of lumbar region, and psoriatic arthritis w ho is seen today with the following complaints: neck and low back pain. H x: C urrent complaints: M OI: S x: S leep: L OF: P revious LOF: W ans to return to:. Previous Treatment P revious Tx: . I have reviewed the patient's medical summary and history. Below is the patient intake information regarding medical and surgical history. The following pertinent medical issues in participating in physical therapy are: . Objective: * Examination: M obility & ROM: Lumbar Spine AROM F lexion: Ext: SB: Rot:. Cervical Spine ROM F lexion: Ext: SB: Rot:. Shoulder ROM F sarah: Ext: Abd: Add: IR: ER:. L E ROM:. P osture & Motor Control: Static Postural Observations: N oted Postural Observations: . S tanding: Seated: Supine: Prone:. P alpation & Sensory Tests: P alpation:. G ait Assessment: G ait Observations:. T ransitional Movement: M at Mobility: STS:. F unctional Tests & Concordant Signs: 5 xSTS: SLS: DNF Endurance: Plank: Push up:. * Physical Examination: I sotonic Exercise Machine Summary: Exercise Summary T he patient completed isolated spinal strengthening today via MedX with direct therapy supervision. The patient was set-up using specific positioning to achieve optimal isolation and comfort. Therapeutic exercise is completed using a graded approach to ensure tolerance. This isolated exercise is intended to help provide improvements in strength, ROM, and endurance of the musculature necessary for dailyactivities.. L E/CE/TR/CR. Therapeutic Interventions: * Therapeutic Interventions: 1 . M ovement Therapy Summary Movement Therapy Details : Developed a full stretching program as above to complete as a home daily habit of movement. Demonstrated and practiced full program and provided guidance on how to work this into habit. Patient demonstrated good understanding for follow through at home, will require review next visit * Therapy Assessment and Plan: 1. T herapy Session Assessment Summary : Summary:Patient will benefit from skilled physical therapy to address limitations in range of motion and strength, find tools to modulate patient pain, develop a consistent home exercise program, and improve overall resiliency to pain through a graded movement program aimed at decreasing sensitivity of pain to improve functional abilities. Patient prognosis is good 2. * Therapy Session Plan Plan Details : *Patient Valued Goals/Activities:, *MD/ELVIN Follow Up Plan: 6 wks w/ Dr. Sykes, *Incoming Referral Tracking - NOOT Evaluation DuePlan:- MedX - cervical & lumbar 3. P T Eval Assessment PT Impairments : Pain / Symptoms, Limited Mobility / AROM, Muscle Weakness, Poor Motor Control, Compensatory Movement Patterns, Poor Muscle Endurance, Myofascial Tissue Dysfunction PT Complexity & Psychosocial Factors : Chronicity / Persistence, Perseverant Thinking on Structural Injury, Avoidance Coping- Activity Avoidant, Persistence Coping - Poor Pacing PT Diagnosis : Chronic Pain Syndrome, Mechanical Pain Syndrome, Myofascial Pain Syndrome 4. P T Planned Interventions Manual Therapy : Self Release Instruction, Muscle inhibition techniques, Muscle facilitation techniques, Soft tissue mobilization Therapeutic Exercise : Multidisciplinary Rehabilitation (PT/OT), Isolated Spinal Strengthening Program, Home Exercise Program Developed, Graded Activity Matched to Goals, ROM & Mobility Exercise, Motor Control Exercises, Functional Strength Exercise Patient Education : Pain Neuroscience Education, Pain Management Education, Activity Pacing Education, Self Pain Management Habits Functional Activity : Functional strength exercises Frequency & Duration POC : PT/OT Sessions 2 x week, 16-24 sessions Plan: * Preventive Medicine: Physical Therapy Goals: P T Goal 1 L gamal Term Goal (8-12 weeks):. P T Goal 2 L gamal Term Goal (8-12 weeks):. P T Goal 3 L gamal Term Goal (8-12 weeks):. Billing Information: * Procedure Codes: * Electronic signature of Maximino Malave DPT on 03/06/2025 at 07:56 AM PROCESSING ENGINEER Sign off status: Pending * Provider: Emy Malave DPT Date: Generated for Dashawn ferguson/Ronnie/Charla on: 05/06/2024 07:56 AM PROCESSING ENGINEER
--- OUTSIDE RECORDS SUMMARY | 2025-03-06 07:56 | XMS_ITS | Encounter Summary ---
Author Organization [facility] Address [address] [place] [address]. [place] [address] Care Team Providers Care Vice President Payment Name Role Phone Jeffry Laurent MD Primary Care Provider [phone] Vero Alvarez MD Primary Care Provider [phone] Encounter Details Date Type Department Care Team (Late st Contact Info) Description 09/11/[address] [facility] Extended Documentation [address] [phone] Taurus Smith, [address] [address] Social History Tobacco Use Types Packs/Day Years Used Date Smoking Tobacco: Every Day Cigarettes Smokeless Tobacco: Never Comments:discussed smoking c essation with patient Alcohol Use Standard Drinks/Week Comments No 0 (1 standard drink = 0.6 oz pur e alcohol) Comments Yes Sex and Gender Information Value Date Recorded Sex Assigned at Not on file Legal Sex Female 4:27 AM [employer] O[employer] Gender Identity Not on file Sexual Orientation Not on file documented as of this encounter Plan of Treatment Not on file documented as of this encounter Visit Diagnoses Not on filedocumented in this encounter Care Teams Vice President Payment Relationship Specialty Start Date End Date Jeffry Laurent MD PCP - General Family Practice 08/21/11 06/06/24 Vero Alvarez MD [address] [address] PCP - General Family Medicine 06/07/24 documented as of this encounter
--- OUTSIDE RECORDS SUMMARY | 2025-03-06 07:56 | XMS_ITS | Clinical Summary ---
Author Organization [employer] Formerly [facility] Address [address] [place] [address] Care Team Providers Care Parts Order And Stock Clerk Name Role Phone Vero Alvarez MD Primary Care Provider Joseph Menendez MD Unavailable [phone] Janis Mcgarry RN Unavailable [phone] Unavailable [phone] Allergies Active Allergy Reactions Criticality Noted Date Comments Ergotamine-Caffeine Flushing 08/11/2017 Ergotamine Anaphylaxis High 10/26/2021 Ketorolac Headache,Other - Describe In Comment Field High 09/04/2020 Lamotrigine Rash Low 03/17/2007 Nsaids (Non-Steroidal Anti-Inflammatory Drug) Other - Describe In Comment Field,*Unknown 02/20/2022 H/o gayatri-n-y gastric bypass. AVOID NSAIDs and aspirin due to risk of gastric and/or G-J anastomotic ulcers. If Melissa must be on short course of NSAIDs or aspirin, use enteric coated if possible and use PPI // Ann Marie Concepcion RN, Bariatric Nurse Clinician, [facility] 02/20/2022 H/o gastric bypass Ondansetron Headache,Other - Describe In Comment Field [...] needed. 1 Each 3 01/11/20 21 Active pediatric multivitamins-ir on 18 mg chewable [...] by mouth once daily. 90 Tablet Active triamcinolone (ARISTOCORT; KENALOG) 0.1 % creamIndications :Hand dermatitis Apply topically to affected area(s) three times daily. 80 g 11/12/19 23 Active calcium citrate (CITRACAL) 200 mg (950 mg) tablet Take by mouth. 11/22/19 23 Active vitamin B complex (B-COMPLEX VITAMIN) tablet Take 1 Tablet by mouth. 11/22/19 23 Active traZODone 50 mg tabletIndication s:Psychophysiolo gic insomnia Take 1-2 Tablets (50-100 mg) by mouth at bedtime if needed for Sleep. 180 Tablet 3 08/11/19 25 Active prazosin (MINIPRESS) 1 mg capsuleIndicatio ns:Nightmares Take 2 Capsules (2 mg) by mouth at bedtime. 60 Capsule 2 10/20/19 25 Active gabapentin (NEURONTIN) 300 mg capsuleIndicatio ns:Generalized anxiety disorder with panic attacks Take 2 Capsules (600 mg) by mouth three times daily. 180 Capsule 1 12/24/19 25 Active DULoxetine (CYMBALTA) 60 mg Delayed-release capsuleIndicatio ns:Generalized anxiety disorder with panic attacks,MDD (major depressive disorder), recurrent episode, mild Take 1 Capsule (60 mg) by mouth once daily. 90 Capsule 12/24/19 25 Active metoprolol succinate (TOPROL XL) 25 mg Sustained-Releas e tabletIndication s:HTN (hypertension) Take 1 Tablet (25 mg) by mouth once daily. 90 Tablet 12/29/19 25 Active hydrOXYzine HCL (ATARAX) 50 mg tabletIndication s:Generalized anxiety disorder with panic attacks Take 1 tablet up to twice daily as needed for anxiety 60 Tablet 1 03/02/20 25 Active hydrOXYzine HCL (ATARAX) 50 mg tabletIndication s:Generalized anxiety disorder with panic attacks Take 1 tablet up to twice daily as needed for anxiety 60 Tablet 1 12/24/19 25 025 Discontin ued(*Med complete/ Regimen complete/ Level of care change) hydrOXYzine HCL (ATARAX) 50 mg tabletIndication s:Generalized anxiety disorder with panic attacks Take 1 tablet up to twice daily as needed for anxiety 60 Tablet 1 03/02/20 25 025 Discontin ued(*Erro r/data entry operator error) Active Problems Problem Noted Date Diagnosed Date Gastric ulcer 11/30/2023 Epigastric pain 11/24/2023 Paroxysmal SVT (supraventricular tachycardia) S/P robotic gastric bypass by Dr. 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/psychiatry Paroxysmal SVT (supraventricular tachycardia) Severe episode of recurrent major depressive disorder, without psychotic features 05/28/2021 Obsessive Compulsive Disorde r, with mixed obsessional thoughts and acts 04/30/2020 JOEY I (cervical intraepithelial neoplasia I) 10/2019 Overview (03/28/2022): Plan: Pap/HPV due in 1 year 02/28/2022 NIL/HPV+, HPV 16/18 Negative 10/05/2019 NIL/HPV negative 12/11/2017 Lester: Focal squamous atypia suggestive of JOEY I 04/03/2017 NIL/HPV+ 09/01/2016 Lester: No biopsy 07/21/2016 NIL/HPV+ 09/10/2011 NIL/HPV negative 01/19/2009 Lester: JOEY I 12/13/2008 LSIL Gallstones 04/21/2018 Overview [...] DATE LAST PAP RESULT Abnormal Pap or Lester Bx in last 5 years MENSTRUAL STATUS Lester Bx Done Today ADDITIONAL INFORMATION Automated Review ANCILLARY TESTING COIL CONNECTOR REPAIRER NOTE ABORH ANTIBODY SCREEN Negative SPECIMEN EXPIRATION [...] DATE LAST PAP RESULT Abnormal Pap or Lester Bx in last 5 years MENSTRUAL STATUS Lester Bx Done Today ADDITIONAL INFORMATION Automated Review ANCILLARY TESTING COIL CONNECTOR REPAIRER NOTE ABORH ANTIBODY SCREEN Negative SPECIMEN EXPIRATION [...] Overview (06/09/2020): 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 operator Low grade squamous intraepit helial lesion (LGSIL) on cervical Pap smear 12/12/2008 10/18/2019 Overview (05/01/2017): 12/2008 Pap: LSIL 01/2009 Lester: JOEY 1 07/2016 Pap: NIL/HPV positive 09/01/2016: Colposcopy, , no bx taken 04/03/17: Pap NIL, HPV + Plan per Vero Alvarez MD: Colposcopy Depressive disorder, not elsewhere classified 09/18/19 07 03/19/2016 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 10/18/2019 Overview (05/01/2017): NIL/HPV positive, Encounters Date Type Department Care Team Description 03/02/2025 Refill [facility] [address] [place] [address] Inga Ontiveros NP Refill Request (Hydroxyzine Hcl) 03/01/2025 Nurse Triage [facility] [address] [place] [address] Vero lAvarez MD Cough 02/27/2025 Telephone [facility] [address] [place] [address] Vero Alvarez MD ER Follow up (detox) 02/23/2025 9:43 AM LEAD FURNACE OPERATOR - 02/23/2025 10:55 AM LEAD FURNACE OPERATOR Emergency [facility] [address] [place] [address] Tahira Silverman MD Alcoholic intoxication without complication (Primary Dx) Discharge Disposition: Home Self Care 02/23/2025 Orders Only [facility] [address] [place] [phone] Latesha Sullivan LGSW <No scans attached> 02/23/2025 Travel 12/28/2024 10:30 AM CDT Nurse/Clinic Staff Only [facility] [address] [place] [address] Blood Pressure 12/28/2024 Telephone [facility] [address] [place] [address] Vero Alvarez MD High Blood Pressure 12/28/2024 Travel 12/23/2024 1:30 PM CDT Telemedicine [facility] [address] [place] [address] Inga Ontiveros NP Telehealth; Medication Management; Follow Up (Things are going really good) 12/07/2024 9:45 AM CDT Office Visit [facility] [address] [place] [address] Anselmo Campbell DO Blood Pressure (HTN, 12/01: 172/107, new Bp meds ) 12/07/2024 Travel from Last 3 Months Immunizations Immunization Administration Dates Next Due AMB Influenza, IIV4 PF (=>6 mos Flulaval,Fluzone Fluarix)(Flu Clinic Only) 01/26/2019 COVID-19 vaccine (Moderna 50mcg/0.5mL) 12YO+ BIVALENT PF, MDV 07/22/2022 COVID-19 vaccine (Actively Learn-Bio NTech 30mcg/0.3mL) 12YO+ MOLLY-SUCROSE PF, MDV 11/29/2021 COVID-19 vaccine (Actively Learn-Bio NTech 30mcg/0.3mL) PF, MDV 04/09/2021,09/03/2020,08/13/2020 DTP 11/24/1991, [...] Family History Medical History Relation Name Comments Hypertension Brother 1 Carlito Psychiatric illness Brother 1 Carlito bipolar, ADHD, OCD (20 years old) Good Health Brother 2 Demetrius 8 years old Hypertension Brother 2 Demetrius Diabetes type II Father Alvaro Hypertension Father Alvaro Cancer Maternal Aunt renal cancer Heart Disease Mother Zina heart failure Hypertension Mother Zina Psychiatric illness Mother Zina on meds for [...] drink = 0.6 oz pur e alcohol) PHQ-2 Answer Date Recorded PHQ-2 TOTAL SCORE 3 12/01/2024 Social Connections Answer Date Recorded Do you often feel lonely or isolated from those around you? 0 12/07/2024 Alcohol Use Answer Date Recorded How often do you have a drink containing alcohol ? 0 09/13/2021 Average Number of Drinks Not on file 022 Frequency of Binge Drinking Not on file 06/2021 Financial Resource Strain Answer Date R ecorded Difficulty of Paying Living Expenses 3 12/07/2024 Difficulty of Paying Living Expenses Not on file 12/07/2024 Food Insecurity Answer Date Recorded Do you worry your food will run out before you are able to buy more? 1 12/07/2024 Transportation Needs Answer Date Record ed Does lack of transportation keep you from medica l appointments? 1 12/07/2024 Does lack of transportation keep you from work, meetings or getting things that you need? 1 12/07/2024 Housing Stability Answer Date Recorded What is your housing situation today? 1 12/07/2024 Interpersonal Safety Answer Date Record ed Are you being hit, kicked, p ushed or yelled at (see row info)? No 02/23/2025 Interpersonal Safety Abuse 12 - 18 Not on file 02/23/2025 Interpersonal Safety Ambulatory Vulnerability No t on file 02/23/2025 Utilities Answer Date Recorded Do you have trouble paying f or utilities (for example, heat, electricity, water, phone)? 1 12/07/2024 Comments No Sex and Gender Information Value Date Recorded Sex Assigned at Not on file Legal Sex Female 6:28 AM LEAD FURNACE OPERATOR Gender Identity Not on file Sexual Orientation Not on file Occupation Industry Job Start Date Job End Date [employer] Employee Not on file Not [...] Sign Reading Time Taken Comments Blood Pressure 137/91 02/23/2025 10:04 AM LEAD FURNACE OPERATOR Pulse 95 02/23/2025 10:04 AM LEAD FURNACE OPERATOR Temperature 36.7 C (98 F) 02/23/2025 10:04 AM LEAD FURNACE OPERATOR Respiratory Rate 16 02/23/2025 10:04 AM LEAD FURNACE OPERATOR Oxygen Saturation 96% 02/23/2025 10:04 AM LEAD FURNACE OPERATOR Inhaled Oxygen Concentration - - Weight 76.3 kg (168 lb 3.2 oz) 12/07/2024 9:50 A M CDT Height 167.6 cm (5' 6) 10/03/2024 2:35 PM CDT Body Mass Index 27.15 10/03/2024 2:35 PM CDT Plan of Treatment Upcoming Encounters Date Type Department Care Team (Late st Contact Info) Description 03/21/2025 10:25 AM LEAD FURNACE OPERATOR Office Visit [facility] [address] [place] [address] Vero Alvarez MD [address] [place] [address] 04/04/2025 11:30 AM LEAD FURNACE OPERATOR Telemedicine [facility] [address] [place] [address] Inga Ontiveros NP [address] [place] [address] Health Maintenance Due Date Last Done Comments BMI (ht and wt on same day) for age 18+ 11/24/2024 11/25/2023, 11/17/2023, 11/12/2023, Additional history exists Influenza Vaccine (#1) 2024 2, 01/10/2021, 01/26/2019, Additional history exists Pap test for age 21-65 02/28/2025 2, 02/28/2022, 10/05/2019, Additional history exists Depression screening for age 12+ 12/01/2025 12/01/2024, 07/07/2024, 06/09/2024, Additional history exists Tetanus booster 10/30/2026 10/30/2016, 10/2007, 09/12/1999, Additional history exists RSV vaccine for adults or (1 - 1-dose 75+ series) 2062 Hepatitis B series for 19+ Completed 04/30, 12/17/1999, 03/31/1997 HPV series for age 9-45 Completed 02/18/20 08, 02/18/2008, 04/28/2007, Additional history exists HIV for age 15-65 Completed 05/19/2016, , 12/01/2008 Hepatitis C screening for ag e 18-79 Completed 05/19/2016, 12/03/2015 Pneumococcal series for age 6-49 Completed 11/30/19, 04/29/2016 Medical Devices Implanted Type Area Solution Manager Device Identifier Shelf Expiration Date Model / Serial / Lot Stent Nasal Latera Kit Absorb - [id number] Implanted:Qty: 1 on 01/31/2021 by Ross Layne MD at [facility] [employer] 05/02/2021 [id number] / [id number] / [id number] Stent Pancreatic [id number] Advanix Stra No Ines Plst - [id number] Implanted:Qty: 1 on 11/14/2021 by Carmine Sol MD at [facility] Gastro[facility]ology 12/28/2022 [id number] / / [id number] Procedures Procedure Name Priority Date/Time Associated Diagnosis Comments COIL CONNECTOR REPAIRER THIN PREP PAP SCREEN IMAGED Routine 02/28/2022 11:10 AM LEAD FURNACE OPERATOR Pap smear for cervical cancer screening ANTI HIV 1/2 Routine 05/19/2016 12:13 PM LEAD FURNACE OPERATOR care, first , unspecified trimester (HC) ANTI HCV Routine 05/19/2016 12:13 PM LEAD FURNACE OPERATOR care, first , unspecified trimester (HC) from Last 3 Months or Most Recently Relevant to Health Maintenance Results * COIL CONNECTOR REPAIRER THIN PREP PAP SCREEN IMAGED (02/28/2022 11:10 AM LEAD FURNACE OPERATOR) Case Report Gynecologic Cytology Report Case: [id number] Authorizing Provider: Vero Alvarez MD Collected: 02/28/2022 1110 Ordering Location: [facility] Received: 02/28/2022 1131 Clinic First Screen: Caroline Delatorre Rescreen: Michel Monroe Specimen: COIL CONNECTOR REPAIRER ThinPrep Vial Screening, Cervical 03/26/2022 10:13 AM LEAD FURNACE OPERATOR [facility] INTERPRETATION/ RESULT NEGATIVE FOR INTRAEPITHELIAL LESION OR MALIGNANCY (NIL) (none) 03/26/2022 10:13 AM LEAD FURNACE OPERATOR [facility] at 1013 LEAD FURNACE OPERATOR ORGANISM(S) Shift in angle suggestive of bacterial vaginosis 03/26/2022 10:13 AM LEAD FURNACE OPERATOR [facility] SPECIMEN ADEQUACY Satisfactory for evaluation Endocervical component present 03/26/2022 10:13 AM LEAD FURNACE OPERATOR [facility] HPV REQUEST HPV and PAP 03/26/2022 10:13 AM LEAD FURNACE OPERATOR [facility] Date of LMP 201903/26/2022 10:13 AM LEAD FURNACE OPERATOR [facility] Last Pap Date 10/05/19 03/26/2022 10:13 AM LEAD FURNACE OPERATOR [facility] Last Pap Result NIL 10:13 AM LEAD FURNACE OPERATOR [facility] Abnormal Pap or Lester Bx in last 5 years Yes 03/26/2022 10:13 AM [facility] Menstrual Status Irregular Periods 03/26/2022 10:13 AM [facility] Lester Bx Done Today No 03/26/2022 10:13 AM [facility] Additional Information None given 03/26/2022 10:13 AM [facility] Comment: Cytology is screened at [facility] - [address], [place] [address] and [facility] - [address], [place] [address] and [facility] - [address] [place] [address] Interpreted at [facility] - [address], [place] [address] Automated Review Successful 03/26/2022 10:13 AM [facility] Comment:Specimen processed s uccessfully by automated data integration architect device, ThinPrep Imaging System, [employer] ANCILLARY TESTING COIL CONNECTOR REPAIRER HPV Ordered, Please see separate report 03/26/2022 10:[address] [facility] Note The pap test is [...] pre-malignant and malignant lesions. 03/26/2022 10:[address] [facility] Other (Cervical) Non-Blood / Unknown 02/28/2022 11:10 AM LEAD FURNACE OPERATOR 02/28/2022 11:31 AM LEAD FURNACE OPERATOR us Vero Alvarez MD PATHOLOGY/CYTOLOGY Final Re sult [facility] [address] [place] [address], [place] * ANTI HCV (05/19/2016 12:13 PM LEAD FURNACE OPERATOR) HEPATITIS C ANTIBODY Non-Reacti ve Non-Reacti ve 05/19/2016 5:08 PM LEAD FURNACE OPERATOR [facility] Blood BLOOD SPECIMEN / Unknown Venipuncture / Unknown 05/19/2016 12:13 PM LEAD FURNACE OPERATOR 05/19/2016 12:14 PM LEAD FURNACE OPERATOR Narrative [facility] - 05/19/2016 5:08 PM LEAD FURNACE OPERATOR Antibodies to HCV not detected; does not exclude the possibility of exposure to HCV. Tatiana Sykes MD SEND OUTS Final Res ult [facility] [address] [place] [address], * ANTI HIV 1/2 (05/19/2016 12:13 PM LEAD FURNACE OPERATOR) Pathologist [facility] HIV-1/HIV-2 ANTIBODY Non-Reacti ve Non-Reacti ve 05/19/2016 5:09 PM LEAD FURNACE OPERATOR [facility] Blood BLOOD SPECIMEN / Unknown Venipuncture / Unknown 05/19/2016 12:13 PM LEAD FURNACE OPERATOR 05/19/2016 12:14 PM LEAD FURNACE OPERATOR Narrative [facility] - 05/19/2016 5:09 PM LEAD FURNACE OPERATOR HIV-1 p24 and HIV-1/HIV-2 Ab not detected Tatiana Sykes MD SEND OUTS Final Res ult Performing Organization Address City/[facility]/ZIP Co de Phone Number [facility] [address] [place] [address], from Last 3 Months or Most Recently Relevant to Health Maintenance Insurance MEDICAID Advance Directives * Full Code (Latest Code [...] Code Status Discussion: Reviewed Preferences Care Teams Parts Order And Stock Clerk Relationship Specialty Start Date End Date Vero Alvarez MD [address] [place] [address] PCP - General Family Practice 01/06/17 Joseph Menendez MD [address] [phone] Consulting Physician Surgery - General 02/28/21 Janis Mcgarry RN [address] [id number] [employer] Revenue Officer Registered Nurse 02/28/[address] [id number] Salt Washer/Senior Warehouse Clerk Datacap Developer 02/28/21
--- OUTSIDE RECORDS SUMMARY | 2025-03-06 07:56 | XMS_ITS | Encounter Summary ---
Author Organization [facility] Address [address] [place] [address]. [place] [address] Care Team Providers Care Telephone Installer Name Role Phone Jeffry Laurent MD Primary Care Provider Vero Alvarez MD Primary Care Provider [phone] Encounter Details Date Type Department Care Team (Late st Contact Info) Description 05/27/2011 [facility] Extended Documentation [address] [phone] Taurus Smith PET AMBASSADOR [address] [address] Social History Tobacco Use Types Packs/Day Years Used Date Smoking Tobacco: Never Assessed Comments Unknown Sex and Gender Information Value Date Recorded Sex Assigned at Not on file Legal Sex Female 4:27 AM LEAD ANDROID DEVELOPER Gender Identity Not on file Sexual Orientation Not on file documented as of this encounter Plan of Treatment Not on file documented as of this encounter Visit Diagnoses Not on filedocumented in this encounter Care Teams Telephone Installer Relationship Specialty Start Date End Date Jeffry Laurent MD PCP - General Family Practice 08/21/11 06/06/24 Vero Alvarez MD [address] [address] PCP - General Family Medicine 06/07/24 documented as of this encounter
--- OUTSIDE RECORDS SUMMARY | 2025-03-06 07:56 | XMS_ITS | Patient Health Record ---
Author Organization [facility] Address [address] [place] [address] [address] [place] [address] Care Team Providers Care Texture Artist Name Role Phone Vero Alvarez Primary Care Provider UnavailCésar Naranjo Unavailable [phone] Veronica Anglin MD Unavailable Unavailable Allergies Allergen (clinical drug ingredient) Drug/Non Drug Allergy documented on EMR Reaction Allergy Type Onset Date Status migraine meds (uncoded) Swelling Allergy Active PNC (uncoded) Unknown Allergy Active Non-steroidal anti-inflammatory agent (FN) NSAIDs Unknown Drug Allergy Active Reason For Referral No Information Medications Medication SIG (Take, Route, Frequency, Duration) Notes Start Date End Date Status amLODIPine Besy-Benazepril HCl 5-10 MG Capsule as directed Orally Active Wellbutrin SR 150 MG Tablet Extended Release 12 Hour 1 tablet in the morning Orally Once a day Active Multi Vitamin Active Taltz 80 MG/ML Solution Auto-injector as directed Subcutaneous Active tiZANidine HCl 2 MG Tablet 1 -2 tabs as needed Orally at bedtime; Duration: 30 days Muscle relaxant, may cause drowsiness 11/26/2023 Active DULoxetine HCl 60 MG Capsule Delayed Release Particles 1 capsule Orally Once a day Active Tylenol Active Social History Tobacco Use: Social History Observation Description Date Details (start date - stop date) Current Smoker NA - NA Social History Drug/Alcohol: Social Info Question Answer Notes AUDIT-C (Standard) Did you have a drink containing alcohol in the past year? Yes How often did you have six or more drinks on one occasion in the past year? Less than monthly (1 point) How many drinks did you have on a typical day when you were drinking in the past year? 1 or 2 drinks (0 point) How often did you have a drink containing alcohol in the past year? Monthly or less (1 point) Points 2 Interpretation Negative Tobacco Use: Social Info Question Answer Notes Tobacco Control (Standard) Tobacco use: Current smoker Problems Problem Type SNOMED Code ICD Code Onset Dates Problem Status W/U Status Risk Notes Problem Chronic pain (42445852) Other chronic pain (G89.29) Active confirmed Problem Ankylosing spondylitis (4969788) Ankylosing spondylitis of multiple sites in spine (M45.0) Active confirmed Problem Cervical spondylosis without myelopathy (530950556) Spondylosis without myelopathy or radiculopathy, cervical region (M47.812) Active confirmed Problem Degeneration of cervical intervertebral disc (55110227) Other cervical disc degeneration, unspecified cervical region (M50.30) Active confirmed Problem Cervical radiculopathy (31376572) Radiculopathy, cervical region (M54.12) Active confirmed Problem Cervicalgia (67305745) Cervicalgia (M54.2) Active confirmed Problem Backache (357140536) Dorsalgia, unspecified (M54.9) Active confirmed Problem Cervicogenic headache (279666797) Cervicogenic headache (G44.86) Active confirmed Problem Low back pain (431960387) Low back pain, unspecified (M54.50) Active confirmed Problem Psoriatic arthritis (974461458) Psoriatic arthritis (L40.50) Active confirmed Plan Of Treatment No Information Insurance Providers Payer Name Payer Address Payer Phone Subscriber Number Group Number Insured Name Patient Relationship to Insured Coverage Start Date Coverage End Date [facility] PMAP [address] [place] [address] [id number] Melissa Escobedo Self - patient is the insured [facility] [address] [address] [place], [place] [id number] Melissa Escobedo Self - patient is the insured Medical (General) History Medical History History ICD Code Acid reflux Anxiety Arthritis Asthma Depression Headaches Hypertension Migraines Stomach Ulcers Surgical History Surgery Date(Month/Year) Gastric Bypass 02/2022 Hystorectomy 02/02 Tonsil 2007 DNC 10/2022 Gull bladder 2020 Lithotripsy 2018 2017
--- OUTSIDE RECORDS SUMMARY | 2025-03-06 07:56 | XMS_ITS | Clinical Summary ---
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 Blighted ovum [...] in an abandoned building, in an overnight residential, or couch-surfing.) Yes 06/07/2024 Are you worried [...] on file Legal Sex Female 4:27 AM [employer] WORK[employer] HEL[employer] Gender Identity Not on file Sexual Orientation [...] PHQ-9 11/13/2011 05/15/2011 COVID-19 VACCINE ( season) 2024 07/22/2022, 11/29/2021, 04/09/2021, Additional history exists INFLUENZA VACCINE (#1) 2024 2, 01/10/2021, 01/26/2019, Additional history exists PAP 02/28/2025 [...] Procedure Name Priority Date/Time Associated Diagnosis Comments BASIC METABOLIC PANEL (LIMITED OCCURRENCES) STAT 11/11/2024 12:36 PM CDT PAP IMAGED THIN LAYER SCREEN Routine 09/10/2011 2:08 PM CDT Abnormal Pap smear and cervical HPV (human papillomavirus) HIV 1 AND 2 ANTIBODY (QUEST) Routine 08/21/2011 8:19 AM CDT Missed menses from Last 3 Months or Most Recently Relevant to Health Maintenance Results * (ABNORMAL) Basic Metabolic Panel (Limited Occurrences) [...] LAB - BLOOD ORDERABLES Final Result LABORATORY [facility] [address] 1st floor, [address] [place] [address], [facility] [phone] * PAP imaged thin layer screen (09/10/2011 2:08 PM CDT) PAP MITCH [facility]elez Report Patient Name: IMTIAZ LAGUERRE MR#: [id number] Specimen #: [id number] Collected: 09/10/2011 Received: 09/11/2011 Reported: 09/15/2011 08:57 [...] Processed and screened at [facility] CLINICAL HISTORY: LMP: 07/17/11 , Papanicolaou Test Limitations: Cervical cytology is a screening test with limited sensitivity; regular screening is critical for cancer prevention; Pap tests are primarily effective for the diagnosis/preventi on of squamous cell carcinoma, not adenocarcinomas or other cancers. TESTING LAB LOCATION: [facility], [address] [place] [id number] COLLECTION SITE: Client: [facility] Cytologic material (specimen) 09/10/2011 2:08 PM CDT 09/11/2011 9:14 AM CDT Ulises Littlejohn MD LAB - OPTIME CLINICAL SPECIMEN F inal Result Performing Organization Address [facility] Co de Phone Number COPATH * HIV 1 and 2 Antibody (08/21/2011 8:19 AM CDT) HIV 1&2 Antibody Negative NEG [facility] Blood specimen (specimen) 08/21/2011 8:19 AM CDT 08/21/2011 8:20 AM CDT Ulises Littlejohn MD LAB - BLOOD ORDERABLES Final Res ult Performing Organization Address [facility]/ZIP Co de Phone Number [facility] [address] [place] [address] from Last 3 Months or Most Recently Relevant to Health Maintenance Advance Directives For more information, please contact: [phone] * Full Code (Latest Code Status on File) Date Activated Date Inactivated Comments 06/07/2024 4:01 PM 06/09/2024 12:42 PM All basic a nd advanced life-sustaining interventions are performed as appropriate Question Answer Comments Code status determined by: Unable to dis cuss and no AD/POLST on file; continue PREVIOUSLY ORDERED code status Care Teams Club Waiter/Waitress Relationship Specialty Start Date End Date Vero Alvarez MD [facility] [address] [place] [address] PCP - General Family Medicine 06/07/24
[2025-03-06 08:08] VITALS: BP 154/92; PULSE 91; RESP 20; TEMP 36.3; O2SAT 98; BMI 26.1
[2025-03-06 08:46] LABS: Hematocrit* 44.6 % (33.0-51.0); Hemoglobin* 15.0 gm/dL (12.0-16.0); Immature Granulocytes Abs Auto 0.01 K/uL (0.00-0.30); Immature Granulocytes Pct Auto 0.1 %; Mean Corpuscular HGB Conc 34 gm/dL (32-36); Mean Corpuscular Hemoglobin 30 pg (26-34); Mean Corpuscular Volume 88 fL (80-100); RDW Coefficient of Variation % 13.4 % (11.5-15.5); Red Blood Count* 5.05 m/uL (4.00-5.20); White Blood Count* 10.67 K/uL (4.50-11.00)
[2025-03-06 08:52] LABS: Lymphocytes Absolute Auto 1.10 K/uL (0.90-2.90); Slide Review Reflex No
[2025-03-06 08:59] LABS: Chloride* 103 mmol/L (96-114); Sodium* 137 mmol/L (135-149)
[2025-03-06 09:00] LABS: Potassium* 3.2 mmol/L (3.6-5.1)
[2025-03-06 09:02] LABS: Anion Gap 10 mEq/L (7-15); Blood Urea Nitrogen* 10 mg/dL (5-24); Carbon Dioxide* 24 mmol/L (20-32); Creatinine* 0.9 mg/dL (0.5-1.5); Est. Creatinine Clearance* 80.12; Estimated Glomerular Filt Rate 84 ml/min
[2025-03-06 09:03] LABS: Calcium* 9.2 mg/dL (8.4-10.6); Glucose* 106 mg/dL (60-115)
--- NOTE | 2025-03-06 09:13 | ED.CHESTPAIN ---
HPI - Chest Pain General Time Seen by Provider: 09:13 Date Seen: 03/06/25 Chief Complaint: Chest Pain Stated Complaint: chest pain Time Seen by Provider: 03/06/25 09:13 Source: patient and RN notes reviewed Mode of arrival: ambulatory Limitations: no limitations History of Present Illness HPI narrative: This 39-year-old female is coming into the ER with concern of ?pretty severe chest pain that woke her up at 5:00 a.m. today. She has some associated nausea. She has been taking antibiotics and steroids for URI as well, not sure if this is related at all. She has a history of gastric bypass, hysterectomy, cholecystectomy, lithotripsy, bile duct stone, tonsillectomy and septoplasty. She notes that the chest pain is worse with movement, coughing and some with deep breathing. Since her gastric bypass, her reflux symptoms have changed, has not really felt reflux. She has had a gastric ulcer since the gastric bypass. She did take the prednisone for few days but the dose was 40 mg, was bothering her stomach and she stopped. She did take a 10 mg dose this morning when she had the symptoms. She completed a Z-Santi. She notes she still coughing but it is not as productive, was getting some bloody sputum with coughing and that is gone. No fevers. She does not feel short of breath. She has not had a history of blood clots. She does smoke cigarettes. Related Data Home Medications ?Medication ?Instructions ?Recorded ?Confirmed amlodipine 5 mg tablet 5 mg PO DAILY 10/26/21 03/01/25 trazodone 50 mg tablet 50 - 100 mg PO HS PRN 10/26/21 03/01/25 duloxetine 60 mg capsule,delayed 60 mg PO QAM 11/06/21 03/01/25 release epinephrine 0.3 mg/0.3 mL 0.3 mg IM ONCE PRN 11/06/21 03/01/25 injection, auto-injector calcium citrate 200 mg PO QDAY 11/21/22 03/01/25 cholecalciferol (vitamin D3) 10 10 mcg PO QDAY 11/21/22 03/01/25 mcg (400 unit) tablet multivitamin 1 tab PO QDAY 11/21/22 03/01/25 vitamin B complex (B 1 tab PO QDAY 11/21/22 03/01/25 Complex-Vitamin B12 tablet) triamcinolone acetonide 0.1 % 1 applic topical BID-TID PRN 01/26/23 03/01/25 topical cream albuterol sulfate 90 mcg/actuation 2 inh inhalation Q4H PRN 01/29/23 03/01/25 aerosol inhaler gabapentin 300 mg capsule 300 mg PO TID 11/21/24 03/01/25 hydroxychloroquine 200 mg tablet 600 mg PO BID 03/01/25 03/01/25 hydroxyzine HCl 50 mg tablet 50 mg PO BID 03/01/25 03/01/25 Previous Rx's ?Medication ?Instructions ?Recorded acetaminophen 500 mg tablet 1,000 mg (2 x 500 mg) PO Q6H PRN 11/03/22 Pain #0 tabs diclofenac sodium 1 % topical gel 2 g topical QID #100 grams 11/18/23 (Voltaren Arthritis Pain) omeprazole 40 mg capsule,delayed 40 mg PO DAILY #30 caps 02/07/24 release potassium chloride 20 mEq 20 meq PO BID 5 days #10 tabs 10/25/24 tablet,extended release(part/cryst) metoprolol succinate 25 mg 12.5 mg (1/2 x 25 mg) PO DAILY #15 12/02/24 tablet,extended release 24 hr tabs albuterol sulfate 90 mcg/actuation 2 puff inhalation Q6H PRN 03/01/25 aerosol inhaler shortness of breath or wheezing #6.7 grams azithromycin 250 mg tablet See Rx Instructions PO .COMPLEX #6 03/01/25 (Zithromax Z-Santi) tabs prednisone 20 mg tablet See Rx Instructions PO QDAY Cough 03/01/25 #10 tabs Allergies Allergy/AdvReac Type Severity Reaction Status Date / Time ergotamine (From Cafergot) Allergy Severe Anaphylaxis Verified 03/01/25 16:34 ketorolac (From Toradol) Allergy Severe Migraine Verified 03/01/25 16:34 tramadol Allergy Intermediate Headache Verified 03/01/25 16:34 lamotrigine (From Lamictal) Allergy rash Verified 03/01/25 16:34 NSAIDS (Non-Steroidal Allergy gastric Verified 03/01/25 16:34 Anti-Inflamma bypass Penicillins Allergy Anaphylaxis Verified 03/01/25 16:34 sumatriptan Allergy Anaphylaxis Verified 11/19/25 16:34 ondansetron AdvReac Intermediate Migraine Verified 03/01/25 16:34 Review of Systems Status of ROS Reports: 6 or more systems reviewed and unremarkable except as noted in History and below PFSH PFS Medical History History of gestational hypertension ?Z87.59 - Personal history of other complications of , childbirth and the puerperium (ICD-10) Spontaneous with heavy bleeding (11/03/22) ?O03.9 - Complete or unspecified spontaneous without complication (ICD-10) Low grade squamous intraepithelial lesion (2008) Paroxysmal SVT (supraventricular tachycardia) ?I47.1 - Supraventricular tachycardia (ICD-10) Nephrolithiasis (2010) ?N20.0 - Calculus of kidney (ICD-10) Surgical History History of tonsillectomy (02/25/08) ?Z90.89 - Acquired absence of other organs (ICD-10) H/O dilation and curettage ?Z98.890 - Other specified postprocedural states (ICD-10) History of esophageal dilatation ?Z98.890 - Other specified postprocedural states (ICD-10) 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) ?Z98.84 - Bariatric surgery status (ICD-10) H/O nasal septoplasty ?Z98.890 - Other specified postprocedural states (ICD-10) H/O wisdom tooth extraction ?K08.409 - Partial loss of teeth, unspecified cause, unspecified class (ICD-10) Status post colposcopy (01/2009) ?Z98.890 - Other specified postprocedural states (ICD-10) Status post laser lithotripsy of ureteral calculus (05/17/18) ?Z98.890 - Other specified postprocedural states (ICD-10) S/P (01/21/17) ?Z98.891 - History of uterine scar from previous surgery (ICD-10) Status post cholecystectomy (01/17/21) ?Z90.49 - Acquired absence of other specified parts of digestive tract (ICD-10) Family History Mother Coronary artery disease Anxiety CHF (congestive heart failure) COPD (chronic obstructive pulmonary disease) Brother ADHD (attention deficit hyperactivity disorder) Paternal Grandfather DVT (deep venous thrombosis) Aunt Renal cancer Other Breast cancer Diabetes High blood pressure Kidney disease Leukemia Liver disease Lung cancer Stroke Social History Narrative: Lives in [place] with her son, 5 yo. 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 Also works at [employer]. She smokes 1/2 PPD. Occ ETOH use. No recreational drug use. What is your current living situation?: I presently have a place to live Problems where you live: no known problems In the past 12 months, utilities in danger of being shut off: no In past 12 months, lack of transportation kept you from medical appts, meetings, work, or getting things needed for daily living: no In the past 12 mos, have been you worried that your food would run out before you had money to buy more?: never true In the past 12 mos, the food you bought just didn't last and you didn't have money to buy more?: never true Highest level of school completed/degree received: high school graduate Smoking Status: Heavy tobacco smoker What tobacco products do you use: cigarettes Smoking packs per day: 0.5 Smoking cigarettes per day: 10.0 Years smoked: 23 Smoking pack-years: 11.50 Do you use any of these nicotine containing products: None Second hand tobacco smoke exposure: Yes How often do you have a drink containing alcohol: 4 or more times a week Alcohol type: wine and hard liquor How many standard drinks containing alcohol do you have on a typical day: 10 or more How often do you have six or more drinks on one occasion: Daily or almost daily AUDIT-C Alcohol total score: 12 Non-prescribed substance use: denies use Caffeine: Yes (soda, energy drinks) How often does anyone, including family, friends and others, physically hurt you: never How often does anyone, including family, friends and others, insult or talk down to you: never How often does anyone, including family, friends and others, threaten you with harm: never How often does anyone, including family, friends and others, scream or curse at you: never Are you using contraception or practicing any form of control: No service: No Exam Const Vital Signs, click to edit/add: Vital Signs - 24 hr 03/06/25 08:08 03/06/25 09:42 03/06/25 10:09 Temperature 97.4 F L Pulse Rate [Pulse Oximeter] 91 70 Respiratory Rate 20 18 Blood Pressure [Right Upper Arm] 154/92 H 152/93 H Pulse Oximetry 98 98 97 Oxygen Delivery Method Room Air Room Air This 39-year-old female is alert, interactive, no apparent distress, lying exam room bed in 5. She has normal speech, able to speak in complete sentences, no hoarseness, no stridor. Pupils equal round reactive, sclerae clear, extraocular muscles intact. Symmetric facial function. Neck is supple, no adenopathy or masses. Lungs are clear, good air entry, no wheeze or crackles, no tachypnea, no accessory muscle use. No coughing when I am in with her. CV regular rate and rhythm, no murmur, normal S1-S2, no S3-S4. She has mid costochondral tenderness that is reproducible. She also has some right-sided general costochondral tenderness but is most on the left midsternal border. She states this does reproduce her pain. Abdomen is soft, nontender, nondistended, no organomegaly. She has no lower extremity edema. Documenting provider has reviewed patient's vital signs: yes Course Course ED Course: Nursing staff due to the volume and acuity in the ED had done some basic labs. Her EKG was done and we reviewed that this is normal. Troponin was pending when I went in to see her, she is aware of this. Her white count was normal, her basic electrolytes were normal with the exception of a mildly low potassium at 3.2. She states she has a history of hypokalemia. She forgets to take her potassium as she does take hydroxyzine for anxiety and she is supposed to wait 30 minutes after taking the hydroxyzine which she takes 1st thing in the morning. She frequently forgets the potassium. We discussed oral replacement here, she is agreeable to this. As far as her chest symptoms, definitely has clinical exam consistent with costochondritis. She does not PERC rule out however though, she had some recent complaints of blood in her sputum, has resolved now with antibiotics but this is all been in context of a current ?illness?. We will do a D-dimer, if normal, think chest x-ray will be sufficient. We will look at a chest x-ray to make sure that there is no underlying pneumonia, no chest wall abnormality. Reevaluation(s) Time of Reevaluation #1: 11:21 Reevaluation #1: Patient has mild elevation in her D-dimer, we will be proceeding with chest CT PE protocol. This will help us further evaluate her lungs as well. Will update patient that this has been ordered. Time of Reevaluation #2: 12:45 Reevaluation #2: Have reviewed patient's chest x-ray as well as her chest CT. Patient does report underlying history of asthma when I question. On the CT there is no pulmonary emboli but she does have some mucus plugging. 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 I have recommended that she use her albuterol 3 to 4 times a day through the remainder of this illness. She should go on omeprazole but try to stay on prednisone maybe just 20 mg daily for the next 5 days. I do not think she needs further antibiotics at this point, she did complete a Z-Santi. We did discuss the costochondritis is a complication of this infection as well. She can use Tylenol, unfortunately she cannot take NSAIDs. Vital Signs Vital signs: Initial Vital Signs Temperature 97.4 F L 03/06/25 08:08 Temperature Source Temporal Artery Scan 03/06/25 08:08 Pulse Rate 91 03/06/25 08:08 Respiratory Rate 20 03/06/25 08:08 Blood Pressure 154/92 H 03/06/25 08:08 Blood Pressure Mean 112 H 03/06/25 08:08 Blood Pressure Position Sitting 03/06/25 08:08 Pulse Oximetry 98 03/06/25 08:08 Oxygen Delivery Method Room Air 03/06/25 08:08 Vital Signs Temperature 97.4 F L 03/06/25 08:08 Pulse Rate 91 03/06/25 08:08 Respiratory Rate 20 03/06/25 08:08 Blood Pressure 154/92 H 03/06/25 08:08 Pulse Oximetry 98 03/06/25 08:08 Oxygen Delivery Method Room Air 03/06/25 08:08 Temperature 97.4 F L 03/06/25 08:08 Pulse Rate 70 03/06/25 10:09 Respiratory Rate 18 03/06/25 10:09 Blood Pressure 152/93 H 03/06/25 10:09 Pulse Oximetry 97 03/06/25 10:09 Oxygen Delivery Method Room Air 03/06/25 10:09 Medications Administered Medications: Discontinued Medications Generic Name Dose Route Start Last Admin Trade Name Freq PRN Reason Stop Dose Admin Potassium Bicarbonate 25 meq 03/06/25 09:27 03/06/25 09:57 Potassium Bicarb 25 Meq Effervescent Tab PO 03/06/25 09:28 25 meq ONCE ONE Administration MDM - Chest Pain Lab Data Attestation: I reviewed the patient's lab results. Labs: Lab Results 03/06/25 03/06/25 03/06/25 Range/Units 08:38 09:25 09:47 WBC 10.67 (4.50-11.00) K/uL RBC 5.05 (4.00-5.20) m/uL Hgb 15.0 (12.0-16.0) gm/dL Hct 44.6 (33.0-51.0) % MCV 88 (80-100) fL MCH 30 (26-34) pg MCHC 34 (32-36) gm/dL RDW Coeff of Compa 13.4 (11.5-15.5) % Plt Count 228 (140-440) K/uL Neut % (Auto) 80.7 H (42.0-72.0) % Lymph % (Auto) 10.7 L (20-44) % [place] % (Auto) 7.7 (0.0-11.0) % Eos % (Auto) 0.4 (0.0-7.0) % Baso % (Auto) 0.4 (0.0-3.0) % Neut # (Auto) 8.60 H (1.7-7.0) K/uL Lymph # (Auto) 1.10 (0.90-2.90) K/uL [place] # (Auto) 0.80 (0.00-0.90) K/UL Eos # (Auto) 0.04 (0.00-0.50) K/uL Baso # (Auto) 0.04 (0.00-0.30) K/uL Abs Immat Gran (auto) 0.01 (0.00-0.30) K/uL Imm/Tot Granulo (auto) 0.1 % D-Dimer Quant (PE/DVT) 0.56 H (0.00-0.50) ug/ml Sodium 137 (135-149) mmol/L Potassium 3.2 L (3.6-5.1) mmol/L Chloride 103 (96-114) mmol/L Carbon Dioxide 24 (20-32) mmol/L Anion Gap 10 (7-15) mEq/L BUN 10 (5-24) mg/dL Creatinine 0.9 (0.5-1.5) mg/dL Estimated Creat Clear 80.12 Estimated GFR 84 ml/min Glucose 106 (60-115) mg/dL Calcium 9.2 (8.4-10.6) mg/dL Troponin I < 0.01 (0.01-0.04) ng/mL Lab Acknowledgement New Spec Needed A Imaging Data Chest x-ray: Attestation: I have reviewed the pertinent imaging results. My impression: Chest x-ray reviewed, do not appreciate any acute infiltrate, no pneumothorax, wait radiology over-read. Radiologist's impression: Patient: IMTIAZ LAGUERRE Facility:?[facility] Patient ID:?[id number] Site Patient ID:?[id number]. Site :?[id number] Study:?XRay-Chest -03/06/2025 9:40:32 AM Ordering Physician:Jamar López Final Report: Indication: Chest pain Comparison: Two-view chest February 07, 2024 Technique: PA and lateral views of the chest Findings: There are mildly increased interstitial markings likely representing bronchial thickening without dense consolidation, effusion or pneumothorax. The cardiomediastinal silhouette is within normal limits. The bony thorax is grossly intact. Impression: Mildly increased interstitial markings likely representing bronchial thickening without dense consolidation. Dictated by Fernando Duval MD @ 03/06/2025 9:51:21 AM (Electronic Signature) CT scan - chest: Attestation: I have reviewed the pertinent imaging results. Radiologist's impression: Patient: IMTIAZ LAGUERRE Facility:?[facility] Patient ID:?[id number] Site Patient ID:?[id number]. Site :?1985 Study:?CT-Chest Angio W/95CC [id number]/24/2025 12:00:13 PM Ordering Physician:Jamar López Final Report: Indication: CHEST PAIN, ELEVATED D DIMER Technique: CT angiogram of the chest was performed for evaluation of pulmonary embolism. 95 mL of Isovue 370 intravenous contrast was administered. Comparison: 03/06/2025, 11/15/2017. Findings: CARDIOVASCULAR: Diagnostic quality: Contrast opacification of the pulmonary arterial circulation is adequate for assessment of pulmonary embolism. Study is not significantly limited by respiratory motion artifact. Pulmonary arteries: No filling defects to suggest pulmonary embolism. Not enlarged. Heart: No interventricular septal deviation. Normal in size. No significant coronary artery calcification. No significant valvular calcification. Pericardium: No pericardial effusion. Thoracic aorta: No significant abnormality. Normal cervical branching. REMAINING CHEST: Medical devices: None. Thyroid: Normal. Lymph nodes: No supraclavicular, axillary, mediastinal, or hilar lymphadenopathy. Other mediastinal structures: No significant abnormality. Lung parenchyma: No significant abnormality. Airways: Mild bronchial wall thickening with minimal scattered areas of distal mucous plugging. Pleura: No significant abnormality. Chest wall: No significant abnormality. Upper abdomen: Status post cholecystectomy. Partial visualization of likely postsurgical changes from Geraldo-en-Y gastric bypass. Musculoskeletal: No significant abnormality. Impression: 1. No acute pulmonary embolism. 2. Mild bronchial wall thickening with minimal scattered areas of distal mucous plugging. Findings may represent areas of infection or inflammation. Please note that all CT scans at this facility use dose modulation, iterative reconstruction, and/or weight-based dosing when appropriate to reduce radiation dose to as low as reasonably achievable. Dictated by Dedrick Ortega MD @ 03/06/2025 12:30:30 PM (Electronic Signature) ECG Data Attestation: I personally reviewed and interpreted this ECG as follows: (Normal sinus rhythm, 82 beats per minute. No evidence of any ischemia or infarct.) ECG interpretation date: 03/06/25 ECG interpretation time: 09:15 Prior ECG tracings: available for review (Multiple prior EKGs and compared to 12/02/2024, no change.) Discharge Plan Discharge Clinical Impression: Acute costochondritis, Acute upper respiratory infection, Hypokalemia Patient Disposition: Home, Self-Care Condition: Stable Instructions: Potassium Content of Foods List (ED), Costochondritis (ED), Upper Respiratory Infection (ED) Additional Instructions: Do try to remember to take your potassium supplement, can try to increase foods with higher content of potassium in them as well. For the chest wall pain, can do Tylenol 1000 mg 3 times a day. Do recommend taking prednisone 20 mg daily for 5 days for your respiratory symptoms. Use omeprazole that you have at home daily while you are on the prednisone. Also, do recommend using your albuterol 2 puffs 3 to 4 times a day for the next 3-5 days, can help open airways and decreased mucus plugging. If at any point, you feel that your respiratory symptoms are worsening, have increasing cough, develops fevers, sputum is increasing, may need further antibiotics and would recommend re-evaluation. Activity Level: Activity as Tolerated Prescriptions: No Action vitamin B complex [B Complex-Vitamin B12] Tablet 1 tab PO QDAY cholecalciferol (vitamin D3) 10 mcg (400 unit) tablet 10 mcg PO QDAY calcium citrate 200 mg (950 mg) tablet 200 mg PO QDAY multivitamin Tablet 1 tab PO QDAY hydroxyzine HCl 50 mg tablet 50 mg PO BID azithromycin [Zithromax Z-Santi] 250 mg tablet See Rx Instructions PO .COMPLEX Qty: 6 0RF Rx Instructions: Two p.o. as single dose day 1, then 1 p.o. days 2 through 5, then discontinue. prednisone 20 mg tablet See Rx Instructions PO QDAY Qty: 10 0RF Rx Instructions: 2 p.o. as single dose x5 days, then discontinue. albuterol sulfate 90 mcg/actuation HFA aerosol inhaler 2 puff inhalation Q6H PRN (Reason: shortness of breath or wheezing) Qty: 6.7 0RF diclofenac sodium [Voltaren Arthritis Pain] 1 % gel 2 g topical QID Qty: 100 0RF Rx Instructions: apply sparingly to right knee for 7 days gabapentin 300 mg capsule 300 mg PO TID epinephrine 0.3 mg/0.3 mL auto-injector 0.3 mg IM ONCE PRN duloxetine 60 mg capsule,delayed release(DR/EC) 60 mg PO QAM triamcinolone acetonide 0.1 % cream 1 applic topical BID-TID PRN albuterol sulfate 90 mcg/actuation HFA aerosol inhaler 2 inh inhalation Q4H PRN hydroxychloroquine 200 mg tablet 600 mg PO BID omeprazole 40 mg capsule,delayed release(DR/EC) 40 mg PO DAILY Qty: 30 2RF metoprolol succinate 25 mg tablet extended release 24 hr 12.5 mg PO DAILY Qty: 15 0RF trazodone 50 mg tablet 50 - 100 mg PO HS PRN amlodipine 5 mg tablet 5 mg PO DAILY acetaminophen 500 mg Tablet 1,000 mg PO Q6H PRN (Reason: Pain) Qty: 0 0RF potassium chloride 20 mEq tablet,ER particles/crystals 20 meq PO BID 5 Days Qty: 10 0RF Follow Up/Referrals: Vero Alvarez MD [Primary Care Provider, Family Practice] [facility]: [facility] Info Instructions
--- NOTE | 2025-03-06 09:25 | CRLHL7_ITS ---
For Patients: As a result of the Cures Act, medical imaging exams and procedure reports are released immediately into your electronic medical record. You may view this report before your referring provider. If you have questions, please contact your health care provider. Indication: Chest pain Comparison: Two-view chest February 07, 2024 Technique: PA and lateral views of the chest Findings: There are mildly increased interstitial markings likely representing bronchial thickening without dense consolidation, effusion or pneumothorax. The cardiomediastinal silhouette is within normal limits. The bony thorax is grossly intact. Impression: Mildly increased interstitial markings likely representing bronchial thickening without dense consolidation. Dictated by Fernando Duval MD @ 03/06/2025 9:51:21 AM (Electronically Signed)
[2025-03-06 09:31] LABS: Lab Add On Test New Spec Needed
[2025-03-06 09:42] VITALS: O2SAT 98
[2025-03-06] MEDS: POTASSIUM BICARB 25 MEQ EFFERVESCENT TAB PO (09:57)
[2025-03-06 10:09] VITALS: BP 152/93; PULSE 70; RESP 18; O2SAT 97
[2025-03-06 10:11] LABS: D Dimer Quantitative* 0.56 ug/ml (0.00-0.50)
--- NOTE | 2025-03-06 11:21 | CRLHL7_ITS ---
For Patients: As a result of the Century Cures Act, medical imaging exams and procedure reports are released immediately into your electronic medical record. You may view this report before your referring provider. If you have questions, please contact your health care provider. Indication: CHEST PAIN, ELEVATED D DIMER Technique: CT angiogram of the chest was performed for evaluation of pulmonary embolism. 95 mL of Isovue 370 intravenous contrast was administered. Comparison: 03/06/2025, 11/15/2017. Findings: CARDIOVASCULAR: Diagnostic quality: Contrast opacification of the pulmonary arterial circulation is adequate for assessment of pulmonary embolism. Study is not significantly limited by respiratory motion artifact. Pulmonary arteries: No filling defects to suggest pulmonary embolism. Not enlarged. Heart: No interventricular septal deviation. Normal in size. No significant coronary artery calcification. No significant valvular calcification. Pericardium: No pericardial effusion. Thoracic aorta: No significant abnormality. Normal cervical branching. REMAINING CHEST: Medical devices: None. Thyroid: Normal. Lymph nodes: No supraclavicular, axillary, mediastinal, or hilar lymphadenopathy. Other mediastinal structures: No significant abnormality. Lung parenchyma: No significant abnormality. Airways: Mild bronchial wall thickening with minimal scattered areas of distal mucous plugging. Pleura: No significant abnormality. Chest wall: No significant abnormality. Upper abdomen: Status post cholecystectomy. Partial visualization of likely postsurgical changes from Geraldo-en-Y gastric bypass. Musculoskeletal: No significant abnormality. Impression: 1. No acute pulmonary embolism. 2. Mild bronchial wall thickening with minimal scattered areas of distal mucous plugging. Findings may represent areas of infection or inflammation. Please note that all CT scans at this facility use dose modulation, iterative reconstruction, and/or weight-based dosing when appropriate to reduce radiation dose to as low as reasonably achievable. Dictated by Dedrick Ortega MD @ 03/06/2025 12:30:30 PM (Electronically Signed)
[2025-03-06 12:59] VITALS: BP 161/90; PULSE 69; RESP 18; O2SAT 97
== END 2025-03-06 13:00 | disposition home or self-care (01) ==
PROVIDERS: Emergency Provider Family Medicine; PCP Family Medicine
DX: M94.0 Chondrocostal junction syndrome [Tietze] (principal); J06.9 Acute upper respiratory infection, unspecified; E87.6 Hypokalemia
CPT/HCPCS: 36415; 71046; 71275; 80048; 84484; 85025; 85379; 93005; 94761; 99284; 99285; A9270; Q9967

== ENCOUNTER 2025-03-27 05:41 | Emergency (ER) | payer MEDICAID, SELFPAY ==
--- OUTSIDE RECORDS SUMMARY | 2023-12-10 05:45 | XMS_ITS ---
Author Organization [facility] Address [address] [place] [address] [address] [place] [address] Care Team Providers Care Supervisor Smoke Control Name Role Phone Vero Alvarez Primary Care Provider UnavailCésar Naranjo Unavailable [phone] Derrek AZAR, Veronica Unavailable Unavailable Maykel Sykes Unavailable [phone] REASON FOR VISIT RS due to getting injection done Encounters Encounter Location Date Provider Diagnosis [facility] [address] [place] [address] 12/10/2023 Maykel Sykes Plan Of Treatment No Information Progress Notes * Melissa LAGUERRE ADOB: [birth year] (40 yo F)Acc No.[id number]:12/10/2023 Initial Evaluation Patient: Joe mayer Melissa A :?Maykel Skyes MDDOB:1985???Age:38 Y???Sex: FemaleDate:12/10/2023hone:Address:[address] [place] [address], [address], [place], [id number]:Vero Alvarez Subjective: * Chief Complaints: * R S due to getting injection done * Electronic signature of Maykel Sykes MD FACOEM on 03/27/2025 at 05:44 AM MEDICAL RECORDS ASSISTANT Sign off status: Pending * Provider: Angelina Sykes MD Date: 0 12/10/2023 Generated for Printing/Faxing/eTransmitting on:?03/27/2025 05:44 AM MEDICAL RECORDS ASSISTANT
--- OUTSIDE RECORDS SUMMARY | 2023-12-11 03:15 | XMS_ITS ---
Author Organization [facility] Address [address] [place] [address] [address] [place] [address] Care Team Providers Care High School Coordinator Name Role Phone Vero Alvarez Primary Care Provider UnavailCésar Naranjo Unavailable [phone] Derrek AZAR, Veronica Unavailable Unavailable Andrez Hammonds Unavailable [phone] REASON FOR VISIT internal ref r/s to 12/16 Encounters Encounter Location Date Provider Diagnosis [facility] [address] [place] [address] 12/11/2023 Andrez Hammonds Plan Of Treatment No Information Progress Notes * Melissa LAGURERE ADOB: [birth year] (40 yo F)Acc No.[id number]:12/11/2023 Initial Evaluation Patient: Joe terribrynnMelissa :?Andrez HammondsDOB:1985???Age:38 Y???Sex: FemaleDate:12/11/2023hone:Address:[address] [place] [address], [address], [place] [facility] [id number]:Vero Alvarez Subjective: * Chief Complaints: * I nternal ref r/s to 12/16 Billing Information: * Procedure Codes: * Electronic signature of Andrez Hammonds MD on 03/27/2025 at 05:44 AM CSTSign off status: Pending * Provider: Ghassan Hammonds Date: 0 12/11/2023 Generated for Printing/Faxing/eTransmitting on:?03/27/2025 05:44 AM BIT SHARPENER
--- OUTSIDE RECORDS SUMMARY | 2024-01-04 04:30 | XMS_ITS ---
Author Organization [facility] Address [address] [place] [address] [address] [place] [address] Care Team Providers Care Bridges And Buildings Supervisor Name Role Phone Vero Alvarez Primary Care Provider UnavailCésar Naranjo Unavailable [phone] Derrek AZAR, Veronica Unavailable Unavailable Andrez Phillips Unavailable [phone] REASON FOR VISIT cx-sick Encounters Encounter Location Date Provider Diagnosis [facility] [address] [place] [address] 01/04/2024 Andrez Phillips Plan Of Treatment No Information Progress Notes * Melissa LAGUERRE ADOB: [birth year] (40 yo F)Acc No.[id number]:01/04/2024 OT Evaluation Patient: Joe mayer Melissa Underwood :?Andrez Phillips OTR/LDOB:1985???Age:38 Y ???Sex:FemaleDate:01/04/2024hone:Address:[address] [place] [address], [address], [id number]:Vero Alvarez Subjective: * Chief Complaints: * C x-sick Billing Information: * Procedure Codes: * Electronic signature of Andrez Phillips OTR/L on 03/27/2025 at 05:44 AM CSTSign off status: Pending * Provider: MARIBEL Guzman/Emy Date: 0 01/04/2024 Generated for Printing/Faxing/eTransmitting on:?03/27/2025 05:44 AM STONEMASON
--- OUTSIDE RECORDS SUMMARY | 2024-01-06 03:45 | XMS_ITS ---
Author Organization [facility] Address [address] [place] [address] [address] [place] [address] Care Team Providers Care Diffusion Furnace Operator Name Role Phone Vero Alvarez Primary Care Provider UnavailCésar Naranjo Unavailable [phone] Derrek AZAR, Veronica Unavailable Unavailable Umberto Fish Unavailable [phone] REASON FOR VISIT Follow-up Encounters Encounter Location Date Provider Diagnosis 104 [facility] [address] [facility] [address] [place] [address] 01/06/2024 Umberto Fish Plan Of Treatment No Information Progress Notes * Melissa LAGUERRE ADOB: [birth year] (40 yo F)Acc No.[id number]:01/06/2024 Progress Notes Patient: Joe murraybrynn Melissa Underwood :?EFRAIN HarmanCDOB:1985???Age:38 Y ???Sex:FemaleDate:01/06/2024hone:Address:[address] [place] [address], [address], [place], [id number]:Vero Alvarez Subjective: * Chief Complaints: * F ollow-up * Electronic signature of Umberto Fish PA-C on 03/27/2025 at 05:43 AM CSTSign off status: Pending * Provider: Yasmine Fish PA-C Date: 0 01/06/2024 Generated for Printing/Faxing/eTransmitting on:?03/27/2025 05:43 AM FLIGHT ENGINEER INSTRUCTOR
--- OUTSIDE RECORDS SUMMARY | 2024-01-11 04:00 | XMS_ITS ---
Author Organization [facility] Address [address] [place] [address] [address] [place] [address] Care Team Providers Care Dry Color Mixer Name Role Phone Vero Alvarez Primary Care Provider UnavailCésar Naranjo Unavailable [phone] Derrek AZAR, Veronica Unavailable Unavailable Brandy Reynolds Unavailable [phone] REASON FOR VISIT Patient called to cxl, family emergency. Encounters Encounter Location Date Provider Diagnosis [facility] [address] [place] [address] 01/11/2024 Brandy Reynolds Cervicalgia M54.2 ; Low back pain, unspecified M54.50 ; Dorsalgia, unspecified M54.9 and Ankylosing spondylitis of multiple sites in spine M45.0 Assessments Encounter Date Diagnosis (ICD Code) Assessment Notes Treatment Notes Treatment Clinical Notes Section Notes 01/11/2024 Cervicalgia (ICD-10 - M54.2) 01/11/2024Low back pain, unspecified (ICD-10 - M54.50)4Dorsalgia, unspecified (ICD-10 - M54.9)4Ankylosing spondylitis of multiple sites in spine (ICD-10 - M45.0) Plan Of Treatment No Information History and Physical Notes * HPI (History of Present Illness) CategorySub-CategoryDetailNotesCategory NotesPhysical Therapy HistoryPrevious TreatmentChiropractic, MedicationsPT HistoryPatient with ankylosing spondylitis of lumbar region, and psoriatic arthritis who is seen today with the following complaints: neck and low back pain. She has been treating with [facility] pain management. The patient's symptoms began gradually, worsening the last year. She denies any bilateral upper or lower extremity pain today*Therapy Visit Status Session DataTherapy Episode Status: Active Progress Notes * Melissa LAGUERRE ADOB: [birth year] (40 yo F)Acc No.[id number]:01/11/2024 PT Evaluation Patient: Melissa Peter :Jean Carlos Reynolds, MPTDOB:1985???Age:38 Y ???Sex:FemaleDate:4Phone:Address:[address] [place] [address], [id number]:Vero Alvarez Subjective: * Chief Complaints: * P atient called to cxl, family emergency. * HPI: ???Physical Therapy History:?PT History?Patient with??ankylosing spondylitis of lumbar region, and psoriatic arthritis who is seen today with the following complaints: neck and low back pain. She has been treating with??[facility] pain management. The patient's symptoms began gradually, worsening the last year. She deniesany bilateral upper or lower extremity pain today.?Previous Treatment?Chiropractic, Medications.?*Therapy Visit Status:?Session Data?Therapy Episode Status?Active Therapeutic Interventions: * Therapeutic Interventions: ???1.?Pain Management Strategies ? Pain Management Counseling : Patient was issued the [facility] Pain Rehabilitation Learning to Be Your Own Therapist Guidebook. This reference outlines best evidence in managing chronic and persistent pain problems. The purpose of this guidebook is to assist the patient in identifying contributing factors to their individual pain profile, and develop self management habits to build resiliency to pain. The patient is instructed to bring the guidebook to therapy sessions to work through the concepts with a skilled provider. Topics include pain neuroscience education, movement guidance, exercise instruction, and cognitive-behavioral based homework. This reference assists the patient in developing a long-term plan to self managing pain ? * Therapy Assessment and Plan: 1.?*Therapy Session Plan ? Plan Details : OT Evaluation Due,LE, RT,Review stretches,Review TPR,Series 1,2,3,4*Patient Valued Goals/Activities:,*MD/ELVIN Follow Up Plan: 2.?PT Eval Assessment ? PT Impairments : Pain / Symptoms, Limited Mobility / AROM, Muscle Weakness, Poor Motor Control, Compensatory Movement Patterns, Poor Muscle Endur ance, Tissue Sensitivity ? PT Complexity & Psychosocial Factors : Chronicity / Persistence, Previously Failed Treatment ? PT Diagnosis : Chronic Pain Syndrome, Myofascial Pain Syndrome ? PT Rehabilitation Prognosis : RehabilitationPotential is Good 3.?PT Planned Interventions ? Pain Modalities : Ice/Heat Instruction ? Manual Therapy : Self Release Instruction, Soft tissue mobilization ? Therapeutic Exercise : Multidisciplinary Rehabilitation (PT/OT), Isolated Spinal Strengthening Program, Home Exercise Program Developed, Graded A ctivity Matched to Goals, ROM & Mobility Exercise, Motor Control Exercises, Functional StrengthExercise ? Patient Education : Pain Neuroscience Education, Pain Management Education, Activity Pacing Education, Sleep Habit Education, Breathing and Relax ation Practices, Self Pain Management Habits, Aftercare Planning ? Functional Activity : Functional strength exercises, Transitions Training, Dynamic Movement Training ? Frequency & Duration POC : PT/OT Sessions 2 x week, 16-24 sessions ? Assessment: * Assessment: 1.?Cervicalgia - M54.2 (Primary)???2.?Low back pain, unspecified - M54.50&# 160;??3.?Dorsalgia, unspecified - M54.9???4.?Ankylosing spondylitis of multiple sites in spine - M45.0??? Plan: * Preventive Medicine: ??[facility] Inventory Forms:?Neck Oswestry?NDI Percent Score (0-100) =?64 ?NDI Interpretation?60-79 (Crippled) Billing Information: * Procedure Codes: * Electronic signature of YOLANDA Nj on 03/27/2025 at 05:44 AM CSTSign off status: Pending * Provider: YOLANDA Santo Date: 0 01/11/2024 Generated for Printing/Faxing/eTransmitting on:?03/27/2025 05:44 AM PHYSICAL ANTHROPOLOGIST
--- OUTSIDE RECORDS SUMMARY | 2024-01-14 05:00 | XMS_ITS ---
Author Organization [facility] Address [address] [place] [address] [address] [place] [address] Care Team Providers Care Turner In Name Role Phone Antonio Vero Primary Care Provider UnavailCésar Naranjo Unavailable [phone] Derrek AZAR, Veronica Unavailable Unavailable Sara Malave Unavailable [phone] REASON FOR VISIT cx-mom dx'd with cancer- Encounters Encounter Location Date Provider Diagnosis [facility] [address] [place] [address] 01/14/2024 Sara Malave Plan Of Treatment No Information History and Physical Notes * HPI (History of Present Illness) CategorySub-CategoryDetailNotesCategory NotesPhysical Therapy HistoryPrevious TreatmentPrevious Tx:I have reviewed the patient's medical summary and history. Below is the patient intake information regarding medical and surgical history. The following pertinent medical issues in participating in physical therapy are: PT Historyankylosing spondylitis of lumbar region, and psoriatic arthritis who is seen today with the following complaints: neck and low back pain. Hx: Current complaints: NATALIIA: Sx: Sleep: LOF: Previous LOF: Wans to return to: Physical Examination CategorySub-CategoryDetailNotesSection NotesIsotonic Exercise Machine Summary Exercise SummaryThe patient completed isolated spinal strengthening today via [employer] with direct therapy supervision.The patient was set-up using specific positioning to achieve optimal isolation and comfort. Therapeutic exercise is completed using a graded approach to ensure tolerance. This isolated exercise is intended to help provide improvements in strength, ROM, and endurance of the musculature necessary fordaily activities.LE/CE/TR/CR Examination CategorySub-CategoryDetailNotesCategory NotesPosture & Motor ControlStatic Postural Observations:Noted Postural Observations: Standing: Seated: Supine: Prone: Mobility & ROMLumbar Spine AROMFlexion:Ext:SB:Rot:LE ROM:Cervical Spine ROM Flexion: Ext: SB: Rot:Shoulder ROMFlex: Ext: Abd: Add: IR: ER:Palpation & Sensory TestsPalpation:Gait AssessmentGait Observations:Transitional Movement Mat Mobility: STS: Functional Tests & Concordant Signs 5xSTS: SLS: DNF Endurance: Plank: Push up: Progress Notes * CARLOTTAReya ADOB: [birth year] (40 yo F)Acc No.[id number]:01/14/2024 PT Evaluation Patient: Melissa Peter :?Sara Underwood [place], DPTDOB:1985???Age:38 Y ???Sex:FemaleDate:4Phone:Address:[address] [place] [address], [address] [place], [place] [id number]:Vero Alvarez Subjective: * Chief Complaints: * C x-mom dx'd with cancer- * HPI: ???Physical Therapy History:?PT History?ankylosing spondylitis of lumbar region, and psoriatic arthritis?who is seen today with the following complaints: neck and low back pain. ?Hx: ?Current complaints: ?NATALIIA: ?Sx: ?Sleep:?LOF: ?Previous LOF:?Wans to return to:.?Previous Treatment?Previous Tx:?.?I have reviewed the patient's medical summary and history. Below is the patient intake information regarding medical and surgical history. The following pertinent medical issues in participating in physical therapy are: . Objective: * Examination: ???Mobility & ROM: ?Lumbar Spine AROM?Flexion: Ext: SB: Rot:.?Cervical Spine ROM?Flexion: ?Ext: ?SB: ?Rot:.?Shoulder ROM?Flex: ?Ext: ?Abd:?Add: ?IR: ?ER:.?LE ROM:. ???Posture & Motor Control: ?Static Postural Observations:?Noted Postural Observations: ?.?Standing: Seated: Supine: Prone:. ???Palpation & Sensory Tests: ???Palpation:. ???Gait Assessment: ???Gait Observations:. ???Transitional Movement: ???Mat Mobility: STS:. ???Functional Tests & Concordant Signs: ???5xSTS: SLS: DNF Endurance: Plank: Push up:. ??? * Physical Examination: ???Isotonic Exercise Machine Summary:?Exercise Summary?The patient completed isolated spinal strengthening today via [employer] with direct therapy supervision. The patient was set-up using specific positioning to achieve optimal isolation and comfort. Therapeutic exercise is completed using a graded approach to ensure tolerance. This isolated exercise is intended to help provide improvements in strength, ROM, and endurance of the musculature necessary for dailyactivities..?LE/CE/TR/CR. Therapeutic Interventions: * Therapeutic Interventions: ???1.?Movement Therapy Summary ? Movement Therapy Details : Developed a full stretching program as above to complete as a home daily habit of movement. Demonstrated and practiced full program and provided guidance on how to work this into habit. Patient demonstrated good understanding for follow through at home, will require review next visit ? * Therapy Assessment and Plan: 1.?Therapy Session Assessment ? Summary : Summary:Patient will benefit from skilled physical therapy to address limitations in range of motion and strength, find tools to modulate patient pain, develop a consistent home exercise program, and improve overall resiliency to painthrough a graded movement program aimed at decreasing sensitivity of pain to improve functional abilities. Patient prognosis is good 2.?*Therapy Session Plan ? Plan Details : *Patient Valued Goals/Activities:, *MD/ELVIN Follow Up Plan: 6 wks w/ Dr. Sykes, *Incoming Referral Tracking - NOOT Evaluation D uePlan:- MedX - cervical & lumbar 3.?PT Eval Assessment ? PT Impairments : Pain / Symptoms, Limited Mobility / AROM, Muscle Weakness, Poor Motor Control, Compensatory Movement Patterns, Poor Muscle Endur ance, Myofascial Tissue Dysfunction ? PT Complexity & Psychosocial Factors : Chronicity / Persistence, Perseverant Thinking on Structural Injury, Avoidance Coping- Activity Avoidant, Persistence Coping - Poor Pacing ? PT Diagnosis : Chronic Pain Syndrome, Mechanical Pain Syndrome, Myofascial Pain Syndrome 4.?PT Planned Interventions ? Manual Therapy : Self Release Instruction, Muscle inhibition techniques, Muscle facilitation techniques, Soft tissue mobilization ? Therapeutic Exercise : Multidisciplinary Rehabilitation (PT/OT), Isolated Spinal Strengthening Program, Home Exercise Program Developed, Graded A ctivity Matched to Goals, ROM & Mobility Exercise, Motor Control Exercises, Functional StrengthExercise ? Patient Education : Pain Neuroscience Education, Pain Management Education, Activity Pacing Education, Self Pain Management Habits ? Functional Activity : Functional strength exercises ? Frequency & Duration POC : PT/OT Sessions 2 x week, 16-24 sessions ? Plan: * Preventive Medicine: ??Physical Therapy Goals:?PT Goal 1?Sampler First Goal (8-12 weeks):.?PT Goal 2?Sampler First Goal (8-12 weeks):.?PT Goal 3?Sampler First Goal (8-12 weeks):.? Billing Information: * Procedure Codes: * Electronic signature of Sara Malave DPT on 03/27/2025 at 05:44 AM CSTSign off status: Pending * Provider: Emy Malave DPT Date: Generated for Printing/Faxing/eTransmitting on:?03/27/2025 05:44 AM CLAMPER
[2025-03-27] VITALS (7 sets, daily range): BP systolic 142–155; BP diastolic 93–116; PULSE 79–97; RESP 16–20; TEMP 36.3; O2SAT 96–100; BMI 27.4
--- OUTSIDE RECORDS SUMMARY | 2025-03-27 05:44 | XMS_ITS | Patient Health Record ---
Author Organization [facility] Address [address] [place] [address] [address] [place] [address] Care Team Providers Care Camera Engineer Name Role Phone Vero Alvarez Primary Care Provider UnavailCésar Naranjo Unavailable [phone] Derrek AZAR, Veronica Unavailable Unavailable Allergies Allergen (clinical drug ingredient) Drug/Non Drug Allergy documented on EMR Reaction Allergy Type Onset Date Status migraine meds (uncoded)SwellingAllergyActivePNC (uncoded)UnknownAllergyActive Non-steroidal anti-inflammatory agent (FN)NSAIDsUnknownDrug AllergyActive Reason For Referral No Information Medications Medication SIG (Take, Route, Frequency, Duration) Notes Start Date End Date Status amLODIPine Besy-Benazepril HCl 5-10 MG Capsule a s directed Orally ActiveWellbutrin SR 150 MG Tablet Extended Release 12 Hour1 tablet in the morning Orally Once a dayActiveMulti VitaminActiveTaltz 80 MG/ML Solution Auto-injectoras directed SubcutaneousActivetiZANidine HCl 2 MG Tablet1 -2 tabs as needed Orally at bedtime; Duration: 30 daysMuscle relaxant, may cause tmkisuwdkt72/15/2024ActiveDULoxetine HCl 60 MG Capsule Delayed Release Particles 1 capsule Orally Once a dayActiveTylenolActive Social History Tobacco Use: Social History Observation Description Date Details (start date - stop date) Current Smoker NA - NA Social History Drug/Alcohol:Social InfoQuestionAnswerNotesAUDIT-C (Standard)Did you have a drink containing alcohol in the past year?Yes? How often did you have six or more drinks on one occasion in the past year?Less than monthly (1 point)? How many drinks did you have on a typical day when you were drinking in the past year?1 or 2 drinks (0 point)? How often did you have a drink containing alcohol in the past year?Monthly or less (1 point)Mcfbxm0ZphhftaqsbmgtjUjkyxsfiRtajxna Use:Social InfoQuestionAnswerNotesTobacco Control (Standard)Tobacco use:Current smoker Problems Problem Type SNOMED Code ICD Code Onset Dates Problem Status W/U Status Risk Notes Problem Chronic pain (61228774) Other chronic miesha n (G89.29) ActiveconfirmedProblemAnkylosing spondylitis (8249727)Ankylosing spondylitis of multiple sites in spine (M45.0)ActiveconfirmedProblemCervical spondylosis without myelopathy (922115583)Spondylosis without myelopathy or radiculopathy, cervical region (M47.812)ActiveconfirmedProblemDegeneration of cervical intervertebral disc (49868770)Other cervical disc degeneration, unspecified cervical region (M50.30)ActiveconfirmedProblemCervical radiculopathy (96313673) Radiculopathy, cervical region (M54.12)ActiveconfirmedProblemCervicalgia (47468918)Cervicalgia (M54.2)ActiveconfirmedProblemBackache (424854173) Dorsalgia, unspecified (M54.9)ActiveconfirmedProblemCervicogenic headache (669210815)Cervicogenic headache (G44.86)ActiveconfirmedProblemLow back pain (592122484)Low back pain, unspecified (M54.50)ActiveconfirmedProblemPsoriatic arthritis (494551296)Psoriatic arthritis (L40.50)Activeconfirmed Plan Of Treatment No Information Insurance Providers Payer Name Payer Address Payer Phone Subscriber Number Group Number Insured Name Patient Relationship to Insured Coverage Start Date Coverage End Date [facility] [address] [place]hen smiley [place]US[place] [phone] [id number] Melissa Escobedo Self - patient is the insured [facility] [facility] [address] [place], [place] [phone] [id number], LauraSelf - patient is the insured Medical (General) History Medical History History ICD Code Acid reflux AnxietyArthritisAsthmaDepressionHeadachesHypertensionMigrainesStomach Ulcers Surgical History Surgery Date(Month/Year) Gastric Bypass 02/2022 Hystorectomy 02/02 Tonsil 2007 DNC 10/2022 Gull bladder 2020 Lithotripsy 2018 2017
--- OUTSIDE RECORDS SUMMARY | 2025-03-27 05:44 | XMS_ITS | Clinical Summary ---
Author Organization [facility] Address [address] [place] [address] Care Team Providers Care Inside Sales Coordinator Name Role Phone Vero Alvarez MD Primary Care Provider [phone] Allergies Active AllergyReactionsCriticalityNoted DateCommentsErgotamine-Caffeine 06/08/20243146Xqheuttrqo82/26/2025KetorolacHeadache,Other (See Comments)High 09/04/20208537MyahxsvfhrsEcwhDkd68/05/2007Lamotrigine NnIafbWnx43/16/2012Nsaids 06/08/2024 H/o gastric bypass OndansetronHeadache,Other (See Comments)High2PenicillinsSwellingHigh 08/27/2011 facial RnckvwcpwbaBidiwwkgxnoIfyf99/07/7661Aqnpcppm72/26/2025 Headache Medications * This document contains information received from the source organization and may not represent a complete record from that organization. MedicationSigDispense QuantityRefillsLast FilledStart DateEnd DateStatus Cholecalciferol (VITAMIN D) 2000 UNITS tablet Take 50 mcg by mouth daily.Active amLODIPine (NORVASC) 5 MG tablet Take 5 mg by mouth daily.Active clonazePAM (KLONOPIN) 0.5 MG tablet Take 0.5 mg by mouth daily as needed for anxiety.Active EPINEPHrine (ANY BX GENERIC EQUIV) 0.3 MG/0.3ML injection 2-pack Inject 0.3 mg into the muscle as needed for anaphylaxis. May repeat one time in 5-15 minutes if response to initial dose is inadequate.Active albuterol (PROAIR HFA/PROVENTIL HFA/VENTOLIN HFA) 108 (90 Base) MCG/ACT inhaler Inhale 1-2 puffs into the lungs every 6 hours as needed for shortness of breath, wheezing or cough.Active childrens multivitamin (ANIMAL SHAPES) CHEW chewable tablet Take 2 tablets by mouth daily.Active cyanocobalamin (VITAMIN B-12) [address] 1,000 mcg under the tongue daily.Active calcium citrate-vitamin D (CITRACAL) 315-6.25 MG-MCG TABS per tablet Take 1 tablet by mouth daily.Active DULoxetine HCl 40 MG CPEP Indications:Moderate episode of recurrent major depressive disorder (H)Take 40 mg by mouth daily. 30 capsule 5Active gabapentin (NEURONTIN) 300 MG capsule Indications:Moderate episode of recurrent major depressive disorder (H)Take 1 capsule (300 mg) by mouth 3 times daily. 90 capsule 5Active hydrOXYzine HCl (ATARAX) 25 MG tablet Indications:Moderate episode of recurrent major depressive disorder (H)Take 1 tablet (25 mg) by mouth 2 times daily as needed for anxiety.5Active pantoprazole (PROTONIX) 40 MG EC tablet Indications:Alcohol withdrawal syndrome, uncomplicated (H)Take 1 tablet (40 mg) by mouth every morning (before breakfast). 30 tablet 5Active prazosin (MINIPRESS) 1 MG capsule Indications:Moderate episode of recurrent major depressive disorder (H)Take 1 capsule (1 mg) by mouth at bedtime. 30 capsule 5Active traZODone (DESYREL) 50 MG tablet Indications:Moderate episode of recurrent major depressive disorder (H)Take 1-2 tablets (50-100 mg) by mouth at bedtime.5Active Active Problems ProblemNoted DateDiagnosed DateAlcohol intoxication with moderate or severe use ocxcjldi84/01/2025lcohol withdrawal syndrome, uyfmdvngcaakl44/25/2025 CARDIOVASCULAR SCREENING; LDL GOAL LESS THAN 7115009/16/2011Condyloma acuminatum due to human ooypmtfxwdwmhg77/31/2012 Overview (01/12/2012): (Problem list name updated by automated process. Provider to review and confirm.) PCOS (polycystic ovarian syndrome)09/10/2011 Overview (09/10/2011): Diagnosis 2011 [facility]; Irregular menses, u/s with cysts. Blighted ovum09/10/2011bnormal Pap smear and cervical HPV (human papillomavirus)09/10/2011 Overview (05/25/2012): IMO update changed this record. Please review for accuracy Kwyuepl9709/10/2011 Immunizations ImmunizationAdministration DatesNext DueDTAP (<7y)11/24/1991,07/20/1990, 11/19/1988,1987,1987HIB (PRP-T)07/20/1990HPV104/19/2007,04/28/2007, 10/30/2006HepB04/30/2001,12/17/1999,03/31/1997MMR (MMRII)12/17/1999,11/19/1988 Poliovirus, inactivated (IPV)07/20/1990,1987,1987TD,PF 7+ (Tenivac) 09/12/1999TDAP (Adacel,Boostrix)02/18/2008 Family History Medical HistoryRelationCommentsObesityBrother 1Unknown/AdoptedMaternal GrandfatherRespiratoryMaternal GrandmotherBreast CancerMotherCardiovascular MotherGynecologyMotherHeart DiseaseMotherHypertensionMotherObesityMother RespiratoryMotherUnknown/AdoptedPaternal GrandfatherDiabetesPaternal Grandmother RespiratoryPaternal GrandmotherDiabetesPaternal UncleRelationStatusComments Brother 1AliveBrother 2AliveFatherAliveMaternal GrandfatherDeceasedMaternal GrandmotherDeceasedMotherAlivePaternal GrandfatherDeceasedPaternal Grandmother DeceasedPaternal Uncle Social History Tobacco UseTypesPacks/DayYears UsedDateSmoking Tobacco: Every DayCigarettes Smokeless Tobacco: Never Tobacco Cessation:Ready to Q uit: Yes; Counseling Given: Yes Comments:discussed smoking cessation with patient Alcohol UseStandard Drinks/WeekCommentsNo0 (1 standard drink = 0.6 oz pure alcohol)Adolescent EducationAnswerDate RecordedGetting School Help NeededNot on file01/14/2023Food InsecurityAnswerDate RecordedWithin the past 12 months, did you worry that your food would run out before you got money to buy more?No 06/07/2024Within the past 12 months, did the food you bought just not last and you didn???t have money to getmore?No06/07/2024Housing StabilityAnswerDate RecordedDo you have housing? (Housing is defined as stable permanent housing and does not include staying outside in a car, in a tent, in an abandoned building, in an overnight long term, or couch-surfing.)Yes06/07/2024re you worried about losing your housing?No06/07/2024Financial Resource StrainAnswerDate Recorded Within the past 12 months, have you or your family members you live with been unable to get utilities (heat, electricity) when it was really needed?No 06/07/2024Transportation NeedsAnswerDate RecordedWithin the past 12 months, has lack of transportation kept you from medical appointments, getting your medicines, non-medical meetings or appointments, work, or from getting things that you need?No06/07/2024Interpersonal SafetyAnswerDate RecordedDo you feel physically and emotionally safe where you currently live?Yes06/07/2024Within the past 12 months, have you been hit, slapped, kicked or otherwise physically hurt by someone?No06/07/2024Within the past 12 months, have you been humiliated or emotionally abused in other ways by your partner or ex-partner?No06/07/2024 CommentsUnknownSex and Gender InformationValueDate RecordedSex Assigned at BirthNot on fileLegal QtkMfevhc30/04/2012 4:27 AM CSTGender IdentityNot on fileSexual OrientationNot on file Last Filed Vital Signs Vital SignReadingTime TakenCommentsBlood Mwwhglkp040/29642 8:25 PM CDT Pnqxp5902 8:26 PM GOZQnfwngbaezq82 ??C (98.6 ??F)11/11/2024 11:58 AM CDT Respiratory Vmaf4488 8:26 PM CDTOxygen Uptcheqliy79%11/11/2024 2:00 PM CDTInhaled Oxygen Concentration--Upokgq09 kg (150 lb)11/11/2024 3:51 PM CDT Yericf512.6 cm (5' 6)11/11/2024 3:51 PM CDTBody Mass Index24.21011/11/2024 3:51 PM CDT Plan of Treatment Health MaintenanceDue DateLast DoneCommentsADVANCE CARE XIAQJYLI1987ANNUAL REVIEW OF HM CJJVHY72 1987DEPRESSION ACTION PLAN1987YEARLY PREVENTIVE VISIT1990PHQ-908/COVID-19 VACCINE ( season) /02/2023, 11/29/2021, 04/09/2021, Additional history existsINFLUENZA VACCINE (#1)509/, 01/10/2021, 01/26/2019, Additional history aiwkmuPBM27/18/20240413/, 02/28/2022, 09/10/2011, Additional history exists DTAP/TDAP/TD VACCINE (8 - Td or Tdap)/, 02/18/2008, 09/12/1999, Additional history existsDIABETES EBWBBYXDX11/04/2024, 06/08/2024, 06/08/2024, Additional history existsZOSTER VACCINE (1 of 2) 2037HEPATITIS B XVXJTRJQxqhmrgqk33/18/2002, 04/30/2001, 12/17/1999, Additional history existsHPV TFBZWQBXbicpfqml14/07/2008, 04/28/2007, 10/30/2006 HEPATITIS C CAKHNCUDZYrjlnmkdl32/06/2017HIV JVLVRVDMBHaxjeaqjo34/06/2017, 08/21/2011PNEUMOCOCCAL VACCINE: PEDIATRICS (0 to 5 YEARS) AND AT-RISK PATIENTS (6 to 49 YEARS)Qelhdvjyn08/19/2022, 04/29/2016MENINGITIS VACCINEAged OutNo longer eligible based on patient's age to complete this topic Procedures Procedure NamePriorityDate/TimeAssociated DiagnosisCommentsBASIC METABOLIC PANEL (LIMITED OCCURRENCES)STAT11/11/2024 12:36 PM CDT PAP IMAGED THIN LAYER VTXVFSPywsilc50/30/2012 2:08 PM CDT Abnormal Pap smear and cervical HPV (human papillomavirus) HIV 1 AND 2 ANTIBODY (QUEST)Azyqkwk2008/21/2011 8:19 AM CDT Missed menses from Last 3 Months or Most Recently Relevant to Health Maintenance Results * (ABNORMAL) Basic Metabolic Panel (Limited Occurrences) (11/11/2024 12:36 PM CDT)ComponentValueRef RangeTest MethodAnalysis TimePerformed AtPathologist YpkfpkmtuWuedzg771239 - 145 mmol/L11/11/2024 1:15 PM CDTSH LABORATORYPotassium 2.6(LL)3.4 - 5.3 mmol/L11/11/2024 1:15 PM CDTSH XWUIZQMMVRTzfezuxn396(H)98 - 107 mmol/L11/11/2024 1:15 PM CDTSH LABORATORYCarbon Dioxide (CO2)21(L)22 - 29 mmol/L11/11/2024 1:15 PM CDTSH LABORATORYAnion Ohj772 - 15 mmol/L11/11/2024 1:15 PM CDTSH LABORATORYUrea Nitrogen8.46.0 - 20.0 mg/dL11/11/2024 1:15 PM CDT SH LABORATORYCreatinine0.650.51 - 0.95 mg/dL11/11/2024 1:15 PM CDTSH LABORATORYGFR Estimate>90>60 mL/min/1.65p30311/11/2024 1:15 PM CDTSH LABORATORY Comment:eGFR calculated using 2020 CKD-EPI equation.Calcium8.88.8 - 10.4 mg/dL 11/11/2024 1:15 PM CDTSH THYGEUPOUFXkzzjku0305 - 99 mg/dL11/11/2024 1:15 PM CDTSH LABORATORYSpecimen (Source)Anatomical Location / LateralityCollection Method / VolumeCollection TimeReceived TimeBloodSTRUCTURE OF RIGHT UPPER LIMB / UnknownVenipuncture / Kkfeipq8711/11/2024 12:36 PM CDT11/11/2024 12:45 PM CDT Narrative Authorizing ProviderResult TypeResult StatusConnie Chano Goodwin MDLAB - BLOOD ORDERABLESFinal ResultPerforming OrganizationAddressCity/State/ZIP CodePhone Number LABORATORY [facility] [address], [address] [place] [address], [place] [phone] * PAP imaged thin layer screen (09/10/2011 2:08 PM CDT)ComponentValueRef Range Test MethodAnalysis TimePerformed AtPathologist SignaturePAPNILCOPATHCopath Report Patient Name: IMTIAZ LAGUERRE MR#: [id number] Specimen #: [id number] Collected: 09/10/2011 Received: 09/11/2011 Reported: 09/15/2011 08:57 Ordering Phy(s): ULISES LITTLEJOHN SPECIMEN/STAIN PROCESS: Pap imaged thin layer prep screening (Surepath, FocalPoint with guided screening) ? Pap-Cyto x 1, HPV ordered x 1 SOURCE: Cervical, endocervical Pap imaged thin layer prep screening (Surepath, FocalPoint with guided screening) SPECIMEN ADEQUACY: Satisfactory for evaluation. -Transformation zone component present. CYTOLOGIC INTERPRETATION: Negative for Intraepithelial Lesion or Malignancy Electronically signed out by: LORELEI Newton (ASCP) Processed and screened at [facility] CLINICAL HISTORY: LMP: 07/17/11 , Papanicolaou Test Limitations: ??Cervical cytology is a screening test with limited sensitivity; regular screening is critical for cancer prevention; Pap tests are primarily effective for the diagnosis/prevention of squamous cell carcinoma, not adenocarcinomas or other cancers. TESTING LAB LOCATION: [facility], [address] [place] [address] ??[id number] COLLECTION SITE: Client: ??[facility] Location: CPFP (B)COPATHSpecimen (Source)Anatomical Location / Laterality Collection Method / VolumeCollection TimeReceived TimeCytologic material (specimen)09/10/2011 2:08 PM CDT09/11/2011 9:14 AM CDT Narrative Authorizing ProviderResult TypeResult StatusUlises PULLIAM - OPTIME CLINICAL SPECIMENFinal ResultPerforming OrganizationAddressCity/State/ZIP CodePhone Number [facility] * HIV 1 and 2 Antibody (08/21/2011 8:19 AM CDT)ComponentValueRef RangeTest MethodAnalysis TimePerformed AtPathologist SignatureHIV 1&2 AntibodyNegative [facility]pec[facility] (Source)Anatomical Location / LateralityCollection Method / VolumeCollection TimeReceived Time Blood specimen (specimen)08/21/2011 8:19 AM CDT08/21/2011 8:20 AM CDT Narrative Authorizing ProviderResult TypeResult StatusUlises PULLIAM - BLOOD ORDERABLESFinal ResultPerforming OrganizationAddressCity/State/ZIP CodePhone Number [facility] [address] [place] [address] from Last 3 Months or Most Recently Relevant to Health Maintenance Advance Directives For more information, please contact: [phone] * Full Code (Latest Code Status on File) Date ActivatedDate InactivatedComments06/07/2024 4:01 06/09/2024 12:42 PMAll basic and advanced life-sustaining interventions are performed as appropriate QuestionAnswerCommentsCode status determined by:* Unable to discuss and no AD/POLST on file; continue PREVIOUSLY ORDERED code status Care Teams Team MemberRelationshipSpecialtyStart DateEnd Date Vero Alvarez MD [address] [address] PCP - GeneralFamily Medicine06/07/24
--- OUTSIDE RECORDS SUMMARY | 2025-03-27 05:44 | XMS_ITS | Clinical Summary ---
Author Organization Quotations Book [facility] Address [address] [place] [address] Care Team Providers Care Counseling Services Director Name Role Phone Vero Alvarez MD Primary Care Provider Joseph Menendez MD Unavailable [phone] Janis Mcgarry RN Unavailable [phone] Unavailable [phone] Allergies Active AllergyReactionsCriticalityNoted DateCommentsErgotamine-CaffeineFlushing 08/11/20171960IscxixranaIwwcnlmhebtFkfn42/16/2022KetorolacHeadache,Other - Describe In Comment YlcjzLexz01/25/2290JnqsfcijxncBsjzPwq93/05/2007Nsaids (Non-Steroidal Anti-Inflammatory Drug)Other - Describe In Comment Field,*Tlbywsx6002/20/2022 H/o gayatri-n-y gastric bypass. AVOID NSAIDs and aspirin due to risk of gastric and/or G-J anastomotic ulcers. If Melissa must be on short course of NSAIDs or aspirin, use enteric coated if possible and use PPI // Ann Marie Concepcion RN, Bariatric Nurse Clinician, [facility] 02/20/2022 H/o gastric bypass OndansetronHeadache,Other - Describe In Comment FdbpsXdcc57/14/2022enicillins Edema,MmcnvbcoyoeGoue68/06/0119CbtrlegcxdqAbalhmkettnIoyj03/22/2011Tramadol IbkqtfokWifw76/06/2023Unlisted Allergen (Include Detail In Comments)Other - Describe In Comment Field05/18/2023 Medications * This document contains information received from the source organization and may not represent a complete record from that organization. MedicationSigDispense QuantityRefillsLast FilledStart DateEnd DateStatus EPINEPHrine (EPIPEN) 0.3 mg/0.3 mL injection Indications:Hives of unknown originInject 0.3 mg intramuscular one time if needed for Allergic Reaction for up to 1 dose. 2 Each 01/18/2018Active pediatric multivitamins-iron 18 mg chewable (FLINTSTONES PLUS IRON; BUGS BUNNY PLUS IRON) chewable tablet Chew 2 Tablets by mouth once daily.ctive cholecalciferol, Vitamin D3, (Vitamin D-3) 5,000 unit tab tablet Take 5,000 units by mouth once daily. Not vlenba569ctive cyanocobalamin (Vitamin B-12) 1,000 mcg tablet Take 1 Tablet (1,000 mcg) by mouth once daily. 90 Tablet Active triamcinolone (ARISTOCORT; KENALOG) 0.1 % cream Indications:Hand dermatitisApply topically to affected area(s) three times daily. 80 g 11/11/2022ctive calcium citrate (CITRACAL) 200 mg (950 mg) tablet Take by mouth.11/21/2022ctive vitamin B complex (B-COMPLEX VITAMIN) tablet Take 1 Tablet by mouth.11/21/2022ctive traZODone 50 mg tablet Indications:Psychophysiologic insomniaTake 1-2 Tablets (50-100 mg) by mouth at bedtime if needed for Sleep. 180 Tablet 5Active prazosin (MINIPRESS) 1 mg capsule Indications:NightmaresTake 2 Capsules (2 mg) by mouth at bedtime. 60 Capsule 5Active gabapentin (NEURONTIN) 300 mg capsule Indications:Generalized anxiety disorder with panic attacksTake 2 Capsules (600 mg) by mouth three times daily. 180 Capsule 5Active DULoxetine (CYMBALTA) 60 mg Delayed-release capsule Indications:Generalized anxiety disorder with panic attacks,MDD (major depressive disorder), recurrent episode, mildTake 1 Capsule (60 mg) by mouth once daily. 90 Capsule 5Active hydrOXYzine HCL (ATARAX) 50 mg tablet Indications:Generalized anxiety disorder with panic attacksTake 1 tablet up to twice daily as needed for anxiety 60 Tablet 5Active Garlic 1,000 mg cap Take by mouth.5Active Milk Thistle 500 mg capsule Take by mouth.5Active Gwpmy-0-BLK-EPA-Fish Oil 1,000 (120-180) mg cap Take 1 Capsule (1,000 mg) by mouth.5Active potassium chloride (KLOR-CON M10) 10 mEq extended-release tablet (part/cryst) Take 1 Tablet (10 mEq) by mouth once daily.5Active amLODIPine (NORVASC) 5 mg tablet Indications:HTN (hypertension)Take 1 Tablet (5 mg) by mouth once daily. 90 Tablet 5Active metoprolol succinate (TOPROL XL) 25 mg Sustained-Release tablet Indications:HTN (hypertension)Take 1 Tablet (25 mg) by mouth once daily. 90 Tablet 5Active albuterol HFA (Ventolin HFA) 90 mcg/actuation inhaler Indications:Exercise induced bronchospasm (HC),Asthma, unspecified asthma severity, unspecified whether complicated, unspecified whether persistent (HC) Inhale 2 Puffs by mouth 4 times daily if needed for Wheezing or Shortness Of Breath. 2 Each 5Active albuterol HFA (PRO-AIR; VENTOLIN; PROVENTIL) 90 mcg/actuation inhaler Indications:Exercise induced bronchospasm (HC),Asthma, unspecified asthma severity, unspecified whether complicated, unspecified whether persistent (HC) Inhale 1-2 Puffs by mouth every 4 hours if needed for Shortness Of Breath or Wheezing. 1 Each 5Active albuterol HFA (Ventolin HFA) 90 mcg/actuation inhaler Indications:Exercise induced bronchospasm (HC),Asthma, unspecified asthma severity, unspecified whether complicated, unspecified whether persistent (HC) Inhale 2 Puffs by mouth 4 times daily if needed. 1 Each /12/2024Discontinued(Reorder (E-cancel not sent)) hydrOXYzine HCL (ATARAX) 50 mg tablet Indications:Generalized anxiety disorder with panic attacksTake 1 tablet up to twice daily as needed for anxiety 60 Tablet 109511/Discontinued(*Med complete/Regimen complete/Level of care change) metoprolol succinate (TOPROL XL) 25 mg Sustained-Release tablet Indications:HTN (hypertension)Take 1 Tablet (25 mg) by mouth once daily. 90 Tablet 512/12/2024Discontinued(Reorder (E-cancel not sent)) hydrOXYzine HCL (ATARAX) 50 mg tablet Indications:Generalized anxiety disorder with panic attacksTake 1 tablet up to twice daily as needed for anxiety 60 Tablet 511/Discontinued(*Error/order entry clerk error) Active Problems ProblemNoted DateDiagnosed DateGastric ulcer11/30/2023Epigastric pain11/24/2023 Paroxysmal SVT (supraventricular tachycardia)06/05/2023S/P robotic gastric bypass by Dr. Menendez02/18/2022 Overview (02/18/2022): Surgery 02/19/2022 238 lbs BMI 38 Hianfubxtcftyntlsmv51/03/2022nkylosing spondylitis of lumbar bljezk2911/03/2021 Overview (11/03/2021): 06/2021 [facility] Rheumatology diagnosis Psoriatic vmolgjptp53/24/2022 Overview (11/03/2021): 06/2021 [facility] rheumatology diagnosis Controlled substance agreement ogbgqi5910/31/2021 Overview (10/31/2021): 10/31/21 Sarah Ontiveros DNP SURGICAL INSTRUMENT TECHNICIAN IMMIGRATION ATTORNEY/psychiatry Paroxysmal SVT (supraventricular tachycardia)05/28/2021evere episode of recurrent major depressive disorder, without psychotic vlynzvfm10/15/2022 Obsessive Compulsive Disorder, with mixed obsessional thoughts and acts 04/30/2020IN I (cervical intraepithelial neoplasia I)10/18/2019 Overview (03/28/2022): Plan: Pap/HPV due in 1 year 02/28/2022 NIL/HPV+, HPV 16/18 Negative 10/05/2019 NIL/HPV negative 12/11/2017 [place]: Focal squamous atypia suggestive of JOEY I 04/03/2017 NIL/HPV+ 09/01/2016 [place]: No biopsy 07/21/2016 NIL/HPV+ 09/10/2011 NIL/HPV negative 01/19/2009 [place]: JOEY I 12/13/2008 [place] Jologicyrg51/09/2019 Overview (04/21/2018): Multiple calcified gallstones seen on KUB xray 04/20/18- asymptomatic at that time Migraine with aura, not intractable, without status oiccskdcofo86/17/2018 Overview (07/28/2017): Adult life Left visual field cut Vomiting photophobia Tobacco use05/26/2016Prenatal care, first pgyknumqd25/06/2017 Overview (01/13/2017): SPK, FOB not involved BMI [...] Last Flu vaccine- 01/13/17 Allergies Allergen Reactions ??? Penicillins Edema ??? Sumatriptan Anaphylaxis ??? Lamictal [Lamotrigine] Rash Obstetric History T0 L0 [...] DATE LAST PAP RESULT Abnormal Pap or [place] Bx in last 5 years MENSTRUAL STATUS [place] Bx Done Today ADDITIONAL INFORMATION Automated Review ANCILLARY TESTING CONSTRUCTION ENGINEERING MANAGER NOTE ABORH ANTIBODY SCREEN Negative SPECIMEN EXPIRATION [...] DATE LAST PAP RESULT Abnormal Pap or [place] Bx in last 5 years MENSTRUAL STATUS [place] Bx Done Today ADDITIONAL INFORMATION Automated Review ANCILLARY TESTING CONSTRUCTION ENGINEERING MANAGER NOTE ABORH ANTIBODY SCREEN Negative SPECIMEN EXPIRATION DATE/TIME GLUCOSE,GESTATIONAL 65 - 139 mg/dL PATIENT STATUS RUBELLA IGG ANTIBODY CHLAMYDIA PROBE N GONORRHOEAE PROBE Culture RESULT (A) Streptococcus Group B HIV-1/HIV-2 ANTIBODY Non-Reactive HBSAG Nonreactive TREPONEMA PALLIDUM Negative HEPATITIS C ANTIBODY Non-Reactive HPV RESULTS Negative Bile Acids, Total <=10 mcmol/L Past Medical History: Diagnosis Date ??? Bipolar disorder, unspecified ??? High risk human papilloma virus (HPV) infection of cervix 07/2016 NIL/HPV positive, Plan: colposcopy ??? Low grade squamous intraepithelial lesion (LGSIL) on cervical Pap smear 12/2008 ??? Nephrolithiasis ??? Other unspecified back disorder Curvature of spine ??? PCOS (polycystic ovarian syndrome) ??? Undiagnosed cardiac murmurs Stated by pt, her mother told her she has one ??? Unspecified asthma(493.90) uses inhaler 2 - 3 times q day Past Surgical History: Procedure Laterality Date ??? COLPOSCOPY 01/2009 JOEY 1 ??? suction currettage 10/17/11 ??? WISDOM TEETH EXTRACTION No data on file. POONAM 01/10/17 Problems (from 05/19/16 to present) Problem Noted Resolved care, first 05/19/2016 by Joseline Delaney, RN No Overview Addendum 11/12/2016 12:12 PM [...] wks _ GBS: Tdap: 10/30/2016 Rhogam: Beatris Luque, ELIOTC.....01/13/2017 1:40 PM Major depressive disorder, recurrent, mild03/19/2016Generalized anxiety disorder 03/19/2016Incomplete spontaneous without mention of complication 10/17/2011 Overview (10/17/2011): Suction curettage done Class 3 severe obesity due to excess calories without serious comorbidity with body mass index (BMI) of 40.0 to 44.9 in adult10/17/2011Glucose intolerance 12/03/2007Condyloma qkzbgotmzr55/02/2008Unspecified episodic mood disorder 02/11/2007Unspecified asthma(493.90)09/17/2006DysphagiaGastroesophageal reflux disease Resolved Problems ProblemNoted DateDiagnosed DateResolved DateRheumatoid cyabzltnp45/27/2021 01/22/2023 Overview (06/09/2020): Diagnosed 2 years ago by play leader Low grade squamous intraepithelial lesion (LGSIL) on cervical Pap smear Overview (05/01/2017): 12/2008 Pap: LSIL 01/2009 [place]: JOEY 1 07/2016 Pap: NIL/HPV positive 09/01/2016: Colposcopy, , no bx taken 04/03/17: Pap NIL, HPV + Plan per Vero Alvarez MD: Colposcopy Depressive disorder, not elsewhere gcrkqnipkl01High risk human papilloma virus (HPV) infection of yyeysk0510/18/2019 Overview (05/01/2017): NIL/HPV positive, Encounters DateTypeDepartmentCare TxklLpjcqrrrxgi39/11/2025Telephone [facility] [address] [facility] [place] [address] Vero Alvarez MD Medication Management (Albuterol )2025Telephone [facility] [address] [facility] [address] [place] [address] Joseph Menendez MD Referral (WEIGHT MGMT)03/22/2025Results Follow-Up [facility] [address] [place] [address] Vero Alvarez MD 03/21/2025 10:25 AM CSTOffice Visit [facility] [address] [facility] [place] [address] Vero Alvarez MD Follow Up03/21/20254606Rqtsmu96/24/2025Orders Only [facility] Scanner 1 scan: (1-Ord) [facility], CT ANGIO CHEST PE PROTOCOL, 03/06/2025 03/06/2025Orders Only [facility] Scanner 1 scan: (1-Ord) [facility], XR CHEST 2V, Refill [facility] [address] [place] [address] Inga Ontiveros NP Refill Request (Hydroxyzine Hcl)03/01/2025Nurse Triage [facility] [address] [facility] [place] [address] Vero Alvarez MD Cough02/27/2025Telephone [facility] [address] [place] [address] Vero Alvarez MD ER Follow up (detox)02/23/2025 9:43 AM HISTORY CARD CLERK - 02/23/2025 10:55 AM CSTEmergency [facility] [address] [place] [address] Tahira Silverman MD Alcoholic intoxication without complication (Primary Dx) Discharge Disposition: Home Self Care02/23/2025Orders Only [facility] [address] [place] [phone] Latesha Sullivan LGSW <No scans attached>02/23/20255224Likcub94/17/2025 10:30 AM CDTNurse/Clinic Staff Only [facility] [address] [place] [address] Blood Huincrxp37/17/2025Telephone [facility] [address] [place] [address] Vero Alvarez MD High Blood Dsgltvyy34/17/2025Travelfrom Last 3 Months Immunizations ImmunizationAdministration DatesNext DueAMB Influenza, IIV4 PF (=>6 mos Flulaval,Fluzone Fluarix)(Flu Clinic Only)01/26/2019COVID-19 vaccine (Moderna 50mcg/0.5mL) 12YO+ BIVALENT PF, MDV3COVID-19 vaccine (Pfizer-BioNTech 30mcg/0.3mL) 12YO+ MOLLY-SUCROSE PF, MDV2COVID-19 vaccine (Pfizer- BioNTech 30mcg/0.3mL) PF, MDV106/10/2020,09/03/2020,1DTP11/24/1991, 07/20/1990,11/19/1988,1987,1987DTaP11/24/1991,07/20/1990,11/19/1988, 1987,1987HIB PRP-T (ActHIB,Hiberix)07/20/1990HPV 9 (Gardasil 9) 02/18/2008,04/28/2007,10/30/2006Hepatitis B (Peds)04/30/2001,12/17/1999, 03/31/1997Hib Conjugate, Ldhnwtiokvb49/09/1991Human Papilloma Virus Vaccine 02/18/2008,04/28/2007,10/30/2006INFLUENZA, IIV3 PF (AGE >= 6 MO)03/21/2025 Inactivated Polio Upnvhot1707/20/1990,1987,1987Influenza, IIV3 (Age >=3 years)02/18/2008Influenza, VWD477/,01/10/2021,12/23/2017,01/13/2017 MMR12/17/1999,11/19/1988Pneumococcal Conj 20-valent (Prevnar 20)11/29/2021 Pneumococcal Poly,23-Valent (Pneumovax)04/29/2016Polio Virus, Unspecified 07/20/1990,1987,1987Td (Age >=7 Years)09/12/1999Td, Preservative Free (age >= 7 Years)09/12/1999Tdap10/30/2016,02/18/2008 Family History Medical HistoryRelationNameCommentsHypertensionBrother 1NickPsychiatric illness Brother 1Nickbipolar, ADHD, OCD (20 years old)Good HealthBrother 4Oqchiq4 years oldHypertensionBrother 2JeromeDiabetes type IIFatherRichardHypertensionFather RichardCancerMaternal Auntrenal cancerHeart DiseaseMotherCindyheart failure HypertensionMotherCindyPsychiatric illnessMotherCindyon meds for bipolar / depression / anxietyOtherPaternal Grandfatherrenal failure, DVT/PE, aortic aneurysmCancer-breastNo Family HistoryRelationNameStatusCommentsBrother 1Nick AliveBrother 2JeromeAliveBrother 3RichardDeceased (Age 0.5 days old) shortly after birthFatherRichardAliveMaternal AuntMaternal GrandfatherDeceasedMaternal GrandmotherDeceasedMotherCindyAlivePaternal GrandfatherDeceasedPaternal GrandmotherDeceased Social History Tobacco UseTypesPacks/DayYears UsedDateSmoking Tobacco: Every DayCigarettes0.321 Started: 11/04/2021; Last attempted to quit: 12/08/2021assive Smoke Exposure: PastSmokeless Tobacco: Never Tobacco Cessation:Ready to Q uit: Not Asked; Counseling Given: Not Answered Alcohol UseStandard Drinks/WeekCommentsYes0 (1 standard drink = 0.6 oz pure alcohol)PHQ-2AnswerDate RecordedPHQ-2 TOTAL ABLRP379Social Connections AnswerDate RecordedDo you often feel lonely or isolated from those around you?0 12/07/2024lcohol UseAnswerDate RecordedHow often do you have a drink containing alcohol?How many drinks containing alcohol do you have on a typical day when you are drinking?Not on file03/21/2025How often do you have five or more drinks on one occasion?Financial Resource StrainAnswerDate RecordedDifficulty of Paying Living Tbrpfxjh214/27/2025Difficulty of Paying Living ExpensesNot on file12/07/2024Food InsecurityAnswerDate RecordedDo you worry your food will run out before you are able to buy more? Transportation NeedsAnswerDate RecordedDoes lack of transportation keep you from medical appointments?Does lack of transportation keep you from work, meetings or getting things that you need?Housing StabilityAnswerDate RecordedWhat is your housing situation today?Interpersonal Safety AnswerDate RecordedAre you being hit, kicked, pushed or yelled at (see row info)?No02/23/2025Interpersonal Safety Abuse 12 - 18Not on file02/23/2025 Interpersonal Safety Ambulatory VulnerabilityNot on file02/23/2025Utilities AnswerDate RecordedDo you have trouble paying for utilities (for example, heat, electricity, water, phone)?CommentsNoSex and Gender InformationValueDate RecordedSex Assigned at BirthNot on fileLegal SexFemale 04/26/2012 6:28 AM CSTGender IdentityNot on fileSexual OrientationNot on file 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 EmployeeNot on fileNot on fileNot on file Obstetrics History GravidaParaTermPretermABIABSABEctopicMultipleLivingLive [id number] OutcomeGATotal LaborLabor/2nd/7xsNixpcvHezDfftNfozVILEriD9U9RmuyFqldYycjN CS-KKmhgjXdezps5920TXRSOYWJEUJAHVDnjfl Comments:D&C Last Filed Vital Signs Vital SignReadingTime TakenCommentsBlood Portsgmq825/9503/21/2025 11:01 AM HISTORY CARD CLERK Ejsqx063903/21/2025 11:01 AM OVXQrnlbrvtsnr20.7 ??C (98 ??F)02/23/2025 10:04 AM CSTRespiratory Fbbi6550/ 10:04 AM CSTOxygen Qpfgevmdun565%03/21/2025 11:01 AM CSTInhaled Oxygen Concentration--Jbjbmx12.1 kg (170 lb)03/21/2025 11:01 AM JYCZopthg421.6 cm (5' 6)10/03/2024 2:35 PM CDTBody Mass Index27.44 10/03/2024 2:35 PM CDT Plan of Treatment DateTypeDepartmentCare Team (Latest Contact Info)Wanxvtkkvyw81/23/2025 11:30 AM CSTTelemedicine [facility] [address] [place] [address] Inga Ontiveros NP [address] [place] [address] 04/28/2025 10:00 AM CSTTelemedicine [facility] [address] [place] [address] Jewel Mehta PsyD, LP [address] [place] [address] 05/19/2025 11:00 AM CSTProcedure Only [facility] [address] [facility] [address] [place] [address] Master Sifuentes MD [address] [facility] [address] [place] [address] 06/01/2025 1:30 PM CSTOffice Visit [facility] [address] [address] [place] [address] [place] [address] 06/06/2025 11:15 AM CSTOffice Visit [facility] [address] [place] [address] Zant, Vero Fernando, MD [address] [place] [address] 06/07/2025 11:00 AM CSTTelemedicine [facility] [address] [place] [address] Anirudh Montes De Oca, MS, [facility] [address] [id number] Health MaintenanceDue DateLast DoneCommentsBMI (ht and wt on same day) for age 18+/, 11/17/2023, 11/12/2023, Additional history existsCOVID- 19 vaccine series (2024- season)/02/2023, 11/29/2021, 04/09/2021, Additional history existsDepression screening for age 12+12/01/2025 12/01/2024, 07/07/2024, 06/09/2024, Additional history existsTetanus booster , 02/18/2008, 09/12/1999, Additional history existsPap test for age 21-65/12/2024, 02/28/2022, 02/28/2022, Additional history existsHepatitis B series for 19+Klznbkqsg30/18/2002, 12/17/1999, 03/31/1997HPV series for age 9-56Ldjsthqdq95/07/2008, 02/18/2008, 04/28/2007, Additional history existsHIV for age 15-64Iymcyxzjp81/06/2017, 12/10/2015, 12/01/2008 Hepatitis C screening for age 18-74Zvxfrkqrl09/06/2017, 12/03/2015Pneumococcal series for age 6-44Tryuxpekf41/19/2022, 04/29/2016Influenza VaccineCompleted 03/21/2025, 01/07/2022, 01/10/2021, Additional history exists Medical Devices ImplantedTypeAreaManufacturerDevice IdentifierShelf Expiration DateModel / Serial / LotStent Nasal Latera Kit Absorb - [id number] Implanted:Qty: 1 on 01/31/2021 [facility]05/02/[id number] / [id number] / [id number] Pancreatic [id number] Advanix Stra No Ines Plst - [id number] Implanted:Qty: 1 on 11/14/2021 by Carmine Sol MD at [facility] Fuofrwxkmuyxetzt09/17/[id number] / / [id number] Procedures Procedure NamePriorityDate/TimeAssociated DiagnosisCommentsHEMOGLOBIN G3LAcpcjgu 03/21/2025 12:29 PM HISTORY CARD CLERK S/P gastric bypass BASIC METABOLIC WNDDPTnsjjmu03/09/2025 12:29 PM HISTORY CARD CLERK S/P gastric bypass VITAMIN B1 (THIAMINE) RLQHRBlljyyy89/09/2025 12:29 PM HISTORY CARD CLERK S/P gastric bypass VITAMIN B76Qwvtuoa19/09/2025 12:29 PM HISTORY CARD CLERK S/P gastric bypass VITAMIN D 25 (DEFICIENCY)Hpsugxn6203/21/2025 12:29 PM HISTORY CARD CLERK S/P gastric bypass FVQTQJUQGkrrasf54/09/2025 12:29 PM HISTORY CARD CLERK S/P gastric bypass PXOSGVWRGCMeshrez91/09/2025 12:29 PM HISTORY CARD CLERK S/P gastric bypass HPV HIGH DTHCCtisygc55/09/2025 12:00 PM HISTORY CARD CLERK Papanicolaou smear of cervix with positive high risk human papilloma virus (HPV) test SCAN-CT REOYDBJPLHTHYT60/24/2025 12:00 AM CSTSCAN-RADIOLOGY QLSHCR5203/06/2025 12:00 AM HISTORY CARD CLERK ANTI HIV 1/2Djkuuqd86/06/2017 12:13 PM HISTORY CARD CLERK care, first , unspecified trimester (HC) ANTI EMUIeaimzr59/06/2017 12:13 PM HISTORY CARD CLERK care, first , unspecified trimester (HC) from Last 3 Months or Most Recently Relevant to Health Maintenance Results * VITAMIN B1 (THIAMINE) BLOOD (03/21/2025 12:29 PM HISTORY CARD CLERK)ComponentValueRef Range Test MethodAnalysis TimePerformed AtPathologist SignatureVITAMIN B1 (THIAMINE), BLOOD, LC/MS/CU63014 - 185 nmol/L105/27/2024 1:17 PM CSTQUEST DIAGNOSTICSComment: (Note) Vitamin supplementation within 24 hours prior to blood draw may affect the accuracy of the results. This test was developed and its analytical performance characteristics have been determined by [employer]. It has not been cleared or approved by FDA. This assay has been validated pursuant to the CLIA regulations and is used for clinical purposes. [facility] [address] [address],[address] [place] [address] Anuradha Chong MD, PhD Specimen (Source)Anatomical Location / LateralityCollection Method / Volume Collection TimeReceived TimeBloodBLOOD SPECIMEN / UnknownQuest Collect / Unknown 03/21/2025 12:29 PM CST03/21/2025 12:30 PM HISTORY CARD CLERK Narrative Authorizing ProviderResult TypeResult StatusMelissa Fernando Alvarez MDSEND OUTSFinal ResultPerforming OrganizationAddressCity/State/ZIP CodePhone Number [facility] [employer] [facility] [phone], * HEMOGLOBIN A1C (03/21/2025 12:29 PM HISTORY CARD CLERK)ComponentValueRef RangeTest Method Analysis TimePerformed AtPathologist SignatureHEMOGLOBIN A1C5.1<5.7 % 03/22/2025 6:25 AM CSTQUEST DIAGNOSTICSComment: For the purpose of screening for the presence of diabetes: <5.7% Consistent with the absence of diabetes 5.7-6.4% ?Consistent with increased risk for diabetes ?(prediabetes) > or =6.5% Consistent with diabetes This assay result is consistent with a decreased risk of diabetes. Currently, no consensus exists regarding use of hemoglobin A1c for diagnosis of diabetes in children. According to [place] Diabetes Association (ADA) guidelines, hemoglobin A1c <7.0% represents optimal control in non- diabetic patients. Different metrics may apply to specific patient populations. Standards of Medical Care in Diabetes(ADA). ?? Specimen (Source)Anatomical Location / LateralityCollection Method / Volume Collection TimeReceived TimeBloodBLOOD SPECIMEN / UnknownQuest Collect / Unknown 03/21/2025 12:29 PM CST03/21/2025 12:30 PM HISTORY CARD CLERK Narrative Authorizing ProviderResult TypeResult StatusVero Alvarez MDCHEMISTRYFinal ResultPerforming OrganizationAddressCity/State/ZIP CodePhone Number [facility] [address] [phone], * (ABNORMAL) VITAMIN D 25 (DEFICIENCY) (03/21/2025 12:29 PM HISTORY CARD CLERK)ComponentValue Ref RangeTest MethodAnalysis TimePerformed AtPathologist SignatureVITAMIN D,25-OH,TOTAL,IA27(L)30 - 100 ng/mL03/22/2025 5:38 AM [facility] Comment: Vitamin D Status ? 25-OH Vitamin D: Deficiency: <20 ng/mL Insufficiency: ? 20 - 29 ng/mL Optimal: > or = 30 ng/mL For 25-OH Vitamin D testing on patients on D2-supplementation and patients for whom quantitation of D2 and D3 fractions is required, the Connect HQAssureD(TM) 25-OH VIT D, (D2,D3), LC/MS/MS is recommended: order code 16438 (patients >2yrs). See Note 1 Note 1 For additional information, please refer to http://education.[employer].Drill Map/faq/VOR459 (This link is being provided for informational/ educational purposes only.) Specimen (Source)Anatomical Location / LateralityCollection Method / Volume Collection TimeReceived TimeBloodBLOOD SPECIMEN / UnknownQuest Collect / Unknown 03/21/2025 12:29 PM CST03/21/2025 12:30 PM HISTORY CARD CLERK Narrative Authorizing ProviderResult TypeResult StatusVero Alvarez MDSEND OUTSFinal ResultPerforming OrganizationAddressty/State/ZIP CodePhone Number NearbyNow [facility] [address] [place] [address], [place] [phone] * HEMOGLOBIN (03/21/2025 12:29 PM HISTORY CARD CLERK)ComponentValueRef RangeTest MethodAnalysis TimePerformed AtPathologist PhlrkvabaYMAUPLQFWY18.811.7 - 15.5 g/dL03/22/2025 5:59 AM CSTQUEST ZTIYXYHZHLJJIJ79.881.4 - 101.7 fL03/22/2025 5:59 AM CSTQUEST DIAGNOSTICSSpecimen (Source)Anatomical Location / LateralityCollection Method / VolumeCollection TimeReceived TimeBloodBLOOD SPECIMEN / UnknownQuest Collect / Qezhqfu0003/21/2025 12:29 PM CST03/21/2025 12:30 PM HISTORY CARD CLERK Narrative Authorizing ProviderResult TypeResult StatusVero Florwill Alvarez MDHEMATOLOGYFinal ResultPerforming OrganizationAddressCity/State/ZIP CodePhone Number NearbyNow [facility] [address] [place] [phone], [place] [phone] * FERRITIN (03/21/2025 12:29 PM HISTORY CARD CLERK)ComponentValueRef RangeTest MethodAnalysis TimePerformed AtPathologist HpnqnfpgsYGBYKLZT8153 - 154 ng/mL03/22/2025 5:23 AM CSTQUEST DIAGNOSTICSSpecimen (Source)Anatomical Location / Laterality Collection Method / VolumeCollection TimeReceived TimeBloodBLOOD SPECIMEN / UnknownQuest Collect / Mkwpjba2103/21/2025 12:29 PM CST03/21/2025 12:30 PM HISTORY CARD CLERK Narrative Authorizing ProviderResult TypeResult StatusVero Florwill Alvarez MDCHEMISTRYFinal ResultPerforming OrganizationAddEndless Mountains Health Systemsty/State/ZIP CodePhone Number NearbyNow [facility] [address] [place] [address], [place] [phone] * VITAMIN B12 (03/21/2025 12:29 PM HISTORY CARD CLERK)ComponentValueRef RangeTest Method Analysis TimePerformed AtPathologist SignatureVITAMIN [id number] - 1100 pg/mL 03/22/2025 5:38 AM CSTQUEST DIAGNOSTICSSpecimen (Source)Anatomical Location / LateralityCollection Method / VolumeCollection TimeReceived TimeBloodBLOOD SPECIMEN / UnknownQuest Collect / Umljyye6803/21/2025 12:29 PM CST03/21/2025 12:30 PM HISTORY CARD CLERK Narrative Authorizing ProviderResult TypeResult StatusMelissa Fernando Alvarez MDCHEMISTRYFinal ResultPerforming OrganizationAddressCity/State/ZIP CodePhone Number [facility] [address] [place] [address], * BASIC METABOLIC PANEL (03/21/2025 12:29 PM HISTORY CARD CLERK)ComponentValueRef RangeTest MethodAnalysis TimePerformed AtPathologist AnkhzjoxsAMTCOQ882721 - 146 mmol/L 03/22/2025 5:41 AM CSTQUEST DIAGNOSTICSPOTASSIUM4.33.5 - 5.3 mmol/L105/23/2024 5:41 AM CSTQUEST DIAGNOSTICSCARBON OZACRQN7299 - 32 mmol/L105/23/2024 5:41 AM CSTQUEST IKZDQQGLBJJLFVLQBI2099 - 99 mg/dL03/22/2025 5:41 AM CSTQUEST DIAGNOSTICSComment: ? Fasting reference interval CALCIUM9.68.6 - 10.2 mg/dL03/22/2025 5:41 AM CSTQUEST DIAGNOSTICSCREATININE0.89 0.50 - 0.97 mg/dL03/22/2025 5:41 AM CSTQUEST DIAGNOSTICSBUN/CREATININE RATIOSEE NOTE:6 (calc)03/22/2025 5:41 AM CSTQUEST DIAGNOSTICSComment: ?? Not Reported: BUN and Creatinine are within ?? reference range. ? EGFR86> OR = 60 mL/min/1.41e97703/22/2025 5:41 AM CSTQUEST DIAGNOSTICSUREA NITROGEN (BUN)107 - 25 mg/dL03/22/2025 5:41 AM CSTQUEST DIAGNOSTICSELECTROLYTE ZQCQJKY58 - 17 mmol/L (calc)03/22/2025 5:41 AM CSTQUEST FGLBVNGMIQMANODDFCU96480 - 110 mmol/L105/23/2024 5:41 AM CSTQUEST DIAGNOSTICSSpecimen (Source)Anatomical Location / LateralityCollection Method / VolumeCollection TimeReceived TimeBlood BLOOD SPECIMEN / UnknownQuest Collect / Nrgxqgd3203/21/2025 12:29 PM CST03/21/2025 12:30 PM HISTORY CARD CLERK Narrative Authorizing ProviderResult TypeResult StatusWaleskanathan Walkerferdinand MDCHEMISTRYFinal ResultPerforming OrganizationAddressCity/State/ZIP CodePhone Number [facility] [address] [phone], * (ABNORMAL) HPV HIGH RISK (03/21/2025 12:00 PM HISTORY CARD CLERK)ComponentValueRef RangeTest MethodAnalysis TimePerformed AtPathologist SignatureTYPE 16NegativeNegative 03/24/2025 5:07 PM [facility]ST[facility]AL LABORATORYTYPE 18 VdfyyryeQfylzjki18/12/2025 5:07 PM CST[facility] LABORATORYOTHER HIGH RISK TYPESPositive(A)Ylvbpsyq41/12/2025 5:07 PM CSTCEN[facility] LABORATORYSpecimen (Source)Anatomical Location / LateralityCollection Method / VolumeCollection TimeReceived TimeOtherVAGINAL SWAB / UnknownNon-Blood / Ateazau4903/21/2025 12:00 PM CST2025 9:59 AM HISTORY CARD CLERK Narrative [facility] - 03/24/2025 5:07 PM HISTORY CARD CLERK Specimen is positive for the DNA of any one of, or combination of, the following high risk HPV types: 31, 33, 35, 39, 45, 51, 52, 56, 58, 59, 66, 68. HPV types 16 and 18 DNA were undetectable or below the pre-set threshold. ? Methodology: Juan José Hugo 4800 HPV Test Authorizing ProviderResult TypeResult StatusVero Florwill Alvarez MDMICROBIOLOGY Final ResultPerforming OrganizationAddressCity/State/ZIP CodePhone Number [facility] [address] [place] [address], * SCAN-RADIOLOGY REPORT (03/06/2025 12:00 AM HISTORY CARD CLERK)Anatomical RegionLaterality ModalityOther Narrative Authorizing ProviderResult TypeResult StatusScannerOTHERFinal Result * SCAN-CT INTERPRETATION (03/06/2025 12:00 AM HISTORY CARD CLERK)Anatomical RegionLaterality ModalityOther Narrative Authorizing ProviderResult TypeResult StatusScannerOTHERFinal Result * ANTI HCV (05/19/2016 12:13 PM HISTORY CARD CLERK)ComponentValueRef RangeTest MethodAnalysis TimePerformed AtPathologist SignatureHEPATITIS C ANTIBODYNon-Reactive Non-Guylxnhg62/06/2017 5:08 PM CST[facility] Specimen (Source)Anatomical Location / LateralityCollection Method / Volume Collection TimeReceived TimeBloodBLOOD SPECIMEN / UnknownVenipuncture / Sbveecc3705/19/2016 12:13 PM CST05/19/2016 12:14 PM HISTORY CARD CLERK Narrative [facility] - 05/19/2016 5:08 PM HISTORY CARD CLERK Antibodies to HCV not detected; does not exclude the possibility of exposure to HCV. Authorizing ProviderResult TypeResult StatusTatiana Sykes MDSEND OUTSFinal ResultPerforming OrganizationAddressCity/State/ZIP CodePhone Number [facility] [address] [place] [address] * ANTI HIV 1/2 (05/19/2016 12:13 PM HISTORY CARD CLERK)ComponentValueRef RangeTest Method Analysis TimePerformed AtPathologist SignatureHIV-1/HIV-2 ANTIBODYNon-Reactive Non-Fohrthxc95/06/2017 5:09 PM CST[facility] Specimen (Source)Anatomical Location / LateralityCollection Method / Volume Collection TimeReceived TimeBloodBLOOD SPECIMEN / UnknownVenipuncture / Gmiteih6705/19/2016 12:13 PM CST05/19/2016 12:14 PM HISTORY CARD CLERK Narrative [facility] - 05/19/2016 5:09 PM HISTORY CARD CLERK HIV-1 p24 and HIV-1/HIV-2 Ab not detected Authorizing ProviderResult TypeResult StatusTatiana Sykes MDSEND OUTSFinal ResultPerforming OrganizationAddressCity/State/ZIP CodePhone Number [facility] [address] from Last 3 Months or Most Recently Relevant to Health Maintenance Insurance * Guarantor: Melissa Escobedo AAccount TypeRelation to PatientDate of BirthPhone Billing AddressPersonal/JrvzkqKdxg1985 [address] [place] [address] * Guarantor: Melissa Escobedo AAccount TypeRelation to PatientDate of BirthPhone Billing AddressMotor KnisjhxMvuz[address] [place] [address] Advance Directives * Full Code (Latest Code Status on File) Date ActivatedDate InactivatedComments11/24/2023 10:58 AM11/24/2023 2:15 PM QuestionAnswerCommentsCode Status Discussion:* Reviewed Preferences * Full Code Date ActivatedDate YygjkdohcdxCuicekcq68/9/2022 1:20 PM02/21/2022 1:43 PM QuestionAnswerCommentsCode Status Discussion:* Reviewed Preferences * Full Code Date ActivatedDate TojvywcuceqGjeedcgw59/9/2022 6:00 AM02/19/2022 1:20 PMQuestion AnswerCommentsCode Status Discussion:* Not Discussed * Full Code Date ActivatedDate InactivatedComments11/13/2021 9:31 PM11/15/2021 3:40 PMQuestion AnswerCommentsCode Status Discussion:* Other * Full Code Date ActivatedDate InactivatedComments05/20/2021 11:12 AM05/20/2021 3:26 PMQuestion AnswerCommentsCode Status Discussion:* Reviewed Preferences Care Teams Team MemberRelationshipSpecialtyStart DateEnd Date Vero Alvarez MD [facility] [place] [address] PCP - GeneralFamily Practice01/06/17 Joseph Menendez MD [address] [facility] [address] [place] [address] Consulting PhysicianSurgery - Cvedjto72/18/21 Janis Mcgarry RN [address] [address] Care CoordinatorRegistered Nurse02/28/[address] [address] Adhesive Primer/NutritionistRegistered Ycwmwfgzb03/18/21
--- NOTE | 2025-03-27 06:37 | ED.GENADULT ---
HPI - General Adult General Chief complaint: Alcohol/Intoxication Stated complaint: Substance use Time Seen by Provider: 03/27/25 06:36 History of Present Illness HPI narrative: has been drinking for 4 days straight, passes out and then wakes up and starts drinking again. Roughly has drank 2 bottles of Hendricks. Wants help and realized this and called EMS for help. Does have some stuff going on in her life and a H/O of anxiety and depression per patient report. Is nauseated and vomiting. States it hurts too bad to stop and gets so sick I keep drinking Did punch the wall a couple of times and complains of tingling/ numbness in the palm of her hand. 40-year-old woman presenting to the emergency department with concern of of drinking too much and says that she needs help. Had been sober for 1 month. Has been drinking steadily for 4 days now. Has been vomiting. It is not specific but does have emotional pain that she is trying to cover up which keeps her drinking as well as abdominal pain. History of kidney stones and thinks that maybe she does have another. She does report history of significant alcohol withdrawal but not seizures. In last few days has punched a wall and is experiencing a great deal of pain in right hand. On initial inquiry she does not commit to desire for detox. She denies HI or SI but has trouble expressing why she can not be at home noting that she does does not feel safe there alone. Related Data Home Medications ?Medication ?Instructions ?Recorded ?Confirmed amlodipine 5 mg tablet 5 mg PO DAILY 10/26/21 03/27/25 trazodone 50 mg tablet 50 - 100 mg PO HS PRN 10/26/21 03/27/25 duloxetine 60 mg capsule,delayed 60 mg PO QAM 11/06/21 03/27/25 release epinephrine 0.3 mg/0.3 mL 0.3 mg IM ONCE PRN 11/06/21 03/27/25 injection, auto-injector calcium citrate 200 mg PO QDAY 11/21/22 03/27/25 cholecalciferol (vitamin D3) 10 10 mcg PO QDAY 11/21/22 03/27/25 mcg (400 unit) tablet multivitamin 1 tab PO QDAY 11/21/22 03/27/25 vitamin B complex (B 1 tab PO QDAY 11/21/22 03/27/25 Complex-Vitamin B12 tablet) triamcinolone acetonide 0.1 % 1 applic topical BID-TID PRN 01/26/23 03/27/25 topical cream albuterol sulfate 90 mcg/actuation 2 inh inhalation Q4H PRN 01/29/23 03/27/25 aerosol inhaler gabapentin 300 mg capsule 300 mg PO TID 11/21/24 03/27/25 hydroxychloroquine 200 mg tablet 600 mg PO BID 03/01/25 03/27/25 hydroxyzine HCl 50 mg tablet 50 mg PO BID 03/01/25 03/27/25 Previous Rx's ?Medication ?Instructions ?Recorded acetaminophen 500 mg tablet 1,000 mg (2 x 500 mg) PO Q6H PRN 11/03/22 Pain #0 tabs diclofenac sodium 1 % topical gel 2 g topical QID #100 grams 11/18/23 (Voltaren Arthritis Pain) omeprazole 40 mg capsule,delayed 40 mg PO DAILY #30 caps 02/07/24 release potassium chloride 20 mEq 20 meq PO BID 5 days #10 tabs 10/25/24 tablet,extended release(part/cryst) metoprolol succinate 25 mg 12.5 mg (1/2 x 25 mg) PO DAILY #15 12/02/24 tablet,extended release 24 hr tabs albuterol sulfate 90 mcg/actuation 2 puff inhalation Q6H PRN 03/01/25 aerosol inhaler shortness of breath or wheezing #6.7 grams famotidine 40 mg tablet 40 mg PO DAILY #30 tabs 03/27/25 Allergies Allergy/AdvReac Type Severity Reaction Status Date / Time ergotamine (From Cafergot) Allergy Severe Anaphylaxis Verified 03/27/25 05:57 ketorolac (From Toradol) Allergy Severe Migraine Verified 03/27/25 05:57 tramadol Allergy Intermediate Headache Verified 03/27/25 05:57 lamotrigine (From Lamictal) Allergy rash Verified 03/27/25 05:57 NSAIDS (Non-Steroidal Allergy gastric Verified 03/27/25 05:57 Anti-Inflamma bypass Penicillins Allergy Anaphylaxis Verified 03/27/25 05:57 sumatriptan Allergy Anaphylaxis Verified 03/27/25 05:57 ondansetron AdvReac Intermediate Migraine Verified 03/27/25 05:57 Review of Systems Status of ROS: Reports: 6 or more systems reviewed and unremarkable except as noted in History and below [facility] Medical History History of gestational hypertension ?Z87.59 - Personal history of other complications of , childbirth and the puerperium (ICD-10) Spontaneous with heavy bleeding (11/03/22) ?O03.9 - Complete or unspecified spontaneous without complication (ICD-10) Low grade squamous intraepithelial lesion (2008) Paroxysmal SVT (supraventricular tachycardia) ?I47.1 - Supraventricular tachycardia (ICD-10) Nephrolithiasis (2010) ?N20.0 - Calculus of kidney (ICD-10) Surgical History History of tonsillectomy (02/25/08) ?Z90.89 - Acquired absence of other organs (ICD-10) H/O dilation and curettage ?Z98.890 - Other specified postprocedural states (ICD-10) History of esophageal dilatation ?Z98.890 - Other specified postprocedural states (ICD-10) 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) ?Z98.84 - Bariatric surgery status (ICD-10) H/O nasal septoplasty ?Z98.890 - Other specified postprocedural states (ICD-10) H/O wisdom tooth extraction ?K08.409 - Partial loss of teeth, unspecified cause, unspecified class (ICD-10) Status post colposcopy (01/2009) ?Z98.890 - Other specified postprocedural states (ICD-10) Status post laser lithotripsy of ureteral calculus (05/17/18) ?Z98.890 - Other specified postprocedural states (ICD-10) S/P (01/21/17) ?Z98.891 - History of uterine scar from previous surgery (ICD-10) Status post cholecystectomy (01/17/21) ?Z90.49 - Acquired absence of other specified parts of digestive tract (ICD-10) Family History Mother Coronary artery disease Anxiety CHF (congestive heart failure) COPD (chronic obstructive pulmonary disease) Brother ADHD (attention deficit hyperactivity disorder) Paternal Grandfather DVT (deep venous thrombosis) Aunt Renal cancer Other Breast cancer Diabetes High blood pressure Kidney disease Leukemia Liver disease Lung cancer Stroke Social History Narrative: Lives in [place] with her son, 5 yo. She works as a [employer] for her son and mother. Also works at [employer]. She smokes 1/2 PPD. Occ ETOH use. No recreational drug use. What is your current living situation?: I presently have a place to live Problems where you live: no known problems In the past 12 months, utilities in danger of being shut off: no In past 12 months, lack of transportation kept you from medical appts, meetings, work, or getting things needed for daily living: no In the past 12 mos, have been you worried that your food would run out before you had money to buy more?: never true In the past 12 mos, the food you bought just didn't last and you didn't have money to buy more?: never true Highest level of school completed/degree received: high school graduate Smoking Status: Current every day smoker What tobacco products do you use: cigarettes Smoking packs per day: 0.5 Smoking cigarettes per day: 10.0 Years smoked: 23 Smoking pack-years: 11.50 Do you use any of these nicotine containing products: None Second hand tobacco smoke exposure: Yes How often do you have a drink containing alcohol: 4 or more times a week Alcohol type: wine and hard liquor How many standard drinks containing alcohol do you have on a typical day: 10 or more How often do you have six or more drinks on one occasion: Daily or almost daily AUDIT-C Alcohol total score: 12 Non-prescribed substance use: denies use Caffeine: Yes (soda, energy drinks) How often does anyone, including family, friends and others, physically hurt you: never How often does anyone, including family, friends and others, insult or talk down to you: never How often does anyone, including family, friends and others, threaten you with harm: never How often does anyone, including family, friends and others, scream or curse at you: never Are you using contraception or practicing any form of control: No service: No Exam Narrative: Exam Narrative: Appears sleepy, intoxicated. Limited answers to questions on interview. Head looks atraumatic. Back as well. No flank pain. Abdomen is soft without peritoneal signs but moderately tender to palpation in the mid abdomen. Oropharynx is sticky. Heart is in elevated rate but regular rhythm. Lungs are clear. Extremities are well perfused. Without edema. Right hand with bruising over the dorsal lateral surface. Quite tender to palpation over the distal aspect of the 4th and 5th metacarpals. Mild swelling here. Const: Vital Signs, click to edit/add: Vital Signs - 24 hr 03/27/25 05:46 03/27/25 06:30 03/27/25 07:30 Temperature 97.3 F L Pulse Rate 79 86 Pulse Rate [Right Pulse Oximeter] 97 Respiratory Rate 19 Blood Pressure Blood Pressure [Ri ght Upper Arm] 155/116 H Pulse Oximetry 96 99 100 Oxygen Delivery Me thod Room Air 03/27/25 07:47 03/27/25 08:03 03/27/25 08:30 Temperature Pulse Rate 89 86 87 Pulse Rate [Right Pulse Oximeter] Respiratory Rate 16 Blood Pressure 142/93 H Blood Pressure [Ri ght Upper Arm] Pulse Oximetry 100 97 98 Oxygen Delivery Me thod Documenting provider has reviewed patient's vital signs: yes Course Vital Signs Vital signs: Initial Vital Signs Temperature 97.3 F L 03/27/25 05:46 Temperature Source Temporal Artery Scan 03/27/25 05:46 Pulse Rate 97 03/27/25 05:46 Pulse Rhythm Regular 03/27/25 05:46 Respiratory Rate 19 03/27/25 05:46 Blood Pressure 155/116 H 03/27/25 05:46 Blood Pressure Mean 129 H 03/27/25 05:46 Blood Pressure Position Supine 03/27/25 05:46 Pulse Oximetry 96 03/27/25 05:46 Oxygen Delivery Method Room Air 03/27/25 05:46 Vital Signs Temperature 97.3 F L 03/27/25 05:46 Pulse Rate 97 03/27/25 05:46 Respiratory Rate 19 03/27/25 05:46 Blood Pressure 155/116 H 03/27/25 05:46 Pulse Oximetry 96 03/27/25 05:46 Oxygen Delivery Method Room Air 03/27/25 05:46 Temperature 97.3 F L 03/27/25 05:46 Pulse Rate 97 03/27/25 08:58 Respiratory Rate 20 03/27/25 08:58 Blood Pressure 145/98 H 03/27/25 08:58 Pulse Oximetry 98 03/27/25 08:58 Oxygen Delivery Method Room Air 03/27/25 05:46 Medications Administered Medications: Discontinued Medications Generic Name Dose Route Start Last Admin Trade Name Chaiq PRN Reason Stop Dose Admin Sodium Chloride 1,000 mls @ 1,000 mls/hr 03/27/25 06:46 03/27/25 07:47 0.9 % Sodium Chloride 1000 Ml IV 03/27/25 07:45 Infused .Q1H ONE Infusion Metoclopramide HCl 10 mg/ 102 mls @ 306 mls/hr 03/27/25 06:48 03/27/25 07:25 Sodium Chloride IVPB 03/27/25 07:07 Infused ONCE ONE Infusion Lidocaine/Aluminum/Magnesium/Simeth 30 ml 03/27/25 08:54 03/27/25 08:57 Gi Cocktail (Visc Lido/Antacid) 30 Ml PO 03/27/25 08:55 30 ml ONCE ONE Administration Medical Decision Making MDM Narrative Medical decision making narrative: Will need to assess level of intoxication and consider again for detox. Differential also includes alcoholic gastritis or pancreatitis; favor the former, hepatitis. Return of ureteral stone and colic? Not clear that she needs hospitalization for mental health but certainly stress from mental health/social difficulties is driving her alcohol use. IV hydration. Standard labs. Migraine apparently from Zofran so will give some Reglan for nausea. Urinalysis does show hematuria. I had requested imaging of the right hand and will also do noncontrast CT abdomen pelvis. X-ray of the right hand independently reviewed by me does not show acute abnormality. Old irregularity? in mid 5th met[address]. [address] noncontrast independently reviewed by me appears to be without ureteral stones. CT imaging of abdomen pelvis independently reviewed by me looks absent any acute abnormality. No ureteral stone. Indication: Injury Technique: A total of three-view of the right hand were acquired. Comparison: None Findings: Bones: Alignment is normal. No acute fracture. Mild irregularity at the base the right 5th metacarpal on the ulnar side. This could be congenital or related to a remote fracture. Joint spaces: Unremarkable. Soft tissues: Unremarkable. Impression: No acute fracture, dislocation or destructive process.Mild irregularity at the base of the right 5th metacarpal on the ulnar side. This could be congenital or related to a remote fracture. Dictated by Dieter Casarez MD @ 03/27/2025 8:07:17 AM INDICATION: Abdominal pain. History of stones. COMPARISON: May 18, 2023 TECHNIQUE: CT examination of the abdomen and pelvis was performed without intravenous contrast. Thin section axial images were obtained from the lung bases through the pubic symphysis. Oral contrast was not administered. Please note that all CT scans at this facility use dose modulation, iterative reconstruction, and/or weight-based dosing when appropriate to reduce radiation dose to as low as reasonably achievable. FINDINGS: LUNG BASES: The lung bases as visualized appear normal.The heart size is normal at the lung bases. LIVER/BILIARY SYSTEM:The liver is normal in size and configuration given the lack of intravenous contrast. There is no visible focal mass and there is no intra- or extra hepatic biliary ductal dilatation.There has been a cholecystectomy ADRENALS: Normal non-contrast appearance KIDNEYS, URETERS and BLADDER:Probably benign bilateral renal lesions similar to 2023. Faint papillary hyperdensities probably tiny calculi though none are measurable. No calculi within the course of either ureter or within the bladder. The stone noted previously on the left has passed. SPLEEN:Normal non-contrast appearance. PANCREAS: Normal non-contrast appearance. RETROPERITONEUM and MESENTERY: There is no mass, adenopathy or aortic aneurysm. GASTROINTESTINAL SYSTEM: There is no evidence of diverticulitis, colitis, mechanical obstruction, or appendicitis. The small bowel as visualized appears normal.Operative changes related to gastric bypass without specific visible associated complication. PELVIS: No mass, adenopathy or free fluid. OSSEOUS STRUCTURES and ABDOMINAL WALL: There is an age-appropriate appearance of the osseous structures.No significant abdominal wall defect. OTHER: No free fluid or free air. IMPRESSION: No specific visible cause for pain. Nonacute appearing findings as discussed above Please note that all CT scans at this facility use dose modulation, iterative reconstruction, and/or weight-based dosing when appropriate to reduce radiation dose to as low as reasonably achievable. Dictated by Dieter Casarez MD @ 03/27/2025 8:12:39 AM Received normal saline Reglan and GI cocktail. Reassuring labs though with ETOH level of 0.22 Upon subsequent conversation with her did look to a detox facility for placement in which she was interested. [facility] was anticipating acceptance upon review, however Melissa ultimately decided that she would prefer to return home. Was ambulatory from the ER. Provided transportation. On reassessment overall is improved as is hand with light Curtis wrapping. See patient discharge plan for further discussion Focus on hydration. Slow advance of diet over the next 24-36 hours. Best wishes in your efforts at sobriety. Would return to meetings of some form. Sending in some famotidine for a couple of weeks to help settle your stomach. Also prescribing Zofran for nausea from [facility]. Medical Records Medical records reviewed: Yes I reviewed the patient's medical records Lab Data Lab results reviewed: Yes I reviewed the patient's lab results Labs: Lab Results 03/27/25 03/27/25 Range/Units 06:56 07:00 WBC 6.27 (4.50-11.00) K/uL RBC 4.73 (4.00-5.20) m/uL Hgb 13.9 (12.0-16.0) gm/dL Hct 41.4 (33.0-51.0) % MCV 88 (80-100) fL MCH 29 (26-34) pg MCHC 34 (32-36) gm/dL RDW Coeff of Compa 13.6 (11.5-15.5) % Plt Count 208 (140-440) K/uL Neut % (Auto) 50.8 (42.0-72.0) % Lymph % (Auto) 38.8 (20-44) % [place] % (Auto) 7.8 (0.0-11.0) % Eos % (Auto) 1.6 (0.0-7.0) % Baso % (Auto) 0.8 (0.0-3.0) % Neut # (Auto) 3.19 (1.7-7.0) K/uL Lymph # (Auto) 2.43 (0.90-2.90) K/uL [place] # (Auto) 0.50 (0.00-0.90) K/UL Eos # (Auto) 0.10 (0.00-0.50) K/uL Baso # (Auto) 0.05 (0.00-0.30) K/uL Abs Immat Gran (auto) 0.01 (0.00-0.30) K/uL Imm/Tot Granulo (auto) 0.2 % Sodium 141 (135-149) mmol/L Potassium 3.7 (3.6-5.1) mmol/L Chloride 111 (96-114) mmol/L Carbon Dioxide 23 (20-32) mmol/L Anion Gap 7 (7-15) mEq/L BUN 11 (5-24) mg/dL Creatinine 0.8 (0.5-1.5) mg/dL Estimated Creat Clear 89.26 Estimated GFR 97 ml/min Glucose 97 (60-115) mg/dL Calcium 8.3 L (8.4-10.6) mg/dL Total Bilirubin 0.6 (0.1-1.5) mg/dL Direct Bilirubin 0.2 (0.0-0.5) mg/dL AST 38 H (12-35) U/L ALT 27 (4-35) U/L Alkaline Phosphatase 80 (40-150) U/L Total Protein 6.8 (6.0-8.3) g/dL Albumin 4.0 (3.3-5.0) g/dL Lipase 65 (23-300) U/L Urine Color Yellow (Yellow) Urine Appearance Clear (Clear) Urine pH 7.0 (5.0-8.5) Ur Specific [place] 1.020 (1.000-1.030) Urine Protein 1+ A (Negative) Urine Glucose (UA) Negative (Negative) Urine Ketones Negative (Negative) Urine Blood 2+ A (Negative) Urine Nitrite Negative (Negative) Urine Bilirubin Negative (Negative) Urine Urobilinogen 0.2 (0.2-1.0) Ur Leukocyte Esterase Negative (Negative) Urine RBC 5-10 A (0-2) Urine WBC 0-2 (0-5) Ur Squamous Epith Cells None (None-Few) Amorphous Sediment Few A (None) Urine Bacteria None (None) Urine Opiates Screen Negative (Negative) Ur Oxycodone Screen Negative (Negative) Urine Methadone Screen Negative (Negative) Acetaminophen < 10.0 (10.0-30.0) ug/mL Ur Barbiturates Screen Negative (Negative) U Tricyclic Antidepress Negative (Negative) Ur Phencyclidine Scrn Negative (Negative) Ur Amphetamines Screen Negative (Negative) U Methamphetamines Scrn Negative (Negative) U Benzodiazepines Scrn Negative (Negative) Urine Cocaine Screen Negative (Negative) U Marijuana (THC) Screen Negative (Negative) Ur Drug Screen Comment See Note Ethyl Alcohol 0.22 H (0.01-0.03) % Lab Acknowledgement Test Added Discharge Plan Discharge Clinical Impression: Alcohol abuse, Alcohol intoxication, Other social stressor, Contusion Patient Disposition: Home w/ Parent or Adult Condition: Improved Additional Instructions: Focus on hydration. Slow advance of diet over the next 24-36 hours. Best wishes in your efforts at sobriety. Would return to meetings of some form. Sending in some famotidine for a couple of weeks to help settle your stomach. Also prescribing Zofran for nausea from [facility]. Prescriptions: New famotidine 40 mg tablet 40 mg PO DAILY Qty: 30 1RF No Action vitamin B complex [B Complex-Vitamin B12] Tablet 1 tab PO QDAY cholecalciferol (vitamin D3) 10 mcg (400 unit) tablet 10 mcg PO QDAY calcium citrate 200 mg (950 mg) tablet 200 mg PO QDAY multivitamin Tablet 1 tab PO QDAY hydroxyzine HCl 50 mg tablet 50 mg PO BID albuterol sulfate 90 mcg/actuation HFA aerosol inhaler 2 puff inhalation Q6H PRN (Reason: shortness of breath or wheezing) Qty: 6.7 0RF diclofenac sodium [Voltaren Arthritis Pain] 1 % gel 2 g topical QID Qty: 100 0RF Rx Instructions: apply sparingly to right knee for 7 days gabapentin 300 mg capsule 300 mg PO TID epinephrine 0.3 mg/0.3 mL auto-injector 0.3 mg IM ONCE PRN duloxetine 60 mg capsule,delayed release(DR/EC) 60 mg PO QAM triamcinolone acetonide 0.1 % cream 1 applic topical BID-TID PRN albuterol sulfate 90 mcg/actuation HFA aerosol inhaler 2 inh inhalation Q4H PRN hydroxychloroquine 200 mg tablet 600 mg PO BID omeprazole 40 mg capsule,delayed release(DR/EC) 40 mg PO DAILY Qty: 30 2RF metoprolol succinate 25 mg tablet extended release 24 hr 12.5 mg PO DAILY Qty: 15 0RF trazodone 50 mg tablet 50 - 100 mg PO HS PRN amlodipine 5 mg tablet 5 mg PO DAILY acetaminophen 500 mg Tablet 1,000 mg PO Q6H PRN (Reason: Pain) Qty: 0 0RF potassium chloride 20 mEq tablet,ER particles/crystals 20 meq PO BID 5 Days Qty: 10 0RF Follow Up/Referrals: Vero Alvarez MD [Primary Care Provider, Family Practice] Stand Alone Forms: [employer] Info Instructions
[2025-03-27 07:02] LABS: Hematocrit* 41.4 % (33.0-51.0); Hemoglobin* 13.9 gm/dL (12.0-16.0); Immature Granulocytes Abs Auto 0.01 K/uL (0.00-0.30); Immature Granulocytes Pct Auto 0.2 %; Lymphocytes Absolute Auto 2.43 K/uL (0.90-2.90); Mean Corpuscular HGB Conc 34 gm/dL (32-36); Mean Corpuscular Hemoglobin 29 pg (26-34); Mean Corpuscular Volume 88 fL (80-100); RDW Coefficient of Variation % 13.6 % (11.5-15.5); Red Blood Count* 4.73 m/uL (4.00-5.20); White Blood Count* 6.27 K/uL (4.50-11.00)
[2025-03-27 07:05] LABS: Slide Review Reflex No
[2025-03-27] MEDS: METOCLOPRAMIDE HCL 10 MG in 0.9 % SODIUM CHLORIDE 100 ml 100 ML 306 MG IVPB (07:05)
[2025-03-27 07:11] LABS: Appearance Urine Clear (Clear)
[2025-03-27 07:21] LABS: Cannabinoid Screen Urine Negative (Negative)
[2025-03-27 07:22] LABS: Methamphetamines Screen Urine Negative (Negative); Tricyclic Antidepressant Urine Negative (Negative)
--- NOTE | 2025-03-27 07:33 | CRLHL7_ITS ---
For Patients: As a result of the Century Cures Act, medical imaging exams and procedure reports are released immediately into your electronic medical record. You may view this report before your referring provider. If you have questions, please contact your health care provider. Indication: Injury Technique: A total of three-view of the right hand were acquired. Comparison: None Findings: Bones: Alignment is normal. No acute fracture. Mild irregularity at the base the right 5th metacarpal on the ulnar side. This could be congenital or related to a remote fracture. Joint spaces: Unremarkable. Soft tissues: Unremarkable. Impression: No acute fracture, dislocation or destructive process.Mild irregularity at the base of the right 5th metacarpal on the ulnar side. This could be congenital or related to a remote fracture. Dictated by Dieter Casarez MD @ 03/27/2025 8:07:17 AM (Electronically Signed)
[2025-03-27 07:40] LABS: Albumin* 4.0 g/dL (3.3-5.0)
[2025-03-27 07:41] LABS: Chloride* 111 mmol/L (96-114); Potassium* 3.7 mmol/L (3.6-5.1); Sodium* 141 mmol/L (135-149)
[2025-03-27 07:43] LABS: Alanine Aminotransferase* 27 U/L (4-35); Anion Gap 7 mEq/L (7-15); Aspartate Amino Transferase* 38 U/L (12-35); Blood Urea Nitrogen* 11 mg/dL (5-24); Carbon Dioxide* 23 mmol/L (20-32); Creatinine* 0.8 mg/dL (0.5-1.5); Est. Creatinine Clearance* 89.26; Estimated Glomerular Filt Rate 97 ml/min; Total Protein* 6.8 g/dL (6.0-8.3)
[2025-03-27 07:44] LABS: Alkaline Phosphatase* 80 U/L (40-150); Bilirubin Direct* 0.2 mg/dL (0.0-0.5); Bilirubin Total* 0.6 mg/dL (0.1-1.5); Calcium* 8.3 mg/dL (8.4-10.6); Ethanol* 0.22 % (0.01-0.03); Glucose* 97 mg/dL (60-115)
[2025-03-27 07:46] LABS: Acetaminophen* < 10.0 ug/mL (10.0-30.0)
--- NOTE | 2025-03-27 07:49 | CRLHL7_ITS ---
For Patients: As a result of the Century Cures Act, medical imaging exams and procedure reports are released immediately into your electronic medical record. You may view this report before your referring provider. If you have questions, please contact your health care provider. INDICATION: Abdominal pain. History of stones. COMPARISON: May 18, 2023 TECHNIQUE: CT examination of the abdomen and pelvis was performed without intravenous contrast. Thin section axial images were obtained from the lung bases through the pubic symphysis. Oral contrast was not administered. Please note that all CT scans at this facility use dose modulation, iterative reconstruction, and/or weight-based dosing when appropriate to reduce radiation dose to as low as reasonably achievable. FINDINGS: LUNG BASES: The lung bases as visualized appear normal.The heart size is normal at the lung bases. LIVER/BILIARY SYSTEM:The liver is normal in size and configuration given the lack of intravenous contrast. There is no visible focal mass and there is no intra- or extra hepatic biliary ductal dilatation.There has been a cholecystectomy ADRENALS: Normal non-contrast appearance KIDNEYS, URETERS and BLADDER:Probably benign bilateral renal lesions similar to 2023. Faint papillary hyperdensities probably tiny calculi though none are measurable. No calculi within the course of either ureter or within the bladder. The stone noted previously on the left has passed. SPLEEN:Normal non-contrast appearance. PANCREAS: Normal non-contrast appearance. RETROPERITONEUM and MESENTERY: There is no mass, adenopathy or aortic aneurysm. GASTROINTESTINAL SYSTEM: There is no evidence of diverticulitis, colitis, mechanical obstruction, or appendicitis. The small bowel as visualized appears normal.Operative changes related to gastric bypass without specific visible associated complication. PELVIS: No mass, adenopathy or free fluid. OSSEOUS STRUCTURES and ABDOMINAL WALL: There is an age-appropriate appearance of the osseous structures.No significant abdominal wall defect. OTHER: No free fluid or free air. IMPRESSION: No specific visible cause for pain. Nonacute appearing findings as discussed above Please note that all CT scans at this facility use dose modulation, iterative reconstruction, and/or weight-based dosing when appropriate to reduce radiation dose to as low as reasonably achievable. Dictated by Dieter Casarez MD @ 03/27/2025 8:12:39 AM (Electronically Signed)
[2025-03-27] MEDS: GI COCKTAIL (VISC LIDO/ANTACID) 30 ML PO (08:57)
== END 2025-03-27 09:37 | disposition home or self-care (01) ==
PROVIDERS: Emergency Provider Family Medicine; PCP Family Medicine
DX: F10.129 Alcohol abuse with intoxication, unspecified (principal); F43.9 Reaction to severe stress, unspecified; R31.9 Hematuria, unspecified; S60.221A Contusion of right hand, initial encounter; F17.210 Nicotine dependence, cigarettes, uncomplicated; W22.01XA Walked into wall, initial encounter; Y90.7 Blood alcohol level of 200-239 mg/100 ml
CPT/HCPCS: 36415; 73130; 74176; 80048; 80076; 80143; 80306; 81001; 82077; 83690; 85025; 96361; 96365; 99284; 99285; A0425; A0427; A9270; J2765; J7030